=== PATIENT | male | born 1975 | race Caucasian/White ===

== ENCOUNTER 2019-05-04 05:08 | Emergency (ER) | payer SELFPAY ==
[2019-05-04 05:08] VITALS: BP 192/104; PULSE 71; RESP 18; TEMP 37.4; O2SAT 96; BMI 27.5
--- NOTE | 2019-05-04 05:17 | ED.VIS.GEN ---
History of Present Illness Chief Complaint: Headache Detail of Chief Complaint: Headache, congestion, cough Informant: Patient Onset: Days - 4 days Context: Gradual Onset Current Severity: Moderate Maximum Severity: Moderate Narrative: Patient presents with a 4-day history of left-sided head pressure. He states he feels it someone is drilling into the side of his head. He had some mild congestion. He has had cough, but states every time he coughs he feels like his head is going to explode. He denies fever or chills. - Past Medical History (1) Coronary artery disease Status: Chronic (2) Myocardial infarction Status: Chronic (3) H/O heart artery stent Status: Chronic (4) History of appendectomy Status: Resolved (5) H/O hernia repair Status: Resolved Past Medical History - Allergies and Home Meds Allergies/Adverse Reactions: Allergies mint Allergy (Verified 05/04/19 05:11) Hives Penicillins Allergy (Verified 05/04/19 05:11) Anaphylaxis Primary Care Physician: NOT,DEFINED [NON-STAFF] - Prior records reviewed: Yes Lives: Alone Smoking Status: Current every day smoker Review of Systems General: Denies: Chills, Fever Eyes: Denies: Visual changes - bilaterally ENT: Denies: Bilateral ear pain Cardiovascular: Denies: Chest pain, Palpitations Respiratory: Reports: Dyspnea, Cough. Denies: Sputum Gastrointestinal: Denies: Abdominal pain, Nausea, Vomiting, Diarrhea Genitourinary: Denies: Dysuria Musculoskeletal: Denies: Myalgias, Extremity Pain Skin: Denies: Rash Neurological: Reports: Headache. Denies: Weakness, Parasthesia Physical Exam Vital Signs/Narrative: Vital Signs Temp Pulse Resp BP Pulse Ox 05/04/19 05:08 99.4 F H 71 18 192/104 H 96 Inital Vital Signs reviewed: Yes General: Well nourished, Well developed Head: Normocephalic ENT: Moist mucous membranes, TM's clear, Sinus tenderness - Patient has reproducible tenderness over both frontal sinuses. He has tenderness in the left maxillary sinus., - - Posterior pharyngeal drainage. Uvula midline. Neck: Supple, - - Moderate bilateral anterior cervical lymphadenopathy. Cardiovascular: Regular rate, Regular rhythm Respiratory: No distress, CTA bilaterally Abdomen: Soft, Nontender Skin: Normal color Neurological: Alert, Oriented x3 Psychological: Normal affect Diagnostic/Tx/Re-eval - Medical Decision Making Patient did drive himself to the emergency room and states he needs to drive himself home. He was given IV fluids, Toradol, and Zofran. He was given a dose of doxycycline for his sinusitis. On repeat evaluation blood pressure is 153/96. Patient tells me that because he does not have insurance he has not been on his medication for at least the last 6 months. He was able to write to the [facility] and get his Effient, but has not been taking any of his other medications. I did leave a message for social work with his permission to see if they can help with assistance. I will also give him a good Rx card to try to help with prescription costs. He will be given a prescription for doxycycline as well as metoprolol to help with his blood pressure control at home. He states his blood pressure usually runs around 180/112. ED Disposition - Plan for ED Patient: Disposition: Home or Assisted Living Diagnosis: Sinusitis Instructions: Sinus Headache, SINUSITIS, Abx Tx Prescriptions: Doxycycline 100 mg PO BID #20 capsule Metoprolol Tartrate 25 mg PO BID #60 tablet Referrals: Bari Olsen MD [STAFF PHYSICIAN] - Nicholas Rangel MD [STAFF PHYSICIAN] -
[2019-05-04] MEDS: Doxycycline 100 MG CAPSULE PO (05:22)
[2019-05-04] MEDS: 0.9% Normal Saline 1,000 ML 1000 ML IV (05:22)
[2019-05-04] MEDS: Ketorolac 30 MG/ML Syringe IV (05:23)
[2019-05-04] MEDS: Ondansetron 4 MG/2 ML Vial IV (05:24)
[2019-05-04 06:32] VITALS: BP 153/96
[2019-05-04 06:50] VITALS: BP 153/95; PULSE 78; RESP 18; O2SAT 96
== END 2019-05-04 06:51 | disposition home or self-care (01) ==
PROVIDERS: Emergency Provider Emergency Medicine
DX: J32.9 Chronic sinusitis, unspecified (principal); I25.10 Atherosclerotic heart disease of native coronary artery without angina pectoris; I25.2 Old myocardial infarction; F17.200 Nicotine dependence, unspecified, uncomplicated; Z95.5 Presence of coronary angioplasty implant and graft
CPT/HCPCS: 96361; 96374; 96375; 99284; J7030; A4216; J2405

== ENCOUNTER 2022-03-27 15:57 | Emergency (ER) | payer OTHER, SELFPAY ==
[2022-03-27 15:58] VITALS: TEMP 36.6; BMI 27.3
[2022-03-27 16:07] VITALS: BP 182/99; PULSE 79; RESP 18; TEMP 37; O2SAT 97
--- NOTE | 2022-03-27 16:13 | ED.RN ---
pt took 2 full strength aspirin and 1 nitro at home.
--- NOTE | 2022-03-27 16:21 | ED.VIS.CHEST ---
HPI History of Present Illness Chief Complaint: Chest Pain Informant: patient Onset/Context/Timing Onset: Today and Hours (8) Activity at onset: sudden Timing: Continuous Quality: Positive for Pressure and Tightness Location: Substernal and Left Parasternal Worsened By: Nothing Relieved By: Nothing Associated Symptoms: Positive for Dyspnea, Cough, Lightheadedness, Acid Reflux and Palpitations; Negative for Nausea, Vomiting, Diaphoresis or Fever Narrative Narrative: Patient presents with chest pain that began approximately 8 hours prior to arrival. Patient states the pain came on rather suddenly. Patient states he took his aspirin after this began. Patient states he also took a sublingual nitroglycerin which gave him a headache but did not affect his chest pain at all. Patient describes it as a tightness and pressure. Patient states it is over the substernal and left parasternal areas. Patient states nothing makes it better nothing makes it worse. Patient admits to some shortness of breath and cough. Patient also admits to some lightheadedness and palpitations. Patient also admits to some reflux symptoms. Patient has a history of coronary artery disease. Patient states the symptoms are similar to his prior [place]. [facility] Medical History (Updated 03/27/22 @ 20:[address] Bari Franco, DO) HTN (hypertension) Myocardial infarct Home Medications amlodipine 5 mg tablet 5 mg PO DAILY 03/27/22 [History Last Taken Unknown] aspirin 325 mg tablet 325 mg PO DAILY 03/27/22 [History Last Taken Unknown] lisinopril 10 mg tablet 10 mg PO DAILY 03/27/22 [History Last Taken Unknown] metoprolol tartrate 100 mg tablet 100 mg PO BID 03/27/22 [History Last Taken Unknown] pantoprazole 40 mg tablet,delayed release 40 mg PO DAILY 03/27/22 [History Last Taken Unknown] prasugrel 10 mg tablet (Effient) 10 mg PO DAILY 03/27/22 [History Last Taken Unknown] ranolazine 1,000 mg tablet,extended release,12 hr (Ranexa) 1,000 mg PO BID 03/27/22 [History Last Taken Unknown] simvastatin 40 mg tablet 40 mg PO QHS 03/27/22 [History Last Taken Unknown] Allergy/AdvReac Type Severity Reaction Status Date / Time mint Allergy Hives Verified 03/27/22 15:58 Penicillins Allergy Anaphylaxis Verified 03/27/22 15:58 Surgical History (Updated 03/27/22 @ 16:[address] Bari Franco DO) H/O heart artery stent Social History Smoking Status: Current every day smoker tobacco type: cigarettes ROS ROS ED Constitutional Constitutional ED: Denies chills or fever(s) Eyes Eyes: Reports blurry vision; Denies diplopia ENT ENT ED: Denies rhinorrhea or sore throat Cardiovascular Cardiovascular: Reports chest pain and palpitations Respiratory/Chest Respiratory/Chest: Reports cough and dyspnea Gastrointestinal Gastrointestinal: Denies abdominal pain, nausea or vomiting Genitourinary Genitourinary ED: Denies dysuria or hematuria Musculoskeletal Musculoskeletal: Reports neck pain; Denies back pain Integumentary Denies abscess or rash Neurologic Neurologic: Reports headache(s); Denies weakness Allergic/Immunologic Allergic/Immunologic ED: Denies mouth swelling or urticaria EXAM Physical Exam Const Vital Signs: 03/27/22 15:58 03/27/22 16:07 03/27/22 18:36 Temperature 97.8 F 98.6 F Temperature Source Temporal Oral Pulse Rate 79 77 Respiratory Rate 18 15 Blood Pressure 182/99 H 172/106 H Blood Pressure Mean 126 128 Pulse Ox 97 97 Oxygen Delivery Method Room Air Room Air Positive well nourished and well developed General Appearance ED: well developed and NAD HEENT normocephalic and atraumatic Eyes PERRL and EOMs intact bilaterally Neck supple and no JVD Chest Wall palpation of chest normal Resp normal respiratory effort and clear to auscultation bilaterally Effort and Inspection: Negative for respiratory distress Cardio regular rate, regular rhythm and no murmurs GI normal to inspection, nondistended, normoactive bowel sounds, soft to palpation and non-distended GI Narrative: There is some mild diffuse abdominal tenderness. There is no rebound or guarding noted. Extremity normal to inspection General Extremety ED: Negative for edema or tenderness General Extremity: Negative for edema Neuro oriented x3, CN's II-XII intact bilaterally and no sensory deficits noted Sensorium / Orientation: awake and alert Motor Exam: strength 5/5 throughout Psych mental status grossly normal Heart Score History: Slightly/Non-Suspicious ECG: Normal Age: >45 - <65 years Risk Factors: >/= 3 Risk Factors or History of CAD Troponin: </= Normal Limit Score: 3 MDM MDM MDM Narrative Medical decision making narrative: Patient had already taken aspirin and nitroglycerin prior to arrival, so this was not given here. EKG was obtained. On my interpretation, it showed a normal sinus rhythm with a rate of 74. NM interval, QRS interval, and QTc intervals were all normal. [place] was normal. There are no acute ST or T wave changes. There is poor R wave progression consistent with prior septal infarct. CBC was obtained and was reviewed. There is a mild leukocytosis of 11.8 but was otherwise within normal limits. Basic metabolic profile was obtained and was reviewed. Glucose was slightly elevated at 171 but the remainder was within normal limits. Anion gap was normal. Electrolytes were normal. High-sensitivity troponin was obtained and was reviewed. It was normal at 8. Portable 1 view chest x-ray was obtained. On my interpretation, lung haney are clear. There is normal cardiac silhouette. Bony thorax is normal. There is no acute process noted. Radiologist also interpreted the x-ray and agrees. 2-hour repeat high-sensitivity troponin was obtained and was reviewed. This was also normal at 7. Patient has a HEART score of 3. Patient was advised that this is low risk for acute cardiac event. Patient is PERC negative. I do not feel this is from a PE because he is PERC negative. Patient was instructed to follow-up with his primary care physician in 3 to 5 days. Patient was instructed return if worse in any way. Patient understood and was agreeable with the plan. All questions were answered. Lab Data Labs: Laboratory Results - last 24 hr 03/27/22 03/27/22 03/27/22 16:30 16:30 18:28 WBC 11.8 H RBC 5.68 Hgb 16.5 Hct 48.9 MCV 86.1 MCH 29.0 MCHC 33.7 RDW Std Deviation 39.6 RDW Coeff of Mesha 12.7 Plt Count 327 MPV 10.5 Immature Gran % (Auto) 0.400 Neut % (Auto) 64.8 Lymph % (Auto) 27.0 Mcclain % (Auto) 5.9 Eos % (Auto) 1.4 Baso % (Auto) 0.5 Absolute Neuts (auto) 7.6 Absolute Lymphs (auto) 3.18 Nucleated RBC % 0 Sodium 137 Potassium 3.7 Chloride 104 Carbon Dioxide 27.0 Anion Gap 6 BUN 15 Creatinine 1.17 Estim Creat Clear Calc 72.97 Est GFR (MDRD) Af Amer 86 Est GFR (MDRD) Non-Af 71 BUN/Creatinine Ratio 12.8 Glucose 171 H Calcium 8.7 Troponin I High Sens 8 7 Radiography Diagnostic Testing: Clinical Impression(s) from Imaging Studies Chest X-Ray 03/27/22 16:35 IMPRESSION: Normal x-ray examination of the chest. Electronically Signed: Alonzo Ingram MD at 17:25 EST Reading Location ID and State: [facility] / [place] , Service support , EKG Initial EKG: Attestation: I personally reviewed and interpreted this EKG as follows: Interpretation: Sinus Rhythm (74) and No Acute Injury Pattern Prior EKG tracings: not available for review Prior: No Prior Discharge Plan Triage Chief Complaint: Chest Pain ED Provider: Bari Franco Dx/Rx/DC Orders Clinical Impression: Chest pain of uncertain etiology, Hypertension Instructions: ED Chest Pain, Uncertain Cause Prescriptions: No Action aspirin 325 mg Tablet 325 mg PO DAILY metoprolol tartrate 100 mg Tablet 100 mg PO BID amlodipine 5 mg Tablet 5 mg PO DAILY simvastatin 40 mg Tablet 40 mg PO QHS pantoprazole 40 mg Tablet,Delayed Release (Dr/Ec) 40 mg PO DAILY lisinopril 10 mg Tablet 10 mg PO DAILY ranolazine [Ranexa] 1,000 mg Tablet Extended Release 12 Hr 1,000 mg PO BID prasugrel [Effient] 10 mg Tablet 10 mg PO DAILY Primary Care Provider: Care Physician,No Primary Referrals: Lexus Willis DO [Med Staff - [employer]] - 3-5 Days Care Physician,No Primary [Primary Care Provider] - Disposition Disposition: Home, Self Care
--- NOTE | 2022-03-27 16:26 | EKG12_ITS ---
Test Reason : Blood Pressure : / mmHG Vent. Rate : 074 BPM Atrial Rate : 074 BPM P-R Int : 170 ms QRS Dur : 080 ms QT Int : 386 ms P-R-T Axes : 064 009 022 degrees QTc Int : 428 ms Normal sinus rhythm with sinus arrhythmia Septal infarct , age undetermined Abnormal ECG Confirmed by DRE DURANT, FATOU ([id number]), newspaper editor RADHA HALL ([id number]) on 03/29/2022 11:18:28 AM Referred By: Confirmed By:FATOU ERICKSON MD
--- NOTE | 2022-03-27 16:35 | RAD_ITS ---
STUDY: X-RAY CHEST REASON FOR EXAM: Male, 46 years old. chest pain TECHNIQUE: Single frontal view of the chest. COMPARISON: None. FINDINGS: The lungs are clear and expanded. There is no demonstrated pleural abnormality. Normal size heart. Normal mediastinum and mahi. Normal visualized pulmonary arteries. Normal visualized aortic arch and descending thoracic aorta. Normal visualized thoracic spine. Normal visualized ribs, clavicles, and shoulders. There is no demonstrated abnormality of the visualized soft tissue structures of the upper abdomen. RAD/Chest 1 View (Portable) IMPRESSION: Normal x-ray examination of the chest. Electronically Signed: Alonzo Ingram MD at 17:25 EST ,
[2022-03-27 16:43] LABS: Absolute Lymphocyte Count 3.18 X10^3/uL (0.83-4.51); Absolute Neutrophil Count 7.6 X10^3/uL (2.0-7.7); Basophil# 0.06 X10^3/uL; Basophil% 0.5 % (0-1); Eosinophil# 0.16 X10^3/uL; Eosinophils% 1.4 % (0-5); Hematocrit 48.9 % (40-54); Hemoglobin 16.5 g/dL (13.0-16.5); Lymphocyte # 3.18 X10^3/ul (0.83-4.51); Mean Corp Hgb Conc 33.7 g/dL (32-36); Mean Corpuscular Volume 86.1 fL (80-94); Mean Platelet Vol. 10.5 fl (6.2-12.0); Monocyte# 0.69 X10^3/uL; Monocyte% 5.9 % (0-10); NRBC Flagged by Analyzer 0 % (0-5); Neutrophil # 7.63 X10^3/uL (2.7-7.7); Neutrophil % 64.8 % (47-70); Platelet Count 327 K/mm3 (150-450); RBC Distribution Width CV 12.7 % (11.6-14.6); RBC Distribution Width SD 39.6 fl (35.1-43.9); Red Blood Count 5.68 M/mm3 (4.6-6.2); White Blood Count 11.8 K/mm3 (4.4-11.0)
[2022-03-27 17:03] LABS: Anion Gap 6 (5-15); BUN 15 mg/dL (7-18); BUN/Creat Ratio 12.8 RATIO (10-20); Calcium,Total 8.7 mg/dL (8.5-10.1); Chloride 104 mmol/L (98-107); Creatinine, Serum 1.17 mg/dL (0.70-1.30); EST Glomerular Filtration Rate 71 mL/min (>60); Est Glom Filt Rate - Afr Amer 86 mL/min (>60); Estimated Creatinine Clearance 72.97 ml/min; Glucose 171 mg/dL (74-106); Potassium 3.7 mmol/L (3.5-5.1); Sodium Level 137 mmol/L (136-145); Troponin-I HS (w/2H Reflex) 8 pg/mL (3.0-78.0)
[2022-03-27 18:36] VITALS: BP 172/106; PULSE 77; RESP 15; O2SAT 97
[2022-03-27 18:40] LABS: Reflex Troponin-HS? (from REC) Y
[2022-03-27 19:07] LABS: Troponin-I HS 7 pg/mL (3.0-78.0)
[2022-03-27 20:22] VITALS: BP 134/80; PULSE 78; RESP 17; O2SAT 96
== END 2022-03-27 20:23 | disposition home or self-care (01) ==
PROVIDERS: Emergency Provider Emergency Medicine; Visit Provider Emergency Medicine
DX: R07.9 Chest pain, unspecified (principal); I10 Essential (primary) hypertension; F17.210 Nicotine dependence, cigarettes, uncomplicated; I25.10 Atherosclerotic heart disease of native coronary artery without angina pectoris; I25.2 Old myocardial infarction; Z79.82 Long term (current) use of aspirin; Z79.899 Other long term (current) drug therapy
CPT/HCPCS: 71045; 80048; 84484; 85025; 93005; 99284

== ENCOUNTER 2022-10-16 20:39 | Emergency (ER) | payer OTHER, SELFPAY ==
[2022-10-16 20:42] VITALS: BP 109/85; PULSE 65; RESP 24; TEMP 36.8; O2SAT 98; BMI 26.2
--- NOTE | 2022-10-16 21:00 | EKG12_ITS ---
Test Reason : CP Blood Pressure : / mmHG Vent. Rate : 063 BPM Atrial Rate : 063 BPM P-R Int : 136 ms QRS Dur : 098 ms QT Int : 422 ms P-R-T Axes : 058 -01 104 degrees QTc Int : 431 ms Normal sinus rhythm Inferior infarct , age undetermined Anterior infarct , age undetermined Abnormal ECG Confirmed by DRE DURANT, FATOU ([id number]), proposal editor RADHA HALL ([id number]) on 10/18/2022 1:25:23 PM Referred By: Confirmed By:FATOU ERICKSON MD
[2022-10-16 21:14] LABS: Absolute Lymphocyte Count 4.39 X10^3/uL (0.83-4.51); Absolute Neutrophil Count 6.4 X10^3/uL (2.0-7.7); Basophil# 0.07 X10^3/uL; Basophil% 0.6 % (0-1); Eosinophil# 0.21 X10^3/uL; Eosinophils% 1.7 % (0-5); Hematocrit 47.8 % (40-54); Hemoglobin 15.9 g/dL (13.0-16.5); Lymphocyte # 4.39 X10^3/ul (0.83-4.51); Lymphocyte % 36.4 % (19-41); Mean Corp Hgb Conc 33.3 g/dL (32-36); Mean Corpuscular Hgb 27.6 pg (27.0-32.0); Mean Platelet Vol. 9.9 fl (6.2-12.0); Monocyte# 0.93 X10^3/uL; Monocyte% 7.7 % (0-10); NRBC Flagged by Analyzer 0 % (0-5); Neutrophil # 6.42 X10^3/uL (2.7-7.7); Neutrophil % 53.2 % (47-70); Platelet Count 354 K/mm3 (150-450); RBC Distribution Width CV 14.5 % (11.6-14.6); RBC Distribution Width SD 43.3 fl (35.1-43.9); Red Blood Count 5.76 M/mm3 (4.6-6.2); White Blood Count 12.1 K/mm3 (4.4-11.0)
--- NOTE | 2022-10-16 21:14 | RAD_ITS ---
INDICATION: chest pain EXAMINATION/TECHNIQUE: X-RAY - XR Chest 1 View COMPARISON: 03/27/2022 chest radiograph. Findings: Single frontal view of the chest. LUNG PARENCHYMA: No acute focal airspace disease or mass lesion. PLEURA: No pleural effusion. No pneumothorax. HEART/GRE[place]LS: Post CABG changes. Cardiomediastinal silhouette is not enlarged. BONES: Median sternotomy wires. RAD/Chest 1 View (Portable) IMPRESSION: Chest with no acute disease. Electronically Signed: Gagan León MD at 21:50 EDT ,
[2022-10-16] MEDS: Aspirin 81 MG TAB.CHEW 324 MG PO (21:17)
--- NOTE | 2022-10-16 21:24 | EDS_ITS ---
HPI History of Present Illness Chief Complaint: Chest Pain Detail of Chief Complaint: Left parasternal chest pain. Informant: patient and spouse/S.O. Onset/Context/Timing Onset: Today Activity at onset: gradual Timing: Continuous Quality: Positive for Dull and Pressure Location: Left Parasternal Current Severity: Mild Maximum Severity: Mild Worsened By: Nothing Relieved By: Nothing Associated Symptoms: Negative for Nausea, Vomiting, Cough, Fever, Lightheadedness or Acid Reflux Narrative Narrative: 47-year-old male history of prior NC, CAD, 7 cardiac stents, hypertension, recent triple bypass in May of this year, diabetes and smoker. States earlier tonight he had a drop in his heart rate and blood pressure and some midsternal chest pain. He was seated when this occurred. It was not during exertion. Said he also got shaky and was not sure if this was his heartburn anxiety attack. Denies any recent exertional chest pain. No recent travel, surgery or hospitalization in the last month. No history of DVT or PE. No leg pain or swelling. No hemoptysis. Prior Similar Symptoms: Yes Recent Illness/Hospitalization: No CVD Risk Factors: Positive for Hypertension, Diabetes and Smoking PE Risk Factors: Negative for Recent Travel/Surgery, Recent Immobilization, Prior DVT or PE, Cancer or OCP + Smoking + >/=35 TAD Risk Factors: Negative for Marfan's Syndrome [facility] Medical History HTN (hypertension) Myocardial infarct Home Medications amlodipine 5 mg tablet 2.5 mg PO DAILY 03/27/22 [History Last Taken Unknown] lisinopril 10 mg tablet 5 mg PO DAILY 03/27/22 [History Last Taken Unknown] pantoprazole 40 mg tablet,delayed release 40 mg PO DAILY 03/27/22 [History Last Taken Unknown] simvastatin 40 mg tablet 40 mg PO QHS 03/27/22 [History Last Taken Unknown] aspirin 81 mg tablet,delayed release 81 mg PO DAILY 10/16/22 [History Last Taken Unknown] clopidogrel 75 mg tablet 75 mg PO DAILY 10/16/22 [History Last Taken Unknown] empagliflozin 10 mg tablet (Jardiance) 10 mg PO DAILY 10/16/22 [History Last Taken Unknown] escitalopram oxalate 10 mg tablet 20 mg PO DAILY 10/16/22 [History Last Taken Unknown] magnesium 30 mg tablet 30 mg PO BID 10/16/22 [History Last Taken Unknown] metoprolol succinate 50 mg tablet,extended release 24 hr 50 mg PO DAILY 10/16/22 [History Last Taken Unknown] potassium gluconate 595 mg (99 mg) tablet 595 mg PO DAILY 10/16/22 [History Last Taken Unknown] Allergy/AdvReac Type Severity Reaction Status Date / Time bee venom protein (honey bee) Allergy Anaphylaxis Verified 10/16/22 20:47 mint Allergy Hives Verified 03/27/22 15:58 Penicillins Allergy Anaphylaxis Verified 03/27/22 15:58 Surgical History H/O heart artery stent Hx of CABG Social History Smoking Status: Current every day smoker tobacco type: cigarettes ROS ROS ED ROS Narrative Nonexertional chest pain. Bradycardia. Review of Systems ROS Unobtainable: Denies due to encephalopathy Constitutional Constitutional ED: Denies chills or fever(s) Eyes Eyes: Denies none ENT ENT ED: Denies ear pain Cardiovascular Cardiovascular: Reports as per HPI and chest pain; Denies palpitations or racing heartbeat Respiratory/Chest Respiratory/Chest: Denies cough Gastrointestinal Gastrointestinal: Denies abdominal pain Genitourinary Genitourinary ED: Denies dysuria or hematuria Musculoskeletal Musculoskeletal: Denies arthralgias Integumentary Denies abscess Neurologic Neurologic: Denies headache(s) Psychiatric Psychiatric: Denies anxiety Endocrine Endocrinology: Denies cold intolerance Hematologic/Lymphatic Hematologic/Lymphatic: Denies easy bleeding Allergic/Immunologic Allergic/Immunologic ED: Denies mouth swelling EXAM Physical Exam Narrative Exam Narrative: Well-appearing 47-year-old male. Vital signs are stable afebrile. Initial pulse ox is 98 % on room air no signs hypoxia. Initial heart rate 65 and his blood pressure is 109/85. He does not look septic or toxic or in any distress. is present with the patient. H EENT exam unremarkable. Neck nontender no JVD. Lungs clear to auscultation bilaterally. Heart regular rate and rhythm rate about 65 no murmur. He does have reproducible pain over his left chest wall. Well-healed sternotomy incision. Abdomen soft nontender. Normal bowel sounds no peritoneal signs. Moving all 4 extremities. Calves are nontender without edema or cords. Equal symmetrical radial pulses. 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 Normal dorsi plantarflexion. Neurologically is awake and alert with no focal motor deficits. Const Vital Signs: 10/16/22 20:42 10/16/22 20:46 10/16/22 21:13 Temperature 98.2 F Temperature Source Oral Pulse Rate 65 Respiratory Rate 24 H Respiratory Effort Normal Non-Labored Blood Pressure 109/85 H Blood Pressure Mean 93 Pulse Ox 98 Oxygen Delivery Method Room Air Room Air Positive well nourished and well developed; Negative for obese, cachectic, contractures or unkempt General Appearance ED: well developed and NAD; Negative for unkempt, cachectic, contractures or pallor Nutritional Appearance: Negative for cachectic or obese HEENT Reports moist mucous membranes; Denies dry mucous membranes normocephalic and atraumatic; Negative for trauma or tenderness Mouth ED: No dry mucous membranes Mouth: No dry mucous membranes Eyes EOMs intact bilaterally General Eye ED: Negative for pale conjunctiva or scleral icterus Neck no lymphadenopathy, supple and no JVD General: Negative for tenderness Chest Wall inspection of chest normal; Negative for palpation of chest normal Chest Narrative: Reproducible left-sided chest wall pain. No ecchymosis or bruising. Well- healed prior sternotomy. Chest: Negative for tenderness Resp normal respiratory effort and clear to auscultation bilaterally Effort and Inspection: Negative for respiratory distress Auscultation: Negative for rales, rhonchi or wheezes Cardio regular rate, regular rhythm, S1 normal heart sound, S2 normal heart sound and no murmurs Rate: Negative for bradycardia or tachycardic Rhythm: Negative for abnormal rhythm Peripheral Pulses: pulses 2+ throughout GI normal to inspection, nondistended, normoactive bowel sounds, soft to palpation, non-tender, non-distended and no masses Back/Spine no CVA tenderness and no thoracic nor lumbar tenderness General Back: Negative for CVA tenderness Cervical Spine: Negative for cervical spine tenderness Extremity normal to inspection General Extremety ED: Negative for edema, pulses abnormal or tenderness General Extremity: Negative for edema or pulses abnormal Neuro oriented x3 and CN's II-XII intact bilaterally Sensorium / Orientation: awake, alert, oriented to person, oriented to place and oriented to time; Negative for confused, lethargic or stuporous Motor Exam: strength 5/5 throughout Psych mental status grossly normal Appearance: Negative for unkempt Attitude: No agitated Mood & Affect: Negative for depressed, anxious or tearful Skin no rashes or lesions noted and no wounds General Skin Exam: Negative for jaundice or pallor Rashes: No rashes noted Trauma: Negative for abrasion, laceration or puncture Heart Score History: Slightly/Non-Suspicious ECG: Normal Age: >45 - <65 years Risk Factors: >/= 3 Risk Factors or History of CAD Troponin: </= Normal Limit Score: 3 MDM MDM MDM Narrative Medical decision making narrative: 47-year-old male with 7 prior cardiac stents. Recent triple bypass surgery in May of this year. With nonexertional left-sided reproducible chest pain. He will undergo a cardiac work-up. He has no history or risk factors for DVT or PE. He is currently on both Plavix and aspirin. He has no leg pain or swelling. No hemoptysis. History & Record Review Discussion w/independent historian: Patient and Family Additional record(s) reviewed:: Prior inpatient record, Prior outpatient record, Prior ED visit and Prior labs Lab Data Attestation: I reviewed the patient's lab results. Lab results narrative: CBC shows white count 12.1. H&H 15 and 47. Platelets 354. Electrolytes show a gap of 7. Normal BUN and creatinine 0.8. Glucose 164. Initial troponin is 10. Chest x-ray is unremarkable. Prior sternotomy. Labs: Laboratory Results - last 24 hr 10/16/22 20:44 WBC 12.1 H RBC 5.76 Hgb 15.9 Hct 47.8 MCV 83.0 MCH 27.6 MCHC 33.3 RDW Std Deviation 43.3 RDW Coeff of Mesha 14.5 Plt Count 354 MPV 9.9 Immature Gran % (Auto) 0.400 Neut % (Auto) 53.2 Lymph % (Auto) 36.4 [place] % (Auto) 7.7 Eos % (Auto) 1.7 Baso % (Auto) 0.6 Absolute Neuts (auto) 6.4 Absolute Lymphs (auto) 4.39 Nucleated RBC % 0 Sodium 137 Potassium 3.7 Chloride 102 Carbon Dioxide 28.0 Anion Gap 7 BUN 13 Creatinine 0.88 Estim Creat Clear Calc 99.32 Est GFR (MDRD) Af Amer 118 Est GFR (MDRD) Non-Af 98 BUN/Creatinine Ratio 14.7 Glucose 164 H Calcium 9.0 Troponin I High Sens 10 Radiography Chest X-Ray - ED: 1 View, Read by ED Physician, Normal, Heart, Lungs, Mediastinum, Bony Structures, No Acute Disease and Chronic Changes Diagnostic Testing: Chest x-ray, portable, single view shows no acute abnormality. Interpreted by myself. Normal cardiac silhouette. Normal mediastinum. Normal lung haney. Prior sternotomy. No acute abnormality. Rhythm Strip Rhythm Strip: Sinus Rhythm Rate: 63 Ectopy: None EKG Initial EKG: Attestation: I personally reviewed and interpreted this EKG as follows: Interpretation: Sinus Rhythm and No Acute Injury Pattern Comments: Normal sinus rhythm rate of 63 no acute signs of NC or ischemia. Old prior inferior infarct. No acute ST elevation or depression. Discharge Plan Triage Chief Complaint: Chest Pain ED Provider: Beck Mcmanus Dx/Rx/DC Orders Prescriptions: No Action amlodipine 5 mg Tablet 2.5 mg PO DAILY simvastatin 40 mg Tablet 40 mg PO QHS pantoprazole 40 mg Tablet,Delayed Release (Dr/Ec) 40 mg PO DAILY lisinopril 10 mg Tablet 5 mg PO DAILY Jardiance 10 mg tablet 10 mg PO DAILY Patient Comments: TAKE 1 TABLET IN THE MORNING DAILY escitalopram oxalate 10 mg tablet 20 mg PO DAILY clopidogrel 75 mg tablet 75 mg PO DAILY metoprolol succinate 50 mg tablet extended release 24 hr 50 mg PO DAILY magnesium 30 mg tablet 30 mg PO BID potassium gluconate 595 mg (99 mg) tablet 595 mg PO DAILY aspirin 81 mg tablet,delayed release (DR/EC) 81 mg PO DAILY Primary Care Provider: ARNALDO FERGUSON Referrals: ARNALDO FERGUSON CRNP [Primary Care Provider] -
[2022-10-16 21:31] LABS: Anion Gap 7 (5-15); BUN 13 mg/dL (7-18); BUN/Creat Ratio 14.7 RATIO (10-20); Chloride 102 mmol/L (98-107); Creatinine, Serum 0.88 mg/dL (0.70-1.30); EST Glomerular Filtration Rate 98 mL/min (>60); Est Glom Filt Rate - Afr Amer 118 mL/min (>60); Estimated Creatinine Clearance 99.32 ml/min; Glucose 164 mg/dL (74-106); Potassium 3.7 mmol/L (3.5-5.1); Sodium Level 137 mmol/L (136-145); Troponin-I HS (w/2H Reflex) 10 pg/mL (3.0-78.0)
[2022-10-16 21:40] VITALS: BP 130/80; PULSE 68; RESP 19; O2SAT 93
[2022-10-16 22:00] VITALS: BP 116/73; PULSE 66; RESP 19; O2SAT 93
[2022-10-16 23:00] VITALS: BP 130/78; PULSE 66; RESP 22; O2SAT 95
[2022-10-16 23:11] LABS: Reflex Troponin-HS? (from REC) Y
[2022-10-16 23:37] LABS: Troponin-I HS 9 pg/mL (3.0-78.0)
[2022-10-16 23:54] VITALS: BP 122/80; PULSE 65; RESP 20; O2SAT 95
== END 2022-10-16 23:58 | disposition home or self-care (01) ==
PROVIDERS: Emergency Provider Emergency Medicine; PCP Nurse Practitioner Adult Health; Visit Provider Emergency Medicine
DX: R07.89 Other chest pain (principal); I25.10 Atherosclerotic heart disease of native coronary artery without angina pectoris; I25.2 Old myocardial infarction; I10 Essential (primary) hypertension; F17.210 Nicotine dependence, cigarettes, uncomplicated; Z95.1 Presence of aortocoronary bypass graft; Z95.5 Presence of coronary angioplasty implant and graft; Z79.02 Long term (current) use of antithrombotics/antiplatelets; Z79.82 Long term (current) use of aspirin; Z79.899 Other long term (current) drug therapy
CPT/HCPCS: 71045; 80048; 84484; 85025; 93005; 99284; A4216

== ENCOUNTER 2023-01-01 11:34 | Emergency (ER) | payer OTHER, SELFPAY ==
[2023-01-01 11:35] VITALS: BP 178/110; PULSE 93; RESP 16; TEMP 36.6; O2SAT 100; BMI 28.3
--- NOTE | 2023-01-01 11:50 | EKG12_ITS ---
Test Reason : DYSRHYTHMIA Blood Pressure : / mmHG Vent. Rate : 083 BPM Atrial Rate : 083 BPM P-R Int : 156 ms QRS Dur : 084 ms QT Int : 362 ms P-R-T Axes : 063 -08 096 degrees QTc Int : 425 ms Normal sinus rhythm Inferior infarct (cited on or before 27-MAR-2022) Anterior infarct (cited on or before 27-MAR-2022) Abnormal ECG Confirmed by NEETA DURANT, GRETEL ([id number]), web content editor LUCIANO ULRICH ([id number]) on 01/04/2023 12:36:51 PM Referred By: IRAIS Confirmed By:FELI SANTACRUZ MD
--- NOTE | 2023-01-01 11:52 | ED.VIS.DENTA ---
HPI <USHA Shen - Last Filed: 01/01/23 12:23> History of Present Illness Chief Complaint: Dental Narrative Narrative: Patient presenting today with left lower dental pain that he has had since Tuesday. He reports that he chipped his left mandibular second molar a few months ago and did have an infection to this tooth in the past but has not been able to get into see the dentist to have it fixed. He denies any fever or chills. He also reports having intermittent heart palpitations over the past 2 days, he denies having any chest pain associated with this. He reports that he thinks that he is just anxious regarding his tooth. He does have a history of CAD, CABG, and hypertension. PFS <USHA Shen - Last Filed: 01/01/23 12:23> [facility] Medical History HTN (hypertension) Myocardial infarct Home Medications amlodipine 5 mg tablet 2.5 mg PO DAILY 03/27/22 [History Last Taken Unknown] lisinopril 10 mg tablet 5 mg PO DAILY 03/27/22 [History Last Taken Unknown] pantoprazole 40 mg tablet,delayed release 40 mg PO DAILY 03/27/22 [History Last Taken Unknown] simvastatin 40 mg tablet 40 mg PO QHS 03/27/22 [History Last Taken Unknown] aspirin 81 mg tablet,delayed release 81 mg PO DAILY 10/16/22 [History Last Taken Unknown] clopidogrel 75 mg tablet 75 mg PO DAILY 10/16/22 [History Last Taken Unknown] empagliflozin 10 mg tablet (Jardiance) 10 mg PO DAILY 10/16/22 [History Last Taken Unknown] escitalopram oxalate 10 mg tablet 20 mg PO DAILY 10/16/22 [History Last Taken Unknown] magnesium 30 mg tablet 30 mg PO BID 10/16/22 [History Last Taken Unknown] metoprolol succinate 50 mg tablet,extended release 24 hr 50 mg PO DAILY 10/16/22 [History Last Taken Unknown] potassium gluconate 595 mg (99 mg) tablet 595 mg PO DAILY 10/16/22 [History Last Taken Unknown] clindamycin HCl 300 mg capsule (Cleocin HCl) 300 mg PO Q6H 10 days #40 CAPSULES 01/01/23 [Rx Last Taken Unknown] Allergy/AdvReac Type Severity Reaction Status Date / Time bee venom protein (honey bee) Allergy Anaphylaxis Verified 01/01/23 11:36 mint Allergy Hives Verified 01/01/23 11:36 Penicillins Allergy Anaphylaxis Verified 01/01/23 11:36 Surgical History H/O heart artery stent Hx of CABG Social History Smoking Status: Current every day smoker tobacco type: cigarettes ROS <USHA Shen - Last Filed: 01/01/23 12:23> ROS ED Constitutional Constitutional ED: Denies chills or fever(s) Cardiovascular Cardiovascular: Reports palpitations; Denies chest pain or racing heartbeat Respiratory/Chest Respiratory/Chest: Denies cough, dyspnea or dyspnea on exertion Gastrointestinal Gastrointestinal: Denies abdominal pain, nausea or vomiting Musculoskeletal Musculoskeletal: Denies arthralgias or myalgias Integumentary Denies rash Neurologic Neurologic: Denies weakness EXAM <USHA Shen - Last Filed: 01/01/23 12:23> Physical Exam Const Vital Signs: 01/01/23 11:35 01/01/23 11:52 Temperature 98 F Temperature Source Temporal Pulse Rate 93 Respiratory Rate 16 Respiratory Effort Normal Blood Pressure 178/110 H Blood Pressure Mean 132 Pulse Ox 100 Oxygen Delivery Method Room Air Positive well nourished, well developed and no apparent distress General Appearance ED: well developed HEENT Reports normocephalic and head/scalp atraumatic HEENT Narrative: Soft tissue swelling to the left lower mandible. Pain to the left mandibular first molar, visible dental carry. Patient has visible dental caries throughout. Mouth ED: Yes moist mucous membranes normal Throat: posterior oropharynx normal Eyes PERRL and EOMs intact bilaterally Neck full ROM and supple Chest Wall inspection of chest normal Resp normal respiratory effort and clear to auscultation bilaterally Cardio regular rate and regular rhythm GI soft to palpation, non-tender, non-distended and no masses Back/Spine normal ROM and normal to inspection Extremity normal to inspection and full ROM Neuro oriented x3, CN's II-XII intact bilaterally, moves all extremities, no focal motor deficits and no sensory deficits noted Sensorium / Orientation: awake and alert Psych mental status grossly normal and thought process normal Skin no rashes or lesions noted and no wounds <Dr. Beck Mcmanus MD - Last Filed: 01/01/23 12:12> Physical Exam Const Vital Signs: 01/01/23 11:35 01/01/23 11:52 Temperature 98 F Temperature Source Temporal Pulse Rate 93 Respiratory Rate 16 Respiratory Effort Normal Blood Pressure 178/110 H Blood Pressure Mean 132 Pulse Ox 100 Oxygen Delivery Method Room Air [facility] <USHA Shen - Last Filed: 01/01/23 12:23> [facility] Narrative Medical decision making narrative: Patient presenting due to dental pain to his left mandibular 1st molar and intermittent heart palpitations that he has had since yesterday. He is well-appearing and in no acute distress, he is hypertensive here but otherwise vitals are unremarkable. Patient does have visible dental caries and poor dentition throughout with minimal surrounding soft tissue inflammation to the left lower gum line. No trismus, no signs of Ludewig's angina, no obvious dental abscess. He will be started on clindamycin with first dose here, he will be given Tylenol for pain, EKG will be obtained to rule out cardiac arrhythmia and is normal sinus rhythm. Patient has been given a dental referral sheet and is to follow-up with his PCP as well. He will be discharged in stable condition. I have personally performed a face to face assessment of the patient and have reviewed the HODA Note. I performed a substantive portion of the visit including all aspects of the following. My cardona findings include: History is 47-year-old male complaint left lower jaw dental pain. History of the same. Mild swelling to the left mandible region. No trouble swallowing. No fever. Exam is [well-appearing middle-age male. Vital signs stable afebrile. HEENT exam mild swelling along the left mandible. No trismus. Able to open close his mouth and any difficulty. Upper jaw dentures. His left lower jaw molar is tender to palpation. There is mild gingival inflammation. No abscess to drain. No Jodi's angina. No trouble swallowing or breathing. Neck nontender. Lungs are clear. Heart regular rhythm.] Medical Decision Making [patient be started on clindamycin. Follow-up with his dentist. Tylenol for pain.] Other additions or changes: [None] EKG Initial EKG: Comments: 83 bpm, normal sinus rhythm, no ST elevation, reviewed and interpreted by attending ED physician <Dr. Beck Mcmanus MD - Last Filed: 01/01/23 12:12> [facility] Narrative Medical decision making narrative: Patient presenting due to dental pain to his left mandibular 1st molar and intermittent heart palpitations that he has had since yesterday. He is well-appearing and in no acute distress, he is hypertensive here but otherwise vitals are unremarkable. Patient does have visible dental caries and poor dentition throughout with surrounding soft tissue inflammation to that tooth. No trismus, no signs of Ludewig's angina, no obvious dental abscess. He will be started on clindamycin with first dose here, he will be given Tylenol for pain, EKG will be obtained to rule out cardiac arrhythmia. I have personally performed a face to face assessment of the patient and have reviewed the HODA Note. I performed a substantive portion of the visit including all aspects of the following. My cardona findings include: History is 47-year-old male complaint left lower jaw dental pain. History of the same. Mild swelling to the left mandible region. No trouble swallowing. No fever. Exam is [well-appearing middle-age male. Vital signs stable afebrile. HEENT exam mild swelling along the left mandible. No trismus. Able to open close his mouth and any difficulty. Upper jaw dentures. His left lower jaw molar is tender to palpation. There is mild gingival inflammation. No abscess to drain. No Jodi's angina. No trouble swallowing or breathing. Neck nontender. Lungs are clear. Heart regular rhythm.] Medical Decision Making [patient be started on clindamycin. Follow-up with his dentist. Tylenol for pain.] Other additions or changes: [None] History & Record Review Discussion w/independent historian: Patient Additional record(s) reviewed:: Prior inpatient record, Prior outpatient record, Prior ED visit and Prior labs Discharge Plan Triage Chief Complaint: Dental Other Complaint: Palpitations ED Midlevel Provider: Stacy Coffman ED Provider: Beck Mcmanus Dx/Rx/DC Orders Clinical Impression: Heart palpitations, Dental caries, Pain, dental Instructions: ED Dental Cavity, ED Palpitations Prescriptions: New clindamycin HCl [Cleocin HCl] 300 mg capsule 300 mg PO Q6H 10 Days Qty: 40 0RF No Action amlodipine 5 mg Tablet 2.5 mg PO DAILY simvastatin 40 mg Tablet 40 mg PO QHS pantoprazole 40 mg Tablet,Delayed Release (Dr/Ec) 40 mg PO DAILY lisinopril 10 mg Tablet 5 mg PO DAILY Jardiance 10 mg tablet 10 mg PO DAILY Patient Comments: TAKE 1 TABLET IN THE MORNING DAILY escitalopram oxalate 10 mg tablet 20 mg PO DAILY clopidogrel 75 mg tablet 75 mg PO DAILY metoprolol succinate 50 mg tablet extended release 24 hr 50 mg PO DAILY magnesium 30 mg tablet 30 mg PO BID potassium gluconate 595 mg (99 mg) tablet 595 mg PO DAILY aspirin 81 mg tablet,delayed release (DR/EC) 81 mg PO DAILY Primary Care Provider: ARNALDO FERGUSON Referrals: ARNALDO FERGUSON CRNP [Primary Care Provider] - Activity Restrictions/Additional Instructions: Take antibiotics as prescribed and follow-up with a dentist. Return for any worsening of your symptoms. You can take Tylenol for your pain. Disposition Disposition: Home, Self Care
[2023-01-01] MEDS: Acetaminophen 325 MG Tablet 650 MG PO (12:07)
[2023-01-01] MEDS: Clindamycin HCl 150 MG Capsule 450 MG PO (12:07)
== END 2023-01-01 12:35 | disposition home or self-care (01) ==
PROVIDERS: Emergency Provider Emergency Medicine; PCP Nurse Practitioner Adult Health; Visit Provider Emergency Medicine
DX: R00.2 Palpitations (principal); K02.9 Dental caries, unspecified; K08.89 Other specified disorders of teeth and supporting structures; I10 Essential (primary) hypertension; I25.10 Atherosclerotic heart disease of native coronary artery without angina pectoris; F17.210 Nicotine dependence, cigarettes, uncomplicated; I25.2 Old myocardial infarction; Z79.82 Long term (current) use of aspirin; Z79.899 Other long term (current) drug therapy; Z95.1 Presence of aortocoronary bypass graft
CPT/HCPCS: 93005; 99284

== ENCOUNTER 2023-01-02 07:42 | Emergency (ER) | payer OTHER, SELFPAY ==
[2023-01-02 07:45] VITALS: BP 177/110; PULSE 88; RESP 16; TEMP 36.8; O2SAT 98; BMI 27.3
--- NOTE | 2023-01-02 07:51 | CT_ITS ---
STUDY: CT SOFT TISSUE NECK WITH CONTRAST REASON FOR EXAM: Male, 47 years old. dental abscess RADIATION DOSAGE (If Supplied By Facility): CTDIvol = ( 16.51 ) mGy, DLP = ( 478.49 ) mGycm TECHNIQUE: The patient was scanned in a multi-detector CT scanner. High resolution transaxial imaging was performed following intravenous administration of IV 75mL Isovue-370. Sagittal and coronal images were reconstructed. Individualized dose optimization techniques were used for this CT. COMPARISON: None. FINDINGS: Normal bilateral parotid glands. 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 Normal bilateral parapharyngeal spaces. Normal bilateral carotid spaces. Normal bilateral sublingual and submandibular glands and spaces. Normal visualized nasopharynx. Normal retropharyngeal space. Normal perivertebral space. Normal visualized bilateral faucial tonsils. The visualized tongue, tongue base and oropharynx are normal. The visualized cervical lymph nodes (levels I-) are within normal size limits, and maintain normal morphology. There is no demonstrated solid or cystic mass lesion. There is no abnormal contrast enhancement. Edema of the left maxillary subcutaneous fat consistent with inflammation. No loculated fluid collection to suggest abscess. Normal epiglottis, bilateral vallecula and hypopharynx. The pre-epiglottic and paraglottic adipose spaces are normal. Normal visualized bilateral piriform sinuses, aryepiglottic folds, vocal cords, and arytenoid-cricoid articulations. Normal subglottic trachea. Normal bilateral lobes of the thyroid gland. Normal visualized pulmonary apices. Normal visualized paranasal sinuses. Normal visualized cervical spine. CT/Soft Tissue Neck WITH Contrast IMPRESSION: Left maxillary soft tissue inflammation but no abscess. Electronically Signed: Kenyon Robbins MD at 9:05 EDT ,
--- NOTE | 2023-01-02 08:02 | ED.VIS.DENTA ---
HPI History of Present Illness Chief Complaint: Dental Informant: patient Onset/Context/Timing Onset: Days Context: Gradual Onset Narrative Narrative: Patient presents back to the ER secondary to increased pain and swelling of his left jaw. Patient was seen yesterday for dental infection. He was started on clindamycin. He has also had intermittent palpitations for the past 2 days but denies chest pain. He states the pain and swelling are significantly worse today so he returned back to the ER. [facility] Medical History HTN (hypertension) Myocardial infarct Home Medications amlodipine 5 mg tablet 2.5 mg PO DAILY 03/27/22 [History Last Taken Unknown] lisinopril 10 mg tablet 5 mg PO DAILY 03/27/22 [History Last Taken Unknown] pantoprazole 40 mg tablet,delayed release 40 mg PO DAILY 03/27/22 [History Last Taken Unknown] simvastatin 40 mg tablet 40 mg PO QHS 03/27/22 [History Last Taken Unknown] aspirin 81 mg tablet,delayed release 81 mg PO DAILY 10/16/22 [History Last Taken Unknown] clopidogrel 75 mg tablet 75 mg PO DAILY 10/16/22 [History Last Taken Unknown] empagliflozin 10 mg tablet (Jardiance) 10 mg PO DAILY 10/16/22 [History Last Taken Unknown] escitalopram oxalate 10 mg tablet 20 mg PO DAILY 10/16/22 [History Last Taken Unknown] magnesium 30 mg tablet 30 mg PO BID 10/16/22 [History Last Taken Unknown] metoprolol succinate 50 mg tablet,extended release 24 hr 50 mg PO DAILY 10/16/22 [History Last Taken Unknown] potassium gluconate 595 mg (99 mg) tablet 595 mg PO DAILY 10/16/22 [History Last Taken Unknown] clindamycin HCl 300 mg capsule (Cleocin HCl) 300 mg PO Q6H 10 days #40 CAPSULES 01/01/23 [Rx Last Taken Unknown] oxycodone-acetaminophen 5 mg-325 mg tablet (Percocet) 1 tab PO Q8H PRN pain 3 days #10 tabs 01/02/23 [Rx Last Taken Unknown] Allergy/AdvReac Type Severity Reaction Status Date / Time bee venom protein (honey bee) Allergy Anaphylaxis Verified 01/02/23 07:45 mint Allergy Hives Verified 01/02/23 07:45 Penicillins Allergy Anaphylaxis Verified 01/02/23 07:45 Surgical History H/O heart artery stent Hx of CABG Social History Smoking Status: Current every day smoker tobacco type: cigarettes ROS ROS ED Constitutional Constitutional ED: Denies chills or fever(s) Eyes Eyes: Denies change in vision ENT ENT ED: Reports other Details: Left dental pain with facial swelling. ; Denies rhinorrhea or sore throat Cardiovascular Cardiovascular: Reports palpitations; Denies chest pain Respiratory/Chest Respiratory/Chest: Denies cough or dyspnea Gastrointestinal Gastrointestinal: Denies abdominal pain, nausea or vomiting Musculoskeletal Musculoskeletal: Denies back pain or extremity pain Integumentary Denies Abrasions or rash Neurologic Neurologic: Denies headache(s) or weakness Psychiatric Psychiatric: Denies anxiety or depression Allergic/Immunologic Allergic/Immunologic ED: Denies lip swelling or urticaria EXAM Physical Exam Const Vital Signs: 01/02/23 07:45 Temperature 98.2 F Temperature Source Temporal Pulse Rate 88 Respiratory Rate 16 Blood Pressure 177/110 H Blood Pressure Mean 132 Pulse Ox 98 Oxygen Delivery Method Room Air Positive well nourished and well developed General Appearance ED: well developed HEENT Reports normocephalic and head/scalp atraumatic HEENT Narrative: Left-sided facial edema along the mandible. Intraoral examination reveals an abscess along the inner surface of the gums left mandible. No evidence of Ludewig's. Patient speaks with a strong voice and tolerate secretions well. Eyes PERRL and EOMs intact bilaterally Neck supple Chest Wall inspection of chest normal and palpation of chest normal Resp normal respiratory effort and clear to auscultation bilaterally Cardio regular rate and regular rhythm GI normal to inspection, nondistended, normoactive bowel sounds Palpation: soft Extremity normal to inspection Neuro oriented x3 and no sensory deficits noted Sensorium / Orientation: alert Motor Exam: strength 5/5 throughout Psych mental status grossly normal Skin no rashes or lesions noted MDM MDM MDM Narrative Medical decision making narrative: Patient placed on cardiac catheterization technologist. Labwork obtained to evaluate for leukocytosis, anemia, and electrolyte derangement. EKG obtained to evaluate for cardiac arrhythmia/ischemia. CT scan of the neck to include mandible obtained to evaluate for abscess. Lab Data Attestation: I reviewed the patient's lab results. Labs: Laboratory Results - last 24 hr 01/02/23 08:03 WBC 17.2 H RBC 5.28 Hgb 15.2 Hct 46.5 MCV 88.1 MCH 28.8 MCHC 32.7 RDW Std Deviation 44.8 H RDW Coeff of Mesha 13.8 Plt Count 305 MPV 10.0 Immature Gran % (Auto) 0.600 Neut % (Auto) 74.7 H Lymph % (Auto) 14.2 L Pope % (Auto) 9.0 Eos % (Auto) 1.2 Baso % (Auto) 0.3 Absolute Neuts (auto) 12.8 H Absolute Lymphs (auto) 2.44 Nucleated RBC % 0 Diff Path Review May foll Sodium 137 Potassium 4.1 Chloride 105 Carbon Dioxide 29.0 Anion Gap 3 L BUN 11 Creatinine 0.86 Estim Creat Clear Calc 101.63 Est GFR (MDRD) Af Amer 122 Est GFR (MDRD) Non-Af 101 BUN/Creatinine Ratio 12.9 Glucose 172 H Calcium 8.6 Troponin I High Sens 8 Radiography Diagnostic Testing: Clinical Impression(s) from Imaging Studies Soft Tissue Neck CT 01/02/23 07:51 IMPRESSION: Left maxillary soft tissue inflammation but no abscess. Electronically Signed: Kenyon Robbins MD at 9:05 EDT , EKG Initial EKG: Attestation: I personally reviewed and interpreted this EKG as follows: Interpretation: Sinus Rhythm (Sinus at 87 with no acute ischemia.) Treatment and Re-Evaluation Narrative: CBC was elevated white count at 17.2 with 74% neutrophils. Chemistry studies unremarkable with normal renal function. Glucose is 172. Troponin is normal at 8. EKG is sinus rhythm with no evidence of acute ischemia. CT scan of the neck reveals soft tissue swelling around the left maxilla but no evidence of a focal abscess. There was a visible abscess along the medial gumline in the left mandibular surface. Cottonball soaked in lidocaine is placed over the area. I went back to remove this with intention to drain the abscess with a needle, however abscess had already opened and drained. The area is cleansed. 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 He has referral for his dentist already. Return instructions provided. Discharge Plan Triage Chief Complaint: Dental ED Provider: [place] Dx/Rx/DC Orders Clinical Impression: Palpitations, Dental abscess Instructions: ED Dental Abscess, ED Palpitations Prescriptions: New oxycodone-acetaminophen [Percocet] 5-325 mg tablet 1 tab PO Q8H PRN (Reason: pain) 3 Days Qty: 10 0RF No Action amlodipine 5 mg Tablet 2.5 mg PO DAILY simvastatin 40 mg Tablet 40 mg PO QHS pantoprazole 40 mg Tablet,Delayed Release (Dr/Ec) 40 mg PO DAILY lisinopril 10 mg Tablet 5 mg PO DAILY Jardiance 10 mg tablet 10 mg PO DAILY Patient Comments: TAKE 1 TABLET IN THE MORNING DAILY escitalopram oxalate 10 mg tablet 20 mg PO DAILY clopidogrel 75 mg tablet 75 mg PO DAILY metoprolol succinate 50 mg tablet extended release 24 hr 50 mg PO DAILY magnesium 30 mg tablet 30 mg PO BID potassium gluconate 595 mg (99 mg) tablet 595 mg PO DAILY aspirin 81 mg tablet,delayed release (DR/EC) 81 mg PO DAILY clindamycin HCl [Cleocin HCl] 300 mg capsule 300 mg PO Q6H 10 Days Qty: 40 0RF Stand Alone Forms: ED Work / School Excuse Primary Care Provider: ARNALDO FERGUSON Referrals: ARNALDO FERGUSON CRNP [Primary Care Provider] - Disposition Disposition: Home, Self Care Discharge Date/Time: 01/02/23 10:07
[2023-01-02 08:13] LABS: Absolute Lymphocyte Count 2.44 X10^3/uL (0.83-4.51); Absolute Neutrophil Count 12.8 X10^3/uL (2.0-7.7); Basophil# 0.06 X10^3/uL; Basophil% 0.3 % (0-1); Eosinophil# 0.21 X10^3/uL; Eosinophils% 1.2 % (0-5); Hematocrit 46.5 % (40-54); Hemoglobin 15.2 g/dL (13.0-16.5); Lymphocyte # 2.44 X10^3/ul (0.83-4.51); Lymphocyte % 14.2 % (19-41); Mean Corp Hgb Conc 32.7 g/dL (32-36); Mean Corpuscular Hgb 28.8 pg (27.0-32.0); Mean Corpuscular Volume 88.1 fL (80-94); Monocyte# 1.54 X10^3/uL; NRBC Flagged by Analyzer 0 % (0-5); Neutrophil # 12.84 X10^3/uL (2.7-7.7); Neutrophil % 74.7 % (47-70); POSITIVE DIFFERENTIAL YES; Platelet Count 305 K/mm3 (150-450); RBC Distribution Width CV 13.8 % (11.6-14.6); RBC Distribution Width SD 44.8 fl (35.1-43.9); Red Blood Count 5.28 M/mm3 (4.6-6.2); White Blood Count 17.2 K/mm3 (4.4-11.0)
[2023-01-02 08:14] LABS: Differential Indicated SCAN CRITERIA MET
[2023-01-02 08:31] LABS: Anion Gap 3 (5-15); BUN 11 mg/dL (7-18); BUN/Creat Ratio 12.9 RATIO (10-20); Calcium,Total 8.6 mg/dL (8.5-10.1); Chloride 105 mmol/L (98-107); Creatinine, Serum 0.86 mg/dL (0.70-1.30); EST Glomerular Filtration Rate 101 mL/min (>60); Est Glom Filt Rate - Afr Amer 122 mL/min (>60); Estimated Creatinine Clearance 101.63 ml/min; Glucose 172 mg/dL (74-106); Potassium 4.1 mmol/L (3.5-5.1); Sodium Level 137 mmol/L (136-145); Troponin-I HS 8 pg/mL (3.0-78.0)
[2023-01-04 10:20] LABS: Pathologist Review Reviewed
== END 2023-01-02 10:07 | disposition home or self-care (01) ==
PROVIDERS: Emergency Provider Emergency Medicine; PCP Nurse Practitioner Adult Health; Visit Provider Emergency Medicine
DX: R00.2 Palpitations (principal); K04.7 Periapical abscess without sinus; F17.210 Nicotine dependence, cigarettes, uncomplicated
CPT/HCPCS: 70491; 80048; 84484; 85025; 93005; 99284; Q9967

== ENCOUNTER 2023-04-08 06:53 | Emergency (ER) | payer MEDICAID, SELFPAY ==
[2023-04-08] VITALS (7 sets, daily range): BP systolic 100–152; BP diastolic 66–94; PULSE 55–72; RESP 15–19; TEMP 36.3; O2SAT 95–98; BMI 29.2
--- NOTE | 2023-04-08 07:08 | ED.VIS.CHEST ---
HPI History of Present Illness Chief Complaint: Chest Pain Informant: patient Onset/Context/Timing Onset: Hours (3) Activity at onset: sudden and sleep Timing: Continuous Quality: Positive for Pressure and Sharp Location: Left Chest Worsened By: Nothing Relieved By: Nothing Associated Symptoms: Positive for Nausea, Dyspnea, Lightheadedness and Acid Reflux; Negative for Vomiting, Diaphoresis, Cough, Fever or Palpitations Narrative Narrative: Patient presents with chest pain that began approximately 3 hours prior to arrival. Patient states the pain woke him up out of his sleep. Patient describes the pain as sharp and pressure. Patient states it is mainly over the left side of his chest. Patient denies any radiation of the pain. Patient states nothing makes it better nothing makes it worse. Patient admits to some nausea and reflux symptoms. Patient denies any vomiting. Patient admits to some shortness of breath at times. Patient also admits to some lightheadedness. Patient denies any cough or fevers. Patient has a history of coronary artery disease with three-vessel bypass graft. CVD Risk Factors: Positive for Hypertension, Family History 1' </=55 and Smoking; Negative for Diabetes or Hypercholesterolemia PE Risk Factors: Negative for Recent Travel/Surgery, Recent Immobilization, Prior DVT or PE, Cancer or OCP + Smoking + >/=35 [facility] Medical History HTN (hypertension) Myocardial infarct Home Medications amlodipine 5 mg tablet 2.5 mg PO DAILY 03/27/22 [History Last Taken Unknown] lisinopril 10 mg tablet 10 mg PO DAILY 03/27/22 [History Last Taken Unknown] pantoprazole 40 mg tablet,delayed release 40 mg PO DAILY 03/27/22 [History Last Taken Unknown] simvastatin 40 mg tablet 40 mg PO QHS 03/27/22 [History Last Taken Unknown] aspirin 81 mg tablet,delayed release 81 mg PO DAILY 10/16/22 [History Last Taken Unknown] clopidogrel 75 mg tablet 75 mg PO DAILY 10/16/22 [History Last Taken Unknown] empagliflozin 10 mg tablet (Jardiance) 10 mg PO DAILY 10/16/22 [History Last Taken Unknown] escitalopram oxalate 10 mg tablet 20 mg PO DAILY 10/16/22 [History Last Taken Unknown] magnesium 30 mg tablet 30 mg PO BID 10/16/22 [History Last Taken Unknown] metoprolol succinate 50 mg tablet,extended release 24 hr 50 mg PO BID 10/16/22 [History Last Taken Unknown] potassium gluconate 595 mg (99 mg) tablet 595 mg PO DAILY 10/16/22 [History Last Taken Unknown] hydroxyzine HCl 25 mg tablet 25 mg PO DAILY 04/08/23 [History Last Taken Unknown] Allergy/AdvReac Type Severity Reaction Status Date / Time bee venom protein (honey bee) Allergy Anaphylaxis Verified 04/08/23 06:58 mint Allergy Hives Verified 04/08/23 06:58 Penicillins Allergy Anaphylaxis Verified 04/08/23 06:58 Surgical History H/O heart artery stent Hx of CABG Social History Smoking Status: Current every day smoker tobacco type: cigarettes ROS ROS ED Constitutional Constitutional ED: Reports chills; Denies fever(s) Eyes Eyes: Reports blurry vision; Denies change in vision ENT ENT ED: Reports rhinorrhea; Denies sore throat Cardiovascular Cardiovascular: Reports chest pain; Denies palpitations Respiratory/Chest Respiratory/Chest: Reports dyspnea; Denies cough Gastrointestinal Gastrointestinal: Reports nausea; Denies vomiting Genitourinary Genitourinary ED: Denies dysuria or hematuria Musculoskeletal Musculoskeletal: Reports back pain and neck pain Integumentary Denies abscess or rash Neurologic Neurologic: Reports headache(s); Denies weakness Allergic/Immunologic Allergic/Immunologic ED: Denies mouth swelling or urticaria EXAM Physical Exam Const Vital Signs: 04/08/23 06:53 04/08/23 06:56 04/08/23 07:19 Temperature 97.4 F L Temperature Source Temporal Pulse Rate 55 L Respiratory Rate 19 H Respiratory Effort Normal Non-Labored Respiratory Pattern Normal Blood Pressure 152/94 H Blood Pressure Mean 113 Pulse Ox 96 97 Oxygen Delivery Method Room Air Room Air 04/08/23 07:40 04/08/23 07:48 04/08/23 08:47 Temperature Temperature Source Pulse Rate 59 L 63 56 L Respiratory Rate 15 15 Respiratory Effort Respiratory Pattern Blood Pressure 120/76 100/66 127/80 H Blood Pressure Mean 77 95 Pulse Ox 95 96 Oxygen Delivery Method Room Air Room Air 04/08/23 09:46 Temperature Temperature Source Pulse Rate 57 L Respiratory Rate 18 Respiratory Effort Respiratory Pattern Blood Pressure 130/89 H Blood Pressure Mean 102 Pulse Ox 97 Oxygen Delivery Method Room Air Positive well nourished and well developed General Appearance ED: well developed and NAD HEENT Reports moist mucous membranes Neck supple and no JVD Resp normal respiratory effort and clear to auscultation bilaterally Cardio regular rhythm Rate: bradycardia GI soft to palpation and non-distended GI Narrative: Abdomen is soft. Bowel sounds are normal. There is mild diffuse tenderness. There is no rebound or guarding noted. Extremity normal to inspection General Extremety ED: Negative for edema or tenderness General Extremity: Negative for edema Neuro oriented x3, CN's II-XII intact bilaterally and no sensory deficits noted Sensorium / Orientation: awake and alert Motor Exam: strength 5/5 throughout Heart Score History: Moderately Suspicious ECG: Nonspecific Repolarization Age: >45 - <65 years Risk Factors: >/= 3 Risk Factors or History of CAD Troponin: </= Normal Limit Score: 5 MDM MDM MDM Narrative Medical decision making narrative: Differential diagnosis includes cardiac dysrhythmia, cardiac ischemia, pneumonia, pneumothorax, GERD, electrolyte abnormality, musculoskeletal pain, and anxiety. Patient has a Wells score of 0. I do not feel this is from a pulmonary embolism. EKG will be obtained to assess for cardiac dysrhythmia and cardiac ischemia. Chest x-ray will be obtained to assess for pneumonia and pneumothorax. CBC will be obtained to assess for leukocytosis and anemia. Basic metabolic profile will be obtained to assess for electrolyte abnormality and renal function. High-sensitivity troponin will be obtained to assess for cardiac ischemia. 2-hour repeat high-sensitivity troponin will be obtained for ongoing cardiac ischemia. Lab Data Attestation: I reviewed the patient's lab results. Lab results narrative: CBC was reviewed and was within normal limits. Basic metabolic profile was reviewed and was essentially within normal limits. High-sensitivity troponin was reviewed and was normal at 9. 2-hour repeat high-sensitivity troponin was reviewed and was normal at 10. Labs: Laboratory Results - last 24 hr 04/08/23 04/08/23 07:05 09:15 WBC 9.4 RBC 5.90 Hgb 16.8 H Hct 50.6 MCV 85.8 MCH 28.5 MCHC 33.2 RDW Std Deviation 40.0 RDW Coeff of Mesha 12.9 Plt Count 320 MPV 10.4 Immature Gran % (Auto) 0.400 Neut % (Auto) 64.9 Lymph % (Auto) 25.7 [place] % (Auto) 6.9 Eos % (Auto) 1.5 Baso % (Auto) 0.6 Absolute Neuts (auto) 6.1 Absolute Lymphs (auto) 2.42 Nucleated RBC % 0 Sodium 136 Potassium 3.9 Chloride 106 Carbon Dioxide 27.0 Anion Gap 3 L BUN 18 Creatinine 0.93 Estim Creat Clear Calc 100.99 Est GFR (MDRD) Af Amer 111 Est GFR (MDRD) Non-Af 92 BUN/Creatinine Ratio 19.4 Glucose 123 H Calcium 9.3 Troponin I High Sens 9 10 Radiography Diagnostic Testing: Clinical Impression(s) from Imaging Studies Chest X-Ray 04/08/23 07:35 IMPRESSION: No evidence of active intrathoracic disease. Electronically Signed: Angella Connolly MD at 7:50 EST , Portable 1 view chest x-ray was obtained. On my independent interpretation, lung haney are clear. There is normal cardiac silhouette. Bony thorax is normal. There is no acute process noted. Radiologist also interpreted the x-ray and agrees. EKG Initial EKG: Attestation: I personally reviewed and interpreted this EKG as follows: Interpretation: Sinus Bradycardia (53) and Non-Specific ST Changes Comments: EKG was obtained. On my independent interpretation, it showed a sinus bradycardia with a rate of 53. CA interval, QRS interval, and QTc intervals were all normal. Winnie was normal. There are nonspecific ST-T wave changes. Prior EKG tracings: available for review Prior: Unchanged (01/02/2023) Treatment and Re-Evaluation :: Patient was given sublingual nitroglycerin. Patient was also given a dose of aspirin. Patient states his pain improved after sublingual nitroglycerin. Patient was placed on nitroglycerin paste. Patient was advised of his findings. Patient has a HEART score of 5. Because of this, I recommended admission to the hospital for further evaluation. Patient states his last stress test was in 2011. Patient states he cannot stay in the hospital he has 2 small children to take care of at home. Patient was advised of the risks of going home including [place], cardiac dysrhythmia, and . Patient states that he has an appoint with his primary care physician next week. Patient was encouraged to follow-up with this. Patient was instructed return if any further symptoms or if worse in any way. Patient will sign out AGAINST MEDICAL ADVICE. Patient understood and was agreeable with the plan. All questions were answered. Discharge Plan Triage Chief Complaint: Chest Pain ED Provider: Bari Franco Dx/Rx/DC Orders Clinical Impression: H/O heart artery stent, Coronary artery disease, Chest pain Instructions: ED Chest Pain, Uncertain Cause Prescriptions: No Action amlodipine 5 mg Tablet 2.5 mg PO DAILY simvastatin 40 mg Tablet 40 mg PO QHS pantoprazole 40 mg Tablet,Delayed Release (Dr/Ec) 40 mg PO DAILY lisinopril 10 mg Tablet 10 mg PO DAILY hydroxyzine HCl 25 mg tablet 25 mg PO DAILY Jardiance 10 mg tablet 10 mg PO DAILY Patient Comments: TAKE 1 TABLET IN THE MORNING DAILY escitalopram oxalate 10 mg tablet 20 mg PO DAILY clopidogrel 75 mg tablet 75 mg PO DAILY metoprolol succinate 50 mg tablet extended release 24 hr 50 mg PO BID magnesium 30 mg tablet 30 mg PO BID potassium gluconate 595 mg (99 mg) tablet 595 mg PO DAILY aspirin 81 mg tablet,delayed release (DR/EC) 81 mg PO DAILY Primary Care Provider: ARNALDO FERGUSON Referrals: ARNALDO FERGUSON CRNP [Primary Care Provider] - [facility] appointment Disposition Disposition: Against Medical Advice
[2023-04-08 07:27] LABS: Absolute Lymphocyte Count 2.42 X10^3/uL (0.83-4.51); Absolute Neutrophil Count 6.1 X10^3/uL (2.0-7.7); Basophil# 0.06 X10^3/uL; Basophil% 0.6 % (0-1); Eosinophil# 0.14 X10^3/uL; Eosinophils% 1.5 % (0-5); Hematocrit 50.6 % (40-54); Hemoglobin 16.8 g/dL (13.0-16.5); Lymphocyte # 2.42 X10^3/ul (0.83-4.51); Lymphocyte % 25.7 % (19-41); Mean Corp Hgb Conc 33.2 g/dL (32-36); Mean Corpuscular Hgb 28.5 pg (27.0-32.0); Mean Corpuscular Volume 85.8 fL (80-94); Mean Platelet Vol. 10.4 fl (6.2-12.0); Monocyte# 0.65 X10^3/uL; Monocyte% 6.9 % (0-10); NRBC Flagged by Analyzer 0 % (0-5); Neutrophil # 6.12 X10^3/uL (2.7-7.7); Neutrophil % 64.9 % (47-70); Platelet Count 320 K/mm3 (150-450); RBC Distribution Width CV 12.9 % (11.6-14.6); White Blood Count 9.4 K/mm3 (4.4-11.0)
[2023-04-08] MEDS: Aspirin 81 MG TAB.CHEW 324 MG PO (07:35)
--- NOTE | 2023-04-08 07:35 | RAD_ITS ---
INDICATION: chest pain EXAMINATION/TECHNIQUE: X-RAY - XR Chest 1 View AP portable. 7:36 AM COMPARISON: 10/16/2022 FINDINGS: LINES/DEVICES: None. LUNGS: No consolidation. No pneumothorax. MEDIASTINUM: Unremarkable. CARDIAC SILHOUETTE: Not enlarged. Sternal wires. BONES AND SOFT TISSUES: No acute abnormalities. RAD/Chest 1 View (Portable) IMPRESSION: No evidence of active intrathoracic disease. Electronically Signed: Angella Connolly MD at 7:50 EST ,
[2023-04-08] MEDS: Nitroglycerin SL (ED/IMG/CATH) 0.4 MG TABLET 0.400000000000000022 MG SL (07:40)
[2023-04-08 07:44] LABS: Anion Gap 3 (5-15); BUN 18 mg/dL (7-18); BUN/Creat Ratio 19.4 RATIO (10-20); Calcium,Total 9.3 mg/dL (8.5-10.1); Chloride 106 mmol/L (98-107); Creatinine, Serum 0.93 mg/dL (0.70-1.30); EST Glomerular Filtration Rate 92 mL/min (>60); Est Glom Filt Rate - Afr Amer 111 mL/min (>60); Estimated Creatinine Clearance 100.99 ml/min; Glucose 123 mg/dL (74-106); Potassium 3.9 mmol/L (3.5-5.1); Sodium Level 136 mmol/L (136-145); Troponin-I HS (w/2H Reflex) 9 pg/mL (3.0-78.0)
[2023-04-08] MEDS: Acetaminophen 500 MG Tablet 1000 MG PO (07:53)
[2023-04-08] MEDS: 0.9% Normal Saline (1000mL) 1,000 ML 1000 ML IV (07:53)
--- OUTSIDE RECORDS SUMMARY | 2023-04-08 08:14 | XMS RPT_ITS | CCD ---
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 function EF 50% 05/24/22 TTE Summary 1. This study was technically limited, Definity IV contrast was used to enhance endocardial definition. 2. Left ventricular systolic function is normal with an ejection fraction by Biplane Method of Discs of 59 %. 3. Mild left ventricular concentric hypertrophy. 4. Right ventricular size and systolic function are normal. 5. There is grade 1 diastolic dysfunction, consistent with impaired relaxation and low or normal left atrial pressures. 6. No hemodynamically significant valvular disease. XIOMARA 05/24/22 Conclusions * Right and left ankle brachial indices are normal. Right XIOMARA is 1.06. Left XIOMARA is 1.12. * No evidence of small vessel disease at the transmetatarsal level in both feet. * Right and left toe brachial indices are normal. Labs: Lab Results Component Value Date GLUCOSE 165 (H) 07/20/2022 CALCIUM 8.9 07/20/2022 NA 135 07/20/2022 K 4.0 07/20/2022 CL 105 07/20/2022 BUN 14 07/20/2022 CREATININE 0.95 07/20/2022 Lab Results Component Value Date WBC 13.18 (H) 05/31/2022 HGB 11.1 (L) 05/31/2022 HCT 33.1 (L) 05/31/2022 MCV 86.6 05/31/2022 PLT 347 05/31/2022 RBC 3.82 (L) 05/31/2022 No results found for: CHOL , LDLCALC , LDLDIRECT , TRIG , HDL documented in this encounter [facility] 10-05-2022 Ananda Mota, CELESTE - 10/05/2022 2:38 PM EDT How to contact your Care Team: Provider: Consuelo Coon MD Nurse: Ananda Mitchell RN In case of an emergency please call 911. REFILLS: When in need for refills please call your care team or the office at [phone]. Please include medication name, pharmacy name, and specify 30-day or 90-day supply. Please check with your pharmacy within 24 hours of request for your refill. You must follow up as directed to continue current refills. Thank you documented in this encounter [facility] 09-28-2022 Hospital Discharge instructions Nery Figueroa MD - 09/28/2022 9:59 PM EDT Your lab work your EKG and your chest x-ray were without acute findings. It is important that you follow-up with cardiology for follow-up evaluation. He may call your primary care provider for further referral as your procedure was done at [facility]. In addition cardiology at [facility] would be happy to see you and referral information has been given. The following attachments cannot be sent through Care Everywhere.Chest Pain (Arabic)documented in this encounter [facility] 09-28-2022 Physician Emergency department Note Emergency Department Report [facility] Service Date:.09/29/22 PCP: No primary care provider on file. Chief Complaint: Chief Complaint Patient presents with Chest Pain Complains of chest tightness x1 week. States that it is worse with breathing. Had open heart surgery at [facility] few months ago HPI Martín Brown is a 47 y.o. male presents to the ED today due to Left upper chest wall tightness with intermittent sharp stinging pain and aching present approximately one week. Patient also endorses numbness in the area. Discomfort is exacerbated by deep breath. Patient denies any nausea vomiting fever chills shortness of breath. Denies any recent trauma. No increased activity. No heavy lifting. Patient had a CABG at [facility] on 05/27/22. He also endorses intermittent episodes of high blood pressure at home despite taking his prescribed medications. Patient has not followed up with a press operator assistant since his CABG procedure stating they haven't called me yet . He also states he did not go through cardiac rehabilitation Referral was sent to cardiac rehab but patient states they never called me back and expresses concern that it was due to insurance . Patient had a follow-up with cardiothoracic surgery on 07/20/22 as per notes and was cleared to drive and lift 20 pounds. Again there is a recommendation for cardiac rehabilitation and follow-up with press operator assistant and primary care provider. Review of Systems: Review of Systems Past Medical History: No past medical history on file. Past Surgical History: No past surgical history on file. Allergies: Allergies Allergen Reactions Penicillins Anaphylaxis Peppermint Oil Swelling Tongue swelling Medications: Discharge Medication List as of 09/28/2022 10:01 PM CONTINUE these medications which have NOT CHANGED Details Acetaminophen 325 MG tablet Take 2 tablets by mouth Every 4 hours as needed. Historical Med Aspirin [address] tablet Take 1 tablet by mouth daily. Historical Med Clopidogrel 75 MG tablet Take 1 tablet by mouth daily. Historical Med Disp-30 tablet, R-3 glucose blood test strips ([facility] Blood Glucose Test) Strip strip Use to check BG daily Dx E11.59 Needs One Touch Verio strips. . Historical Med Lisinopril 5 MG tablet Take 1 tablet by mouth Twice daily. Historical Med Disp-60 tablet, R-3 Metoprolol succinate 50 MG tablet XL Take 1 tablet by mouth Twice daily. Historical Med Disp-60 tablet, R-3 Family History: History reviewed. No pertinent family history. Social History: Social History Socioeconomic History Marital status: Single Spouse name: Not on file Number of children: Not on file Years of education: Not on file Highest education level: Not on file Occupational History Not on file Tobacco Use Smoking status: Former Types: Cigarettes Smokeless tobacco: Never Vaping Use Vaping Use: Never used Substance and Sexual Activity Alcohol use: Not Currently Drug use: Never Sexual activity: Not on file Other Topics Concern Not on file Social History Narrative Not on file Social Determinants of Health Financial Resource Strain: Not on file Food Insecurity: Not on file Transportation Needs: Not on file Physical Activity: Not on file Stress: Not on file Social Connections: Not on file Intimate Partner Violence: Not on file Housing Stability: Not on file Physical Exam: Physical Exam Vital Signs During ED Visit Patient Vitals for the past 24 hrs: BP Temp Temp src Pulse Resp SpO2 Height 09/28/22 2215 (!) 157/94 -- -- 73 18 98 % -- 09/28/22 2100 (!) 148/91 -- -- 86 19 96 % -- 09/28/22 2030 (!) 160/100 -- -- 78 15 96 % -- 09/28/22 2000 (!) 143/92 -- -- 80 16 97 % -- 09/28/22 1950 (!) 132/91 98.1 F (36.7 C) Oral 81 16 95 % 1.727 m (5' 8 ) 09/28/22 1944 -- -- -- -- -- 95 % -- Orders/Results: Orders Placed This Encounter XR CHEST AP PORTABLE Troponin I, High sensitivity CBC, EDIF, PLATELET COMPREHENSIVE METABOLIC PANEL AMB REFERRAL TO CARDIOVASCULAR MEDICINE ECG Results for orders placed or performed during the hospital encounter of 09/28/22 TROPONIN I, HIGH SENSITIVITY Result Value Ref Range TROPONIN I, HIGH SENSITIVITY 7 0 - 20 pg/mL CBC, EDIF, PLATELET Result Value Ref Range WBC (WHITE BLOOD COUNT) 10.3 3.6 - 11.0 10*3/uL RBC 5.65 4.0 - 6.1 10*6/uL HEMOGLOBIN (HGB) 15.8 14.0 - 18.0 G/DL HEMATOCRIT (HCT) 46.5 42.0 - 52.0 % MEAN CELL VOLUME 82.4 80.0 - 100.0 FL Mean Cell HGB 27.9 26.0 - 35.0 PG MEAN CELL HGB CONCENTRATION 33.9 27.0 - 37.0 G/DL RBC DISTRIBUTION 15.4 (H) 11.5 - 14.5 % PLATELET COUNT 328 130 - 400 10*3/uL MEAN PLATELET VOLUME 8.3 7.4 - 11.0 FL DIFFERENTIAL TYPE AUTO DIFF % NEUTROPHILS 62.7 37.0 - 75.0 % LYMPHOCYTE 29.7 20.0 - 55.0 % MONOCYTE % 6.3 0.0 - 10.0 % EOSINOPHIL % 0.8 0.0 - 11.0 % BASOPHIL % 0.5 0.0 - 2.0 % Absolute Neutrophil Count 6.5 1.4 - 6.5 10*3/uL LYMPHOCYTES, ABSOLUTE 3.1 1.2 - 3.4 10*3/uL MONOCYTES, ABSOLUTE 0.7 0.0 - 0.7 10*3/uL ABSOLUTE EOSINOPHIL COUNT 0.1 0.0 - 0.7 10*3/uL ABSOLUTE BASOPHIL COUNT 0.1 0.0 - 0.2 10*3/uL COMPREHENSIVE METABOLIC PANEL Result Value Ref Range Glucose 129 (H) 70 - 100 MG/DL BUN 12 7 - 20 MG/DL CREATININE SERUM 0.70 0.7 - 1.2 MG/DL SODIUM 136 (L) 137 - 145 MMOL/L POTASSIUM 3.8 3.5 - 5.1 MMOL/L CHLORIDE 101 98 - 107 MMOL/L CALCIUM 9.4 8.4 - 10.2 MG/DL PROTEIN, TOTAL 8.1 6.3 - 8.2 GM/DL Albumin 4.8 3.5 - 5.0 G/dl BILIRUBIN, TOTAL 0.4 0.2 - 1.3 MG/DL AST 36 17 - 59 IU/L ALKALINE PHOSPHATASE 48 38 - 126 IU/L CARBON DIOXIDE (CO2) 24 22 - 30 MMOL/L A/G Ratio 1.5 1.3 - 2.2 RATIO ALT 38 <50 IU/L ESTIMATED GFR, NON AMER 128 ml/min/1.73sq.m ESTIMATED GFR, 155 ml/min/1.73sq.m GFR COMMENT Average GFR for 40-49 years old = 99. Radiographic Imaging XR CHEST AP PORTABLE Final Result IMPRESSION: Nonacute portable chest. Procedures: Procedures EKG interpretation by ED physician: EKG shows a normal sinus rhythm with a rate of 79. There is left atrial enlargement. There are nonspecific ST and T-wave abnormalities present throughout. NE interval 138. QRS duration 86. QT/QTC 380/435. Impression abnormal EKG ED Summary/MDM 47 y.o. male s/p CABG 05/2022 presents with left upper wall tightness with intermittent sharp stinging pain and aching present for several weeks but most notable over the past week. Has been told that it is healing from his surgery but patient does not think this is the etiology.On exam patient is alert oriented and not appearing in any distress. Heart is regular rate and rhythm. Lungs are clear to auscultation. Midsternal incision site well healed. Labs including troponin are all within normal limits. EKG with no acute findings. CXR no acute findings Patient reassured. Referral made to cardiology. Patient discharged home. Clinical Impression: 1. Chest pain, unspecified type 2. S/P CABG (coronary artery bypass graft) No follow-ups on file. Discharge Medication List as of 09/28/2022 10:01 PM Discharge Medication List as of 09/28/2022 10:01 PM An After Visit Summary was printed and given to the patient with above information. . Nery Figueroa MD 09/29/22 0509 Nery Figueroa MD 09/29/22 0510 Nery Figueroa MD 09/29/22 0510 [facility] 09-28-2022 Emergency department Note Emergency Department Report [facility] Service Date:.09/29/22 PCP: No primary care provider on file. Chief Complaint: Chief Complaint Patient presents with Chest Pain Complains of chest tightness x1 week. States that it is worse with breathing. Had open heart surgery at [facility] few months ago ROSALVA Brown is a 47 y.o. male presents to the ED today due to Left upper chest wall tightness with intermittent sharp stinging pain and aching present approximately one week. Patient also endorses numbness in the area. Discomfort is exacerbated by deep breath. Patient denies any nausea vomiting fever chills shortness of breath. Denies any recent trauma. No increased activity. No heavy lifting. Patient had a CABG at [facility] on 05/27/22. He also endorses intermittent episodes of high blood pressure at home despite taking his prescribed medications. Patient has not followed up with a press operator assistant since his CABG procedure stating they haven't called me yet . He also states he did not go through cardiac rehabilitation Referral was sent to cardiac rehab but patient states they never called me back and expresses concern that it was due to insurance . Patient had a follow-up with cardiothoracic surgery on 07/20/22 as per notes and was cleared to drive and lift 20 pounds. Again there is a recommendation for cardiac rehabilitation and follow-up with press operator assistant and primary care provider. Review of Systems: Review of Systems Past Medical History: No past medical history on file. Past Surgical History: No past surgical history on file. Allergies: Allergies Allergen Reactions Penicillins Anaphylaxis Peppermint Oil Swelling Tongue swelling Medications: Discharge Medication List as of 09/28/2022 10:01 PM CONTINUE these medications which have NOT CHANGED Details Acetaminophen 325 MG tablet Take 2 tablets by mouth Every 4 hours as needed. Historical Med Aspirin [address] tablet Take 1 tablet by mouth daily. Historical Med Clopidogrel 75 MG tablet Take 1 tablet by mouth daily. Historical Med Disp-30 tablet, R-3 glucose blood test strips ([facility] Blood Glucose Test) Strip strip Use to check BG daily Dx E11.59 Needs One Touch Verio strips. . Historical Med Lisinopril 5 MG tablet Take 1 tablet by mouth Twice daily. Historical Med Disp-60 tablet, R-3 Metoprolol succinate 50 MG tablet XL Take 1 tablet by mouth Twice daily. Historical Med Disp-60 tablet, R-3 Family History: History reviewed. No pertinent family history. Social History: Social History Socioeconomic History Marital status: Single Spouse name: Not on file Number of children: Not on file Years of education: Not on file Highest education level: Not on file Occupational History Not on file Tobacco Use Smoking status: Former Types: Cigarettes Smokeless tobacco: Never Vaping Use Vaping Use: Never used Substance and Sexual Activity Alcohol use: Not Currently Drug use: Never Sexual activity: Not on file Other Topics Concern Not on file Social History Narrative Not on file Social Determinants of Health Financial Resource Strain: Not on file Food Insecurity: Not on file Transportation Needs: Not on file Physical Activity: Not on file Stress: Not on file Social Connections: Not on file Intimate Partner Violence: Not on file Housing Stability: Not on file Physical Exam: Physical Exam Vital Signs During ED Visit Patient Vitals for the past 24 hrs: BP Temp Temp src Pulse Resp SpO2 Height 09/28/22 2215 (!) 157/94 -- -- 73 18 98 % -- 09/28/22 2100 (!) 148/91 -- -- 86 19 96 % -- 09/28/22 2030 (!) 160/100 -- -- 78 15 96 % -- 09/28/221999 (!) 143/92 -- -- 80 16 97 % -- 09/28/22 1950 (!) 132/91 98.1 F (36.7 C) Oral 81 16 95 % 1.727 m (5' 8 ) 09/28/22 1944 -- -- -- -- -- 95 % -- Orders/Results: Orders Placed This Encounter XR CHEST AP PORTABLE Troponin I, High sensitivity CBC, EDIF, PLATELET COMPREHENSIVE METABOLIC PANEL AMB REFERRAL TO CARDIOVASCULAR MEDICINE ECG Results for orders placed or performed during the hospital encounter of 09/28/22 TROPONIN I, HIGH SENSITIVITY Result Value Ref Range TROPONIN I, HIGH SENSITIVITY 7 0 - 20 pg/mL CBC, EDIF, PLATELET Result Value Ref Range WBC (WHITE BLOOD COUNT) 10.3 3.6 - 11.0 10*3/uL RBC 5.65 4.0 - 6.1 10*6/uL HEMOGLOBIN (HGB) 15.8 14.0 - 18.0 G/DL HEMATOCRIT (HCT) 46.5 42.0 - 52.0 % MEAN CELL VOLUME 82.4 80.0 - 100.0 FL Mean Cell HGB 27.9 26.0 - 35.0 PG MEAN CELL HGB CONCENTRATION 33.9 27.0 - 37.0 G/DL RBC DISTRIBUTION 15.4 (H) 11.5 - 14.5 % PLATELET COUNT 328 130 - 400 10*3/uL MEAN PLATELET VOLUME 8.3 7.4 - 11.0 FL DIFFERENTIAL TYPE AUTO DIFF % NEUTROPHILS 62.7 37.0 - 75.0 % LYMPHOCYTE 29.7 20.0 - 55.0 % MONOCYTE % 6.3 0.0 - 10.0 % EOSINOPHIL % 0.8 0.0 - 11.0 % BASOPHIL % 0.5 0.0 - 2.0 % Absolute Neutrophil Count 6.5 1.4 - 6.5 10*3/uL LYMPHOCYTES, ABSOLUTE 3.1 1.2 - 3.4 10*3/uL MONOCYTES, ABSOLUTE 0.7 0.0 - 0.7 10*3/uL ABSOLUTE EOSINOPHIL COUNT 0.1 0.0 - 0.7 10*3/uL ABSOLUTE BASOPHIL COUNT 0.1 0.0 - 0.2 10*3/uL COMPREHENSIVE METABOLIC PANEL Result Value Ref Range Glucose 129 (H) 70 - 100 MG/DL BUN 12 7 - 20 MG/DL CREATININE SERUM 0.70 0.7 - 1.2 MG/DL SODIUM 136 (L) 137 - 145 MMOL/L POTASSIUM 3.8 3.5 - 5.1 MMOL/L CHLORIDE 101 98 - 107 MMOL/L CALCIUM 9.4 8.4 - 10.2 MG/DL PROTEIN, TOTAL 8.1 6.3 - 8.2 GM/DL Albumin 4.8 3.5 - 5.0 G/dl BILIRUBIN, TOTAL 0.4 0.2 - 1.3 MG/DL AST 36 17 - 59 IU/L ALKALINE PHOSPHATASE 48 38 - 126 IU/L CARBON DIOXIDE (CO2) 24 22 - 30 MMOL/L A/G Ratio 1.5 1.3 - 2.2 RATIO ALT 38 <50 IU/L ESTIMATED GFR, NON AMER 128 ml/min/1.73sq.m ESTIMATED GFR, 155 ml/min/1.73sq.m GFR COMMENT Average GFR for 40-49 years old = 99. Radiographic Imaging XR CHEST AP PORTABLE Final Result IMPRESSION: Nonacute portable chest. Procedures: Procedures EKG interpretation by ED physician: EKG shows a normal sinus rhythm with a rate of 79. There is left atrial enlargement. There are nonspecific ST and T-wave abnormalities present throughout. NE interval 138. QRS duration 86. QT/QTC 380/435. Impression abnormal EKG ED Summary/MDM 47 y.o. male s/p CABG 05/2022 presents with left upper wall tightness with intermittent sharp stinging pain and aching present for several weeks but most notable over the past week. Has been told that it is healing from his surgery but patient does not think this is the etiology.On exam patient is alert oriented and not appearing in any distress. Heart is regular rate and rhythm. Lungs are clear to auscultation. Midsternal incision site well healed. Labs including troponin are all within normal limits. EKG with no acute findings. CXR no acute findings Patient reassured. Referral made to cardiology. Patient discharged home. Clinical Impression: 1. Chest pain, unspecified type 2. S/P CABG (coronary artery bypass graft) No follow-ups on file. Discharge Medication List as of 09/28/2022 10:01 PM Discharge Medication List as of 09/28/2022 10:01 PM An After Visit Summary was printed and given to the patient with above information. . Nery Figueroa MD 09/29/22 0509 Nery Figueroa MD 09/29/22 0510 Nery Figueroa MD 09/29/22 0510 Patient ambulates to ED room 5 from waiting room with even and equal respirations and a steady gait. Open heart bypass graft surgery in 05/2022. Complains of chest tightness x1 week. Told his PCP about his symptoms and was referred to a press operator assistant. documented in this encounter [facility] 09-28-2022 Emergency department Note Patient ambulates to ED room 5 from waiting room with even and equal respirations and a steady gait. Open heart bypass graft surgery in 05/2022. Complains of chest tightness x1 week. Told his PCP about his symptoms and was referred to a press operator assistant. [facility] 07-20-2022 Evaluation + Plan note Associated Problem(s): S/P CABG (coronary artery bypass graft) You may drive. You may lift up to 20 lbs for the next 5 weeks then no restrictions. Please do cardiac rehab. You no longer need the support hose and heart hugger. Please follow-up with your primary care provider and your press operator assistant. If you have any questions regarding your heart surgery in the future, please feel free to call. [facility] 07-20-2022 Miscellaneous Notes Associated Problem(s): S/P CABG (coronary artery bypass graft) You may drive. You may lift up to 20 lbs for the next 5 weeks then no restrictions. Please do cardiac rehab. You no longer need the support hose and heart hugger. Please follow-up with your primary care provider and your press operator assistant. If you have any questions regarding your heart surgery in the future, please feel free to call. documented in this encounter [facility] 07-20-2022 History of Present illness Narrative Images from the original note were not included. Cardiothoracic Surgery Clinic Follow-up Heart & Vascular [facility] 07/20/2022 Emiliano Fung PA-C [address] [place] [address] Medical [facility] [id number] Patient: Martín Brown Date of : 1975 (47 y.o.) PCP: Kori Willis, DO Assessment & Plan S/P CABG (coronary artery bypass graft) You may drive. You may lift up to 20 lbs for the next 5 weeks then no restrictions. Please do cardiac rehab. You no longer need the support hose and heart hugger. Please follow-up with your primary care provider and your press operator assistant. If you have any questions regarding your heart surgery in the future, please feel free to call. Follow-up: No follow-ups on file. Chief Complaint: Follow-up (S/P CABG x [address] Panda Carter on 05/28/22 and left lower extremity endoscopic greater saphenous vein harvesting by physician assistant professor of psychology) Subjective History of Present Illness: Martín Brown is a 47 y.o. male S/P CABG x [address] Panda Carter on 05/28/22 and left lower extremity endoscopic greater saphenous vein harvesting by physician assistant professor of psychology. He is now approximately 8 weeks postop and was last seen in our office on 06/16/22. He missed his 5 week postop visit due to scheduling conflicts with his fiance and two young children. He called our office over the weekend due to some concern over his frequent elevated blood pressure readings and question about when he is able to return to work. At today's visit he ambulates easily into the room, and does have a cane for assistance. He states that he has been having a mild headache along the back of his head and neck for the past few weeks. His blood pressures at home have been an average of about 178/104. He has been taking all medications as prescribed on discharge but has not been taking his anti-anxiety medication (which he tells me is escitalopram) since before surgery. I had reassured him over the weekend that he is able to resume this medication and he did so on Tuesday. He does have some numbness in his left chest wall near the area of CRAIG takedown for revascularization. He otherwise denies chest pain, palpitations, shortness of breath, nausea, and abdominal pain. His allergies have been acting up with the weather change so he says his headache sometimes feels like sinus pressure. I informed him that he can try an over the counter claritin or juan francisco for allergies. His sternal incision and left lower extremity incision have both healed very well, no erythema or edema, and just fine pink scar present. I do not appreciate any clicking, shifting or popping in his sternum with gentle palpation or as patient breathes. His CXR shows sternal wires aligned and intact, lungs well expanded, no pleural effusion or pneumothorax. Lab work is unremarkable and is reflected below. EKG shows NSR, rate 61, no ST or T wave abnormalities. He also informs me that he has completely quit smoking and has been diligent about remaining committed to quitting despite his girlfriend continuing to smoke in the house. I commended him on quitting and urged him to discuss with his girlfriend the possibility of her smoking outside in order to limit his exposure to secondhand smoke. At this time I will increase his lisinopril to 5 mg PO twice daily and he will continue to record his blood pressure readings at home. He has a follow up appointment with cardiology on 08/13/22 and he will bring his BP readings to that appointment in order for further adjustments to be made if needed. He also has an appointment in a few weeks with his PCP. We will stop the iron pantoprazole, and colace at this time as those were only needed in the initial postop period. 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 He has recovered well in the postop period and is released back to his primary care provider and press operator assistant. Objective Tobacco Use Smoking Status Former Packs/day: 2.00 Years: 30.00 Pack years: 60.00 Types: Cigarettes Smokeless Tobacco Never ECG 12 Lead Final Result by Emiliano Fung PA-C (07/20/2022 1136) Echocardiogram complete w contrast Final Result by Scarlet Dugan MD (05/24/2022 1101) Cardiac Catheterization Final Result by Negra Nichols MD (05/24/2022 0710) HOME Medications: Patient's Medications New Prescriptions No medications on file Previous Medications ACETAMINOPHEN (TYLENOL) 325 MG TABLET Take 2 (two) tablets (650 mg total) by mouth every 4 (four) hours as needed . ASPIRIN 81 MG EC TABLET TAKE 1 TABLET BY MOUTH DAILY BLOOD SUGAR DIAGNOSTIC (GLUCOSE BLOOD) STRIPS Use to check BG daily Dx E11.59 Needs One Touch Verio strips. . BLOOD-GLUCOSE METER (ONETOUCH VERIO METER) MISC Use to check BG daily Dx E11.59 Formulary covers Once Touch Verio meter . LANCETS MISC Use to check BG daily Dx E11.59 Needs lancets for One Touch Verio meter . SIMVASTATIN (ZOCOR) 40 MG TABLET Take 1 (one) tablet (40 mg total) by mouth daily . Modified Medications Modified Medication Previous Medication CLOPIDOGREL (PLAVIX) 75 MG TABLET clopidogreL (PLAVIX) 75 mg tablet Take 1 (one) tablet (75 mg total) by mouth daily . Take 1 (one) tablet (75 mg total) by mouth daily Start: 06/01/22. LISINOPRIL (PRINIVIL,ZESTRIL) 5 MG TABLET lisinopriL (PRINIVIL,ZESTRIL) 2.5 MG tablet Take 1 (one) tablet (5 mg total) by mouth 2 (two) times a day . Take 1 (one) tablet (2.5 mg total) by mouth 2 (two) times a day . METOPROLOL SUCCINATE (TOPROL-XL) 50 MG 24 HR TABLET metoprolol succinate (TOPROL-XL) 50 MG 24 hr tablet Take 1 (one) tablet (50 mg total) by mouth 2 (two) times a day . Take 1 (one) tablet (50 mg total) by mouth 2 (two) times a day . Discontinued Medications BISACODYL (DULCOLAX) 10 MG SUPPOSITORY Insert 1 (one) suppository (10 mg total) into the rectum daily Start: 06/01/22. DOCUSATE SODIUM (COLACE) 100 MG CAPSULE Take 1 (one) capsule (100 mg total) by mouth daily Start: 06/01/22. FERROUS SULFATE 325 (65 FE) MG TABLET Take 1 (one) tablet (325 mg total) by mouth 3 (three) times a day with meals . PANTOPRAZOLE (PROTONIX) 40 MG TABLET Take 1 (one) tablet (40 mg total) by mouth daily . Vital Signs: BP (!) 147/84 (BP Location: Right arm, Patient Position: Sitting, BP Cuff Size: Adult) Pulse 66 Temp 97.8 F (36.6 C) Ht 5' 7 Wt 78.9 kg (174 lb) SpO2 98% BMI 27.25 kg/m Physical Exam Vitals reviewed. Constitutional: General: He is not in acute distress. Appearance: Normal appearance. He is normal weight. He is not diaphoretic. HENT: Head: Normocephalic and atraumatic. Nose: Nose normal. Cardiovascular: Rate and Rhythm: Normal rate and regular rhythm. Pulses: Normal pulses. Heart sounds: Normal heart sounds. No murmur heard. No friction rub. No gallop. Pulmonary: Effort: Pulmonary effort is normal. No respiratory distress. Breath sounds: Normal breath sounds. No wheezing, rhonchi or rales. Abdominal: Palpations: Abdomen is soft. Musculoskeletal: General: Normal range of motion. Right lower leg: No edema. Left lower leg: No edema. Skin: General: Skin is warm and dry. Capillary Refill: Capillary refill takes less than 2 seconds. Findings: No bruising, erythema, lesion or rash. Neurological: General: No focal deficit present. Mental Status: He is alert. Psychiatric: Mood and Affect: Mood normal. Behavior: Behavior normal. Labs: I personally reviewed and interpreted the labs documented below. Lab Results Component Value Date GLUCOSE 165 (H) 07/20/2022 CALCIUM 8.9 07/20/2022 NA 135 07/20/2022 K 4.0 07/20/2022 CL 105 07/20/2022 BUN 14 07/20/2022 CREATININE 0.95 07/20/2022 documented in this encounter [facility] 07-20-2022 Instructions Emiliano Fung PA-C - 07/20/2022 11:35 AM EDT You may drive. You may lift up to 20 lbs for the next 5 weeks then no restrictions. Please do cardiac rehab. You no longer need the support hose and heart hugger. Please follow-up with your primary care provider and your press operator assistant. If you have any questions regarding your heart surgery in the future, please feel free to call. documented in this encounter [facility] 07-05-2022 History of Present illness Narrative Cardiac Rehab referral received s/p CABG 05/31/22. Staff contacted pt to scheduled Phase II Cardiac Rehab and pt has requested to do his rehab at [facility]. Referral faxed to the [place] program. documented in this encounter [facility] 06-16-2022 History of Present illness Narrative Images from the original note were not included. Cardiothoracic Surgery Clinic Follow-up Heart & Vascular [facility] 06/15/2022 Dodie Shaw PA-C [address] [place] [address] Medical Office [facility] [id number] Patient: Martín Brown Date of : 1975 (46 y.o.) PCP: Kori Willis, DO Assessment & Plan S/P CABG (coronary artery bypass graft) Assessment: Mr. Martín Brown is a 46-year-old male who presents today for scheduled routine follow-up appointment and is accompanied by his spouse. He consequently has missed/canceled his 2 previously scheduled appointments which he states was out of concern due to his insurance cancelling and losing his job after undergoing CABG. Cancellation of his appointments was also compounded by reportedly being tired and inability to sleep. He states he does not have an appetite, nor sense of taste, and has had only 1 hour average of sleep each day. He has taken a home COVID-19 test which states is negative. He is experiencing numbness and generalized cutaneous discomfort to the left anterior chest wall, consistent with left internal mammary artery harvest. He reports intermittent episodes of diarrhea versus constipation associated with nausea at times. He has not had any episodes of emesis. He reports his last episode of diarrhea (1 occurrence) was on 06/13/2022. Today, he had a normal bowel movement. He also states he has been experiencing pain and discomfort in the right posterior flank region which has moved to the anterior region, under his ribs which he describes as constant pressure under the rib cage, like he needs to pass gas but unable to. He continues to use incentive spirometer at times and is obtaining 2500 when he uses same. He also will use PEP therapy at times. He is ambulating 1/8 mile daily as follows: 5 walks daily 1/16 of mile to bridge and back. He does become short of breath during ambulation at times however this resolves with rest. Overview: Mr. Brown underwent three-vessel coronary artery bypass grafting on 05/24/2022, using left internal mammary artery to the left anterior descending artery, saphenous vein graft from ascending aorta to posterior descending artery and saphenous vein graft from ascending aorta to second obtuse marginal by Dr. Bruno Carter along with left lower extremity endoscopic greater saphenous vein harvest by physician assistant professor of psychology. Physical assessment: He is assisted to the examination room via wheelchair and his cane alongside. He is sitting in the examination chair with legs elevated, no obvious visible acute distress. His heart hugger has been removed and is sitting in the chair beside him, he is not wearing his ANNETTE hose. Blood pressure today is 125/82 pulse is 86 and regular. Oxygen saturation is 98% on room air. His weight today is 73.7 kg which is approximately 8 kg below his preoperative weight of 81.3 kg. Lungs are clear to auscultation, anterior and posterior-no obvious visible acute distress. Heart is regular rate and rhythm. No obvious clicks, rubs nor gallops noted. Split S1 noted at sternal border. Abdomen is soft, round, slight tenderness at epigastric area with palpation. Last bowel movement: 06/15/2022, soft and formed. No obvious peripheral clubbing, cyanosis nor edema noted in extremities. Sternal incision, chest tube trocar sites and left EVH site with intact scabbing. No erythema, edema, calor nor drainage noted. Photodocumentation is obtained and reflected herein. Serum laboratory studies are unremarkable. Chest x-ray reveals lungs well expanded, no evidence of pleural effusions. Sternal wires aligned and intact. Plan: At this time, I have advised Mr. Brown the followin. Continue strict sternal precautions, no lifting more than 10 pounds and no driving for 5 weeks. 2. Continue to use incentive spirometer. 3. Continue strict leg elevation when not ambulating or eating meals. 4. Continue to shower daily, wash incisions with warm soap and water, pat dry. 5. Continue to increase ambulation 4 times daily as tolerated. 6. May take Tylenol PM at bedtime 7. Stool specimen for c-diff to be collected and brought to lab with order provided Contact the office of Dr. Bruno Carter and Dr. Richmond Garnica should you have any questions or concerns regarding your ongoing recovery from heart surgery at [phone], option #3 after 5:00 PM Follow-up: Return in about 16 days (around 07/01/2022), or 11:00 am, for Next scheduled follow up. Chief Complaint: Follow-up (S/P CABG x [address] Panda Carter with endoscopic vein harvest lower extremity left by Physician Manager Of Digital on 05/27/2022/) Objective Tobacco Use Smoking Status Former Packs/day: 2.00 Years: 30.00 Pack years: 60.00 Types: Cigarettes Smokeless Tobacco Never Vaping Use Vaping Status Not on file CXR: 06/15/2022 FINDINGS: Two-view chest x-ray. No pneumothorax, pleural effusion or focal airspace consolidation. Right basilar subsegmental atelectasis. Heart is normal in size. Postoperative changes of median sternotomy and CABG. Bony thorax is unremarkable. IMPRESSION: Improved aeration of the lungs. Stable mediastinal contours status post CABG. EKG 12-lead Final Result by Leonel Reece DO (05/24/2022 0602) Echocardiogram complete w contrast Final Result by Scarlet Dugan MD (05/24/2022 1101) Cardiac Catheterization Final Result by Negra Nichols MD (05/24/2022 0710) HOME Medications: Patient's Medications New Prescriptions No medications on file Previous Medications ACETAMINOPHEN (TYLENOL) 325 MG TABLET Take 2 (two) tablets (650 mg total) by mouth every 4 (four) hours as needed . ASPIRIN 81 MG EC TABLET TAKE 1 TABLET BY MOUTH DAILY BISACODYL (DULCOLAX) 10 MG SUPPOSITORY Insert 1 (one) suppository (10 mg total) into the rectum daily Start: 06/01/22. BLOOD SUGAR DIAGNOSTIC (GLUCOSE BLOOD) STRIPS Use to check BG daily Dx E11.59 Needs One Touch Verio strips. . BLOOD-GLUCOSE METER (ONETOUCH VERIO METER) MISC Use to check BG daily Dx E11.59 Formulary covers Once Touch Verio meter . CLOPIDOGREL (PLAVIX) 75 MG TABLET Take 1 (one) tablet (75 mg total) by mouth daily Start: 06/01/22. DOCUSATE SODIUM (COLACE) 100 MG CAPSULE Take 1 (one) capsule (100 mg total) by mouth daily Start: 06/01/22. FERROUS SULFATE 325 (65 FE) MG TABLET Take 1 (one) tablet (325 mg total) by mouth 3 (three) times a day with meals . LANCETS MISC Use to check BG daily Dx E11.59 Needs lancets for One Touch Verio meter . LISINOPRIL (PRINIVIL,ZESTRIL) 2.5 MG TABLET Take 1 (one) tablet (2.5 mg total) by mouth 2 (two) times a day . METOPROLOL SUCCINATE (TOPROL-XL) 50 MG 24 HR TABLET Take 1 (one) tablet (50 mg total) by mouth 2 (two) times a day . PANTOPRAZOLE (PROTONIX) 40 MG TABLET Take 1 (one) tablet (40 mg total) by mouth daily . SIMVASTATIN (ZOCOR) 40 MG TABLET Take 1 (one) tablet (40 mg total) by mouth daily . Modified Medications No medications on file Discontinued Medications No medications on file Vital Signs: BP 125/82 (BP Location: Left arm, Patient Position: Sitting, BP Cuff Size: Adult) Pulse 86 Ht 5' 7 Wt 73.7 kg (162 lb 6.4 oz) SpO2 98% BMI 25.44 kg/m Physical Exam Vitals reviewed. Constitutional: General: He is not in acute distress. Appearance: Normal appearance. He is normal weight. He is not ill-appearing, toxic-appearing or diaphoretic. HENT: Head: Normocephalic and atraumatic. Nose: Nose normal. Mouth/Throat: Mouth: Mucous membranes are moist. Pharynx: Oropharynx is clear. Eyes: General: No scleral icterus. Extraocular Movements: Extraocular movements intact. Conjunctiva/sclera: Conjunctivae normal. Pupils: Pupils are equal, round, and reactive to light. Cardiovascular: Rate and Rhythm: Normal rate and regular rhythm. Pulses: Normal pulses. Heart sounds: No murmur heard. No friction rub. No gallop. Comments: Split S1 at sternal border Pulmonary: Effort: Pulmonary effort is normal. No respiratory distress. Breath sounds: Normal breath sounds. No stridor. No wheezing, rhonchi or rales. Abdominal: Palpations: Abdomen is soft. Tenderness: There is abdominal tenderness. Comments: Last BM: 06/15/2022 Genitourinary: Comments: Voiding without difficulty Musculoskeletal: General: No swelling. Normal range of motion. Cervical back: Normal range of motion and neck supple. Skin: General: Skin is warm and dry. Capillary Refill: Capillary refill takes less than 2 seconds. Neurological: General: No focal deficit present. Mental Status: He is alert and oriented to person, place, and time. Mental status is at baseline. Psychiatric: Mood and Affect: Mood normal. Behavior: Behavior normal. Thought Content: Thought content normal. Judgment: Judgment normal. Labs: I personally reviewed and interpreted the labs documented below. Lab Results Component Value Date GLUCOSE 104 (H) 06/15/2022 CALCIUM 9.5 06/15/2022 NA 136 06/15/2022 K 4.5 06/15/2022 CL 103 06/15/2022 BUN 18 06/15/2022 CREATININE 0.85 06/15/2022 No results found for: CHOL, LDLCALC, LDLDIRECT, TRIG, HDL Serum creatinine: 0.85 mg/dL 06/15/22 1003 Estimated creatinine clearance: 100.4 mL/min documented in this encounter [facility] 06-15-2022 Evaluation + Plan note Associated Problem(s): S/P CABG (coronary artery bypass graft) Images from the original note were not included. Assessment: Mr. Martín Brown is a 46-year-old male who presents today for scheduled routine follow-up appointment and is accompanied by his spouse. He consequently has missed/canceled his 2 previously scheduled appointments which he states was out of concern due to his insurance cancelling and losing his job after undergoing CABG. Cancellation of his appointments was also compounded by reportedly being tired and inability to sleep. He states he does not have an appetite, nor sense of taste, and has had only 1 hour average of sleep each day. He has taken a home COVID-19 test which states is negative. He is experiencing numbness and generalized cutaneous discomfort to the left anterior chest wall, consistent with left internal mammary artery harvest. He reports intermittent episodes of diarrhea versus constipation associated with nausea at times. He has not had any episodes of emesis. He reports his last episode of diarrhea (1 occurrence) was on 06/13/2022. Today, he had a normal bowel movement. He also states he has been experiencing pain and discomfort in the right posterior flank region which has moved to the anterior region, under his ribs which he describes as constant pressure under the rib cage, like he needs to pass gas but unable to. He continues to use incentive spirometer at times and is obtaining 2500 when he uses same. He also will use PEP therapy at times. He is ambulating 1/8 mile daily as follows: 5 walks daily 1/16 of mile to bridge and back. He does become short of breath during ambulation at times however this resolves with rest. Overview: Mr. Brown underwent three-vessel coronary artery bypass grafting on 05/24/2022, using left internal mammary artery to the left anterior descending artery, saphenous vein graft from ascending aorta to posterior descending artery and saphenous vein graft from ascending aorta to second obtuse marginal by Dr. Bruno Carter along with left lower extremity endoscopic greater saphenous vein harvest by physician assistant professor of psychology. Physical assessment: He is assisted to the examination room via wheelchair and his cane alongside. He is sitting in the examination chair with legs elevated, no obvious visible acute distress. His heart hugger has been removed and is sitting in the chair beside him, he is not wearing his ANNETTE hose. Blood pressure today is 125/82 pulse is 86 and regular. Oxygen saturation is 98% on room air. His weight today is 73.7 kg which is approximately 8 kg below his preoperative weight of 81.3 kg. Lungs are clear to auscultation, anterior and posterior-no obvious visible acute distress. Heart is regular rate and rhythm. No obvious clicks, rubs nor gallops noted. Split S1 noted at sternal border. Abdomen is soft, round, slight tenderness at epigastric area with palpation. Last bowel movement: 06/15/2022, soft and formed. No obvious peripheral clubbing, cyanosis nor edema noted in extremities. Sternal incision, chest tube trocar sites and left EVH site with intact scabbing. No erythema, edema, calor nor drainage noted. Photodocumentation is obtained and reflected herein. Serum laboratory studies are unremarkable. Chest x-ray reveals lungs well expanded, no evidence of pleural effusions. Sternal wires aligned and intact. Plan: At this time, I have advised Mr. Brown the followin. Continue strict sternal precautions, no lifting more than 10 pounds and no driving for 5 weeks. 2. Continue to use incentive spirometer. 3. Continue strict leg elevation when not ambulating or eating meals. 4. Continue to shower daily, wash incisions with warm soap and water, pat dry. 5. Continue to increase ambulation 4 times daily as tolerated. 6. May take Tylenol PM at bedtime 7. Stool specimen for c-diff to be collected and brought to lab with order provided Contact the office of Dr. Bruno Carter and Dr. Richmond Garnica should you have any questions or concerns regarding your ongoing recovery from heart surgery at [phone], option #3 after 5:00 PM [facility] 06-15-2022 Miscellaneous Notes Associated Problem(s): S/P CABG (coronary artery bypass graft) Images from the original note were not included. Assessment: Mr. Martín Brown is a 46-year-old male who presents today for scheduled routine follow-up appointment and is accompanied by his spouse. He consequently has missed/canceled his 2 previously scheduled appointments which he states was out of concern due to his insurance cancelling and losing his job after undergoing CABG. Cancellation of his appointments was also compounded by reportedly being tired and inability to sleep. He states he does not have an appetite, nor sense of taste, and has had only 1 hour average of sleep each day. He has taken a home COVID-19 test which states is negative. He is experiencing numbness and generalized cutaneous discomfort to the left anterior chest wall, consistent with left internal mammary artery harvest. He reports intermittent episodes of diarrhea versus constipation associated with nausea at times. He has not had any episodes of emesis. He reports his last episode of diarrhea (1 occurrence) was on 06/13/2022. Today, he had a normal bowel movement. He also states he has been experiencing pain and discomfort in the right posterior flank region which has moved to the anterior region, under his ribs which he describes as constant pressure under the rib cage, like he needs to pass gas but unable to. He continues to use incentive spirometer at times and is obtaining 2500 when he uses same. He also will use PEP therapy at times. He is ambulating 1/8 mile daily as follows: 5 walks daily 1/16 of mile to bridge and back. He does become short of breath during ambulation at times however this resolves with rest. Overview: Mr. Brown underwent three-vessel coronary artery bypass grafting on 05/24/2022, using left internal mammary artery to the left anterior descending artery, saphenous vein graft from ascending aorta to posterior descending artery and saphenous vein graft from ascending aorta to second obtuse marginal by Dr. Bruno Carter along with left lower extremity endoscopic greater saphenous vein harvest by physician assistant professor of psychology. Physical assessment: He is assisted to the examination room via wheelchair and his cane alongside. He is sitting in the examination chair with legs elevated, no obvious visible acute distress. His heart hugger has been removed and is sitting in the chair beside him, he is not wearing his ANNETTE hose. Blood pressure today is 125/82 pulse is 86 and regular. Oxygen saturation is 98% on room air. His weight today is 73.7 kg which is approximately 8 kg below his preoperative weight of 81.3 kg. Lungs are clear to auscultation, anterior and posterior-no obvious visible acute distress. Heart is regular rate and rhythm. No obvious clicks, rubs nor gallops noted. Split S1 noted at sternal border. Abdomen is soft, round, slight tenderness at epigastric area with palpation. Last bowel movement: 06/15/2022, soft and formed. No obvious peripheral clubbing, cyanosis nor edema noted in extremities. Sternal incision, chest tube trocar sites and left EVH site with intact scabbing. No erythema, edema, calor nor drainage noted. Photodocumentation is obtained and reflected herein. Serum laboratory studies are unremarkable. Chest x-ray reveals lungs well expanded, no evidence of pleural effusions. Sternal wires aligned and intact. Plan: At this time, I have advised Mr. Brown the followin. Continue strict sternal precautions, no lifting more than 10 pounds and no driving for 5 weeks. 2. Continue to use incentive spirometer. 3. Continue strict leg elevation when not ambulating or eating meals. 4. Continue to shower daily, wash incisions with warm soap and water, pat dry. 5. Continue to increase ambulation 4 times daily as tolerated. 6. May take Tylenol PM at bedtime 7. Stool specimen for c-diff to be collected and brought to lab with order provided Contact the office of Dr. Bruno Carter and Dr. Richmond Garnica should you have any questions or concerns regarding your ongoing recovery from heart surgery at [phone], option #3 after 5:00 PM documented in this encounter [facility] 06-15-2022 Instructions Dodie Shaw PA-C - 06/15/2022 8:51 AM EDT 1. Continue strict sternal precautions, no lifting more than 10 pounds and no driving for 5 weeks. 2. Continue to use incentive spirometer. 3. Continue strict leg elevation when not ambulating or eating meals. 4. Continue to shower daily, wash incisions with warm soap and water, pat dry. 5. Continue to increase ambulation 4 times daily as tolerated. 6. May take Tylenol PM at bedtime 7. Stool specimen for c-diff to be collected and brought to lab with order provided Contact the office of Dr. Bruno Carter and Dr. Richmond Garnica should you have any questions or concerns regarding your ongoing recovery from heart surgery at [phone], option #3 after 5:00 PM documented in this encounter [facility] 06-10-2022 History of Present illness Narrative Patient missed postoperative follow-up appointment today. I called him to discuss the missed appointment and to hopefully reschedule. He states that he has been having bowel issues and has been having some episodes of diarrhea since coming home from the hospital. He has continued to take the stool softener, therefore I instructed him to hold the stool softener for loose stool and only take it if he is experiencing constipation. He also states he has been having pain in his right lower ribs, for which he has been soaking his back in the bathtub. I reinforced with him that he absolutely should NOT be taking baths under any circumstance until all incision sites are completely healed, and instead should be taking showers or applying warm compresses just to the back area if needed. He has also not been taking anything for pain after running out of Percocet, therefore I instructed him to try extra strength Tylenol as noted on discharge instructions. We will reschedule the patient's appointment to 06/14 at 10:30 AM. I instructed patient to get labs drawn and chest x-ray prior to the appointment. If he continues to have diarrhea after holding off on the stool softener we will send stool for testing. Emiliano Fung PA-C Cardiothoracic Surgery documented in this encounter [facility] Evaluation + Plan note Future Appointments Appointment Date:05/10/2023 11:30:00 AM Scheduled Provider:ARNALDO FERGUSON Location:[facility] Appointment Type:PC OV [facility] documented in this encounter [facility] note* Diagnosis S/P CABG (coronary artery bypass graft)- Primary Postsurgical aortocoronary bypass status [facility] Diagnosis S/P CABG (coronary artery bypass graft)- Primary Postsurgical aortocoronary bypass status [facility] Diagnosis S/P CABG (coronary artery bypass graft)- Primary Postsurgical aortocoronary bypass status Hypertension, unspecified type [facility] Diagnosis Chest pain, unspecified type- Primary S/P CABG (coronary artery bypass graft) Postsurgical aortocoronary bypass status [facility] Diagnosis Coronary artery disease involving [place] coronary artery of [place] heart without angina pectoris- Primary S/P CABG (coronary artery bypass graft) Postsurgical aortocoronary bypass status Hyperlipidemia, unspecified hyperlipidemia type Hypertension, unspecified type [facility] N[facility] No data available for this section [facility] Hospital Discharge instructions No data available for this section [facility] Progress note No data available for this section [facility] Reason for referral (narrative)* Consultation (Urgent) - New Request Specialty Diagnoses / Procedures Referred By Scott hoffmann Referred To Contact Cardiovascular Medicine Diagnoses Chest pain, unspecified type Nery Figueroa MD [address] [place] [address] Giancarlo Reis MD [address] [place] [address] Referral ID Status Reason Start Date Expiration Date V isits Requested Visits Authorized [id number] New Request 09/28/2022 10/23/2023 1 1 * Radiology (Emergency) - Pending Review Specialty Diagnoses / Procedures Referred By Contac t Referred To Contact Procedures ECG Nery Figueroa MD [address] [place] [address] Referral ID Status Reason Start Date Expiration Date V isits Requested Visits Authorized [id number] Pending Review 09/28/2022 10/23/2023 1 1 [facility] Summary Purpose Family History No Family History Records FoundNo Family History Records FoundNo Family History Records FoundNo Family History Records FoundNo Family History Records Found No data available for this section No Family History Records Found Advance Directives Documents on File Type Date Recorded Patient Marketing Compliance Manager Expl anation Advance Directives and Livin g Will 02/16/2020 3:36 PM Documents on File Type Date Recorded Patient Marketing Compliance Manager Expl anation Power of Nitrating Acid Mixer 05/25/2022 4:39 PM Latest Code Status on File Code Status Date Activated Date Inactivated Comments Full Code 05/27/2022 12:04 PM Code Status History Code Status Date Activated Date Inactivated Comments Full Code 05/24/2022 6:55 AM 05/27/2022 12:04 PM Latest Code Status on File Code Status Date Activated Date Inactivated Comments Full Code 05/27/2022 12:04 PM 05/31/2022 4:36 PM Documents on File Type Date Recorded Patient Marketing Compliance Manager Expl anation Power of Nitrating Acid Mixer 05/25/2022 4:39 PM Latest Code Status on File Code Status Date Activated Date Inactivated Comments Full Code 05/27/2022 12:04 PM 05/31/2022 4:36 PM Code Status History Code Status Date Activated Date Inactivated Comments Full Code 05/24/2022 6:55 AM 05/27/2022 12:04 PM Discharge Instructions * Instructions* Donavon Joshi MD - 02/16/2020 Please take Augmentin as instructed Follow-up with Dr. Madisyn Mcgrath in 1 to 2 days for further care and recommendations You may take Tylenol/ibuprofen Please keep the splint on until you are evaluated by Dr. Mcgrath Completely avoid the use of the right hand until you evaluated by Dr. Mcgrath documented in this encounter Assessments Diagnosis Open displaced fracture of phalanx of right ring finger, unspecified phalanx, initial encounter- Primary Laceration of multiple sites of right hand and fingers, initial encounter Reason for Referral Specialty Diagnoses / Procedures Referred By Scott hoffmann Referred To Contact Cardiology Diagnoses S/P CABG (coronary artery bypass graft) Procedures ECG 12 lead Consuelo Coon MD [address] [place] [address] Referral ID Status Reason Start Date Expiration Date V isits Requested Visits Authorized [id number] Authorized 10/05/2022 10/05/2023 1 1 Specialty Diagnoses / Procedures Referred By Scott hoffmann Referred To Contact Cardiac Rehab Diagnoses S/P CABG (coronary artery bypass graft) Consuelo Coon MD [address] [place] [address] Referral ID Status Reason Start Date Expiration Date Visits Requested Visits Authorized [id number] Authorized Patient Preference 10/05/2022 10/05/2023 1 1 Additional Source Comments (unrecognized sect ion and content) No Status Records FoundNo Status Records FoundNo Status Records FoundNo Status Records FoundNo Status Records FoundNo Status Records Found INFORMATION SOURCE (unrecogn ized section and content) DATE CREATED AUTHOR AUTHOR'S ORGANIZ ATION 09/05/2017 [facility] DATE CREATED AUTHOR AUTHOR'S ORGANIZ ATION 09/05/2017 [facility] DATE CREATED AUTHOR AUTHOR'S ORGANIZ ATION 07/25/2022 [facility] DATE CREATED AUTHOR AUTHOR'S ORGANIZ ATION 07/25/2022 [facility] DATE CREATED AUTHOR AUTHOR'S ORGANIZ ATION 02/14/2023 [facility] ([place]) Reason for Visit (unrecogniz ed section and content) Reason Onset Date Comments Missed appointment 06/10/2022 Reason Comments Follow-up S/P CABG x [address] Panda Carter with endoscopic vein harvest lower extremity left by Physician Manager Of Digital on 05/27/2022 Reason Onset Date Comments Phase II Cardiac Rehab 07/05/2022 Reason Comments Follow-up S/P CABG x [address] Panda Carter on 05/28/22 and left lower extremity endoscopic greater saphenous vein harvesting by physician assistant professor of psychology Reason Comments Medication Refill Reason Comments Chest Pain Complains of chest t ightness x1 week. States that it is worse with breathing. Had open heart surgery at [facility] few months ago Reason Comments Follow-up S/P CABG May 29 is only taking the metoprolol 1 a day last wed went to [facility] for b/p 190/130 Damir Weir RN - 02/16/2020 2:53 PM Donavon Trujillo MD - 02/16/2020 2:50 PM Rip Russ - 02/16/2020 2:49 PM EST ED Notes (unrecognized secti on and content) PT HAND SOAKING IN CHLORHEXIDINE AND NORMAL SALINE PER ORDER OF DR JOSHI ED PROVIDER NOTE [facility] NAME: Martín Brown AGE: 44 y.o. : 1975 VISIT DATE: 02/16/2020 CSN: [id number] PCP: Physician No Chief Complaint Patient presents with Finger Laceration Patient states he was shaving off a part of a door with a table saw. He states he stopped a table saw and he tried to brush off some dust off the table and the right hand hit the blade that was still running fast. He sustained injury of the distal palmar aspect of the right third, fourth and fifth fingers. He states he is having severe pain. There is minimal venous bleeding. Patient states she last had a tetanus shot about 4 years ago. Past Medical History: Diagnosis Date CHF (congestive heart failure) (HCC) Hypertension History reviewed. No pertinent surgical history. History reviewed. No pertinent family history. Social History Socioeconomic History Marital status: Spouse name: Not on file Number of children: Not on file Years of education: Not on file Highest education level: Not on file Occupational History Not on file Social Needs Financial resource strain: Not on file Food insecurity Worry: Not on file Inability: Not on file Transportation needs Medical: Not on file Non-medical: Not on file Tobacco Use Smoking status: Current Every Day Smoker Packs/day: 1.00 Smokeless tobacco: Never Used Substance and Sexual Activity Alcohol use: Never Frequency: Never Drug use: Never Sexual activity: Not on file Lifestyle Physical activity Days per week: Not on file Minutes per session: Not on file Stress: Not on file Relationships Social connections Talks on phone: Not on file Gets together: Not on file Attends christian service: Not on file Active member of club or organization: Not on file Attends meetings of clubs or organizations: Not on file Relationship status: Not on file Other Topics Concern Not on file Social History Narrative Not on file No current outpatient medications on file prior to encounter. Allergies Allergen Reactions Penicillins Anaphylaxis Review of Systems Musculoskeletal: Table saw injury with a laceration of the right third, fourth and fifth fingers All other systems reviewed and are negative. Patient Vitals for the past 24 hrs: BP Temp Temp src Pulse Resp 02/16/20 1451 (!) 144/125 98.1 F (36.7 C) Oral 98 (!) 20 Physical Exam Vitals signs and nursing note reviewed. Constitutional: Appearance: He is not ill-appearing. Comments: Appears in pain HENT: Head: Normocephalic and atraumatic. Eyes: Extraocular Movements: Extraocular movements intact. Pupils: Pupils are equal, round, and reactive to light. Neck: Musculoskeletal: No neck rigidity. Cardiovascular: Rate and Rhythm: Normal rate and regular rhythm. Pulses: Normal pulses. Heart sounds: Normal heart sounds. No murmur. No friction rub. Pulmonary: Effort: Pulmonary effort is normal. No respiratory distress. Breath sounds: Normal breath sounds. No stridor. No wheezing, rhonchi or rales. Chest: Chest wall: No tenderness. Abdominal: General: Abdomen is flat. Bowel sounds are normal. There is no distension. Palpations: Abdomen is soft. Tenderness: There is no abdominal tenderness. There is no rebound. Musculoskeletal: Normal range of motion. Comments: Irregular laceration involving the distal palmar aspect of the right third, fourth and fifth fingers with significant tenderness. Hands including the stated fingers are neurovascularly intact. Skin: Comments: Irregular lacerations involving the distal palmar aspect of the right third, fourth and fifth fingers Neurological: General: No focal deficit present. Mental Status: He is oriented to person, place, and time. Laboratory & Radiographic Imaging (if done): No results found for this visit on 02/16/20. XR Hand Right 3+ Views (Standard) Final Result Suspect a small chip fracture arising from the radial-volar aspect of the 3rd distal phalanx. Adjacent soft tissue swelling and skin deformity compatible with the history of a saw injury. No metallic foreign material is seen. JRS/ads Workstation ID: [id number] Procedures MDM Number of Diagnoses or Management Options Laceration of multiple sites of right hand and fingers, initial encounter Open displaced fracture of phalanx of right ring finger, unspecified phalanx, initial encounter Diagnosis management comments: Patient sustained multiple irregular lacerations involving multiple fingers of the right hand, third through the fifth. The flexion range of motion both active and passive of the right ring finger is quite limited at the DIP joint suspicious for avulsion of a flexor tendon. X-ray reveals possible chip fracture involving radial volar aspect of the third distal phalanx. The hand is otherwise neurovascularly intact. For laceration repair please see Tara Everett's, INTERNET PROGRAMMER, note. Patient received morphine and Toradol for pain control. Volar splint involving the DIP joint of the ring finger mik taping to the middle finger was placed in ED. Because it is considered to be open fracture patient received Rocephin 1 g IV and sent home with prescription for Augmentin for 5-day course. Even though patient states he has anaphylactic reaction to penicillin he states he had tolerated amoxicillin with no problems when he had sinus infection in the past. Therefore patient should be able to tolerate Augmentin. If he develops any reaction he understands he should immediately call 911 or return to ER. I did consult with Dr. Mcgrath, the orthopedic surgeon on-call who agreed to see the patient at her office early next week and agreed with plan of care including the splint placement and antibiotics. . Clinical Impression: 1. Open displaced fracture of phalanx of right ring finger, unspecified phalanx, initial encounter 2. Laceration of multiple sites of right hand and fingers, initial encounter ED Disposition None Follow-up Information 1. Madisyn Mcgrath MD. Specialty: Orthopedic Surgery [address] [place] [id number] Contact information for after-discharge care Follow-up information has not been specified. New Prescriptions amoxicillin-clavulanate (AUGMENTIN) 875-125 mg per tablet Take 1 (one) tablet by mouth 2 (two) times a day . Donavon Joshi MD 02/16/20 1800 Bed: 20 Expected date: Expected time: Means of arrival: Comments: PT 3 documented in this encounter Care Teams (unrecognized sec tion and content) Psych Sales Specialist Relationship Specialty Start Date End Date Kori Willis DO [address] [place] [address] PCP - General Family Medicine 05/31/22 Psych Sales Specialist Relationship Specialty Start Date End Date Kori Willis DO [address] [place] [address] PCP - General Family Medicine 05/31/22 Psych Sales Specialist Relationship Specialty Start Date End Date Kori Willis DO [address] [place] [address] PCP - General Family Medicine 05/31/22 Psych Sales Specialist Relationship Specialty Start Date End Date Kori Willis DO [address] [place] [address] PCP - General Family Medicine 05/31/22 Psych Sales Specialist Relationship Specialty Start Date End Date Kori Willis DO [address] [place] [address] PCP - General Family Medicine 05/31/22 Psych Sales Specialist Relationship Specialty Start Date End Date Kori Willis DO [address] [place] [address] PCP - General Family Medicine 05/31/22 Psych Sales Specialist Relationship Specialty Start Date End Date Kori Willis DO [address] [facility] [address] [place] [address] PCP - General Family Medicine 05/31/22 Psych Sales Specialist Relationship Specialty Start Date End Date [facility] [address] [facility] [address] [place] [address] PCP - General Family Medicine 05/31/22 Psych Sales Specialist Relationship Specialty Start Date End Date K[facility] Willis DO [address] [facility] [address] [place] [address] PCP - General Family Medicine 05/31/22 FOR RECORDS PERTAINING TO PATIENTS WHO ARE OR HAVE BEEN ENROLLED IN A CHEMICAL DEPENDENCY/SUBSTANCEABUSE PROGRAM, SOME INFORMATION MAY BE OMITTED. This clinical summary was aggregated from multiple sources. Caution should be exercised in using it in the provision of clinical care. This summary normalizes information from multiple sources, and as a consequence, information in this document may materially change the coding, format and clinical context of patient data. In addition, data may be omitted in some cases. CLINICAL DECISIONS SHOULD BE BASED ON THE PRIMARY CLINICAL RECORDS. [facility]. provides no warranty or guarantee of the accuracy or completeness of information in this document.
[2023-04-08 09:23] LABS: Reflex Troponin-HS? (from REC) Y
[2023-04-08 09:44] LABS: Troponin-I HS 10 pg/mL (3.0-78.0)
== END 2023-04-08 10:33 | disposition left against medical advice (07) ==
PROVIDERS: Emergency Provider Emergency Medicine; PCP Nurse Practitioner Adult Health; Visit Provider Emergency Medicine
DX: I25.10 Atherosclerotic heart disease of native coronary artery without angina pectoris (principal); R07.9 Chest pain, unspecified; F17.210 Nicotine dependence, cigarettes, uncomplicated; I10 Essential (primary) hypertension; I25.2 Old myocardial infarction; Z79.82 Long term (current) use of aspirin; Z79.899 Other long term (current) drug therapy; Z95.1 Presence of aortocoronary bypass graft
CPT/HCPCS: 71045; 80048; 84484; 85025; 93005; 99285; A4216; J7030

== ENCOUNTER 2023-04-08 19:47 | Observation (INO) | payer MEDICAID, SELFPAY ==
[2023-04-08 19:48] VITALS: BP 139/91; PULSE 73; RESP 15; TEMP 37.1; O2SAT 100; BMI 28.8
--- NOTE | 2023-04-08 20:05 | ED.VIS.CHEST ---
HPI History of Present Illness Chief Complaint: Chest Pain [facility] Medical History Anxiety and depression Chronic neuropathic pain Coronary artery disease GERD (gastroesophageal reflux disease) HLD (hyperlipidemia) HTN (hypertension) Myocardial infarct Overweight Tobacco use Home Medications amlodipine 5 mg tablet 2.5 mg PO DAILY 03/27/22 [History Last Taken Unknown] lisinopril 10 mg tablet 10 mg PO DAILY 03/27/22 [History Last Taken Unknown] pantoprazole 40 mg tablet,delayed release 40 mg PO DAILY 03/27/22 [History Last Taken Unknown] simvastatin 40 mg tablet 40 mg PO QHS 03/27/22 [History Last Taken Unknown] aspirin 81 mg tablet,delayed release 81 mg PO DAILY 10/16/22 [History Last Taken Unknown] clopidogrel 75 mg tablet 75 mg PO DAILY 10/16/22 [History Last Taken Unknown] empagliflozin 10 mg tablet (Jardiance) 10 mg PO DAILY 10/16/22 [History Last Taken Unknown] escitalopram oxalate 10 mg tablet 20 mg PO DAILY 10/16/22 [History Last Taken Unknown] magnesium 30 mg tablet 30 mg PO BID 10/16/22 [History Last Taken Unknown] metoprolol succinate 50 mg tablet,extended release 24 hr 50 mg PO BID 10/16/22 [History Last Taken Unknown] potassium gluconate 595 mg (99 mg) tablet 595 mg PO DAILY 10/16/22 [History Last Taken Unknown] hydroxyzine HCl 25 mg tablet 25 mg PO DAILY 04/08/23 [History Last Taken Unknown] Allergy/AdvReac Type Severity Reaction Status Date / Time bee venom protein (honey bee) Allergy Anaphylaxis Verified 04/08/23 19:51 mint Allergy Hives Verified 04/08/23 19:51 Penicillins Allergy Anaphylaxis Verified 04/08/23 19:51 Family History (Updated 04/08/23 @ 20:[address] Jeannette Griffin MD) Mother Hypertension CVA (cerebral vascular accident) Father No problems noted. Grandfather Multiple sclerosis Paternal grandfather Brother Multiple sclerosis Heart disease Hypertension CAD (coronary artery disease) Myocardial infarction Surgical History (Updated 04/08/23 @ 20:[address] Jeannette Griffin MD) H/O heart artery stent H/O right inguinal hernia repair Hx of CABG S/P appendectomy Social History (Updated 04/08/23 @ 20:[address] Jeannette Griffin MD) household members: spouse and children Smoking Status: Current every day smoker tobacco type: cigarettes Smoking packs per day: 0.5 Smoking cigarettes per day: 10.0 alcohol intake: never substance use type: does not use EXAM Physical Exam Const Vital Signs: 04/08/23 19:48 Temperature 98.8 F Temperature Source Temporal Pulse Rate 73 Respiratory Rate 15 Blood Pressure 139/91 H Blood Pressure Mean 107 Pulse Ox 100 Oxygen Delivery Method [place] [facility] [place] Medical decision making narrative: HISTORY OF PRESENT ILLNESS: 47-year-old male here with chest pain. He was seen earlier today and was recommended be admitted secondary to elevated heart score and ongoing chest pain. Patient had to leave secondary to family issues he returns for admission at this time. Notes exertional chest pain that is sharp, left-sided, rating to the shoulder only with exertion. No pain at rest. Patient denies sudden onset of pain, no migratory symptoms, weakness or loss of sensation. Patient denies family history or personal history of Connective tissue disorders (Marfan's Syndrome, Jenniffer Danlos etc) The patient denies recent surgery in the last 4 weeks or immobilization in the last 3 days, denies previous diagnosis of DVT or PE, hemoptysis, unilateral leg swelling or malignancy with treatment the last 6 months or palliative. No estrogen use noted. REVIEW OF SYSTEMS: Pertinent positives: Chest pain, Shortness of breath, dizziness Pertinent negatives: Bleeding diathesis, leg swelling, focal weakness PHYSICAL EXAM: Nursing triage notes reviewed, Vital signs reviewed Constitutional: please see [facility] HENT: MMM Eyes: Pupils equal round and reactive to light, Extraocular muscles intact Neck: No stridor, no JVD, full neck ROM Lungs: Clear to auscultation, No wheezing or rales. No increased work of breathing, no conversational dyspnea, no accessory muscle use, no nasal flaring. No respiratory distress noted Heart: Regular rate and rhythm, No murmurs, No rubs and No gallops, 2+ distal pulses (radial, femoral, posterior tibial) in all extremities Abdomen: Soft, there is no tenderness, rigidity, rebound or guarding, no obvious peritoneal signs, no palpable pulsatile abdominal masses, no auscultated abdominal bruit : No CVAT Extremities: No edema Neuro: No focal neurological deficits, cranial nerves II through XII intact, 5/5 strength in all extremities. Intact sensation to light touch in all extremities, 2+ reflexes bilateral patella tendons. Normal gait. No ataxia. Skin: No rash or lesions noted MEDICAL DECISION MAKING: Chief Complaint: Chest pain External records reviewed: Seen earlier today for similar complaints was noted to have no leukocytosis or anemia on CBC, BMP without significant electrolyte abnormalities or acute kidney injury, troponin were negative x 2. Heart score is 5 at that time a decision is made to admit the patient however he cannot stay secondary to family issues. Factors affecting care: CAD status post stent, hypertension, GERD, hyperlipidemia Consults: Internal medicine (Dr. Griffin) MDM Narrative: Patient was initially hemodynamically stable, afebrile, nontoxic-appearing. Cardiopulmonary exam was benign. Neurologic exam was nonfocal. Patient had symmetric pulses. I considered the following differential diagnosis: ACS, anemia, arrhythmia, electrolyte disturbance, PE, dissection I considered PE however the patient had a low risk Wells score. I have a low suspicion for pulm embolism at this time. He had no pulse deficits ripping or tearing pain no family or personal history of connective tissue diseases to suggest aortic dissection. ALL IMAGES (IF OBTAINED) HAVE BEEN PERSONALLY REVIEWED AND INTERPRETED BY MYSELF. EKG with normal sinus rhythm, left axis deviation, no obvious STEMI Given the patient score 5 and ongoing exertional chest pain I recommended admission. Spoke with Dr. Griffin who agreed to accept the patient. The patient and/or family, caregivers express understanding. The patient and/or family, caregivers agrees with the plan. Shared decision making: I will have a discussion with the patient and or visitors regarding risk/benefits of further testing or admission. They will be made aware of of the risk/benefits inherent in this decision they will be given the opportunity to voice understanding. Total critical care time today provided was at least 0 [] minutes. This excludes separately billable procedures. Critical care time (if documented) is secondary to the patient having high probability of clinically significant/life threatening deterioration in the patient's condition which required my urgent intervention. Impression: 1. Chest pain 2. History of CAD Dispo: Admit to medicine This note was generated with [employer] dictation software. It may contain incorrect words, spelling, and punctuation that were not noted in review of the chart prior to signing. Discharge Plan Triage Chief Complaint: Chest Pain ED Provider: Keagan Carrasquillo Dx/Rx/DC Orders Prescriptions: No Action amlodipine 5 mg Tablet 2.5 mg PO DAILY simvastatin 40 mg Tablet 40 mg PO QHS pantoprazole 40 mg Tablet,Delayed Release (Dr/Ec) 40 mg PO DAILY lisinopril 10 mg Tablet 10 mg PO DAILY hydroxyzine HCl 25 mg tablet 25 mg PO DAILY Jardiance 10 mg tablet 10 mg PO DAILY Patient Comments: TAKE 1 TABLET IN THE MORNING DAILY escitalopram oxalate 10 mg tablet 20 mg PO DAILY clopidogrel 75 mg tablet 75 mg PO DAILY metoprolol succinate 50 mg tablet extended release 24 hr 50 mg PO BID magnesium 30 mg tablet 30 mg PO BID potassium gluconate 595 mg (99 mg) tablet 595 mg PO DAILY aspirin 81 mg tablet,delayed release (DR/EC) 81 mg PO DAILY Primary Care Provider: ARNALDO FERGUSON Referrals: ARNALDO FERGUSON CRNP [Primary Care Provider] -
--- OUTSIDE RECORDS SUMMARY | 2023-04-08 20:46 | XMS RPT_ITS | CCD ---
Author Name Unknown Address [address] [place] [address] Organization [facility] Care Team Providers Care Can Vacuum Tester Name Role Phone CALI MAITE Unavailable Unavailable [...] FELA, KORI SHAIKH Primary Care Unavailabl e ODDIE SHAW Attending Unavailable FELAKORI VARNER Primary Care Unavailabl e FELA, KORI SHAIKH Primary Care Unavailabl e FELAKORI CARDOZA Primary Care Unavailabl e DODIE SHAW Attending [...] CARTER Consulting Unavailab DOMINGUEZ Yadav Consulting Unavailable OKRI WILLIS Primary Care Unavailabl e DODIE SHAW Admitting Unavailable DODIE SHAW Referring Unavailable Unavailable Primary Care Provider Unavailabl e MAST MEAT DEPARTMENT MANAGER-PROFESSOR OF SOCIOLOGY, ARNALDO Primary Care Physician [phone] MAST MEAT DEPARTMENT MANAGER-PROFESSOR OF SOCIOLOGY, ARNALDO Primary Care Unavailabl e MAST MEAT DEPARTMENT MANAGER-PROFESSOR OF SOCIOLOGY, ARNALDO Attending Unavailabl e MAST MEAT DEPARTMENT MANAGER-PROFESSOR OF SOCIOLOGY, ARNALDO Attending Unavailabl e MAST MEAT DEPARTMENT MANAGER-PROFESSOR OF SOCIOLOGY, ARNALDO Primary Care Unavailabl e Allergies Allergy Classification Reported Allergen(s) Allergy Type Date of Onset Reaction(s) Facility (15 sources) Penicillins; Translations: [PENICILLINS] Propensity to adverse reactions to drug [address] [facility] (14 sources) Mint; Translations: [MINT] Propensity to adverse reactions to drug 3 Swelling, Swelling (morphologic abnormality) [facility] Work Phone: (1 source) Peppermint preparation Drug Allergy 3 Swelling [facility] (1 source) Penicillin; Translations: [penicillin] Drug Allergy Swelling (morphologic abnormality) [facility] [place] Medications Current Medications Medication Drug Class(es) Dates [...] 170.2 cm Consuelo Coon MD Work Phone: [facility] 10-05-2022 14:49-0400 Body mass index (BMI) [Ratio] 26.94 kg/m2 Consuelo Coon MD Work Phone: [facility] 10-05-2022 14:49-0400 Body weight 78.02 kg Consuelo Coon MD Work Phone: [facility] 10-05-2022 14:49-0400 Diastolic blood pressure 85 mm[Hg] Consuelo Coon MD Work Phone: [facility] 10-05-2022 14:49-0400 Heart rate 78 /min Consuelo Coon MD Work Phone: [facility] 10-05-2022 14:49-0400 SaO2% (BldA) [Mass fraction] 97 % Consuelo Coon MD Work Phone: [facility] 10-05-2022 14:49-0400 Systolic blood pressure 124 mm[Hg] Consuelo Coon MD Work Phone: [facility] 09-28-2022 22:15-0400 Diastolic blood pressure 94 mm[Hg] Nery Figueroa MD Work Phone: [facility] 09-28-2022 22:15-0400 Heart rate 73 /min Nery Figueroa MD Work Phone: [facility] 09-28-2022 22:15-0400 Respiratory rate 18 /min Nery Figueroa MD Work Phone: [facility] 09-28-2022 22:15-0400 SaO2% (BldA) [Mass fraction] 98 % Nery Figueroa MD Work Phone: [facility] 09-28-2022 22:15-0400 Systolic blood pressure 157 mm[Hg] Nery Figueroa MD Work Phone: [facility] 09-28-2022 19:50-0400 Body height 172.7 cm Nery Fiugeroa MD Work Phone: [facility] 09-28-2022 19:50-0400 Body temperature 98.1 [degF] Nery Figueroa MD Work Phone: [facility] 07-20-2022 11:24-0400 Diastolic blood pressure 84 mm[Hg] Emiliano Fung PA-C Work Phone: [facility] 07-20-2022 11:24-0400 Systolic blood pressure 147 mm[Hg] Emiliano Fung PA-C Work Phone: [facility] 07-20-2022 11:19-0400 Body height 170.2 cm Emiliano Fung PA-C Work Phone: [facility] 07-20-2022 11:19-0400 Body mass index (BMI) [Ratio] 27.25 kg/m2 Emiliano Fung PA-C Work Phone: [facility] 07-20-2022 11:19-0400 Body temperature 97.81 [degF] Emiliano Fung PA-C Work Phone: [facility] 07-20-2022 11:19-0400 Body weight 78.93 kg Emiliano Fung PA-C Work Phone: [facility] 07-20-2022 11:19-0400 Heart rate 66 /min Emiliano Fung PA-C Work Phone: [facility] 07-20-2022 11:19-0400 SaO2% (BldA) [Mass fraction] 98 % Emiliano Fung PA-C Work Phone: [facility] 06-15-2022 10:20-0400 Body height 170.2 cm Dodie Mark PA-C Work Phone: [facility] 06-15-2022 10:20-0400 Body mass index (BMI) [Ratio] 25.44 kg/m2 Dodiecatalina Shaw PA-C Work Phone: [facility] 06-15-2022 10:20-0400 Body weight 73.66 kg Dodie Shaw PA-C Work Phone: [facility] 06-15-2022 10:20-0400 Diastolic blood pressure 82 mm[Hg] Dodiecatalina Shaw PA-C Work Phone: [facility] 06-15-2022 10:20-0400 Heart rate 86 /min Dodiecatalina Shaw PA-C Work Phone: [facility] 06-15-2022 10:20-0400 SaO2% (BldA) [Mass fraction] 98 % Dodiecatalina Shaw PA-C Work Phone: [facility] 06-15-2022 10:20-0400 Systolic blood pressure 125 mm[Hg] Dodie Shaw PA-C Work Phone: [facility] 02-16-2020 18:16-0500 BP Diastolic 125 mm[Hg] Donavon Dave [facility] 02-16-2020 18:16-0500 BP Systolic 179 mm[Hg] Donavon Egal [facility] 02-16-2020 18:16-0500 Pulse (Heart Rate) 82 /min Donavon Egal [facility] 02-16-2020 18:16-0500 Pulse Oximetry 97 % Donavon Joshi [facility] 02-16-2020 18:16-0500 Respiratory Rate 18 /min Donavon Joshi [facility] 02-16-2020 14:51-0500 Body Temperature 98.1 [degF] Donavon Joshi [facility] Encounters Encounter Date Encounter Type Care Provider Facility Start: 03-31-2023 Documentation procedure Eugene Shaw PA-C Work Phone: [facility] Start: 02-07-2023 End: 02-12-2023 ambulatory ARNALDO MAST MEAT DEPARTMENT MANAGER-PROFESSOR OF SOCIOLOGY Facility:B Start: 02-07-2023 End: 02-11-2023 Outreach Lab ARNALDO MAST MEAT DEPARTMENT MANAGER-PROFESSOR OF SOCIOLOGY [facility] Start: 11-02-2022 End: 11-03-2022 ambulatory ARNALDO MAST MEAT DEPARTMENT MANAGER-PROFESSOR OF SOCIOLOGY Facility:[facility] Start: 10-05-2022 End: 10-05-2022 Office outpatient visit 25 minutes Consuelo Coon MD Work Phone: [facility] Procedures Date Procedure [...] procedure 02/08/2023 3:00 PM EST Office Visit [facility] [address] [facility] [place] [place] [address] Consuelo Coon MD [address] [place] [address] [facility] Start: 11-26-2022 Hemoglobin A1c measurement A1C [facility] Start: 11-12-2022 Influenza vaccination [facility] Start: 08-13-2022 End: 08-13-2022 Patient encounter procedure 08/13/2022 8:00 AM EDT Office Visit [facility] [address] [facility] [place] [address] Ann Marie Abdul CNP [address] [place] [address] [facility] Start: 07-20-2022 End: 07-20-2022 Follow-up encounter 07/20/2022 11:30 AM EDT Follow-Up [facility] [address] [facility] [place] [id number] [facility] Start: 07-19-2022 End: 07-19-2022 Patient encounter procedure [facility] Start: 07-01-2022 End: 06-28-2023 12 lead ECG ECG 12 Lead ECG Routine S/P CABG (coronary artery bypass graft) Expected: 07/01/2022, Expires: 06/28/[address] [facility] Immunizations Immunization Date Immunization Notes Care Provider Fa cility 02-07-2023 tetanus toxoid, redu jaguar diphtheria toxoid, and acellular pertussis vaccine, adsorbed; Translations: [Boostrix (Tdap)] ARNALDO FERGUSON MEAT DEPARTMENT MANAGER-PROFESSOR OF SOCIOLOGY [facility] Payers Date Payer Category Payer Medicaid [employer] [id number] 2022-Present [phone] [address] [place] [address] [id number] 2022 Medicaid [id number] 2021 Unknown [id number] 2021 Unknown [id number] 2015 Unknown [id number] 1974 Unknown [id number] 1974 Unknown [id number] 1974 Unknown [id number] 1974 Unknown [id number] 1974 Unknown [id number] 1974 Unknown [id number] 1974 Unknown [id number] 1974 Unknown [id number] 1974 Unknown [id number] Social History Date Type Detail Facility Start: 02-16-2020 End: 10-05-2022 Tobacco smoking status NHIS Current every day smoker [facility] Start: 02-16-2020 End: 10-08-2022 Cigarettes smoked current (pack per day[facility] Start: 02-16-2020 End: 10-05-2022 Tobacco use and exposure Never used [facility] Start: 02-16-2020 Alcohol intake Lifetime non-drinker (finding) [facility] Start: 02-16-2020 History SDOH Alcohol Frequency [address] [facility] Start: 1975 Sex Assigned At Not on file [facility] Start: 05-14-2022 End: 09-28-2022 Exposure to SARS-CoV-2 (event) Not sure [facility] History of tobacco use Cigarette Smoker [facility] Start: 05-28-2022 End: 10-08-2022 Alcohol intake Ex-drinker (finding) [facility] Start: 02-16-2020 End: 10-08-2022 Alcohol Use Disorder Identification Test - Consumption [AUDIT-C] [facility] How often to you hav e a drink containing alcohol? Never [facility] Average Number of Drinks Not [facility] file [facility] Start: 06-15-2022 End: 09-28-2022 Tobacco smoking status NHIS Ex-smoker [facility] History of tobacco use [facility]oker [facility] Start: 10-05-2022 Tobacco Comment Is smoking about 5 a day [facility] Start: 02-07-2023 Tobacco smoking status Light tobacco smoker (finding) [facility] Sex Assigned At Sex [facility] Medical Equipment Procedure Code Equipment Code Equipment Origin al Text Equipment Identifier Dates Marker Graft Coronary Bypass - Sn/A [id number] Start: 05-27-2022 Use to check BG daily Dx E11.59 Needs One Touch Verio strips. . [id number] Start: 05-31-2022 Use to check BG daily Dx E11.59 Needs lancets for One Touch Verio meter . [id number] Start: 05-31-2022 Use to check BG daily Dx E11.59 Needs One Touch Verio strips. . 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 Please give me a call at [phone]. At your earliest availability. Thank you. Call placed to patient this morning in follow up. States he initially followed up with Dr. Coon in September of 2022. He was scheduled to follow up again in January however was cancelled Patient/Provider . He again was scheduled to follow up on March 24, 2023 at the [facility] office only to read a note posted on the door that the office was closed. Patient states he was not notified by phone call or any other mode of notification and has missed work to attend appointment. He is requesting that he be seen by a different student life coordinator and will be referred to Dr. Sandy Plata. documented in this encounter [facility] 10-05-2022 History of Present illness Narrative Cardiology Clinic Visit Heart & Vascular [facility] 10/05/2022 Consuelo Coon MD [address] [facility] [phone] Patient: Martín Brown Date of : 1975 [...] this may be related to his recent NH and anxiety. The patient did call for [...] 4 months (around 02/05/2023). Consuelo Coon MD [facility] Non-Invasive Cardiology [facility] Medications: Current Outpatient [...] 1 a day last wed went to [facility] for b/p 190/130 ) Subjective Martín Brown [...] STEMI. The patient was taken to the Paid Search Marketing Strategist emergently and was identified to have severe [...] syncope. He is yet to establish at [facility] for cardiac rehab. He reports that he [...] 2021 Hypertension Left inguinal hernia Myocardial infarction ([facility]) 2011 Nephrolithiasis DAVID (obstructive sleep apnea) Right inguinal hernia Multiple repairs STEMI (ST elevation myocardial infarction) ([facility]) 05/24/2022 Past Surgical History: Procedure Laterality Date APPENDECTOMY CABG N/A 05/27/2022 Procedure: CORONARY ARTERY BYPASS GRAFT x3 WITH Left Internal Mammary Artery and left leg greater saphenous with endoscopic vein harvest; Surgeon: Panda Carter MD; Location: Main OR; Service: Cardiothoracic CABG 05/27/2022 CARDIAC CATHETERIZATION CARDIAC CATHETERIZATION N/A 05/24/2022 Procedure: Angioplasty - Coronary; Surgeon: Negra Nichols MD; Location: [facility]; Service: Cardiovascular CARDIAC CATHETERIZATION N/A 05/24/2022 Procedure: Coronary Angiogram; Surgeon: Negra Nichols MD; Location: [facility]; Service: Cardiovascular CARDIAC CATHETERIZATION N/A 05/24/2022 Procedure: Left Ventriculogram; Surgeon: Negra Nichols MD; Location: [facility]; Service: Cardiovascular CORONARY ANGIOPLASTY WITH STENT PLACEMENT 2011 CORONARY ANGIOPLASTY WITH STENT PLACEMENT 2016 LEFT HEART CATH N/A 05/24/2022 Procedure: Left Heart Cath; Surgeon: Negra Nichols MD; Location: [facility]; Service: Cardiovascular HERNIA REPAIR INGUINAL OPEN Right [...] Normal mood and affect. Cardiovascular Studies: 05/24/22 [facility] Impression: Acute inferior ST elevation myocardial [...] TRIG , HDL documented in this encounter [facility] 10-05-2022 Ananda Mota, CELESTE - 10/05/2022 2:38 PM EDT How to contact your Care Team: Provider: Consuelo Coon MD Nurse: Ananda Mitchell RN In case of an emergency please call 911. REFILLS: When in need for refills please call your care team or the office at [phone]. Please include medication name, pharmacy name, and specify 30-day or 90-day supply. Please check with your pharmacy within 24 hours of request for your refill. You must follow up as directed to continue current refills. Thank you documented in this encounter [facility] 09-28-2022 Hospital Discharge instructions Nery Figueroa MD - 09/28/2022 9:59 PM EDT Your lab work your EKG and your chest x-ray were without acute findings. It is important that you follow-up with cardiology for follow-up evaluation. He may call your primary care provider for further referral as your procedure was done at [facility]. In addition cardiology at [facility] would be happy to see you and referral information has been given. The following attachments cannot be sent through Care Everywhere.Chest Pain (Sami)documented in this encounter [facility] 09-28-2022 Physician Emergency department Note Emergency Department Report [facility] EMERGENCY [facility]ICINE Service Date:.09/29/22 PCP: No primary care provider on file. Chief Complaint: Chief Complaint Patient presents with Chest Pain Complains of chest tightness x1 week. States that it is worse with breathing. Had open heart surgery at [facility] few months ago HPI Martín Brown is [...] heavy lifting. Patient had a CABG at [facility] on 05/27/22. He also endorses intermittent episodes of high blood pressure at home despite taking his prescribed medications. Patient has not followed up with a student life coordinator since his CABG procedure stating they haven't [...] recommendation for cardiac rehabilitation and follow-up with student life coordinator and primary care provider. Review of Systems: [...] nonspecific ST and T-wave abnormalities present throughout. AL interval 138. QRS duration 86. QT/QTC 380/435. [...] 09/29/22 0510 Nery Figueroa MD 09/29/22 0510 [facility] 09-28-2022 Emergency department Note Emergency Department Report [facility] Service Date:.09/29/22 PCP: No primary care provider on file. Chief Complaint: Chief Complaint Patient presents with Chest Pain Complains of chest tightness x1 week. States that it is worse with breathing. Had open heart surgery at [facility] few months ago ROSALVA Brown is a [...] heavy lifting. Patient had a CABG at [facility] on 05/27/22. He also endorses intermittent episodes of high blood pressure at home despite taking his prescribed medications. Patient has not followed up with a student life coordinator since his CABG procedure stating they haven't [...] recommendation for cardiac rehabilitation and follow-up with student life coordinator and primary care provider. Review of Systems: [...] nonspecific ST and T-wave abnormalities present throughout. AL interval 138. QRS duration 86. QT/QTC 380/435. [...] his symptoms and was referred to a student life coordinator. documented in this encounter [facility] 09-28-2022 Emergency department Note Patient ambulates to ED room 5 from waiting room with even and equal respirations and a steady gait. Open heart bypass graft surgery in 05/2022. Complains of chest tightness x1 week. Told his PCP about his symptoms and was referred to a student life coordinator. [facility] 07-20-2022 Evaluation + Plan note Associated Problem(s): S/P CABG (coronary artery bypass graft) You may drive. You may lift up to 20 lbs for the next 5 weeks then no restrictions. Please do cardiac rehab. You no longer need the support hose and heart hugger. Please follow-up with your primary care provider and your student life coordinator. If you have any questions regarding your heart surgery in the future, please feel free to call. [facility] 07-20-2022 Miscellaneous Notes Associated Problem(s): S/P CABG (coronary artery bypass graft) You may drive. You may lift up to 20 lbs for the next 5 weeks then no restrictions. Please do cardiac rehab. You no longer need the support hose and heart hugger. Please follow-up with your primary care provider and your student life coordinator. If you have any questions regarding your heart surgery in the future, please feel free to call. documented in this encounter [facility] 07-20-2022 History of Present illness Narrative Images from the original note were not included. Cardiothoracic Surgery Clinic Follow-up Heart & Vascular [facility] 07/20/2022 Emiliano Fung PA-C [address] [place] [address] [facility] [phone] Patient: Martín Brown Date of [...] with your primary care provider and your student life coordinator. If you have any questions regarding your heart surgery in the future, please feel free to call. Follow-up: No follow-ups on file. Chief Complaint: Follow-up (S/P CABG x [address] Panda Carter on 05/28/22 and left lower extremity endoscopic greater saphenous vein harvesting by physician physician assistant surgery) Subjective History of Present Illness: Martín Brown is a 47 y.o. male S/P CABG x [address] Panda Carter on 05/28/22 and left lower extremity endoscopic greater saphenous vein harvesting by physician physician assistant surgery. 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 He has recovered well in the postop period and is released back to his primary care provider and student life coordinator. Objective Tobacco Use Smoking Status Former Packs/day: [...] CREATININE 0.95 07/20/2022 documented in this encounter [facility] 07-20-2022 Instructions Emiliano Fung PA-C - 07/20/2022 11:35 AM EDT You may drive. You may lift up to 20 lbs for the next 5 weeks then no restrictions. Please do cardiac rehab. You no longer need the support hose and heart hugger. Please follow-up with your primary care provider and your student life coordinator. If you have any questions regarding your heart surgery in the future, please feel free to call. documented in this encounter [facility] 07-05-2022 History of Present illness Narrative Cardiac Rehab referral received s/p CABG 05/31/22. Staff contacted pt to scheduled Phase II Cardiac Rehab and pt has requested to do his rehab at [facility]. Referral faxed to the [place] program. documented in this encounter [facility] 06-16-2022 History of Present illness Narrative Images from the original note were not included. Cardiothoracic Surgery Clinic Follow-up Heart & Vascular [facility] 06/15/2022 Dodie Shaw PA-C [address] [place] [address] Medical Office [facility] [phone] Patient: Martín Brown Date of : [...] endoscopic greater saphenous vein harvest by physician physician assistant surgery. Physical assessment: He is assisted to the [...] your ongoing recovery from heart surgery at [phone], option #3 after 5:00 PM Follow-up: Return in about 16 days (around 07/01/2022), or 11:00 am, for Next scheduled follow up. Chief Complaint: Follow-up (S/P CABG x [address] Panda Carter with endoscopic vein harvest lower extremity left by Physician Options Trader on 05/27/2022/) Objective Tobacco Use Smoking Status [...] clearance: 100.4 mL/min documented in this encounter [facility] 06-15-2022 Evaluation + Plan note Associated Problem(s): [...] endoscopic greater saphenous vein harvest by physician physician assistant surgery. Physical assessment: He is assisted to the [...] your ongoing recovery from heart surgery at [phone], option #3 after 5:[address] [facility] 06-15-2022 Miscellaneous Notes Associated Problem(s): S/P CABG [...] endoscopic greater saphenous vein harvest by physician physician assistant surgery. Physical assessment: He is assisted to the [...] your ongoing recovery from heart surgery at [phone], option #3 after 5:00 PM documented in this encounter [facility] 06-15-2022 Instructions Dodie Shaw PA-C - 06/15/2022 [...] your ongoing recovery from heart surgery at [phone], option #3 after 5:00 PM documented in this encounter [facility] 06-10-2022 History of Present illness Narrative Patient [...] PA-C Cardiothoracic Surgery documented in this encounter [facility] Evaluation + Plan note Future Appointments Appointment Date:05/10/2023 11:30:00 AM Scheduled Provider:ARNALDO FERGUSON Location:[facility] Appointment Type:PC [facility] documented in this encounter [facility] note* Diagnosis S/P CABG (coronary artery bypass graft)- Primary Postsurgical aortocoronary bypass status [facility] Diagnosis S/P CABG (coronary artery bypass graft)- Primary Postsurgical aortocoronary bypass status [facility] Diagnosis S/P CABG (coronary artery bypass graft)- Primary Postsurgical aortocoronary bypass status Hypertension, unspecified type [facility] Diagnosis Chest pain, unspecified type- Primary S/P CABG (coronary artery bypass graft) Postsurgical aortocoronary bypass status [facility] Diagnosis Coronary artery disease involving ke[place]aw coronary artery of keweenaw heart without angina pectoris- Primary S/P CABG (coronary artery bypass graft) Postsurgical aortocoronary bypass status Hyperlipidemia, unspecified hyperlipidemia type Hypertension, unspecified type [facility] Narrative No data available for this section [facility] Discharge instructions No data available for this section [facility] Progress note No data available for this section [facility] Reason for referral (narrative)* Consultation (Urgent) - New Request Specialty Diagnoses / Procedures Referred By Scott hoffmann Referred To Contact Cardiovascular Medicine Diagnoses Chest pain, unspecified type Nery Figueroa MD [address] [place] [address] Giancarlo Reis MD [address] [place] [address] Referral ID Status Reason Start Date Expiration Date V isits Requested Visits Authorized [id number] New Request 09/28/2022 10/23/2023 1 1 * Radiology (Emergency) - Pending Review Specialty Diagnoses / Procedures Referred By Contac t Referred To Contact Procedures ECG Nery Figueroa MD [address] [place] [address] Referral ID Status Reason Start Date Expiration Date V isits Requested Visits Authorized [id number] Pending Review 09/28/2022 10/23/2023 1 1 [facility] Summary Purpose Family History No Family History Records FoundNo Family History Records FoundNo Family History Records FoundNo Family History Records FoundNo Family History Records Found No data available for this section No Family History Records Found Advance Directives Documents on File Type Date Recorded Patient Manager Of Information Expl anation Advance Directives and Livin g Will 02/16/2020 3:36 PM Documents on File Type Date Recorded Patient Manager Of Information Expl anation Power of Supply Crib Attendant 05/25/2022 4:39 PM Latest Code Status on [...] Documents on File Type Date Recorded Patient Manager Of Information Expl anation Power of Supply Crib Attendant 05/25/2022 4:39 PM Latest Code Status on [...] ECG 12 lead Consuelo Coon MD [address] [place] [address] Referral ID Status Reason Start Date Expiration Date V isits Requested Visits Authorized [id number] Authorized 10/05/2022 10/05/2023 1 1 Specialty Diagnoses / Procedures Referred By Scott hoffmann Referred To Contact Cardiac Rehab Diagnoses S/P CABG (coronary artery bypass graft) Consuelo Coon MD [address] [place] [address] Referral ID Status Reason Start Date Expiration Date Visits Requested Visits Authorized [id number] Authorized Patient Preference 10/05/2022 10/05/2023 1 1 Additional Source Comments (unrecognized sect ion and content) No Status Records FoundNo Status Records FoundNo Status Records FoundNo Status Records FoundNo Status Records FoundNo Status Records Found INFORMATION SOURCE (unrecogn ized section and content) DATE CREATED AUTHOR AUTHOR'S ORGANIZ ATION 09/05/2017 [facility] DATE CREATED AUTHOR AUTHOR'S ORGANIZ ATION 09/05/2017 [facility] DATE CREATED AUTHOR AUTHOR'S ORGANIZ ATION 07/25/2022 [facility] DATE CREATED AUTHOR AUTHOR'S ORGANIZ ATION 07/25/2022 [facility] DATE CREATED AUTHOR AUTHOR'S ORGANIZ ATION 02/14/2023 [facility] ([place]) Reason for Visit (unrecogniz ed section and content) Reason Onset Date Comments Missed appointment 06/10/2022 Reason Comments Follow-up S/P CABG x [address] Panda Carter with endoscopic vein harvest lower extremity left by Physician Options Trader on 05/27/2022 Reason Onset Date Comments Phase II Cardiac Rehab 07/05/2022 Reason Comments Follow-up S/P CABG x [address] Panda Carter on 05/28/22 and left lower extremity endoscopic greater saphenous vein harvesting by physician physician assistant surgery Reason Comments Medication Refill Reason Comments Chest Pain Complains of chest t ightness x1 week. States that it is worse with breathing. Had open heart surgery at [facility] few months ago Reason Comments Follow-up S/P CABG May 29 is only taking the metoprolol 1 a day last wed went to [facility] for b/p 190/130 Damir Weir RN - 02/16/2020 2:53 PM Donavon Trujillo MD - 02/16/2020 2:50 PM Rip Russ - 02/16/2020 2:49 PM EST ED Notes (unrecognized secti on and content) PT HAND SOAKING IN CHLORHEXIDINE AND NORMAL SALINE PER ORDER OF DR JOSHI ED PROVIDER NOTE [facility] EMERGENCY DEPARTMENT NAME: Martín Brown AGE: 44 y.o. : 1975 VISIT DATE: 02/16/2020 CSN: [id number] PCP: Physician No Chief Complaint Patient presents [...] file Gets together: Not on file Attends zoroastrianism service: Not on file Active member of [...] For laceration repair please see Tara Everett's, [employer] PROFESS[employer], note. Patient received morphine and Toradol for [...] 1. Madisyn Mcgrath MD. Specialty: Orthopedic Surgery [address] [place] [id number] Contact information for after-discharge care Follow-up information has not been specified. New Prescriptions amoxicillin-clavulanate (AUGMENTIN) 875-125 mg per tablet Take 1 (one) tablet by mouth 2 (two) times a day . Donavon Joshi MD 02/16/20 1800 Bed: 20 Expected date: Expected time: Means of arrival: Comments: PT 3 documented in this encounter Care Teams (unrecognized sec tion and content) Can Vacuum Tester Relationship Specialty Start Date End Date Kori Willis DO [address] [place] [address] PCP - General Family Medicine 05/31/22 Can Vacuum Tester Relationship Specialty Start Date End Date Kori Willis DO [address] [place] [address] PCP - General Family Medicine 05/31/22 Can Vacuum Tester Relationship Specialty Start Date End Date Kori Willis DO [address] [place] [address] PCP - General Family Medicine 05/31/22 Can Vacuum Tester Relationship Specialty Start Date End Date Kori Willis DO [address] [place] [address] PCP - General Family Medicine 05/31/22 Can Vacuum Tester Relationship Specialty Start Date End Date Kori Willis DO [address] [place] [address] PCP - General Family Medicine 05/31/22 Can Vacuum Tester Relationship Specialty Start Date End Date Kori Willis DO [address] [place] [address] PCP - General Family Medicine 05/31/22 Can Vacuum Tester Relationship Specialty Start Date End Date Kori Willis DO [address] [facility] [address] [place] [address] PCP - General Family Medicine 05/31/22 Can Vacuum Tester Relationship Specialty Start Date End Date [facility] Willis [facility] [address] [facility] [address] [place] [address] PCP - General Family Medicine 05/31/22 Can Vacuum Tester Relationship Specialty Start Date End Date Kori Willis DO [address] [facility] [address] [place] [address] PCP - General Family Medicine 05/31/22 FOR [...] BE BASED ON THE PRIMARY CLINICAL RECORDS. [facility] [employer] [facility]. provides no warranty or guarantee of the accuracy or completeness of information in this document.
--- NOTE | 2023-04-08 20:51 | HP.PCM.HOS_ITS ---
HPI - General General Date of Admission: 04/08/23 Date of Service: 04/08/23 Chief Complaint: Chest pain. HPI Narrative The patient is a 47 y/o M w/ PMHx: Tobacco use, HTN, HLD, Anxiety and Depression, GERD, Chronic neuropathy, GERD, Overweight, CAD s/p PCI x 7 (initial intervention noted to be at [facility] in [place] and most recently [facility]) and CABG x 3 on 05/28/2022 in [facility] reporting he has only been seen once following per Dr. Coon but his other visits were cancelled so he currently has been referred to Dr. Lackey with planned visit 04/28/23 who presented earlier in the day to the [facility] ED on 04/08/23 with history of onset left-sided chest discomfort described as a chest heaviness and also a shooting pain with no radiation however he had associated dyspnea, diaphoresis, nausea without emesis awakening him at 4 AM which at its worst he rated 10 out of 10 in severity and most recently upon evaluation notes the discomfort has improved down to 2-3 out of 10 in severity reporting the discomfort to have been waxing and waning through the day with elevated blood pressure prompting him to eventually present to the ED with at that time initially chest x-ray with no acute cardiopulmonary findings, EKG was sinus rhythm with no acute evidence of ischemia, not marked appearing CBC or BMP and troponin x 2 initially 9 and repeat delta 10 with recommendation given history for admission however he noted not having a digital commentator and needed to get back to his children prompting him to leave however he now returns again since care has been arranged for admission for further evaluation of chest pain. Workup in the ED currently includes T98.8, heart rate 73, BP 139/91, respiratory rate 15, 100% on room air. Recent evaluation labs earlier in the day included CBC with WBC 9.4, hemoglobin 16.8, platelet 320 without marked shift, BMP with glucose 123 otherwise unremarkable and as noted previously troponin initially 9 with repeat delta 10. Patient had been administered nitroglycerin and did note improvement following this intervention. [facility] Medical History Anxiety and depression Chronic neuropathic pain Coronary artery disease GERD (gastroesophageal reflux disease) HLD (hyperlipidemia) HTN (hypertension) Myocardial infarct Overweight Tobacco use Home Medications amlodipine 5 mg tablet 2.5 mg PO DAILY 03/27/22 [History Last Taken Unknown] lisinopril 10 mg tablet 10 mg PO DAILY 03/27/22 [History Last Taken Unknown] pantoprazole 40 mg tablet,delayed release 40 mg PO DAILY 03/27/22 [History Last Taken Unknown] simvastatin 40 mg tablet 40 mg PO QHS 03/27/22 [History Last Taken Unknown] aspirin 81 mg tablet,delayed release 81 mg PO DAILY 10/16/22 [History Last Taken Unknown] clopidogrel 75 mg tablet 75 mg PO DAILY 10/16/22 [History Last Taken Unknown] empagliflozin 10 mg tablet (Jardiance) 10 mg PO DAILY 10/16/22 [History Last Taken Unknown] escitalopram oxalate 10 mg tablet 20 mg PO DAILY 10/16/22 [History Last Taken Unknown] magnesium 30 mg tablet 30 mg PO BID 10/16/22 [History Last Taken Unknown] metoprolol succinate 50 mg tablet,extended release 24 hr 50 mg PO BID 10/16/22 [History Last Taken Unknown] potassium gluconate 595 mg (99 mg) tablet 595 mg PO DAILY 10/16/22 [History Last Taken Unknown] hydroxyzine HCl 25 mg tablet 25 mg PO DAILY 04/08/23 [History Last Taken Unknown] Allergy/AdvReac Type Severity Reaction Status Date / Time bee venom protein (honey bee) Allergy Anaphylaxis Verified 04/08/23 19:51 mint Allergy Hives Verified 04/08/23 19:51 Penicillins Allergy Anaphylaxis Verified 04/08/23 19:51 Family History (Updated 04/08/23 @ 20:[address] Jeannette Griffin MD) Mother Hypertension CVA (cerebral vascular accident) Father No problems noted. Grandfather Multiple sclerosis Paternal grandfather Brother Multiple sclerosis Heart disease Hypertension CAD (coronary artery disease) Myocardial infarction Surgical History (Updated 04/08/23 @ 20:[address] Jeannette Griffin MD) H/O heart artery stent H/O right inguinal hernia repair Hx of CABG S/P appendectomy Social History (Updated 04/08/23 @ 20:[address] Jeannette Griffin MD) household members: spouse and children Smoking Status: Current every day smoker tobacco type: cigarettes Smoking packs per day: 0.5 Smoking cigarettes per day: 10.0 alcohol intake: never substance use type: does not use ROS ROS Narrative Admission Review of Systems: CONSTITUTIONAL: No weight loss, fever, chills, + weakness or fatigue. HEENT: Eyes: No visual loss, blurred vision, double vision or yellow sclerae. Ears, Nose, Throat: No hearing loss, sneezing, congestion, runny nose or sore throat. SKIN: No rash or itching, lesions, wounds. CARDIOVASCULAR: + Chest pain. No palpitations, edema, orthopnea, syncopal events. RESPIRATORY: + Dyspnea. No cough or sputum, wheezing, hemoptysis. GASTROINTESTINAL: + Nausea. No anorexia, vomiting or diarrhea, abdominal pain, melena, BRBPR. GENITOURINARY: No dysuria, frequency, urgency or retention. NEUROLOGICAL: No headache, dizziness, syncope, paralysis, ataxia, numbness or tingling in the extremities, focal weakness, change in bowel or bladder control, seizure. MUSCULOSKELETAL: + muscle, back pain, joint pain or stiffness. HEMATOLOGIC: No anemia. + Easy bleeding/bruising. LYMPHATICS: No enlarged nodes. No history of splenectomy. PSYCHIATRIC: + History of anxiety and depression. ENDOCRINOLOGIC: + reports of sweating. No cold or heat intolerance. No polyuria or polydipsia. ALLERGIES: + History of hives and anaphylaxis. Vital Signs Vital Signs Vital Signs: 04/08/23 19:48 Temperature 98.8 F Temperature Source Temporal Pulse Rate 73 Respiratory Rate 15 Blood Pressure 139/91 H Blood Pressure Mean 107 Pulse Ox 100 Oxygen Delivery Method Room Air Weight Weight: 184 lb Body Mass Index (BMI) 28.8 Physical Exam Narrative Physical Examination: General: Awake, alert, oriented x 3 and cooperative, seated upright in ED bed, no acute distress, notes chest discomfort is improved, currently rated 2 out of 10. Skin: Normal color, normal turgor, no icterus, no cyanosis, well-healed sternal scar, several old appearing tattoos. HEENT: AT/NC, EOMI, PERRLA, MMM, no carotid bruits or JVD noted. Lungs: CTA bilaterally, moderate effort, mild decrease BL bases, no rales, ronchi or wheezing. Heart: Regular rate and rhythm; no gallop, rub audible. Abdomen: Soft, overweight, NTTP, ND, normal BS, no HSM. Extremities: No cyanosis, clubbing, or edema. Neurological: Patient awake, alert, oriented as noted, cognitive function intact; pupils equally reactive to light and accommodation, cranial nerves II- XII grossly normal, moving all 4 extremities, no focal deficits, strength mildly global decrease secondary to acute complaints. Psychiatric: Affect appears fatigued otherwise normal, no acute evidence of depressive or anxiety feelings but does have underlying history. Assessment & Plan Assessment/Plan (1) Chest pain: PLAN: Plan The patient is a 47 y/o M w/ PMHx: Tobacco use, HTN, HLD, Anxiety and Depression, GERD, Chronic neuropathy, GERD, Overweight, CAD s/p PCI x 7 (initial intervention noted to be at [facility] in [place] and most recently [facility]) and CABG x 3 on 05/28/2022 in [facility] reporting he has only been seen once following per Dr. Coon but his other visits were cancelled so he currently has been referred to Dr. Lackey with planned visit 04/28/23 who presented earlier in the day to the [facility] ED on 04/08/23 with history of onset left-sided chest discomfort described as a chest heaviness and also a shooting pain with no radiation however he had associated dyspnea, diaphoresis, nausea without emesis awakening him at 4 AM which at its worst he rated 10 out of 10 in severity and most recently upon evaluation notes the discomfort has improved down to 2-3 out of 10 in severity reporting the discomfort to have been waxing and waning through the day with elevated blood pressure prompting him to eventually present to the ED. #1. Chest Pain: EKG in ED with sinus rhythm with no acute evidence of ischemia performed earlier in the day, CXR w/ no acute cardiopulmonary findings from earlier in the day, initial trop 9 with repeat delta 10 performed earlier in the day. Will admit to PCU, place on a monitored bed to assure no acute myocardial infarction with serial cardiac enzymes and EKGs. If repeat serial cardiac enzymes and EKGs remain unremarkable will pursue a.m. cardiac stress testing. FLP in AM. Magnesium level requested. Tobacco cessation encouraged. ASA, NG, morphine. #2. CAD: CAD s/p PCI x 7 (initial intervention noted to be at [facility] in [place] and most recently [facility]) and CABG x 3 on 05/28/2022 in [facility], will continue aspirin, Plavix, metoprolol, lisinopril, empagliflozin home regimen. Current plan of care is for patient to establish with Dr. Lackey with upcoming visit 04/28/2023. Records requested. #3. Anxiety and depression: We will continue patient home escitalopram and hydroxyzine home regimen. #4. Hypertension: Continue home regimen including metoprolol, lisinopril, amlodipine, PRN hydralazine. #5. Hyperlipidemia: Continue home statin regimen. AM FLP. #6. Chronic neuropathy: Patient notes chronic issues with neuropathy to bilateral lower extremity and sometimes to the distal fingertip, has upcoming appointment with neurology, encouraged him to keep this appointment. #7. Tobacco Abuse: Encouraged cessation, inpatient consultation per RT, NR if desired. #8. Overweight: Weight loss and lifestyle changes encouraged. #9. GERD: We will continue patient on PPI. #10. DVT prophylaxis: Lovenox. Charges/Coding Visit Charges Inpatient E&M: 19204 Init Hosp L2
--- OUTSIDE RECORDS SUMMARY | 2023-04-08 21:08 | XMS RPT_ITS | CCD ---
Author Name Unknown Address [address] [place] [address] Organization [facility] Care Team Providers Care Mail List Librarian Name Role Phone CALI MAITE Unavailable Unavailable [...] Unavailable Primary Care Provider Unavailabl e MAST FRONT DESK ASSISTANT-FACILITIES ENGINEER, ARNALDO Primary Care Physician MAST FRONT DESK ASSISTANT-FACILITIES ENGINEER, ARNALDO Primary Care Unavailabl e MAST FRONT DESK ASSISTANT-FACILITIES ENGINEER, ARNALDO Attending Unavailabl e MAST FRONT DESK ASSISTANT-FACILITIES ENGINEER, ARNALDO Attending Unavailabl e MAST FRONT DESK ASSISTANT-FACILITIES ENGINEER, ARNALDO Primary Care Unavailabl e Allergies Allergy Classification Reported Allergen(s) Allergy Type Date of Onset Reaction(s) Facility (15 sources) Penicillins; Translations: [PENICILLINS] Propensity to adverse reactions to drug 0 Anaphylaxis [facility] (14 sources) Mint; Translations: [MINT] Propensity to adverse reactions to drug 3 Swelling, Swelling (morphologic abnormality) [facility] Work Phone: (1 source) Peppermint preparation Drug Allergy 3 Swelling [facility] (1 source) Penicillin; Translations: [penicillin] Drug Allergy Swelling (morphologic abnormality) [facility] [place] Medications Current Medications Medication Drug Class(es) Dates [...] 170.2 cm Consuelo Coon MD Work Phone: [facility] 10-05-2022 14:49-0400 Body mass index (BMI) [Ratio] 26.94 kg/m2 Consuelo Coon MD Work Phone: [facility] 10-05-2022 14:49-0400 Body weight 78.02 kg Consuelo Coon MD Work Phone: [facility] 10-05-2022 14:49-0400 Diastolic blood pressure 85 mm[Hg] Consuelo Coon MD Work Phone: [facility] 10-05-2022 14:49-0400 Heart rate 78 /min Consuelo Coon MD Work Phone: [facility] 10-05-2022 14:49-0400 SaO2% (BldA) [Mass fraction] 97 % Consuelo Coon MD Work Phone: [facility] 10-05-2022 14:49-0400 Systolic blood pressure 124 mm[Hg] Consuelo Coon MD Work Phone: [facility] 09-28-2022 22:15-0400 Diastolic blood pressure 94 mm[Hg] Nery Figueroa MD Work Phone: [facility] 09-28-2022 22:15-0400 Heart rate 73 /min Nery Figueroa MD Work Phone: [facility] 09-28-2022 22:15-0400 Respiratory rate 18 /min Nery Figueroa MD Work Phone: [facility] 09-28-2022 22:15-0400 SaO2% (BldA) [Mass fraction] 98 % Nery Figueroa MD Work Phone: [facility] 09-28-2022 22:15-0400 Systolic blood pressure 157 mm[Hg] Nery Figueroa MD Work Phone: [facility] 09-28-2022 19:50-0400 Body height 172.7 cm Nery Figueroa MD Work Phone: [facility] 09-28-2022 19:50-0400 Body temperature 98.1 [degF] Nrey Figueroa MD Work Phone: [facility] 07-20-2022 11:24-0400 Diastolic blood pressure 84 mm[Hg] Emiliano Fung PA-C Work Phone: [facility] 07-20-2022 11:24-0400 Systolic blood pressure 147 mm[Hg] Emiliano Fung PA-C Work Phone: [facility] 07-20-2022 11:19-0400 Body height 170.2 cm Emiliano Fung PA-C Work Phone: [facility] 07-20-2022 11:19-0400 Body mass index (BMI) [Ratio] 27.25 kg/m2 Emiliano Fung PA-C Work Phone: [facility] 07-20-2022 11:19-0400 Body temperature 97.81 [degF] Emiliano Fung PA-C Work Phone: [facility] 07-20-2022 11:19-0400 Body weight 78.93 kg Emiliano Fung PA-C Work Phone: [facility] 07-20-2022 11:19-0400 Heart rate 66 /min Emiliano Fung PA-C Work Phone: [facility] 07-20-2022 11:19-0400 SaO2% (BldA) [Mass fraction] 98 % Emiliano Fung PA-C Work Phone: [facility] 06-15-2022 10:20-0400 Body height 170.2 cm Dodie Mark PA-C Work Phone: [facility] 06-15-2022 10:20-0400 Body mass index (BMI) [Ratio] 25.44 kg/m2 Dodiecatalina Shaw PA-C Work Phone: [facility] 06-15-2022 10:20-0400 Body weight 73.66 kg Dodie Shaw PA-C Work Phone: [facility] 06-15-2022 10:20-0400 Diastolic blood pressure 82 mm[Hg] Dodiecatalina Shaw PA-C Work Phone: [facility] 06-15-2022 10:20-0400 Heart rate 86 /min Dodiecatalina Shaw PA-C Work Phone: [facility] 06-15-2022 10:20-0400 SaO2% (BldA) [Mass fraction] 98 % Dodiecatalina Shaw PA-C Work Phone: [facility] 06-15-2022 10:20-0400 Systolic blood pressure 125 mm[Hg] Dodie Shaw PA-C Work Phone: [facility] 02-16-2020 18:16-0500 BP Diastolic 125 mm[Hg] Donavon Dave [facility] 02-16-2020 18:16-0500 BP Systolic 179 mm[Hg] Donavon Egal [facility] 02-16-2020 18:16-0500 Pulse (Heart Rate) 82 /min Donavon Egal [facility] 02-16-2020 18:16-0500 Pulse Oximetry 97 % Donavon Joshi [facility] 02-16-2020 18:16-0500 Respiratory Rate 18 /min Donavon Joshi [facility] 02-16-2020 14:51-0500 Body Temperature 98.1 [degF] Donavon Joshi [facility] Encounters Encounter Date Encounter Type Care Provider Facility Start: 03-31-2023 Documentation procedure Eugene Shaw PA-C Work Phone: [facility] Start: 02-07-2023 End: 02-12-2023 ambulatory ARNALDO MAST FRONT DESK ASSISTANT-FACILITIES ENGINEER Facility:B Start: 02-07-2023 End: 02-11-2023 Outreach Lab ARNALDO MAST FRONT DESK ASSISTANT-FACILITIES ENGINEER [facility] Start: 11-02-2022 End: 11-03-2022 ambulatory ARNALDO MAST FRONT DESK ASSISTANT-FACILITIES ENGINEER Facility:[facility] Start: 10-05-2022 End: 10-05-2022 Office outpatient visit 25 minutes Consuelo Coon MD Work Phone: [facility] Procedures Date Procedure [...] procedure 02/08/2023 3:00 PM EST Office Visit [facility] [address] [place] [address] Consuelo Coon MD [address] [place] [address] [facility] Start: 11-26-2022 Hemoglobin A1c measurement A1C [facility] Start: 11-12-2022 Influenza vaccination [facility] Start: 08-13-2022 End: 08-13-2022 Patient encounter procedure 08/13/2022 8:00 AM EDT Office Visit [facility] [address] [facility] [place] [address] Ann Marie Abdul CNP [address] [place] [address] [facility] Start: 07-20-2022 End: 07-20-2022 Follow-up encounter 07/20/2022 11:30 AM EDT Follow-Up [facility] [address] [facility] [place] [id number] [facility] Start: 07-19-2022 End: 07-19-2022 Patient encounter procedure [facility] Start: 07-01-2022 End: 06-28-2023 12 lead ECG ECG 12 Lead ECG Routine S/P CABG (coronary artery bypass graft) Expected: 07/01/2022, Expires: 06/28/2023 [facility] Immunizations Immunization Date Immunization Notes Care Provider Fa cility 02-07-2023 tetanus toxoid, redu jaguar diphtheria toxoid, and acellular pertussis vaccine, adsorbed; Translations: [Boostrix (Tdap)] ARNALDO FERGUSON FRONT DESK ASSISTANT-FACILITIES ENGINEER [facility] Payers Date Payer Category Payer Medicaid [employer] [id number] 2022-Present [phone] [address] [place] [address] [id number] 2022 Medicaid [id number] 2021 Unknown [id number] 2021 Unknown [id number] 2015 Unknown [id number] 1974 Unknown [id number] 1974 Unknown [id number] 1974 Unknown [id number] 1974 Unknown [id number] 1974 Unknown [id number] 1974 Unknown [id number] 1974 Unknown [id number] 1974 Unknown [id number] 1974 Unknown [id number] Social History Date Type Detail Facility Start: 02-16-2020 End: 10-05-2022 Tobacco smoking status NHIS Current every day smoker [facility] Start: 02-16-2020 End: 10-08-2022 Cigarettes smoked current (pack per day) - [facility] Start: 02-16-2020 End: 10-05-2022 Tobacco use and exposure Never used [facility] Start: 02-16-2020 Alcohol intake Lifetime non-drinker (finding) [facility] Start: 02-16-2020 History SDOH Alcohol Frequency 1 [facility] Start: 1975 Sex Assigned At Not on file [facility] Start: 05-14-2022 End: 09-28-2022 Exposure to SARS-CoV-2 (event) Not sure [facility] History of tobacco use Cigarette Smoker [facility] Start: 05-28-2022 End: 10-08-2022 Alcohol intake Ex-drinker (finding) [facility] Start: 02-16-2020 End: 10-08-2022 Alcohol Use Disorder Identification Test - Consumption [AUDIT-C] [facility] How often to you hav e a drink containing alcohol? Never [facility] Average Number of Drinks [facility] Start: 06-15-2022 End: 09-28-2022 Tobacco smoking status NHIS Ex-smoker [facility] History of tobacco use [facility] Start: 10-05-2022 Tobacco Comment Is smoking about 5 a day [facility] Start: 02-07-2023 Tobacco smoking status Light tobacco smoker (finding) [facility] Sex Assigned At Sex [facility] Medical Equipment Procedure Code Equipment Code Equipment Origin al Text Equipment Identifier Dates Marker Graft Coronary Bypass - Sn/A [id number] Start: 05-27-2022 Use to check BG daily Dx E11.59 Needs One Touch Verio strips. . [id number] Start: 05-31-2022 Use to check BG daily Dx E11.59 Needs lancets for One Touch Verio meter . [id number] Start: 05-31-2022 Use to check BG daily Dx E11.59 Needs One Touch Verio strips. . [id number] Start: 05-31-2022 Clinical Notes 06-10-2022 to 03-31-2023 [...] need to speak with you, not a patient safety manager, it is important. Please give me a call at [phone]. At your earliest availability. Thank you. Call placed to patient this morning in follow up. States he initially followed up with Dr. Coon in September of 2022. He was scheduled to follow up again in January however was cancelled Patient/Provider . He again was scheduled to follow up on March 24, 2023 at the [place] office only to read a note posted on the door that the office was closed. Patient states he was not notified by phone call or any other mode of notification and has missed work to attend appointment. He is requesting that he be seen by a different microsoft bi architect and will be referred to Dr. Sandy Plata. documented in this encounter [facility] 10-05-2022 History of Present illness Narrative Cardiology Clinic Visit Heart & Vascular [facility] 10/05/2022 Consuelo Coon MD [address] [facility] [id number] Patient: Martín Brown Date of : 1975 [...] this may be related to his recent [place] and anxiety. The patient did call for [...] 4 months (around 02/05/2023). Consuelo Coon MD [facility] Non-Invasive Cardiology [facility] Medications: Current Outpatient [...] 1 a day last wed went to [facility] for b/p 190/130 ) Subjective Martín [...] STEMI. The patient was taken to the Knockout Worker emergently and was identified to have severe [...] syncope. He is yet to establish at [facility] for cardiac rehab. He reports that he [...] 2021 Hypertension Left inguinal hernia Myocardial infarction ([facility]) 2011 Nephrolithiasis DAVID (obstructive sleep apnea) Right inguinal hernia Multiple repairs STEMI (ST elevation myocardial infarction) ([facility]) 05/24/2022 Past Surgical History: Procedure Laterality Date APPENDECTOMY CABG N/A 05/27/2022 Procedure: CORONARY ARTERY BYPASS GRAFT x3 WITH Left Internal Mammary Artery and left leg greater saphenous with endoscopic vein harvest; Surgeon: Panda Carter MD; Location: Main OR; Service: Cardiothoracic CABG 05/27/2022 CARDIAC CATHETERIZATION CARDIAC CATHETERIZATION N/A 05/24/2022 Procedure: Angioplasty - Coronary; Surgeon: Negra Nichols MD; Location: [facility]BRID SENIOR FIELD SERVICE ENGINEER; Service: Cardiovascular CARDIAC CATHETERIZATION N/A 05/24/2022 Procedure: Coronary Angiogram; Surgeon: Negra Nichols MD; Location: [facility] SENIOR FIELD SERVICE ENGINEER; Service: Cardiovascular CARDIAC CATHETERIZATION N/A 05/24/2022 Procedure: Left Ventriculogram; Surgeon: Negra Nichols MD; Location: HYBRID SENIOR FIELD SERVICE ENGINEER; Service: Cardiovascular CORONARY ANGIOPLASTY WITH STENT PLACEMENT 2011 CORONARY ANGIOPLASTY WITH STENT PLACEMENT 2016 LEFT HEART CATH N/A 05/24/2022 Procedure: Left Heart Cath; Surgeon: Negra Nichols MD; Location: [facility] SENIOR FIELD SERVICE ENGINEER; Service: Cardiovascular HERNIA REPAIR INGUINAL OPEN Right [...] Normal mood and affect. Cardiovascular Studies: 05/24/22 [facility] Impression: Acute inferior ST elevation myocardial [...] TRIG , HDL documented in this encounter [facility] 10-05-2022 Ananda Mota, CELESTE - 10/05/2022 2:38 PM EDT How to contact your Care Team: Provider: Consuelo Coon MD Nurse: Ananda Mitchell RN In case of an emergency please call 911. REFILLS: When in need for refills please call your care team or the office at [phone]. Please include medication name, pharmacy name, and specify 30-day or 90-day supply. Please check with your pharmacy within 24 hours of request for your refill. You must follow up as directed to continue current refills. Thank you documented in this encounter [facility] 09-28-2022 Hospital Discharge instructions Nery Figueroa MD - 09/28/2022 9:59 PM EDT Your lab work your EKG and your chest x-ray were without acute findings. It is important that you follow-up with cardiology for follow-up evaluation. He may call your primary care provider for further referral as your procedure was done at [facility]. In addition cardiology at [facility] would be happy to see you and referral information has been given. The following attachments cannot be sent through Care Everywhere.Chest Pain (Ukrainian)documented in this encounter [facility] 09-28-2022 Physician Emergency department Note Emergency Department Report [facility] Service Date:.09/29/22 PCP: No primary care provider on file. Chief Complaint: Chief Complaint Patient presents with Chest Pain Complains of chest tightness x1 week. States that it is worse with breathing. Had open heart surgery at [facility] few months ago HPI Martín Brown is [...] Patient had a CABG at [facility] on 05/27/22. He also endorses intermittent episodes of high blood pressure at home despite taking his prescribed medications. Patient has not followed up with a microsoft bi architect since his CABG procedure stating they haven't [...] recommendation for cardiac rehabilitation and follow-up with microsoft bi architect and primary care provider. Review of Systems: [...] nonspecific ST and T-wave abnormalities present throughout. CT interval 138. QRS duration 86. QT/QTC 380/435. [...] the patient with above information. . Nery Figeuroa MD 09/29/22 0509 Nery Figueroa MD 09/29/22 0510 Nery Figueroa MD 09/29/22 0510 [facility] 09-28-2022 Emergency department Note Emergency Department Report [facility] Service Date:.09/29/22 PCP: No primary care provider on file. Chief Complaint: Chief Complaint Patient presents with Chest Pain Complains of chest tightness x1 week. States that it is worse with breathing. Had open heart surgery at [facility] few months ago ROSALVA Brown is a [...] Patient had a CABG at [facility] on 05/27/22. He also endorses intermittent episodes of high blood pressure at home despite taking his prescribed medications. Patient has not followed up with a microsoft bi architect since his CABG procedure stating they haven't [...] recommendation for cardiac rehabilitation and follow-up with microsoft bi architect and primary care provider. Review of Systems: [...] nonspecific ST and T-wave abnormalities present throughout. CT interval 138. QRS duration 86. QT/QTC 380/435. [...] his symptoms and was referred to a microsoft bi architect. documented in this encounter [facility] 09-28-2022 Emergency department Note Patient ambulates to ED room 5 from waiting room with even and equal respirations and a steady gait. Open heart bypass graft surgery in 05/2022. Complains of chest tightness x1 week. Told his PCP about his symptoms and was referred to a microsoft bi architect. [facility] 07-20-2022 Evaluation + Plan note Associated Problem(s): S/P CABG (coronary artery bypass graft) You may drive. You may lift up to 20 lbs for the next 5 weeks then no restrictions. Please do cardiac rehab. You no longer need the support hose and heart hugger. Please follow-up with your primary care provider and your microsoft bi architect. If you have any questions regarding your heart surgery in the future, please feel free to call. [facility] 07-20-2022 Miscellaneous Notes Associated Problem(s): S/P CABG (coronary artery bypass graft) You may drive. You may lift up to 20 lbs for the next 5 weeks then no restrictions. Please do cardiac rehab. You no longer need the support hose and heart hugger. Please follow-up with your primary care provider and your microsoft bi architect. If you have any questions regarding your heart surgery in the future, please feel free to call. documented in this encounter [facility] 07-20-2022 History of Present illness Narrative Images from the original note were not included. Cardiothoracic Surgery Clinic Follow-up Heart & Vascular [facility] 07/20/2022 Emiliano Fung PA-C [address] [place] [address] Medical [facility] [phone] Patient: Martín Brown Date of [...] with your primary care provider and your microsoft bi architect. If you have any questions regarding your heart surgery in the future, please feel free to call. Follow-up: No follow-ups on file. Chief Complaint: Follow-up (S/P CABG x [address] Panda Carter on 05/28/22 and left lower extremity endoscopic greater saphenous vein harvesting by physician information services assistant) Subjective History of Present Illness: Martín Brown is a 47 y.o. male S/P CABG x [address] Panda Carter on 05/28/22 and left lower extremity endoscopic greater saphenous vein harvesting by physician information services assistant. 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 He has recovered well in the postop period and is released back to his primary care provider and microsoft bi architect. Objective Tobacco Use Smoking Status Former Packs/day: [...] CREATININE 0.95 07/20/2022 documented in this encounter [facility] 07-20-2022 Instructions Emiliano Fung PA-C - 07/20/2022 11:35 AM EDT You may drive. You may lift up to 20 lbs for the next 5 weeks then no restrictions. Please do cardiac rehab. You no longer need the support hose and heart hugger. Please follow-up with your primary care provider and your microsoft bi architect. If you have any questions regarding your heart surgery in the future, please feel free to call. documented in this encounter [facility] 07-05-2022 History of Present illness Narrative Cardiac Rehab referral received s/p CABG 05/31/22. Staff contacted pt to scheduled Phase II Cardiac Rehab and pt has requested to do his rehab at [facility]. Referral faxed to the [place] program. documented in this encounter [facility] 06-16-2022 History of Present illness Narrative Images from the original note were not included. Cardiothoracic Surgery Clinic Follow-up Heart & Vascular [facility] 06/15/2022 Dodie Shaw PA-C [address] [place] [address] Medical Office [facility] [address] Patient: Martín Brown Date of [...] endoscopic greater saphenous vein harvest by physician information services assistant. Physical assessment: He is assisted to the [...] your ongoing recovery from heart surgery at [phone], option #3 after 5:00 PM Follow-up: Return in about 16 days (around 07/01/2022), or 11:00 am, for Next scheduled follow up. Chief Complaint: Follow-up (S/P CABG x [address] Panda Carter with endoscopic vein harvest lower extremity left by Physician Mash Tub Cooker Operator on 05/27/2022/) Objective Tobacco Use Smoking Status [...] clearance: 100.4 mL/min documented in this encounter [facility] 06-15-2022 Evaluation + Plan note Associated Problem(s): [...] endoscopic greater saphenous vein harvest by physician information services assistant. Physical assessment: He is assisted to the [...] your ongoing recovery from heart surgery at [phone], option #3 after 5:00 PM [facility] 06-15-2022 Miscellaneous Notes Associated Problem(s): S/P CABG [...] endoscopic greater saphenous vein harvest by physician information services assistant. Physical assessment: He is assisted to the [...] your ongoing recovery from heart surgery at [phone], option #3 after 5:00 PM documented in this encounter [facility] 06-15-2022 Instructions Dodie Shaw PA-C - 06/15/2022 [...] your ongoing recovery from heart surgery at [phone], option #3 after 5:00 PM documented in this encounter [facility] 06-10-2022 History of Present illness Narrative Patient [...] PA-C Cardiothoracic Surgery documented in this encounter [facility] Evaluation + Plan note Future Appointments Appointment Date:05/10/2023 11:30:00 AM Scheduled Provider:ARNALDO FERGUSON Location:[facility] Appointment Type:PC [facility] documented in this encounter [facility] note* Diagnosis S/P CABG (coronary artery bypass graft)- Primary Postsurgical aortocoronary bypass status [facility] Diagnosis S/P CABG (coronary artery bypass graft)- Primary Postsurgical aortocoronary bypass status [facility] Diagnosis S/P CABG (coronary artery bypass graft)- Primary Postsurgical aortocoronary bypass status Hypertension, unspecified type [facility]* Diagnosis Chest pain, unspecified type- Primary S/P CABG (coronary artery bypass graft) Postsurgical aortocoronary bypass status [facility] Diagnosis Coronary artery disease involving [place] coronary artery of [place] heart without angina pectoris- Primary S/P CABG (coronary artery bypass graft) Postsurgical aortocoronary bypass status Hyperlipidemia, unspecified hyperlipidemia type Hypertension, unspecified type [facility] Narrative No data available for this section [place] [facility] Discharge instructions No data available for this section [facility] Progress note No data available for this section [facility] Reason for referral (narrative)* Consultation (Urgent) - New Request Specialty Diagnoses / Procedures Referred By Scott hoffmann Referred To Contact Cardiovascular Medicine Diagnoses Chest pain, unspecified type Nery Figueroa MD [address] [place] [address] Giancarlo Reis MD [address] [place] [address] Referral ID Status Reason Start Date Expiration Date V isits Requested Visits Authorized [id number] New Request 09/28/2022 10/23/2023 1 1 * Radiology (Emergency) - Pending Review Specialty Diagnoses / Procedures Referred By Contac t Referred To Contact Procedures ECG Nery Figueroa MD [address] [place] [address] Referral ID Status Reason Start Date Expiration Date V isits Requested Visits Authorized [id number] Pending Review 09/28/2022 10/23/2023 1 1 [facility] Summary Purpose Family History No Family History Records FoundNo Family History Records FoundNo Family History Records FoundNo Family History Records FoundNo Family History Records Found No data available for this section No Family History Records Found Advance Directives Documents on File Type Date Recorded Patient Station Cleaning Porter Expl anation Advance Directives and Livin g Will 02/16/2020 3:36 PM Documents on File Type Date Recorded Patient Station Cleaning Porter Expl anation Power of Sales Ledger Administrator 05/25/2022 4:39 PM Latest Code Status on [...] Documents on File Type Date Recorded Patient Station Cleaning Porter Expl anation Power of Sales Ledger Administrator 05/25/2022 4:39 PM Latest Code Status on File Code Status Date Activated Date Inactivated Comments Full Code 05/27/2022 12:04 PM 05/31/2022 4:36 PM Code Status History Code Status Date Activated Date Inactivated Comments Full Code 05/24/2022 6:55 AM 05/27/2022 12:04 PM Discharge Instructions * Instructions* Donavon Josih MD - 02/16/2020 Please take Augmentin as [...] ECG 12 lead Consuelo Coon MD [address] [place] [address] Referral ID Status Reason Start Date Expiration Date V isits Requested Visits Authorized [id number] Authorized 10/05/2022 10/05/2023 1 1 Specialty Diagnoses / Procedures Referred By Scott hoffmann Referred To Contact Cardiac Rehab Diagnoses S/P CABG (coronary artery bypass graft) Consuelo Coon MD [address] [place] [address] Referral ID Status Reason Start Date Expiration Date Visits Requested Visits Authorized [id number] Authorized Patient Preference 10/05/2022 10/05/2023 1 1 Additional Source Comments (unrecognized sect ion and content) No Status Records FoundNo Status Records FoundNo Status Records FoundNo Status Records FoundNo Status Records FoundNo Status Records Found INFORMATION SOURCE (unrecogn ized section and content) DATE CREATED AUTHOR AUTHOR'S ORGANIZ ATION 09/05/2017 [facility] [place] DATE CREATED AUTHOR AUTHOR'S ORGANIZ ATION 09/05/2017 [facility] DATE CREATED AUTHOR AUTHOR'S ORGANIZ ATION 07/25/2022 [facility] DATE CREATED AUTHOR AUTHOR'S ORGANIZ ATION 07/25/2022 [facility] DATE CREATED AUTHOR AUTHOR'S ORGANIZ ATION 02/14/2023 [facility] ([place]) Reason for Visit (unrecogniz ed section and content) Reason Onset Date Comments Missed appointment 06/10/2022 Reason Comments Follow-up S/P CABG x [address] Panda Carter with endoscopic vein harvest lower extremity left by Physician Mash Tub Cooker Operator on 05/27/2022 Reason Onset Date Comments Phase II Cardiac Rehab 07/05/2022 Reason Comments Follow-up S/P CABG x [address] Panda Carter on 05/28/22 and left lower extremity endoscopic greater saphenous vein harvesting by physician information services assistant Reason Comments Medication Refill Reason Comments Chest Pain Complains of chest t ightness x1 week. States that it is worse with breathing. Had open heart surgery at [facility] few months ago Reason Comments Follow-up S/P CABG May 29 is only taking the metoprolol 1 a day last wed went to [facility] for b/p 190/130 Damir Weir RN - 02/16/2020 2:53 PM Donavon Trujillo MD - 02/16/2020 2:50 PM Rip Russ - 02/16/2020 2:49 PM EST ED Notes (unrecognized secti on and content) PT HAND SOAKING IN CHLORHEXIDINE AND NORMAL SALINE PER ORDER OF DR JOSHI ED PROVIDER NOTE [facility] NAME: Martín Brown AGE: 44 y.o. : 1975 VISIT DATE: 02/16/2020 CSN: [id number] PCP: Physician No Chief Complaint Patient presents [...] file Gets together: Not on file Attends denominational service: Not on file Active member of [...] For laceration repair please see Tara Everett's, PRINTED CIRCUIT BOARD PCB DESIGNER, note. Patient received morphine and Toradol for [...] 1. Madisyn Mcgrath MD. Specialty: Orthopedic Surgery [address] [place] [id number] Contact information for after-discharge care Follow-up information has not been specified. New Prescriptions amoxicillin-clavulanate (AUGMENTIN) 875-125 mg per tablet Take 1 (one) tablet by mouth 2 (two) times a day . Donavon Joshi MD 02/16/20 1800 Bed: 20 Expected date: Expected time: Means of arrival: Comments: PT 3 documented in this encounter Care Teams (unrecognized sec tion and content) Mail List Librarian Relationship Specialty Start Date End Date Kori Willis DO [address] [place] [address] PCP - General Family Medicine 05/31/22 Mail List Librarian Relationship Specialty Start Date End Date Kori Willis DO [address] [place] [address] PCP - General Family Medicine 05/31/22 Mail List Librarian Relationship Specialty Start Date End Date Kori Willis DO [address] [place] [address] PCP - General Family Medicine 05/31/22 Mail List Librarian Relationship Specialty Start Date End Date Kori Willis DO [address] [place] [address] PCP - General Family Medicine 05/31/22 Mail List Librarian Relationship Specialty Start Date End Date Kori Willis DO [address] [place] [address] PCP - General Family Medicine 05/31/22 Mail List Librarian Relationship Specialty Start Date End Date Kori Willis DO [address] [place] [address] PCP - General Family Medicine 05/31/22 Mail List Librarian Relationship Specialty Start Date End Date Kori Willis DO [address] [facility] [address] [place] [address] PCP - General Family Medicine 05/31/22 Mail List Librarian Relationship Specialty Start Date End Date [facility] Willis [facility] [address] [facility] [address] [place] [address] PCP - General Family Medicine 05/31/22 Mail List Librarian Relationship Specialty Start Date End Date Kori Willis DO [address] [facility] [address] [place] [address] PCP - General Family Medicine 05/31/22 FOR [...] BE BASED ON THE PRIMARY CLINICAL RECORDS. [facility] [employer] [facility]. provides no warranty or guarantee of the accuracy or completeness of information in this document.
[2023-04-08 21:10] VITALS: BP 142/91; PULSE 61; RESP 16; O2SAT 95
[2023-04-08 21:26] VITALS: BMI 28.7
[2023-04-08 21:30] VITALS: BP 152/98; PULSE 62; RESP 18; TEMP 36.7; O2SAT 96
[2023-04-08 21:48] LABS: Magnesium 2.3 mg/dL (1.6-2.6)
[2023-04-08] MEDS: 0.9% Normal Saline (1000mL) 1,000 ML 100 ML IV (22:22)
[2023-04-08 22:50] LABS: Troponin-I HS 9 pg/mL (3.0-78.0)
[2023-04-08 23:24] VITALS: O2SAT 98
[2023-04-09 00:34] LABS: Troponin-I HS 8 pg/mL (3.0-78.0)
[2023-04-09 03:53] VITALS: BP 156/91; PULSE 55; RESP 16; TEMP 36.7; O2SAT 97
[2023-04-09 03:59] LABS: Absolute Lymphocyte Count 3.63 X10^3/uL (0.83-4.51); Absolute Neutrophil Count 5.5 X10^3/uL (2.0-7.7); Basophil# 0.06 X10^3/uL; Basophil% 0.6 % (0-1); Eosinophil# 0.22 X10^3/uL; Eosinophils% 2.1 % (0-5); Hematocrit 48.8 % (40-54); Hemoglobin 15.9 g/dL (13.0-16.5); Lymphocyte # 3.63 X10^3/ul (0.83-4.51); Lymphocyte % 35.4 % (19-41); Mean Corp Hgb Conc 32.6 g/dL (32-36); Mean Corpuscular Hgb 28.4 pg (27.0-32.0); Mean Corpuscular Volume 87.3 fL (80-94); Mean Platelet Vol. 10.3 fl (6.2-12.0); Monocyte# 0.85 X10^3/uL; Monocyte% 8.3 % (0-10); NRBC Flagged by Analyzer 0 % (0-5); Neutrophil # 5.46 X10^3/uL (2.7-7.7); Neutrophil % 53.3 % (47-70); Platelet Count 281 K/mm3 (150-450); RBC Distribution Width CV 12.7 % (11.6-14.6); RBC Distribution Width SD 40.3 fl (35.1-43.9); Red Blood Count 5.59 M/mm3 (4.6-6.2); White Blood Count 10.3 K/mm3 (4.4-11.0)
[2023-04-09 04:16] LABS: Troponin-I HS 11 pg/mL (3.0-78.0)
[2023-04-09 04:38] LABS: ALB/GLOB Ratio 1.1 RATIO (0.9-2.4); AST(SGOT) 17 U/L (15-37); Alanine Aminotransfer ALT/SGPT 47 U/L (16-61); Albumin, Serum 3.4 g/dL (3.2-5.0); Alkaline Phosphatase 57 U/L (45-117); Anion Gap 4 (5-15); BUN 18 mg/dL (7-18); BUN/Creat Ratio 24.2 RATIO (10-20); Calcium,Total 8.3 mg/dL (8.5-10.1); Chloride 110 mmol/L (98-107); Cholesterol 125 mg/dL (200); Creatinine, Serum 0.74 mg/dL (0.70-1.30); EST Glomerular Filtration Rate 119 mL/min (>60); Est Glom Filt Rate - Afr Amer 144 mL/min (>60); Estimated Creatinine Clearance 125.95 ml/min; Globulin 3.2 g/dL (2.2-4.2); Glucose 115 mg/dL (74-106); High Density Lipoprotein 31 mg/dL; Potassium 4.1 mmol/L (3.5-5.1); Protein, Total 6.6 g/dL (6.4-8.2); Sodium Level 137 mmol/L (136-145); Triglycerides 231 mg/dL; Very Low Density Lipoprotein 46 mg/dL (5-40)
[2023-04-09 05:24] VITALS: BMI 28.7
[2023-04-09 06:03] VITALS: BP 168/95; PULSE 52; RESP 16; TEMP 36.5; O2SAT 100
[2023-04-09] MEDS: Clopidogrel Bisulfate 75 MG Tablet PO (06:11)
[2023-04-09] MEDS: Lisinopril 10 MG Tablet PO (06:11)
[2023-04-09] MEDS: Aspirin E.C. 81 MG Tablet PO (06:12)
[2023-04-09 06:52] VITALS: BP 152/86
--- NOTE | 2023-04-09 07:43 | PCM.DC ---
Discharge Instructions Diet Discharge Diet: Low fat / Low cholesterol and 2000 mg Sodium Diet Activity Discharge Activity: Return to Normal Activity Weight Bearing Status: Weight bearing as tolerated Dressing / Incision Call your doctor if you observe: Fever of 101 or Higher, Coldness, Increased Pain, Numbness or Tingling, Change in Color, Inability to urinate, Inability to have a bowel movement, Shortness of breath, Dizziness, Fainting spells, Swelling in the ankles, Chest pain, Prolonged hiccupping, Increased palpitations (irregular heartbeat) and Calf discomfort Follow Up Care When: IN 2 WEEKS Test Results: Test results from this visit will be discussed in further detail at your follow-up appointment, if applicable. Discharge Plan Admission Admit Date/Time: 04/08/23 21:05 Attending Provider: Braulio Gonzales Primary Care Provider: ARNALDO FERGUSON Consulting Providers: Jeannette Griffin Discharge Orders/Prescriptions Prescriptions: New lisinopril 20 mg tablet 20 mg PO DAILY Qty: 30 2RF Continued simvastatin 40 mg Tablet 40 mg PO QHS hydroxyzine HCl 25 mg tablet 25 mg PO DAILY Jardiance 10 mg tablet 25 mg PO DAILY Patient Comments: TAKE 1 TABLET IN THE MORNING DAILY escitalopram oxalate 10 mg tablet 20 mg PO DAILY clopidogrel 75 mg tablet 75 mg PO DAILY metoprolol succinate 50 mg tablet extended release 24 hr 50 mg PO BID aspirin 81 mg tablet,delayed release (DR/EC) 81 mg PO DAILY Changed amlodipine 5 mg Tablet 5 mg PO DAILY Qty: 30 1RF Discontinued lisinopril 10 mg Tablet 10 mg PO DAILY Referrals / Follow Up: Matteo Carbajal MD [Med Staff - Active Staff] - Within 2 Weeks (H/o CABG, 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
--- NOTE | 2023-04-09 07:44 | DS.PCM_ITS ---
Providers Date of Admission: 04/08/23 Date of Discharge: 04/09/23 Primary Care Physician: LUNA ORTIZ Reason For Visit: CHEST PAIN Diagnosis Discharge Diagnosis (1) Chest pain: Status: Acute Code(s): R07.9 - Chest pain, unspecified Plan The patient admitted with described as chest discomfort described as exertional sharp left-sided radiating to shoulder only with exertion relieved with rest. A ssociated symptoms shortness of breath and dizziness.. 1. Atypical chest discomfort possible unstable angina: EKG sinus rhythm with no evidence of ischemia. Chest x-ray no acute cardiopulmonary finding. Serial troponins are negative. ACS ruled out. Patient had pharmacological nuclear stress test. Denies any dizziness lightheadedness, chest pressure or pain or shortness of breath during stress test. Pharmacological nuclear stress test was done. Reported no evidence of significant ischemia or infarction. LVEF 70%. #2. CAD: CAD s/p PCI x 7 (initial intervention noted to be at [facility] in [place] and most recently [facility]) and CABG x 3 on 05/28/2022 in [facility], will continue aspirin, Plavix, metoprolol, lisinopril, empagliflozin home regimen. Current plan of care is for patient to establish with Dr. Lackey with upcoming visit 04/28/2023. Records requested. Patient is stated that his appoint with Dr. Velasquez was canceled 2 times and then thought time he was called on last but it was closed. Advised to call the cardiology clinic at advised to see Dr. Matteo Carbajal in [address] Lackey's busy. Patient also has sinus pressure and headache and was advised to take [id number] Claritin or Clarinex for about 2 to 3 days and follow with PCP. #3. Anxiety and depression: continue patient home escitalopram and hydroxyzine home regimen. #4. Hypertension: Continue home regimen including metoprolol, lisinopril, amlodipine, PRN hydralazine. Blood pressure was high when patient came to ED and later going to 168/95. Patient is states his blood pressure also sometimes goes high at home systolic 180 therefore lisinopril dose increased to 20 mg daily and amlodipine dose increased to 5 mg daily.. #5. Hyperlipidemia: Continue home statin regimen. Lipid profile shows triglyceride 231, LDL 48, HDL 31. LDL goal is achieved. Continue home statin. #6. Chronic neuropathy: Patient notes chronic issues with neuropathy to bilateral lower extremity and sometimes to the distal fingertip, has upcoming appointment with neurology, encouraged him to keep this appointment. #7. Tobacco Abuse: Encouraged cessation, inpatient consultation per RT, NR if desired. #8. Overweight: Weight loss and lifestyle changes encouraged. #9. GERD: continue patient on PPI. #10. DVT prophylaxis: Lovenox. Discharge medication reconciliation done. Discharge follow-up instructions completed. Discharge process discussed with the patient and all questions were answered to patient's satisfaction. Follow with PCP in 1 to 2 weeks Total time spent, exact 35 minutes on discharge meds reconciliation, examination, coordination of care with nurses and ancillary staff, review of imaging and blood test and discussion with the patient on follow-up instruct ions. Laboratory Results 04/08/23 09:15: Magnesium 2.3 04/08/23 21:59: Troponin I High Sens 9 04/09/23 00:07: Troponin I High Sens 8 04/09/23 03:52: WBC 10.3, RBC 5.59, Hgb 15.9, Hct 48.8, MCV 87.3, MCH 28.4, MCHC 32.6, RDW Std Deviation 40.3, RDW Coeff of Mesha 12.7, Plt Count 281, MPV 10.3, Immature Gran % (Auto) 0.300, Neut % (Auto) 53.3, Lymph % (Auto) 35.4, [place] % (Auto) 8.3, Eos % (Auto) 2.1, Baso % (Auto) 0.6, Absolute Neuts (auto) 5.5, Absolute Lymphs (auto) 3.63, Nucleated RBC % 0, Sodium 137, Potassium 4.1, Chloride 110 H, Carbon Dioxide 23.0, Anion Gap 4 L, BUN 18, Creatinine 0.74, Estim Creat Clear Calc 125.95, Est GFR (MDRD) Af Amer 144, Est GFR (MDRD) Non-Af 119, BUN/Creatinine Ratio 24.2 H, Glucose 115 H, Calcium 8.3 L, Total Bilirubin 0.20, AST 17, ALT 47, Alkaline Phosphatase 57, Troponin I High Sens 11, Total Protein 6.6, Albumin 3.4, Globulin 3.2, Albumin/Globulin Ratio 1.1, Triglycerides 231 H, Cholesterol 125, LDL Cholesterol 48, VLDL Cholesterol 46 H, HDL Cholesterol 31 L Medications at Discharge Home Medications simvastatin 40 mg tablet 40 mg PO QHS cholesterol 03/27/22 aspirin 81 mg tablet,delayed release 81 mg PO DAILY heart health 10/16/22 clopidogrel 75 mg tablet 75 mg PO DAILY anti platelet 10/16/22 empagliflozin 10 mg tablet (Jardiance) 25 mg PO DAILY diabetes 10/16/22 escitalopram oxalate 10 mg tablet 20 mg PO DAILY mental health 10/16/22 metoprolol succinate 50 mg tablet,extended release 24 hr 50 mg PO BID blood pressure 10/16/22 hydroxyzine HCl 25 mg tablet 25 mg PO DAILY itching 04/08/23 amlodipine 5 mg tablet 5 mg PO DAILY #30 tabs 04/09/23 lisinopril 20 mg tablet 20 mg PO DAILY #30 tabs 04/09/23 Physical Exam Narrative Seen and examined. Patient states blood pressure is high at home also. Has been trying to see Dr. Lackey for 2 months but not able to see it. General: Alert, Oriented x3, Cooperative HEENT: Atraumatic, PERRLA, EOMI, Normocephalic Oral: No Gingival or Mucosal Lesions/ Ulcerations Neck: Supple, No JVD, Negative Carotid Bruits Chest wall/Lungs: Air entry diminished in bilateral lung bases. No crepitation/rhonchi Cardiovascular: Status post CABG. Regular rate, Regular Rhythm, Normal S1, Normal S2, No M/G/R Abdomen: Bowel Sounds Present, Soft, Non Tender, Non-Distended : No dysuria. No renal angle tenderness. No suprapubic tenderness. Extremities: No edema, Capillary Refill Less than 3 Seconds Skin: No rashes, No breakdown Musculoskeletal: No Tenderness to Palpation of Joints or Extremities Neurological: Cranial nerves II-XII grossly intact, DTR 2+/4. No acute focal neurological deficit. Psych/Mental Status: Normal Affect, Appropriate. Weight / BMI Weight Weight: 183 lb 6.793 oz Body Mass Index (BMI) 28.7 ABG / Lab / Microbiology Data 04/09/23 03:52 04/09/23 03:52 Laboratory: Laboratory Results - last 24 hr 04/08/23 09:15: Magnesium 2.3 04/08/23 21:59: Troponin I High Sens 9 04/09/23 00:07: Troponin I High Sens 8 04/09/23 03:52: WBC 10.3, RBC 5.59, Hgb 15.9, Hct 48.8, MCV 87.3, MCH 28.4, MCHC 32.6, RDW Std Deviation 40.3, RDW Coeff of Mesha 12.7, Plt Count 281, MPV 10.3, Immature Gran % (Auto) 0.300, Neut % (Auto) 53.3, Lymph % (Auto) 35.4, [place] % (Auto) 8.3, Eos % (Auto) 2.1, Baso % (Auto) 0.6, Absolute Neuts (auto) 5.5, Absolute Lymphs (auto) 3.63, Nucleated RBC % 0, Sodium 137, Potassium 4.1, Chloride 110 H, Carbon Dioxide 23.0, Anion Gap 4 L, BUN 18, Creatinine 0.74, Estim Creat Clear Calc 125.95, Est GFR (MDRD) Af Amer 144, Est GFR (MDRD) Non-Af 119, BUN/Creatinine Ratio 24.2 H, Glucose 115 H, Calcium 8.3 L, Total Bilirubin 0.20, AST 17, ALT 47, Alkaline Phosphatase 57, Troponin I High Sens 11, Total Protein 6.6, Albumin 3.4, Globulin 3.2, Albumin/Globulin Ratio 1.1, Triglycerides 231 H, Cholesterol 125, LDL Cholesterol 48, VLDL Cholesterol 46 H, HDL Cholesterol 31 L Meaningful Use Info Meaningful Use Diagnoses (Choose all that apply): None applicable Discharge Plan Admission Admit Date/Time: 04/08/23 21:05 Attending Provider: Braulio Gonzales Primary Care Provider: ARNALDO FERGUSON Consulting Providers: Jeannette Griffin Discharge Orders/Prescriptions Prescriptions: New lisinopril 20 mg tablet 20 mg PO DAILY Qty: 30 2RF Continued simvastatin 40 mg Tablet 40 mg PO QHS hydroxyzine HCl 25 mg tablet 25 mg PO DAILY Jardiance 10 mg tablet 25 mg PO DAILY Patient Comments: TAKE 1 TABLET IN THE MORNING DAILY escitalopram oxalate 10 mg tablet 20 mg PO DAILY clopidogrel 75 mg tablet 75 mg PO DAILY metoprolol succinate 50 mg tablet extended release 24 hr 50 mg PO BID aspirin 81 mg tablet,delayed release (DR/EC) 81 mg PO DAILY Changed amlodipine 5 mg Tablet 5 mg PO DAILY Qty: 30 1RF Discontinued lisinopril 10 mg Tablet 10 mg PO DAILY Referrals / Follow Up: Matteo Carbajal MD [Med Staff - Active Staff] - Within 2 Weeks (H/o CABG, 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
[2023-04-09 07:47] VITALS: O2SAT 97
--- NOTE | 2023-04-09 10:27 | CASEMGMT ---
CELESTE CABALLERO NOTE: Pt gets his medications from [facility] mail-order and they do not deliver on the weekends. Pt is aware of same. CELESTE CABALLERO spoke w/pt and he states if he goes home on any new medications, that he would like to get them from [facility] retail pharmacy. He states if he is d/c'd after 1 PM today then Rx's to be sent to [facility], d/t [facility] retail pharmacy closes at 1 PM. RNPetra, made aware. He denies having other discharge planning needs/concerns. Brayden MARTINN CELESTE CABALLERO
[2023-04-09 11:17] VITALS: BP 148/94; PULSE 60; RESP 14; TEMP 36.6; O2SAT 100
[2023-04-09] MEDS: amLODIPine 2.5 MG Tablet PO (11:23)
[2023-04-09 11:24] VITALS: BP 148/94; PULSE 60
[2023-04-09] MEDS: Metoprolol(XL)Succ 50 MG Tablet PO (11:24)
[2023-04-09] MEDS: Loratadine 10 MG Tablet PO (11:35)
--- NOTE | 2023-04-09 12:07 | STRESSREP_ITS ---
Stress Test Report Date: [04/09/2023] Procedure: Pharmacologic stress nuclear imaging study Indications: Chest pain Consent: Per the patient Procedure: The patient underwent pharmacologic (Regadenoson) evaluation with a peak heart rate of 75 beats per minute (43%predicted maximal heart rate) and a peak blood pressure of 158/90 mmHg. The baseline ECG demonstrated sinus bradycardia. EKG during lexiscan infusion revealed no evidence of significant ischemia. EKG post infusion revealed no evidence of significant ischemia [There were no cardiac dysrhythmias pretest, during pharmacologic infusion, or recovery]. [There was no complaint of chest discomfort during pharmacologic infusion or recovery]. The examination was discontinued secondary to completion of protocol. Impression: 1. Lexiscan stress test test is negative for Lexiscan infusion induced EKG changes of ischemia. 2. Lexiscan stress test test is negative for Lexiscan infusion induced chest pain. 3. Results of the nuclear portion of the test is as below Myocardial perfusion imaging study: Technique: The patient was injected with 12 millicuries of technetium 99m Cardiolite and subsequently rest SPECT Cardiolite nuclear imaging was obtained in the horizontal long, vertical long, and short axis views. The patient underwent pharmacologic [Regadenoson 0.4mg] evaluation. Please see above for details. The patient was injected with 36 millicuries of technetium 99m Cardiolite and subsequently stress SPECT Cardiolite nuclear imaging was obtained in the horizontal long, vertical long, and short axis views. A gated Cardiolite study at peak stress was obtained. Interpretation: Rest and stress SPECT Cardiolite nuclear imaging status post realignment, normalization, and attenuation correction demonstrate no evidence of significant ischemia or infarction. Gated images reveal no significant regional wall motion abnormalities. The reported LVEF is 70%. Impression: 1. There is no evidence of significant ischemia or infarction. 2. Estimated ejection fraction is 70%. This note was generated with [employer] software. It may contain incorrect words, spelling, and punctuation that were not noted in checking the note before signing.
== END 2023-04-09 10:41 | disposition home or self-care (01) ==
LOC: ED 20:43 → PCU 21:06
PROVIDERS: Admitting Provider Family Medicine; Emergency Provider Emergency Medicine; PCP Nurse Practitioner Adult Health; Visit Provider Internal Medicine
DX: R07.89 Other chest pain (principal); E78.5 Hyperlipidemia, unspecified; I25.10 Atherosclerotic heart disease of native coronary artery without angina pectoris; I10 Essential (primary) hypertension; K21.9 Gastro-esophageal reflux disease without esophagitis; F41.9 Anxiety disorder, unspecified; F17.210 Nicotine dependence, cigarettes, uncomplicated; I25.2 Old myocardial infarction; Z79.82 Long term (current) use of aspirin; Z79.899 Other long term (current) drug therapy; Z95.1 Presence of aortocoronary bypass graft; R06.00 Dyspnea, unspecified; Z79.02 Long term (current) use of antithrombotics/antiplatelets; F32.A Depression, unspecified; G62.9 Polyneuropathy, unspecified
CPT/HCPCS: 36415; 71045; 78452; 80048; 80053; 80061; 83735; 84484; 85025; 93005; 93017; 96360; 96361; 99221; 99284; 99285; A9500; J7030; A4216; G0378; J2785

== ENCOUNTER 2023-05-14 21:48 | Emergency (ER) | payer MEDICAID, SELFPAY ==
[2023-05-14 21:50] VITALS: BP 128/81; PULSE 78; RESP 15; TEMP 36.6; O2SAT 97; BMI 28.7
[2023-05-14 22:21] VITALS: BP 123/77; PULSE 60; RESP 16; TEMP 36.5; O2SAT 98
--- OUTSIDE RECORDS SUMMARY | 2023-05-14 22:37 | XMS RPT_ITS | CCD ---
Author Name Unknown Address [address] [place] [address] Organization [facility] Care Team Providers Care Informatics Analyst Name Role Phone CALI MAITE Unavailable Unavailable [...] Unavailable Primary Care Provider Unavailabl e MAST MARKETING PROJECT MANAGER-KAIAWHINA KURA KAUPAPA MAORI, ARNALDO Primary Care Physician MAST MARKETING PROJECT MANAGER-KAIAWHINA KURA KAUPAPA MAORI, ARNALDO Primary Care Unavailabl e MAST MARKETING PROJECT MANAGER-KAIAWHINA KURA KAUPAPA MAORI, ARNALDO Attending Unavailabl e MAST MARKETING PROJECT MANAGER-KAIAWHINA KURA KAUPAPA MAORI, ARNALDO Attending Unavailabl e MAST MARKETING PROJECT MANAGER-KAIAWHINA KURA KAUPAPA MAORI, ARNALDO Primary Care Unavailabl e Allergies Allergy Classification Reported Allergen(s) Allergy Type Date of Onset Reaction(s) Facility (15 sources) Penicillins; Translations: [PENICILLINS] Propensity to adverse reactions to drug 0 Anaphylaxis [facility] (14 sources) Mint; Translations: [MINT] Propensity to adverse reactions to drug 3 Swelling, Swelling (morphologic abnormality) [facility] Work Phone: (1 source) Peppermint preparation Drug Allergy [address] [facility] (1 source) Penicillin; Translations: [penicillin] Drug Allergy Swelling (morphologic abnormality) [facility] [place] Medications Current Medications Medication Drug Class(es) Dates [...] 170.2 cm Consuelo Coon MD Work Phone: [facility] 10-05-2022 14:49-0400 Body mass index (BMI) [Ratio] 26.94 kg/m2 Consuelo Coon MD Work Phone: [facility] 10-05-2022 14:49-0400 Body weight 78.02 kg Consuelo Coon MD Work Phone: [facility] 10-05-2022 14:49-0400 Diastolic blood pressure 85 mm[Hg] Consuelo Coon MD Work Phone: [facility] 10-05-2022 14:49-0400 Heart rate 78 /min Consuelo Coon MD Work Phone: [facility] 10-05-2022 14:49-0400 SaO2% (BldA) [Mass fraction] 97 % Consuelo Coon MD Work Phone: [facility] 10-05-2022 14:49-0400 Systolic blood pressure 124 mm[Hg] Consuelo Coon MD Work Phone: [facility] 09-28-2022 22:15-0400 Diastolic blood pressure 94 mm[Hg] Nery Figueroa MD Work Phone: [facility] 09-28-2022 22:15-0400 Heart rate 73 /min Nery Figueroa MD Work Phone: [facility] 09-28-2022 22:15-0400 Respiratory rate 18 /min Nery Figueroa MD Work Phone: [facility] 09-28-2022 22:15-0400 SaO2% (BldA) [Mass fraction] 98 % Nery Figueroa MD Work Phone: [facility] 09-28-2022 22:15-0400 Systolic blood pressure 157 mm[Hg] Nery Figueroa MD Work Phone: [facility] 09-28-2022 19:50-0400 Body height 172.7 cm Nery Figueroa MD Work Phone: [facility] 09-28-2022 19:50-0400 Body temperature 98.1 [degF] Nery Figueroa MD Work Phone: [facility] 07-20-2022 11:24-0400 Diastolic blood pressure 84 mm[Hg] Emiliano Fung PA-C Work Phone: [facility] 07-20-2022 11:24-0400 Systolic blood pressure 147 mm[Hg] Emiliano Fung PA-C Work Phone: [facility] 07-20-2022 11:19-0400 Body height 170.2 cm Emiliano Fung PA-C Work Phone: [facility] 07-20-2022 11:19-0400 Body mass index (BMI) [Ratio] 27.25 kg/m2 Emiliano Fung PA-C Work Phone: [facility] 07-20-2022 11:19-0400 Body temperature 97.81 [degF] Emiliano Fung PA-C Work Phone: [facility] 07-20-2022 11:19-0400 Body weight 78.93 kg Emiliano Fung PA-C Work Phone: [facility] 07-20-2022 11:19-0400 Heart rate 66 /min Emiliano Fung PA-C Work Phone: [facility] 07-20-2022 11:19-0400 SaO2% (BldA) [Mass fraction] 98 % Emiliano Fung PA-C Work Phone: [facility] 06-15-2022 10:20-0400 Body height 170.2 cm Dodie Mark PA-C Work Phone: [facility] 06-15-2022 10:20-0400 Body mass index (BMI) [Ratio] 25.44 kg/m2 Dodiecatalina Shaw PA-C Work Phone: [facility] 06-15-2022 10:20-0400 Body weight 73.66 kg Dodie Shaw PA-C Work Phone: [facility] 06-15-2022 10:20-0400 Diastolic blood pressure 82 mm[Hg] Dodiecatalina Shaw PA-C Work Phone: [facility] 06-15-2022 10:20-0400 Heart rate 86 /min Dodiecatalina Shaw PA-C Work Phone: [facility] 06-15-2022 10:20-0400 SaO2% (BldA) [Mass fraction] 98 % Dodiecatalina Shaw PA-C Work Phone: [facility] 06-15-2022 10:20-0400 Systolic blood pressure 125 mm[Hg] Dodie Shaw PA-C Work Phone: [facility] 02-16-2020 18:16-0500 BP Diastolic 125 mm[Hg] Donavon Dave [facility] 02-16-2020 18:16-0500 BP Systolic 179 mm[Hg] Donavon Egal [facility] 02-16-2020 18:16-0500 Pulse (Heart Rate) 82 /min Donavon Egal [facility] 02-16-2020 18:16-0500 Pulse Oximetry 97 % Donavon Joshi [facility] 02-16-2020 18:16-0500 Respiratory Rate 18 /min Donavon Joshi [facility] 02-16-2020 14:51-0500 Body Temperature 98.1 [degF] Donavon Joshi [facility] Encounters Encounter Date Encounter Type Care Provider Facility Start: 03-31-2023 Documentation procedure Eugene Shaw PA-C Work Phone: [facility] Start: 02-07-2023 End: 02-12-2023 ambulatory ARNALDO MAST MARKETING PROJECT MANAGER-KAIAWHINA KURA KAUPAPA MAORI Facility:B Start: 02-07-2023 End: 02-11-2023 Outreach Lab ARNALDO MAST MARKETING PROJECT MANAGER-KAIAWHINA KURA KAUPAPA MAORI [facility] Start: 11-02-2022 End: 11-03-2022 ambulatory ARNALDO MAST MARKETING PROJECT MANAGER-KAIAWHINA KURA KAUPAPA MAORI Facility:B Start: 10-05-2022 End: 10-05-2022 Office outpatient visit 25 minutes Consuelo Coon MD Work Phone: [facility] Procedures [...] procedure 02/08/2023 3:00 PM EST Office Visit [facility] [address] [place] [address] Consuelo Coon MD [address] [place] [address] [facility] Start: 11-26-2022 Hemoglobin A1c measurement A1C [facility] Start: 11-12-2022 Influenza vaccination [facility] Start: 08-13-2022 End: 08-13-2022 Patient encounter procedure 08/13/2022 8:00 AM EDT Office Visit [facility] [address] [facility] [place] [address] Ann Marie Abdul CNP [address] [place] [address] [facility] Start: 07-20-2022 End: 07-20-2022 Follow-up encounter 07/20/2022 11:30 AM EDT Follow-Up [facility] [address] [facility] [place] [phone] [facility] Start: 07-19-2022 End: 07-19-2022 Patient encounter procedure [facility] Start: 07-01-2022 End: 06-28-2023 12 lead ECG ECG 12 Lead ECG Routine S/P CABG (coronary artery bypass graft) Expected: 07/01/2022, Expires: 06/28/2023 [facility] Immunizations Immunization Date Immunization Notes Care Provider Fa cility 02-07-2023 tetanus toxoid, redu jaguar diphtheria toxoid, and acellular pertussis vaccine, adsorbed; Translations: [Boostrix (Tdap)] ARNALDO FERGUSON MARKETING PROJECT MANAGER-KAIAWHINA KURA KAUPAPA MAORI [facility] Payers Date Payer Category Payer Medicaid [employer] MEDICA[employer] MEDICAID [id number] 2022-Present [phone] [address] [place] [address] [id number] 2022 Medicaid [id number] 2021 Unknown [id number] 2021 Unknown [id number] 2015 Unknown [id number] 1974 Unknown [id number] 1974 Unknown [id number] 1974 Unknown [id number] 1974 Unknown [id number] 1974 Unknown [id number] 1974 Unknown [id number] 1974 Unknown [id number] 1974 Unknown [id number] 1974 Unknown [id number] Social History Date Type Detail Facility Start: 02-16-2020 End: 10-05-2022 Tobacco smoking status NHIS Current every day smoker [facility] Start: 02-16-2020 End: 10-08-2022 Cigarettes smoked current (pack per day) [facility] Start: 02-16-2020 End: 10-05-2022 Tobacco use and exposure Never used [facility] Start: 02-16-2020 Alcohol intake Lifetime non-drinker (finding) [facility] Start: 02-16-2020 History SDOH Alcohol Frequency 1 [facility] Start: 1975 Sex Assigned At Not on file [facility] Start: 05-14-2022 End: 09-28-2022 Exposure to SARS-CoV-2 (event) Not sure [facility] History of tobacco use Cigarette Smoker [facility] Start: 05-28-2022 End: 10-08-2022 Alcohol intake Ex-drinker (finding) [facility] Start: 02-16-2020 End: 10-08-2022 Alcohol Use Disorder Identification Test - Consumption [AUDIT-C] [facility] How often to you hav e a drink containing alcohol? Never [facility] Average Number of Drinks Not [facility] file [facility] Start: 06-15-2022 End: 09-28-2022 Tobacco smoking status NHIS Ex-smoker [facility] History of tobacco use [facility] smoker [facility] Start: 10-05-2022 Tobacco Comment Is smoking about 5 a day [facility] Start: 02-07-2023 Tobacco smoking status Light tobacco smoker (finding) [facility] Sex Assigned At Sex [facility] Medical Equipment Procedure Code Equipment Code Equipment Origin al Text Equipment Identifier Dates Marker Graft Coronary Bypass - Sn/A [id number] Start: 05-27-2022 Use to check BG daily Dx E11.59 Needs One Touch Verio strips. . [id number] Start: 05-31-2022 Use to check BG daily Dx E11.59 Needs lancets for One Touch Verio meter . [id number] Start: 05-31-2022 Use to check BG daily Dx E11.59 Needs One Touch Verio strips. . [id number] Start: 05-31-2022 Clinical Notes 06-10-2022 to 03-31-2023 [...] need to speak with you, not a pharmaceutical sales representative, it is important. Please give me a call at [phone]. At your earliest availability. Thank you. Call placed to patient this morning in follow up. States he initially followed up with Dr. Coon in September of 2022. He was scheduled to follow up again in January however was cancelled Patient/Provider . He again was scheduled to follow up on March 24, 2023 at the [place] office only to read a note posted on the door that the office was closed. Patient states he was not notified by phone call or any other mode of notification and has missed work to attend appointment. He is requesting that he be seen by a different torpedo worker and will be referred to Dr. Sandy Plata. documented in this encounter [facility] 10-05-2022 History of Present illness Narrative Cardiology Clinic Visit Heart & Vascular [facility] 10/05/2022 Consuelo Coon MD [address] [facility] [id number] Patient: Martín Brown Date of : 1975 [...] this may be related to his recent [place] and anxiety. The patient did call for [...] 4 months (around 02/05/2023). Consuelo Coon MD [facility] Non-Invasive Cardiology [facility] Medications: [...] 1 a day last wed went to [facility] for b/p 190/130 ) Subjective Martín Brown [...] STEMI. The patient was taken to the [facility] emergently and was identified to have severe [...] syncope. He is yet to establish at [place] for cardiac rehab. He reports that he [...] 2021 Hypertension Left inguinal hernia Myocardial infarction ([facility]) 2011 Nephrolithiasis DAVID (obstructive sleep apnea) Right inguinal hernia Multiple repairs STEMI (ST elevation myocardial infarction) ([facility]) 05/24/2022 Past Surgical History: Procedure Laterality Date APPENDECTOMY CABG N/A 05/27/2022 Procedure: CORONARY ARTERY BYPASS GRAFT x3 WITH Left Internal Mammary Artery and left leg greater saphenous with endoscopic vein harvest; Surgeon: Panda Carter MD; Location: Main OR; Service: Cardiothoracic CABG 05/27/2022 CARDIAC CATHETERIZATION CARDIAC CATHETERIZATION N/A 05/24/2022 Procedure: Angioplasty - Coronary; Surgeon: Negra Nichols MD; Location: [facility]; Service: Cardiovascular CARDIAC CATHETERIZATION N/A 05/24/2022 Procedure: Coronary Angiogram; Surgeon: Negra Nichols MD; Location: [facility]; Service: Cardiovascular CARDIAC CATHETERIZATION N/A 05/24/2022 Procedure: Left Ventriculogram; Surgeon: Negra Nichols MD; Location: [facility]; Service: Cardiovascular CORONARY ANGIOPLASTY WITH STENT PLACEMENT 2011 CORONARY ANGIOPLASTY WITH STENT PLACEMENT 2016 LEFT HEART CATH N/A 05/24/2022 Procedure: Left Heart Cath; Surgeon: Negra Nichols MD; Location: [facility]; Service: Cardiovascular HERNIA REPAIR INGUINAL OPEN Right [...] Normal mood and affect. Cardiovascular Studies: 05/24/22 [facility] Impression: Acute inferior ST elevation myocardial [...] TRIG , HDL documented in this encounter [facility] 10-05-2022 Ananda Mota, CELESTE - 10/05/2022 2:38 PM EDT How to contact your Care Team: Provider: Consuelo Coon MD Nurse: Ananda Mitchell RN In case of an emergency please call 911. REFILLS: When in need for refills please call your care team or the office at [phone]. Please include medication name, pharmacy name, and specify 30-day or 90-day supply. Please check with your pharmacy within 24 hours of request for your refill. You must follow up as directed to continue current refills. Thank you documented in this encounter [facility] 09-28-2022 Hospital Discharge instructions Nery Figueroa MD - 09/28/2022 9:59 PM EDT Your lab work your EKG and your chest x-ray were without acute findings. It is important that you follow-up with cardiology for follow-up evaluation. He may call your primary care provider for further referral as your procedure was done at [facility]. In addition cardiology at [facility] would be happy to see you and referral information has been given. The following attachments cannot be sent through Care Everywhere.Chest Pain ([place] Irish)documented in this encounter [facility] 09-28-2022 Physician Emergency department Note Emergency Department Report [facility] EMERGENCY MEDICINE Service Date:.09/29/22 PCP: No primary care provider on file. Chief Complaint: Chief Complaint Patient presents with Chest Pain Complains of chest tightness x1 week. States that it is worse with breathing. Had open heart surgery at [facility] few months ago HPI Martín Brown is [...] Patient had a CABG at [facility] on 05/27/22. He also endorses intermittent episodes of high blood pressure at home despite taking his prescribed medications. Patient has not followed up with a torpedo worker since his CABG procedure stating they haven't [...] recommendation for cardiac rehabilitation and follow-up with torpedo worker and primary care provider. Review of Systems: [...] nonspecific ST and T-wave abnormalities present throughout. [place] interval 138. QRS duration 86. QT/QTC 380/435. [...] 09/29/22 0510 Nery Figueroa MD 09/29/[address] [facility] 09-28-2022 Emergency department Note Emergency Department Report [facility] EMERGENCY MEDICINE Service Date:.09/29/22 PCP: No primary care provider on file. Chief Complaint: Chief Complaint Patient presents with Chest Pain Complains of chest tightness x1 week. States that it is worse with breathing. Had open heart surgery at [facility] few months ago ROSALVA Brown is a [...] Patient had a CABG at [facility] on 05/27/22. He also endorses intermittent episodes of high blood pressure at home despite taking his prescribed medications. Patient has not followed up with a torpedo worker since his CABG procedure stating they haven't [...] recommendation for cardiac rehabilitation and follow-up with torpedo worker and primary care provider. Review of Systems: [...] nonspecific ST and T-wave abnormalities present throughout. [place] interval 138. QRS duration 86. QT/QTC 380/435. [...] his symptoms and was referred to a torpedo worker. documented in this encounter [facility] 09-28-2022 Emergency department Note Patient ambulates to ED room 5 from waiting room with even and equal respirations and a steady gait. Open heart bypass graft surgery in 05/2022. Complains of chest tightness x1 week. Told his PCP about his symptoms and was referred to a torpedo worker. [facility] 07-20-2022 Evaluation + Plan note Associated Problem(s): S/P CABG (coronary artery bypass graft) You may drive. You may lift up to 20 lbs for the next 5 weeks then no restrictions. Please do cardiac rehab. You no longer need the support hose and heart hugger. Please follow-up with your primary care provider and your torpedo worker. If you have any questions regarding your heart surgery in the future, please feel free to call. [facility] 07-20-2022 Miscellaneous Notes Associated Problem(s): S/P CABG (coronary artery bypass graft) You may drive. You may lift up to 20 lbs for the next 5 weeks then no restrictions. Please do cardiac rehab. You no longer need the support hose and heart hugger. Please follow-up with your primary care provider and your torpedo worker. If you have any questions regarding your heart surgery in the future, please feel free to call. documented in this encounter [facility] 07-20-2022 History of Present illness Narrative Images from the original note were not included. Cardiothoracic Surgery Clinic Follow-up Heart & Vascular [facility] 07/20/2022 Emiliano Fung PA-C [address] [place] [address] Medical [facility] [phone] Patient: Martín Brown Date of [...] with your primary care provider and your torpedo worker. If you have any questions regarding your heart surgery in the future, please feel free to call. Follow-up: No follow-ups on file. Chief Complaint: Follow-up (S/P CABG x [address] Panda Carter on 05/28/22 and left lower extremity endoscopic greater saphenous vein harvesting by physician operational assistant) Subjective History of Present Illness: Martín Brown is a 47 y.o. male S/P CABG x [address] Panda Carter on 05/28/22 and left lower extremity endoscopic greater saphenous vein harvesting by physician operational assistant. 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 He has recovered well in the postop period and is released back to his primary care provider and torpedo worker. Objective Tobacco Use Smoking Status Former Packs/day: [...] CREATININE 0.95 07/20/2022 documented in this encounter [facility] 07-20-2022 Instructions Emiliano Fung PA-C - 07/20/2022 11:35 AM EDT You may drive. You may lift up to 20 lbs for the next 5 weeks then no restrictions. Please do cardiac rehab. You no longer need the support hose and heart hugger. Please follow-up with your primary care provider and your torpedo worker. If you have any questions regarding your heart surgery in the future, please feel free to call. documented in this encounter [facility] 07-05-2022 History of Present illness Narrative Cardiac Rehab referral received s/p CABG 05/31/22. Staff contacted pt to scheduled Phase II Cardiac Rehab and pt has requested to do his rehab at [facility] Referral faxed to the [facility]. documented in this encounter [facility] 06-16-2022 History of Present illness Narrative Images from the original note were not included. Cardiothoracic Surgery Clinic Follow-up Heart & Vascular [facility] 06/15/2022 Dodie Shaw PA-C [address] [place] [address] Medical Office [facility] [phone] Patient: Martín Brown Date of [...] endoscopic greater saphenous vein harvest by physician operational assistant. Physical assessment: He is assisted to [...] your ongoing recovery from heart surgery at [phone], option #3 after 5:00 PM Follow-up: Return in about 16 days (around 07/01/2022), or 11:00 am, for Next scheduled follow up. Chief Complaint: Follow-up (S/P CABG x [address] Panda Carter with endoscopic vein harvest lower extremity left by Physician Medical Coding Manager on 05/27/2022/) Objective Tobacco Use Smoking Status [...] clearance: 100.4 mL/min documented in this encounter [facility] 06-15-2022 Evaluation + Plan note [...] endoscopic greater saphenous vein harvest by physician operational assistant. Physical assessment: He is assisted to [...] your ongoing recovery from heart surgery at [phone], option #3 after 5:00 PM [facility] 06-15-2022 Miscellaneous Notes Associated Problem(s): [...] endoscopic greater saphenous vein harvest by physician operational assistant. Physical assessment: He is assisted to [...] At this time, I have advised Mr. Borwn the followin. Continue strict sternal precautions, no [...] your ongoing recovery from heart surgery at [phone], option #3 after 5:00 PM documented in this encounter [facility] 06-15-2022 Instructions Dodie Shaw PA-C [...] your ongoing recovery from heart surgery at [phone], option #3 after 5:00 PM documented in this encounter [facility] 06-10-2022 History of Present illness [...] PA-C Cardiothoracic Surgery documented in this encounter [facility] Evaluation + Plan note Future Appointments Appointment Date:05/10/2023 11:30:00 AM Scheduled Provider:ARNALDO FERGUSON Location:[facility] Appointment Type:PC [facility] documented in this encounter [facility] note* Diagnosis S/P CABG (coronary artery bypass graft)- Primary Postsurgical aortocoronary bypass status [facility] Diagnosis S/P CABG (coronary artery bypass graft)- Primary Postsurgical aortocoronary bypass status [facility] Diagnosis S/P CABG (coronary artery bypass graft)- Primary Postsurgical aortocoronary bypass status Hypertension, unspecified type [facility] Diagnosis Chest pain, unspecified type- Primary S/P CABG (coronary artery bypass graft) Postsurgical aortocoronary bypass status [facility] Diagnosis Coronary artery disease involving [place] coronary artery of [place] heart without angina pectoris- Primary S/P CABG (coronary artery bypass graft) Postsurgical aortocoronary bypass status Hyperlipidemia, unspecified hyperlipidemia type Hypertension, unspecified type [facility] Narrative No data available for this section [facility] Discharge instructions No data available for this section [facility] Progress note No data available for this section [facility] Reason for referral (narrative)* Consultation (Urgent) - New Request Specialty Diagnoses / Procedures Referred By Scott hoffmann Referred To Contact Cardiovascular Medicine Diagnoses Chest pain, unspecified type Nery Figueroa MD [address] [place] [address] Giancarlo Reis MD [address] [place] [address] Referral ID Status Reason Start Date Expiration Date V isits Requested Visits Authorized [id number] New Request 09/28/2022 10/23/2023 1 1 * Radiology (Emergency) - Pending Review Specialty Diagnoses / Procedures Referred By Contac t Referred To Contact Procedures ECG Nery Figueroa MD [address] [place] [address] Referral ID Status Reason Start Date Expiration Date V isits Requested Visits Authorized [id number] Pending Review 09/28/2022 10/23/[address] [facility] Summary Purpose Family History No Family History Records FoundNo Family History Records FoundNo Family History Records FoundNo Family History Records FoundNo Family History Records Found No data available for this section No Family History Records Found Advance Directives Documents on File Type Date Recorded Patient Ios Architect Expl anation Advance Directives and Livin g Will 02/16/2020 3:36 PM Documents on File Type Date Recorded Patient Ios Architect Expl anation Power of Reel System Operator 05/25/2022 4:39 PM Latest Code Status on [...] Documents on File Type Date Recorded Patient Ios Architect Expl anation Power of Reel System Operator 05/25/2022 4:39 PM Latest Code Status on [...] ECG 12 lead Consuelo Coon MD [address] [place] [address] Referral ID Status Reason Start Date Expiration Date V isits Requested Visits Authorized [id number] Authorized 10/05/2022 10/05/2023 1 1 Specialty Diagnoses / Procedures Referred By Scott hoffmann Referred To Contact Cardiac Rehab Diagnoses S/P CABG (coronary artery bypass graft) Consuelo Coon MD [address] [place] [address] Referral ID Status Reason Start Date Expiration Date Visits Requested Visits Authorized [id number] Authorized Patient Preference 10/05/2022 10/05/2023 1 1 Additional Source Comments (unrecognized sect ion and content) No Status Records FoundNo Status Records FoundNo Status Records FoundNo Status Records FoundNo Status Records FoundNo Status Records Found INFORMATION SOURCE (unrecogn ized section and content) DATE CREATED AUTHOR AUTHOR'S ORGANIZ ATION 09/05/2017 [facility] DATE CREATED AUTHOR AUTHOR'S ORGANIZ ATION 09/05/2017 [facility] DATE CREATED AUTHOR AUTHOR'S ORGANIZ ATION 07/25/2022 [facility] DATE CREATED AUTHOR AUTHOR'S ORGANIZ ATION 07/25/2022 [facility] DATE CREATED AUTHOR AUTHOR'S ORGANIZ ATION 02/14/2023 [facility] ([place]) Reason for Visit (unrecogniz ed section and content) Reason Onset Date Comments Missed appointment 06/10/2022 Reason Comments Follow-up S/P CABG x [address] Panda Carter with endoscopic vein harvest lower extremity left by Physician Medical Coding Manager on 05/27/2022 Reason Onset Date Comments Phase II Cardiac Rehab 07/05/2022 Reason Comments Follow-up S/P CABG x [address] Panda Carter on 05/28/22 and left lower extremity endoscopic greater saphenous vein harvesting by physician operational assistant Reason Comments Medication Refill Reason Comments Chest Pain Complains of chest t ightness x1 week. States that it is worse with breathing. Had open heart surgery at [facility] few months ago Reason Comments Follow-up S/P CABG May 29 is only taking the metoprolol 1 a day last wed went to [facility] for b/p 190/130 Damir Weir RN - 02/16/2020 2:53 PM Donavon Trujillo MD - 02/16/2020 2:50 PM Rip Russ - 02/16/2020 2:49 PM EST ED Notes (unrecognized secti on and content) PT HAND SOAKING IN CHLORHEXIDINE AND NORMAL SALINE PER ORDER OF DR JOSHI ED PROVIDER NOTE [facility] NAME: Martín Brown AGE: 44 y.o. : 1975 VISIT DATE: 02/16/2020 CSN: [id number] PCP: Physician No Chief Complaint Patient presents [...] file Gets together: Not on file Attends yazidism service: Not on file Active member of [...] For laceration repair please see Tara Everett's, HEEL PACKER, note. Patient received morphine and Toradol for [...] 1. Madisyn Mcgrath MD. Specialty: Orthopedic Surgery [address] [place] [id number] Contact information for after-discharge care Follow-up information has not been specified. New Prescriptions amoxicillin-clavulanate (AUGMENTIN) 875-125 mg per tablet Take 1 (one) tablet by mouth 2 (two) times a day . Donavon Joshi MD 02/16/20 1800 Bed: 20 Expected date: Expected time: Means of arrival: Comments: PT 3 documented in this encounter Care Teams (unrecognized sec tion and content) Informatics Analyst Relationship Specialty Start Date End Date Kori Willis DO [address] [place] [address] PCP - General Family Medicine 05/31/22 Informatics Analyst Relationship Specialty Start Date End Date Kori Willis DO [address] [place] [address] PCP - General Family Medicine 05/31/22 Informatics Analyst Relationship Specialty Start Date End Date Kori Willis DO [address] [place] [address] PCP - General Family Medicine 05/31/22 Informatics Analyst Relationship Specialty Start Date End Date Kori Willis DO [address] [place] [address] PCP - General Family Medicine 05/31/22 Informatics Analyst Relationship Specialty Start Date End Date Kori Willis DO [address] [place] [address] PCP - General Family Medicine 05/31/22 Informatics Analyst Relationship Specialty Start Date End Date Kori Willis DO [address] [place] [address] PCP - General Family Medicine 05/31/22 Informatics Analyst Relationship Specialty Start Date End Date Kori Willis DO [address] [facility] [address] [place] [address] PCP - General Family Medicine 05/31/22 Informatics Analyst Relationship Specialty Start Date End Date [facility]ori Willis [facility] [address] [facility] [address] [place] [address] PCP - General Family Medicine 05/31/22 Informatics Analyst Relationship Specialty Start Date End Date Kori Willis DO [address] [facility] [address] [place] [address] PCP - General Family Medicine 05/31/22 FOR [...] BE BASED ON THE PRIMARY CLINICAL RECORDS. [facility] [employer] [facility]. provides no warranty or guarantee of the accuracy or completeness of information in this document.
[2023-05-14 23:12] LABS: Bedside Glucose 219 mg/dL (74-106)
[2023-05-14] MEDS: 0.9% Normal Saline (1000mL) 1,000 ML 999 ML IV (23:16)
--- NOTE | 2023-05-14 23:16 | RAD_ITS ---
EXAM: XR CHEST, 2 VIEWS CLINICAL INDICATION: hyperglycemia TECHNIQUE: Frontal and lateral views of the chest. COMPARISON: Single view chest 04/08/2023 FINDINGS: LUNGS AND PLEURAL SPACES: Unremarkable. No consolidation or edema. No pneumothorax. No effusion. HEART: Unremarkable. Cardiac silhouette not enlarged. MEDIASTINUM: Surgical changes of the mediastinum. BONES/JOINTS: Degenerative changes of the spine. No acute fracture. SOFT TISSUES: Unremarkable. RAD/Chest PA and Lateral IMPRESSION: No acute findings in the chest. Electronically Signed: Jaison Oneal MD at 23:43 EST ,
[2023-05-14 23:22] LABS: Absolute Lymphocyte Count 3.68 X10^3/uL (0.83-4.51); Absolute Neutrophil Count 5.6 X10^3/uL (2.0-7.7); Basophil# 0.05 X10^3/uL; Basophil% 0.5 % (0-1); Eosinophil# 0.25 X10^3/uL; Eosinophils% 2.4 % (0-5); Hematocrit 44.4 % (40-54); Lymphocyte # 3.68 X10^3/ul (0.83-4.51); Lymphocyte % 35.5 % (19-41); Mean Corp Hgb Conc 33.8 g/dL (32-36); Mean Corpuscular Hgb 29.2 pg (27.0-32.0); Mean Corpuscular Volume 86.4 fL (80-94); Mean Platelet Vol. 10.6 fl (6.2-12.0); Monocyte# 0.78 X10^3/uL; Monocyte% 7.5 % (0-10); NRBC Flagged by Analyzer 0 % (0-5); Neutrophil # 5.57 X10^3/uL (2.7-7.7); Neutrophil % 53.8 % (47-70); Platelet Count 302 K/mm3 (150-450); RBC Distribution Width CV 12.9 % (11.6-14.6); RBC Distribution Width SD 40.5 fl (35.1-43.9); Red Blood Count 5.14 M/mm3 (4.6-6.2); White Blood Count 10.4 K/mm3 (4.4-11.0)
[2023-05-14 23:23] LABS: Bacteria 0 SEEN /hpf (None Seen); Color, Urine Straw (Yellow); Glucose, Dipstick 1000 mg/dl (Normal); Ketone-Dipstick Negative (Negative); Leukocyte Esterase-Dipstick Negative /ul (Negative); Mucous, Urine 0 SEEN /hpf (<or=2+); Nitrite-Dipstick Negative (Negative); Occult Blood-Urine Negative /ul (Negative); Protein-Dipstick Negative (Negative); Red Blood Cells-Urine 0 SEEN /hpf (0-5); Urine Bilirubin Dipstick Negative (Negative); Urine Clarity Sl. Cloudy (Clear); Urine Urobilinogen Normal (Normal); White Blood Cells 0 SEEN /hpf (0-5)
[2023-05-14 23:28] LABS: Squamous Epithelial Cells - UA 0-5 SEEN /hpf (0-5)
[2023-05-14 23:41] LABS: AST(SGOT) 16 U/L (15-37); Alanine Aminotransfer ALT/SGPT 37 U/L (16-61); Albumin, Serum 3.5 g/dL (3.2-5.0); Alkaline Phosphatase 62 U/L (45-117); Anion Gap 3 (5-15); BUN 17 mg/dL (7-18); BUN/Creat Ratio 19.7 RATIO (10-20); Bilirubin, Direct 0.06 mg/dL (0.00-0.30); Calcium,Total 8.8 mg/dL (8.5-10.1); Chloride 106 mmol/L (98-107); Creatinine, Serum 0.86 mg/dL (0.70-1.30); EST Glomerular Filtration Rate 100 mL/min (>60); Est Glom Filt Rate - Afr Amer 121 mL/min (>60); Estimated Creatinine Clearance 111.93 ml/min; Globulin 3.5 g/dL (2.2-4.2); Glucose 248 mg/dL (74-106); Lipase 36 U/L (13-75); Potassium 3.9 mmol/L (3.5-5.1); Sodium Level 135 mmol/L (136-145)
--- NOTE | 2023-05-14 23:58 | EDS_ITS ---
HPI History of Present Illness Chief Complaint: General Illness Informant: patient and spouse/S.O. Narrative Narrative: Patient is a 47-year-old male with past medical history of hypertension hyperlipidemia CAD and diabetes. He states has been taking his medications as directed but that today his value was reading high around 275-300. He states this is above his normal baseline of his blood sugar. He denies any sick symptoms and states has not been on any steroids recently. Therefore as his value has been running higher than his baseline he is unsure why he presents for evaluation [facility] Medical History Anxiety and depression Chest pain CHF (congestive heart failure) Chronic neuropathic pain Cold extremities Coronary artery disease Electric shock-type pain Encounter for examination required by Department of Transportation (DOT) GERD (gastroesophageal reflux disease) History of cocaine use HLD (hyperlipidemia) HTN (hypertension) Insomnia Left inguinal hernia LVH (left ventricular hypertrophy) Myocardial infarct Myocardial infarction Nicotine dependence Numbness of upper extremity Overweight Polyarthritis Right shoulder pain Tobacco use Type 2 diabetes mellitus with cardiac complication Home Medications hydroxyzine HCl 25 mg tablet 25 mg PO DAILY itching 04/08/23 [History Last Taken Unknown] escitalopram oxalate 20 mg tablet 20 mg PO DAILY 04/22/23 [History Last Taken Unknown] amlodipine 5 mg tablet 5 mg PO DAILY #30 tabs 04/28/23 [Rx Last Taken Unknown] aspirin 81 mg tablet,delayed release 81 mg PO DAILY heart health #30 tabs 04/28/23 [Rx Last Taken Unknown] clopidogrel 75 mg tablet 75 mg PO DAILY anti platelet #30 tabs 04/28/23 [Rx Last Taken Unknown] empagliflozin 10 mg tablet (Jardiance) 10 mg PO DAILY #30 tabs 04/28/23 [Rx Last Taken Unknown] lisinopril 20 mg tablet 20 mg PO DAILY #30 tabs 04/28/23 [Rx Last Taken Unknown] simvastatin 40 mg tablet 40 mg PO QHS cholesterol #30 tabs 04/28/23 [Rx Last Taken Unknown] metoprolol succinate 50 mg tablet,extended release 24 hr 50 mg PO BID Pt does not tolerate 100 mg BID, bp gets too low #180 tabs 05/02/23 [Rx Last Taken Unknown] Allergy/AdvReac Type Severity Reaction Status Date / Time bee venom protein (honey bee) Allergy Anaphylaxis Verified 05/14/23 21:54 mint Allergy Hives Verified 05/14/23 21:54 Penicillins Allergy Anaphylaxis Verified 05/14/23 21:54 Family History Mother Hypertension CVA (cerebral vascular accident) Father No problems noted. Grandfather Multiple sclerosis Paternal grandfather Brother Multiple sclerosis Heart disease Hypertension CAD (coronary artery disease) Myocardial infarction Surgical History H/O heart artery stent H/O hernia repair H/O right inguinal hernia repair History of appendectomy Hx of CABG (~05/27/22) Social History household members: spouse and children Smoking Status: Light Smoker (<10/day) alcohol intake: never substance use type: does not use caffeine: Yes (2 liters/day) Type: carbonated beverages Number of servings: 2, coffee and tea Number of servings: 1 ROS ROS ED Constitutional Constitutional ED: Denies chills or fever(s) Eyes Eyes: Denies change in vision ENT ENT ED: Denies rhinorrhea or sore throat Cardiovascular Cardiovascular: Denies chest pain Respiratory/Chest Respiratory/Chest: Denies cough or dyspnea Gastrointestinal Gastrointestinal: Denies abdominal pain, diarrhea, nausea or vomiting Genitourinary Genitourinary ED: Reports urinary frequency; Denies dysuria Musculoskeletal Musculoskeletal: Denies myalgias Integumentary Denies rash Neurologic Neurologic: Denies headache(s) Hematologic/Lymphatic Hematologic/Lymphatic: Reports easy bleeding and easy bruising EXAM Physical Exam Const Vital Signs: 05/14/23 21:50 05/14/23 22:16 05/14/23 22:16 Temperature 97.9 F Temperature Source Temporal Pulse Rate 78 Respiratory Rate 15 Respiratory Effort Normal Normal Non-Labored Respiratory Pattern Normal Blood Pressure 128/81 H Blood Pressure Mean 96 Pulse Ox 97 Oxygen Delivery Method Room Air 05/14/23 22:21 Temperature 97.7 F L Temperature Source Temporal Pulse Rate 60 Respiratory Rate 16 Respiratory Effort Respiratory Pattern Blood Pressure 123/77 H Blood Pressure Mean 92 Pulse Ox 98 Oxygen Delivery Method Room Air Positive well nourished and well developed General Appearance ED: well developed; Negative for pallor HEENT Reports moist mucous membranes HEENT Narrative: No signs of infection noted in the posterior pharynx Eyes PERRL and EOMs intact bilaterally Neck supple Neck Narrative: No nuchal rigidity or meningeal signs Resp normal respiratory effort and clear to auscultation bilaterally Cardio regular rate and regular rhythm Rate: other Other Details: Radial and carotid pulses are equal and symmetric GI non-distended GI Narrative: Mild tenderness to palpation in the midepigastric region without voluntary guarding or rigidity No pulsatile mass or fluid wave Auscultation: normoactive bowel sounds Palpation: soft Extremity normal to inspection Extremity Narrative: No asymmetric edema no pitting edema negative Homans' sign bilaterally Neuro oriented x3, CN's II-XII intact bilaterally and no sensory deficits noted Sensorium / Orientation: alert Motor Exam: strength 5/5 throughout Psych mental status grossly normal Skin no rashes or lesions noted General Skin Exam: Negative for jaundice or pallor MDM MDM MDM Narrative Medical decision making narrative: Patient presented to the ER with stable vitals. He reported his blood sugar had been elevated at home with no obvious cause. General diagnosis is for equipment malfunction versus DKA versus HHS versus potential infectious cause such as COVID influenza or RSV or potential UTI leading to elevated blood sugar. An Accu-Chek was performed which was similar nature to the patient's machine going against open malfunction. Basic labs were obtained and patient does not have elevation to his anion gap his bicarb is normal and his serum acetone is negative going against DKA. His serum osmolality is 289 going against HHS. His workup revealed no signs of infection within his chest x-ray or urine and viral swabs are negative. He was given 1 L fluid and he had improvement of his blood sugar and vitals remained stable. Therefore at this time without obvious source of infection or patient having DKA or HHS he is otherwise safe for discharge and can follow-up on an outpatient basis History & Record Review Discussion w/independent historian: Patient Lab Data Attestation: I reviewed the patient's lab results. Labs: Laboratory Results - last 24 hr 05/14/23 05/14/23 22:32 22:53 WBC 10.4 RBC 5.14 Hgb 15.0 Hct 44.4 MCV 86.4 MCH 29.2 MCHC 33.8 RDW Std Deviation 40.5 RDW Coeff of Mesha 12.9 Plt Count 302 MPV 10.6 Immature Gran % (Auto) 0.300 Neut % (Auto) 53.8 Lymph % (Auto) 35.5 [place] % (Auto) 7.5 Eos % (Auto) 2.4 Baso % (Auto) 0.5 Absolute Neuts (auto) 5.6 Absolute Lymphs (auto) 3.68 Nucleated RBC % 0 Sodium 135 L Potassium 3.9 Chloride 106 Carbon Dioxide 26.0 Anion Gap 3 L BUN 17 Creatinine 0.86 Estim Creat Clear Calc 111.93 Est GFR (MDRD) Af Amer 121 Est GFR (MDRD) Non-Af 100 BUN/Creatinine Ratio 19.7 Glucose 248 H Calcium 8.8 Total Bilirubin 0.20 Direct Bilirubin 0.06 AST 16 ALT 37 Alkaline Phosphatase 62 Total Protein 7.0 Albumin 3.5 Globulin 3.5 Lipase 36 Urine Color Straw Urine Clarity Sl. Cloudy Urine pH 7.0 Ur Specific Kopperl 1.010 Urine Protein Negative Urine Glucose (UA) 1000 H Urine Ketones Negative Urine Occult Blood Negative Urine Nitrite Negative Urine Bilirubin Negative Urine Urobilinogen Normal Ur Leukocyte Esterase Negative Urine RBC 0 SEEN Urine WBC 0 SEEN Ur Squamous Epith Cells 0-5 SEEN Urine Bacteria 0 SEEN Urine Mucus 0 SEEN Acetone Level NEGATIVE POC Glucose 219 H Radiography Diagnostic Testing: Clinical Impression(s) from Imaging Studies Chest X-Ray 05/14/23 23:16 IMPRESSION: No acute findings in the chest. Electronically Signed: Jaison Oneal MD at 23:43 EST Reading Location ID and State: [facility] / [place] Tel , Service support , Chest x-ray as interpreted by the emergency medicine physician reveals no acute infiltrate pneumothorax or pleural effusion Discharge Plan Triage Chief Complaint: General Illness Other Complaint: Chest Pain ED Provider: Ben Hamilton Dx/Rx/DC Orders Clinical Impression: Diabetes mellitus, Acute hyperglycemia, Coronary artery disease, HTN (hypertension) Instructions: High Blood Sugar (Hyperglycemia), Diabetes- Measuring Glucose at Home Prescriptions: No Action escitalopram oxalate 20 mg tablet 20 mg PO DAILY Jardiance 10 mg tablet 10 mg PO DAILY Qty: 30 11RF amlodipine 5 mg tablet 5 mg PO DAILY Qty: 30 11RF clopidogrel 75 mg tablet 75 mg PO DAILY Qty: 30 11RF lisinopril 20 mg tablet 20 mg PO DAILY Qty: 30 11RF simvastatin 40 mg tablet 40 mg PO QHS Qty: 30 11RF aspirin 81 mg tablet,delayed release (DR/EC) 81 mg PO DAILY Qty: 30 11RF hydroxyzine HCl 25 mg tablet 25 mg PO DAILY metoprolol succinate 50 mg tablet extended release 24 hr 50 mg PO BID Qty: 180 3RF Primary Care Provider: ARNALDO FERGUSON Referrals: ARNALDO FERGUSON CRNP [Primary Care Provider] - Disposition Disposition: Home, Self Care
[2023-05-15] VITALS: RESP 16
[2023-05-15 00:35] VITALS: BP 120/83; PULSE 67; RESP 16; TEMP 36.5; O2SAT 100
== END 2023-05-15 00:36 | disposition home or self-care (01) ==
PROVIDERS: Emergency Provider Emergency Medicine; PCP Nurse Practitioner Adult Health; Visit Provider Emergency Medicine
DX: E11.65 Type 2 diabetes mellitus with hyperglycemia (principal); I11.0 Hypertensive heart disease with heart failure; I50.9 Heart failure, unspecified; E11.40 Type 2 diabetes mellitus with diabetic neuropathy, unspecified; F17.200 Nicotine dependence, unspecified, uncomplicated; I25.10 Atherosclerotic heart disease of native coronary artery without angina pectoris; I25.2 Old myocardial infarction; Z79.82 Long term (current) use of aspirin; Z79.899 Other long term (current) drug therapy; Z95.5 Presence of coronary angioplasty implant and graft
CPT/HCPCS: 71046; 80048; 80076; 81001; 82009; 82962; 83690; 85025; 87631; 96360; 99283; J7030; A4216

== ENCOUNTER 2024-05-28 17:50 | Emergency (ER) | payer MEDICAID, SELFPAY ==
[2024-05-28 17:51] VITALS: BP 147/92; PULSE 65; RESP 17; TEMP 36.4; O2SAT 99; BMI 29.6
--- NOTE | 2024-05-28 17:55 | RAD_ITS ---
PROCEDURE: CHEST PA AND LATERAL 05/28/2024 REASON FOR EXAM: SOB TECHNIQUE: PA and lateral views of the chest. COMPARISON: 04/08/2023 and 05/14/2023 FINDINGS: The lungs appear clear. Cardiac and mediastinal contours appear within limits. Status post median sternotomy, CABG and coronary stents again noted. No pleural effusion. Pulmonary vascularity appears within limits. RAD/Chest PA and Lateral IMPRESSION: No evidence of acute disease. Reading Location: [id number]
[2024-05-28 19:51] VITALS: BP 140/84; PULSE 62; O2SAT 95
--- NOTE | 2024-05-28 20:42 | ED.VIS.DYS ---
HPI History of Present Illness Chief Complaint: Shortness of Breath Informant: patient Narrative Narrative: 48-year-old male presenting to the emergency room with the chief complaint of cough. Patient states that 2 weeks ago he believes he contracted influenza A as his both of his daughters had it and he developed high fever. He states he developed a cough which has been persistent. He feels rattling on the left lower side of his chest. He notes some discomfort just underneath his rib cage on the left. No further fevers. He went to urgent care and was sent here for possible pneumonia. He has been using albuterol nebulizers at home. He has a history of coronary artery disease status post CABG. He has not been able to produce sputum. Patient states he is very anxious to get home as the last time he came to the hospital he had to have open heart surgery. He states that between the urgent care visit and his ED visit he has been in the healthcare setting over 4 hours now and needs to get home to his children. [facility] Medical History Encounter for examination required by Department of Transportation (DOT) Polyarthritis Right shoulder pain Type 2 diabetes mellitus with cardiac complication Numbness of upper extremity Nicotine dependence History of cocaine use LVH (left ventricular hypertrophy) Left inguinal hernia Insomnia Electric shock-type pain Cold extremities CHF (congestive heart failure) Chest pain Overweight Anxiety and depression Chronic neuropathic pain GERD (gastroesophageal reflux disease) Tobacco use HLD (hyperlipidemia) HTN (hypertension) Myocardial infarct Myocardial infarction Coronary artery disease Home Medications ?Medication ?Instructions ?Recorded ?Last Taken ?Type hydroxyzine HCl 25 mg tablet 25 mg PO DAILY itching 04/08/23 Unknown History escitalopram oxalate 20 mg tablet 20 mg PO DAILY 04/22/23 Unknown History aspirin 81 mg tablet,delayed 81 mg PO DAILY heart health #30 04/28/23 Unknown Rx release tabs clopidogrel 75 mg tablet 75 mg PO DAILY anti platelet #30 04/28/23 Unknown Rx tabs empagliflozin 10 mg tablet 10 mg PO DAILY #30 tabs 04/28/23 Unknown Rx (Jardiance) lisinopril 20 mg tablet 20 mg PO DAILY #30 tabs 04/28/23 Unknown Rx simvastatin 40 mg tablet 40 mg PO QHS cholesterol #30 tabs 04/28/23 Unknown Rx metoprolol succinate 50 mg 50 mg PO BID Pt does not tolerate 05/02/23 Unknown Rx tablet,extended release 24 hr 100 mg BID, bp gets too low #180 tabs amlodipine 5 mg tablet 5 mg PO DAILY #30 tabs 09/26/23 Unknown Rx doxycycline monohydrate 100 mg 100 mg PO BID #19 CAPSULES 05/28/24 Unknown Rx capsule prednisone 20 mg tablet 60 mg (3 x 20 mg) PO DAILY #12 05/28/24 Unknown Rx TABLETS Allergy/AdvReac Type Severity Reaction Status Date / Time bee venom protein (honey bee) Allergy Anaphylaxis Verified 05/28/24 17:54 mint Allergy Hives Verified 05/28/24 17:54 Penicillins Allergy Anaphylaxis Verified 05/28/24 17:54 Family History Mother Hypertension CVA (cerebral vascular accident) Father No problems noted. Grandfather Multiple sclerosis Paternal grandfather Brother Multiple sclerosis Heart disease Hypertension CAD (coronary artery disease) Myocardial infarction Surgical History H/O right inguinal hernia repair Hx of CABG (~05/27/22) H/O hernia repair History of appendectomy H/O heart artery stent Social History household members: spouse and children Smoking Status: Light Smoker (<10/day) alcohol intake: never substance use type: does not use caffeine: Yes (2 liters/day) Type: carbonated beverages Number of servings: 2, coffee and tea Number of servings: 1 ROS ROS ED Constitutional Constitutional ED: Denies chills, fever(s) or weight loss Eyes Eyes: Denies change in vision or diplopia ENT ENT ED: Denies ear pain, rhinorrhea or sore throat Cardiovascular Cardiovascular: Reports chest pain; Denies orthopnea, palpitations or racing heartbeat Respiratory/Chest Respiratory/Chest: Reports cough and dyspnea; Denies orthopnea Gastrointestinal Gastrointestinal: Denies abdominal pain, diarrhea, nausea or vomiting Genitourinary Genitourinary ED: Denies dysuria, hematuria or urinary frequency Musculoskeletal Musculoskeletal: Denies arthralgias or myalgias Integumentary Denies abscess or rash Neurologic Neurologic: Denies headache(s) or weakness Psychiatric Psychiatric: Denies anxiety, depression, suicidal ideation or suicidal thoughts Endocrine Endocrinology: Denies polydipsia, polyphagia or polyuria Allergic/Immunologic Allergic/Immunologic ED: Denies mouth swelling, tongue swelling or urticaria EXAM Physical Exam Const Vital Signs: 05/28/24 17:51 05/28/24 18:41 05/28/24 19:51 Temperature 97.5 F L Temperature Source Temporal Pulse Rate 65 62 Respiratory Rate 17 Respiratory Effort Normal Non-Labored Respiratory Depth Normal Respiratory Pattern Normal Blood Pressure 147/92 H 140/84 H Blood Pressure Mean 110 102 Pulse Ox 99 95 Oxygen Delivery Method Room Air Room Air Room Air Positive well nourished and well developed General Appearance ED: well developed HEENT Reports normocephalic, head/scalp atraumatic and moist mucous membranes Eyes PERRL and EOMs intact bilaterally Neck no lymphadenopathy, supple and no JVD Chest Wall Chest Narrative: Mild tenderness to palpation over the lower left inferior most rib anteriorly. No rashes noted. Resp normal respiratory effort Auscultation: rhonchi left lower and wheezes expiratory wheezes Cardio regular rate, regular rhythm and no murmurs GI normal to inspection, nondistended, normoactive bowel sounds and non-tender Palpation: soft Back/Spine no CVA tenderness and normal ROM Extremity normal to inspection General Extremety ED: Negative for edema General Extremity: Negative for edema Neuro oriented x3 and CN's II-XII intact bilaterally Sensorium / Orientation: alert Motor Exam: strength 5/5 throughout Psych mental status grossly normal Mood & Affect: Negative for depressed or tearful Skin no rashes or lesions noted and no wounds MDM MDM MDM Narrative Medical decision making narrative: Differential diagnosis includes but not limited to pneumonia bronchitis viral syndrome mucous plugging bronchospasm pleural effusion chest wall pain My independent interpretation of the plain film 2 view chest x-ray is possible developing left lower lobe infiltrate. Radiology reads this is negative. I am going to encourage the patient to go and continue using the nebulizer given the mild amount of expiratory wheeze. He does have a decent amount of rhonchi on the left lower side placed on prednisone as there may also be a component of pleurisy. I also feel that an antibiotic may be of benefit we will place him on doxycycline. History & Record Review Discussion w/independent historian: Patient Radiography Diagnostic Testing: Clinical Impression(s) from Imaging Studies Chest X-Ray 05/28/24 17:55 IMPRESSION: No evidence of acute disease. Reading Location: [facility] Discharge Plan Triage Chief Complaint: Shortness of Breath ED Provider: Heladio Costa Dx/Rx/DC Orders Clinical Impression: Acute bronchitis, Pleurisy Instructions: ED Bronchitis with Wheezing (Adult) Prescriptions: New prednisone 20 mg tablet 60 mg PO DAILY Qty: 12 0RF doxycycline monohydrate 100 mg capsule 100 mg PO BID Qty: 19 0RF No Action escitalopram oxalate 20 mg tablet 20 mg PO DAILY Jardiance 10 mg tablet 10 mg PO DAILY Qty: 30 11RF clopidogrel 75 mg tablet 75 mg PO DAILY Qty: 30 11RF lisinopril 20 mg tablet 20 mg PO DAILY Qty: 30 11RF simvastatin 40 mg tablet 40 mg PO QHS Qty: 30 11RF aspirin 81 mg tablet,delayed release (DR/EC) 81 mg PO DAILY Qty: 30 11RF hydroxyzine HCl 25 mg tablet 25 mg PO DAILY metoprolol succinate 50 mg tablet extended release 24 hr 50 mg PO BID Qty: 180 3RF amlodipine 5 mg tablet 5 mg PO DAILY Qty: 30 11RF Primary Care Provider: ARNALDO FERGUSON Referrals: ARNALDO FERGUSON CRNP [Primary Care Provider] - 1 Week if not improving Activity Restrictions/Additional Instructions: I would encourage you to go ahead and continue using the albuterol nebulizer every 4 hours Prednisone will make your blood sugars go up. Please take the entire course of the antibiotic doxycycline Print Language: Divehi Disposition Disposition: Home, Self Care
[2024-05-28] MEDS: Doxycycline 100 MG CAPSULE PO (20:53)
[2024-05-28] MEDS: predniSONE 20 MG Tablet 60 MG PO (20:53)
[2024-05-28 20:55] VITALS: BP 134/76; PULSE 88; RESP 16; TEMP 36.4; O2SAT 96
== END 2024-05-28 20:58 | disposition home or self-care (01) ==
PROVIDERS: Emergency Provider Emergency Medicine; PCP Nurse Practitioner Adult Health; Visit Provider Emergency Medicine
DX: R06.02 Shortness of breath (principal); I11.0 Hypertensive heart disease with heart failure; I50.9 Heart failure, unspecified; E11.9 Type 2 diabetes mellitus without complications; I25.10 Atherosclerotic heart disease of native coronary artery without angina pectoris; E78.5 Hyperlipidemia, unspecified; J20.9 Acute bronchitis, unspecified; R09.1 Pleurisy; F17.200 Nicotine dependence, unspecified, uncomplicated; I25.2 Old myocardial infarction; F41.8 Other specified anxiety disorders; Z79.899 Other long term (current) drug therapy; Z79.82 Long term (current) use of aspirin; Z95.1 Presence of aortocoronary bypass graft; Z79.02 Long term (current) use of antithrombotics/antiplatelets; Z90.49 Acquired absence of other specified parts of digestive tract; Z95.5 Presence of coronary angioplasty implant and graft
CPT/HCPCS: 71046; 99283

== ENCOUNTER → 2024-12-05 | Outpatient (CLI) | payer MEDICAID, SELFPAY ==
[2024-12-05 09:55] LABS: Mucous, Urine 0 SEEN /hpf (<or=2+); Red Blood Cells-Urine 0 SEEN /hpf (0-5)
--- NOTE | 2024-12-05 10:00 | RAD_ITS ---
PROCEDURE: CHEST PA AND LATERAL 12/05/2024 REASON FOR EXAM: PRE-OPERATIVE TECHNIQUE: Procedure Code: RADCXR Modality: DX Procedure: CHEST PA AND LATERAL COMPARISON: 05/28/2024 FINDINGS: Median sternotomy wires and evidence of prior CABG. No focal consolidation. No pleural effusion or pneumothorax. Cardiac silhouette is within normal limits. No acute fractures. RAD/Chest PA and Lateral IMPRESSION: No focal consolidations. Reading Location: [id number]
[2024-12-05 10:20] LABS: Hematocrit 48.6 % (40-54); Hemoglobin 16.4 g/dL (13.0-16.5); Immature Granulocytes Count 0.040 X10^3/uL (0.0-0.0); Mean Corp Hgb Conc 33.7 g/dL (32-36); Mean Corpuscular Volume 85.9 fL (80-94); Mean Platelet Vol. 10.2 fl (6.2-12.0); NRBC Flagged by Analyzer 0 % (0-5); Platelet Count 312 K/mm3 (150-450); RBC Distribution Width CV 13.3 % (11.6-14.6); RBC Distribution Width SD 41.9 fl (35.1-43.9); Red Blood Count 5.66 M/mm3 (4.6-6.2); White Blood Count 10.1 K/mm3 (4.4-11.0)
[2024-12-05 10:48] LABS: Color, Urine Yellow (Yellow); Glucose, Dipstick 1000 mg/dl (Normal); Ketone-Dipstick Negative (Negative); Leukocyte Esterase-Dipstick Negative /ul (Negative); Nitrite-Dipstick Negative (Negative); Occult Blood-Urine 10 /ul (Negative); Protein-Dipstick 15 mg/dl (Negative); Specific Gravity, Urine 1.020 (1.002-1.030); Urine Bilirubin Dipstick Negative (Negative)
[2024-12-05 11:25] LABS: Squamous Epithelial Cells - UA 0-5 SEEN /hpf (0-5)
[2024-12-05 11:45] LABS: Anion Gap 13 (5-15); BUN 11 mg/dL (4-19); BUN/Creat Ratio 15.0 RATIO (10-20); Calcium,Total 8.9 mg/dL (7.6-11.0); Carbon Dioxide 23.1 mmol/L (21.0-32.0); Chloride 103 mmol/L (98-108); Glucose 122 mg/dL (70-99); Potassium 4.3 mmol/L (3.3-5.1)
== END | disposition home or self-care (01) ==
LOC: LAB 09:34
PROVIDERS: PCP Nurse Practitioner Adult Health; Referring Provider Nurse Practitioner Family; Visit Provider Nurse Practitioner Family
DX: E11.9 Type 2 diabetes mellitus without complications (principal); R07.9 Chest pain, unspecified; Z95.1 Presence of aortocoronary bypass graft
CPT/HCPCS: 36415; 71046; 80048; 81001; 85025

== ENCOUNTER → 2024-12-27 | Outpatient (CLI) | payer MEDICAID, SELFPAY ==
--- OUTSIDE RECORDS SUMMARY | 2024-12-27 06:40 | XMS RPT_ITS | CCD ---
Author Organization [facility] Care Team Providers Care Gis Database Administrator Name Role Phone MAITE LEIVA Unavailable Unavailable SIMON ALONSO Unavailable Unavailable UNKNOWN, PROVIDER Unavailable Unavailable LIAM ALONSON Unavailable Unavailable LIAM ALONSON Unavailable Unavailable UNKNOWN, PROVIDER Unavailable Unavailable UNKNOWN, PROVIDER Unavailable Unavailable UNKNOWN, PROVIDER Unavailable Unavailable SIMON ALONSO Unavailable Unavailable No, Physician Primary Care Provider Kori Rodrigez DO Primary Care Provider SIMEON FUNG Attending Unavaila ble FELAKORI VARNER Primary Care Unavailabl e GAYATRI SHAW Attending Unavailable KORI WILLIS Primary Care Unavailabl e KORI WILLIS Primary Care Unavailabl e KORI WILLIS Primary Care Unavailabl e GAYATRI SHAW Attending Unavailable GAYATRI SHAW Referring Unavailable NARESH STUART Referring Unavailab KORI Carlisle Primary Care Unavailabl e NARESH STUART Attending Unavailab SIMEON Neff Attending Unavaila ble SIMEON FUNG Referring Unavaila ble SCOOTER, GAMA PAEZ Admitting Unavaila ble NO, PHYSICIAN Primary Care Unavailable PANDA BRYANT Attending Unavailab NEGRA Mcgraw Consulting Unavailable SCOOTER, GAMA PAEZ Admitting Unavaila ble NO, PHYSICIAN Primary Care Unavailable SURGEONS, OPG CARDIOTHORACIC Consulting Fadumo vailable PANDA BRYANT Consulting Unavailab DOMINGUEZ Yadav Consulting Unavailable KOIR WILLIS Primary Care Unavailrenetta e GAYATRI SHAW Admitting Unavailable GAYATRI SHAW Referring Unavailable Unavailable Primary Care Provider Unavailabl e Care Physician, No Primary Primary Care Provider Unavailable Care Physician, No Primary Referring Provider Un available USHA Fuentes Attending Provider [phone] [facility] BANK APPRAISER-RN PATIENT SERVICES, ARNALDO Primary Care Physician [phone] MA[facility] BANK APPRAISER-RN PATIENT SERVICES, ARNALDO Primary Care Unavailabl e MAST BANK APPRAISER-RN PATIENT SERVICES, ARNALDO Attending Unavailabl e MAST BANK APPRAISER-RN PATIENT SERVICES, ARNALDO Attending Unavailabl e MAST BANK APPRAISER-RN PATIENT SERVICES, ARNALDO Primary Care Unavailabl e MAST, BAG BUILDER ARNALDO Primary Care Provider [phone] Dr. Keagan Carrasquillo Emergency Provider [phone] Jeannette Griffin Admit Provider Dr. Jeannette Griffin Other Provider Dr. Braulio Gonzales Attending Provider Dr. Braulio Gonzales Other Provider Dr. Nicholas Rangel Attending Provider MAST, BAG BUILDER ARNALDO Referring Provider Dr. Loren Lackey Attending Provider MAST BAG BUILDER, ARNALDO Primary Care Provider [phone] Dr. Heladio Costa DO Emergency Provider MAST BANK APPRAISER-RN PATIENT SERVICES, ARNALDO Primary Care Unavailabl e MAST BANK APPRAISER-RN PATIENT SERVICES, ARNALDO Attending Unavailabl e MAST BANK APPRAISER-RN PATIENT SERVICES, ARNALDO Primary Care Unavailabl JAMISON Urias MD Attending U navailable MAST BANK APPRAISER-RN PATIENT SERVICES, ARNALDO Primary Care Unavailabl e JAMISON STEWART MD Attending U navailable MAST BANK APPRAISER-RN PATIENT SERVICES, ARNALDO Primary Care Unavailabl e MAST BANK APPRAISER-RN PATIENT SERVICES, ARNALDO Attending Unavailabl e MAST BANK APPRAISER-RN PATIENT SERVICES, ARNALDO Primary Care Unavailabl e MAST BANK APPRAISER-RN PATIENT SERVICES, ARNALDO Attending Unavailabl e MAST BANK APPRAISER-RN PATIENT SERVICES, ARNALDO Primary Care Unavailabl e MAST BANK APPRAISER-RN PATIENT SERVICES, ARNALDO Attending Unavailabl e MAST BANK APPRAISER-RN PATIENT SERVICES, ARNALDO Attending Unavailabl e MAST BANK APPRAISER-RN PATIENT SERVICES, ARNALDO Primary Care Unavailabl e MAST BANK APPRAISER-RN PATIENT SERVICES, ARNALDO Primary Care Unavailabl e MAST BANK APPRAISER-RN PATIENT SERVICES, ARNALDO Attending Unavailabl e MAST BANK APPRAISER-RN PATIENT SERVICES, ARNALDO Primary Care Unavailabl e FABIANO DURANT, JAMISON Attending U navailable MA[facility] BANK APPRAISER-RN PATIENT SERVICES, ARNALDO Primary Care Unavailabl e FABIANO DURANT, JAMISON Attending U navailable FABIANO DURANT, JAMISON Attending U navailable MAST BANK APPRAISER-RN PATIENT SERVICES, ARNALDO Primary Care Unavailabl e MAST BAG BUILDER, ARNALDO Primary Care Physician MAST BAG BUILDER, ARNALDO Referring Provider [phone] Roof SUPERVISOR OPEN HEARTH STOCKYARD-C, Alban Leavitt Attending Physician Roof SUPERVISOR OPEN HEARTH STOCKYARD-C, Alban Leavitt Referring Provider Roof SUPERVISOR OPEN HEARTH STOCKYARD, Alban Leavitt Referring Unavailable MAST, ARNALDO Primary Care Unavailable Roof SUPERVISOR OPEN HEARTH STOCKYARD, Alban Leavitt Attending Unavailable Heladio Costa Attending Unavailable MAST, ARNALDO Primary Care Unavailable Roof SUPERVISOR OPEN HEARTH STOCKYARD, Alban Leavitt Referring Unavailable MAST, ARNALDO Primary Care Unavailable Roof SUPERVISOR OPEN HEARTH STOCKYARD, Alban Leavitt Attending Unavailable MAST, ARNALDO Primary Care Unavailable MAST, ARNALDO Referring Unavailable Roof SUPERVISOR OPEN HEARTH STOCKYARD, Alban Leavitt Attending Unavailable Allergies Allergy Classification Reported Allergen(s) Allergy Type Date of Onset Reaction(s) Facility (20 sources) Penicillins; Translations: [PENICILLINS] Propensity to adverse reactions to drug 0 Anaphylaxis [facility] (20 sources) mint; Translations: [MINT] Allergy to substance 3 Swelling, Swelling (morphologic abnormality) [facility] Work Phone: (1 source) Peppermint preparation Drug Allergy 3 Swelling [facility] (9 sources) bee venom protein (honey bee) Allergy to substance 3 Anaphylaxis [facility] (9 sources) Penicillin; Translations: [penicillin] Drug Allergy Swelling (morphologic abnormality) [facility] [place] (8 sources) Bee/Wasp/Ant venom Allergy to substance Swelling (finding) [facility] (1 source) bee venom protein (honey bee) Drug allergy (disorder) 5 [facility] (1 source) mint Drug allergy (disorder) 5 [facility] Medications Current Medications Medication Drug Class(es) Dates Sig (Normalized) Sig (Original) Acetaminophen (16 sources) Start: 08-11-2022 acetaminophen acetaminophen, 0 Refill(s) Start Date: 08/11/22 Status: Ordered Repeat number: 1 Start: 08-11-2022 acetaminophen acetaminophen, 0 Refill(s) Start Date: 08/11/22 Status: Ordered Start: 05-31-2022 take 2 tablets by mo uth every four hours as needed acetaminophen (TYLENOL) 325 MG tablet Take 2 (two) tablets (650 mg total) by mouth every 4 (four) hours as needed . 0 05/31/2022 Active aspirin 81 mg delayed release oral tablet (20 sources) Platelet Aggregation Inhibitor, Nonsteroidal Anti-inflammatory Drug Start: 10-16-2022 End: 12-10-2024 take 1 tablet by mouth once daily Start: 06-01-2022 End: 07-01-2022 take 81 mg by mouth once daily Aspirin Active 81 MG PO DAILY October 16, 2022 12:00am Start: 03-27-2022 End: 10-16-2022 take 1 tablet by mouth once daily Aspirin 325 mg Tablet Discontinued 325 mg PO DAILY March 27, 2022 1:00am October 16, 2022 8:49pm atorvastatin 40 mg oral tablet (4 sources) HMG-CoA Reductase Inhibitor Start: 07-06-2024 End: 07-01-2025 take 1 tablet by mouth once daily Start: 02-01-2024 Lipitor 40 mg oral tablet Dose : 40 mg = 1 tab(s), Oral, qDay, # 30 tab(s), 0 Refill(s), Pharmacy: [facility], 172, cm, 02/01/24 10:43:00 EST, Height, kg, 02/01/24 10:56:00 EST, Dosing Weight Start Date: 02/01/24 Status: Ordered Blood Glucose Test Machine (4 sources) Start: 05-02-2023 Blood Glucose Test Machine See Instructions, machine covered by insurance, # 1 EA, 0 Refill(s), Pharmacy: [facility] #[id number], 172, cm, 02/07/23 9:22:00 EST, Height, 86.8, kg, 02/07/23 9:22:00 EST, Dosing Weight Start Date: 05/02/23 Status: Ordered Quantity: 1.0 Unit: EA Repeat number: 1 Start: 05-02-2023 Blood Glucose Test Machine See Instructions, machine covered by insurance, # 1 EA, 0 Refill(s), Pharmacy: [facility] #[id number], 172, cm, 02/07/23 9:22:00 EST, Height, 86.8, kg, 02/07/23 9:22:00 EST, Dosing Weight Start Date: 05/02/23 Status: Ordered blood-glucose meter (OneTouch Verio Meter) Misc (11 sources) Start: 05-31-2022 blood-glucose meter (OneTouch Verio Meter) [facility] Use to check BG daily Dx E11.59 Formulary covers Once Touch Verio meter . 1 each 0 05/31/2022 Active bupropion hydrochloride 105 MG / dextromethorphan hydrobromide 45 MG Extended Release Oral Tablet [Auvelity] (1 source) Start: 06-29-2024 take 1 tablet by mouth twice daily Auvelity 45 mg-105 mg oral tablet, extended release Dose = 1 tab(s), Oral, BID, # 60 tab(s), 0 Refill(s) Start Date: 06/29/24 Status: Ordered Quantity: 60.0 Unit: tab(s) Repeat number: 1 Dexcom G6 Sensor (4 sources) Start: 03-28-2024 Dexcom G6 Sens or See Instructions, Place one sensor to the abdomen every 10 days. Use reader or phone edith for daily blood sugar checks. 1 month supply., # 3 EA, 3 Refill(s), Pharmacy: [facility], 172, cm, 02/01/24 10:43:00 EST, Height, 84.1, kg, 02/01/24 10:56:00 EST, Dosing Weight Start Date: 03/28/24 Status: Ordered Quantity: 3.0 Unit: EA Repeat number: 4 Start: 06-22-2023 Dexcom G6 Sens or See Instructions, Place one sensor to the abdomen every 10 days. Use reader or phone edith for daily blood sugar checks. 1 month supply., # 3 EA, 0 Refill(s), Pharmacy: [facility] #[id number], 169, cm, 06/22/23 11:03:00 EDT, Height, 83.8, kg, 06/22/23 11:03:00 EDT, Dosing Weight Start Date: 06/22/23 Status: Ordered Dexcom G7 [place] (4 sources) Start: 06-22-2023 Dexcom G7 Read er See Instructions, Use reader daily for blood sugar checks. Keep reader within 20 feet of the sensor and transmitter, # 1 EA, 0 Refill(s), Pharmacy: [email or web address] #[id number], 169, cm, 06/22/23 11:03:00 EDT, Height, 83.8, kg, 06/22/23 11:03:00 EDT, Dosing Weight Start Date: 06/22/23 Status: Ordered Quantity: 1.0 Unit: EA Repeat number: 1 Start: 06-22-2023 Dexcom G7 Read er See Instructions, Use reader daily for blood sugar checks. Keep reader within 20 feet of the sensor and transmitter, # 1 EA, 0 Refill(s), Pharmacy: [email or web address] #[id number], 169, cm, 06/22/23 11:03:00 EDT, Height, 83.8, kg, 06/22/23 11:03:00 EDT, Dosing Weight Start Date: 06/22/23 Status: Ordered Dexcom G7 Sensor (4 sources) Start: 01-16-2024 Dexcom G7 Sens or See Instructions, Place once sensor to the back of the upper arm every 10 days. Use reader or phone edith for daily blood sugar checks. 1 month supply., # 9 EA, 3 Refill(s), Pharmacy: [facility], Diabetes mellitus with cardiac complication, 172, cm, 01/03/24 13:36:00 EDT, Height, 82.8, kg, 01/03/24 13:36:00 EDT, Dosing Weight Start Date: 01/16/24 Status: Ordered Quantity: 9.0 Unit: EA Repeat number: 4 Indications: Type 2 diabetes mellitus with other circulatory complications; Start: 01-16-2024 Dexcom G7 Sens or See Instructions, Place once sensor to the back of the upper arm every 10 days. Use reader or phone edith for daily blood sugar checks. 1 month supply., # 9 EA, 3 Refill(s), Pharmacy: [facility], Diabetes mellitus with cardiac complication, 172, cm, 01/03/24 13:36:00 EDT, Height, 82.8, kg, 01/03/24 13:36:00 EDT, Dosing Weight Start Date: 01/16/24 Status: Ordered Start: 09-22-2023 Dexcom G7 Sens or See Instructions, Place once sensor to the back of the upper arm every 10 days. Use reader or phone edith for daily blood sugar checks. 1 month supply., # 3 EA, 3 Refill(s), Pharmacy: [facility], Diabetes mellitus with cardiac complication, 169, cm, 06/22/23 11:03:00 EDT, Height, 83.8, kg, 06/22/23 11:03:00 EDT, Dosing Weight Start Date: 09/22/23 Status: Ordered Dextromethorphan-Bupropion (2 sources) Start: 11-28-2024 Start: 11-28-2024 Dextromethorph an-Bupropion (Auvelity) 45-105 mg tablet, IR and ER, biphasic Active 1 {tbl} PO TWICE A DAY November 28, 2024 12:00am administer at least 8 hours apart Complies with drug therapy famotidine 20 mg oral tablet (3 sources) Histamine-2 Receptor Antagonist Start: 11-28-2024 take 1 tablet by mouth twice daily as needed for gastroesophageal reflux disease Start: 07-06-2024 famotidine 20 mg oral tablet Dose : 20 mg = 1 tab(s), Oral, BID, PRN Heartburn, # 60 tab(s), 2 Refill(s), Pharmacy: [facility], 171, cm, 07/06/24 14:29:00 EDT, Height, kg, 07/06/24 14:29:00 EDT, Dosing Weight Start Date: 07/06/24 Status: Ordered Quantity: 60.0 Unit: tab(s) Repeat number: 3 FLUoxetine 40 mg oral capsule (6 sources) Serotonin Reuptake Inhibitor Start: 07-06-2024 End: 01-02-2025 take 1 capsule by mouth once daily Start: 01-03-2024 PROzac 20 mg o ral capsule Dose : 20 mg = 1 cap(s), Oral, qDay, # 30 cap(s), 2 Refill(s), Pharmacy: [facility], 172, cm, 01/03/24 13:36:00 EDT, Height, kg, 01/03/24 13:36:00 EDT, Dosing Weight Start Date: 01/03/24 Status: Ordered Garlic preparation (2 sources) Non-Standardized Food Allergenic Extract garlic (GARLIQUE ORAL) Take by mouth . 0 Active hydrOXYzine hydrochloride 25 mg oral tablet (11 sources) Antihistamine Start: 11-03-19 End: 07-02-19 take 1 tablet by mouth once daily 24 hr isosorbide mononitrate 30 mg extended release oral tablet (3 sources) Nitrate Vasodilator Start: 11-29-19 Start: 06-29-2024 isosorbide mon onitrate 30 mg oral tablet, extended release Dose : 30 mg = 1 tab(s), Oral, qAM, # 30 tab(s), 3 Refill(s), Pharmacy: [facility], 170.2, cm, 06/29/24 9:23:00 EDT, Height, kg, 06/29/24 9:23:00 EDT, Dosing Weight Start Date: 06/29/24 Status: Ordered Quantity: 30.0 Unit: tab(s) Repeat number: 4 lisinopril 10 mg oral tablet (20 sources) Angiotensin Converting Enzyme Inhibitor Start: 11-28-2024 take 1 tablet by mouth once daily Start: 06-29-2024 lisinopril 10 mg oral tablet Dose : 10 mg = 1 tab(s), Oral, qDay, # 30 tab(s), 3 Refill(s), Pharmacy: [facility], 170.2, cm, 06/29/24 9:23:00 EDT, Height, kg, 06/29/24 9:23:00 EDT, Dosing Weight Start Date: 06/29/24 Status: Ordered Quantity: 30.0 Unit: tab(s) Repeat number: 4 Start: 04-09-2023 End: 11-28-2024 take 1 tablet by mouth once daily Lisinopril 20 mg tablet Discontinued 20 mg PO DAILY 10 02April 28, 2023 12:16pm November 28, 2024 11:31am Start: 07-20-2022 End: 11-17-2022 take 1 tablet by mouth twice daily lisinopriL (PRINIVIL,ZESTRIL) 5 MG tablet Indications: Hypertension, unspecified type Take 1 (one) tablet (5 mg total) by mouth 2 (two) times a day . 60 tablet 3 07/20/2022 Active Start: 05-31-2022 End: 09-28-2022 take 1 tablet by mouth twice daily lisinopriL (PRINIVIL,ZESTRIL) 2.5 MG tablet Take 1 (one) tablet (2.5 mg total) by mouth 2 (two) times a day . 60 tablet 3 05/31/2022 07/20/2022 Discontinued Start: 03-27-2022 End: 04-09-2023 take 1 tablet by mouth once daily Lisinopril 10 mg Tablet Discontinued 10 mg PO DAILY March 27, 2022 1:00am April 09, 2023 11:39am Start: 03-27-2022 take 5 mg by mouth once daily Lisinopril Active 5 MG PO DAILY March 27, 2022 1:00am 24 hr metFORMIN hydrochlorid e 500 mg extended release oral tablet (5 sources) Biguanide Start: 11-28-2024 Start: 11-01-2023 End: 01-30-2024 MetFORMIN (Eqv-Fortamet) 500 mg oral tablet, EXTENDED RELEASE Dose : 500 mg = 1 tab(s), Oral, qDay, Okay to substitute for generic Glucophage XR, # 30 tab(s), 2 Refill(s), Pharmacy: [facility], Type 2 diabetes mellitus with cardiac complication, 170, cm, 10/03/23 14:27:00 EDT, Height, kg, 10/03/23 14:27:00 EDT, Dosing Weight Start Date: 11/01/23 Stop Date: 01/30/24 Status: Ordered 24 hr nicotine 0.875 mg/hr transdermal system (4 sources) Cholinergic Nicotinic Agonist Start: 11-28-2024 apply 1 dose topically every twenty-four hours Start: 04-27-2024 End: 10-12-2024 apply 1 dose transdermal route once daily nicotine 21mg / 24hrs transdermal patch Dose = 1 patch(es), Transdermal, qDay, # 84 patch(es), 1 Refill(s), Pharmacy: [facility], 171, cm, 04/11/24 13:05:00 EST, Height, kg, 04/11/24 13:05:00 EST, Dosing Weight Start Date: 04/27/24 Stop Date: 10/12/24 Status: Ordered Quantity: 84.0 Unit: patch(es) Repeat number: 2 Start: 02-06-2024 End: 03-07-2024 nicotine 21 mg/24 hr transde rmal film, extended release Apply 1 patch(es), Transdermal, qDay, apply to skin, X 30 day(s), # 30 patch(es), 0 Refill(s), Pharmacy: [id number], 172, cm, 02/01/24 10:43:00 EST, Height, 84.1, kg, 02/01/24 10:56:00 EST, Dosing Weight Start Date: 02/06/24 Stop Date: 03/07/24 Status: Ordered omega-3 acid ethyl esters (u sp) 1000 mg oral capsule (3 sources) Start: 11-28-2024 Start: 07-10-2024 Lovaza 1000 mg oral capsule Dose : 2,000 mg = 2 cap(s), Oral, BID, # 120 cap(s), 1 Refill(s), Pharmacy: [facility], 171, cm, 07/06/24 14:29:00 EDT, Height, kg, 07/06/24 14:29:00 EDT, Dosing Weight Start Date: 07/10/24 Status: Ordered Quantity: 120.0 Unit: cap(s) Repeat number: 2 omeprazole 40 mg delayed release oral capsule (3 sources) Proton Pump Inhibitor Start: 01-03-2024 omeprazole 40 mg oral delayed release capsule Dose : 40 mg = 1 cap(s), Oral, qDay, # 30 cap(s), 2 Refill(s), Pharmacy: [facility], 172, cm, 01/03/24 13:36:00 EDT, Height, kg, 01/03/24 13:36:00 EDT, Dosing Weight Start Date: 01/03/24 Status: Ordered triamcinolone acetonide 1 mg/ml topical cream (2 sources) Corticosteroid Start: 11-28-2024 {11 (varenicline 0.5 MG Oral Tablet [Chantix]) / 42 (varenicline 1 MG Oral Tablet [Chantix]) } Pack [Chantix First Month of Therapy] (2 sources) Partial Cholinergic Nicotinic Agonist Start: 02-07-2023 take 1 tablet by mouth twice daily Chantix Starter Pack 0.5 mg-1 mg oral tablet Dose = 1 tab(s), Oral, BID, # 1 kit(s), 0 Refill(s), Pharmacy: [facility] [id number], 172, cm, 02/07/23 9:22:00 EST, Height, kg, 02/07/23 9:22:00 EST, Dosing Weight Start Date: 02/07/23 Status: Ordered Start: 02-07-2023 End: 02-09-2024 take 1 tablet by mouth once, then take 1 tablet by mouth twice daily Chantix Continuing Month 1 mg oral tablet Dose : 1 mg = 1 tab(s), Oral, BID, # 56 tab(s), 1 Refill(s), 02/09/24 9:32:00 AM EST, Pharmacy: [place] [facility] [id number], 172, cm, 02/07/23 9:22:00 EST, Height, kg, 02/07/23 9:22:00 EST, Dosing Weight Start Date: 02/07/23 Stop Date: 02/09/24 Status: Ordered Completed/Discontinued Medications Medication Drug Class(es) Dates Sig (Normalized) Sig (Original) acetaminophen 325 mg / oxyCODONE hydrochloride 5 mg oral tablet (7 sources) Opioid Agonist Start: 01-02-2023 End: 04-08-2023 Oxycodone-Acetami nophen (Percocet) 5-325 mg tablet Discontinued 1 {tbl} PO Q8H as needed for pain 10 3 0 January 02, 2023 April 08, 2023 8:01am Dental abscess Periapical abscess without sinus amLODIPine 5 mg oral tablet (20 sources) Dihydropyridine Calcium Channel Pennie Start: 04-09-2023 End: 07-01-2025 take 1 tablet by mouth once daily Amlodipine 5 mg tablet Discontinued 5 mg PO DAILY 30 September 26, 2023 4:12pm December 10, 2024 1:59pm Start: 10-05-2022 End: 10-05-2023 take 1 tablet by mouth once daily amLODIPine (NORVASC) 2.5 MG tablet Take 1 (one) tablet (2.5 mg total) by mouth daily . 30 tablet 11 10/05/2022 10/05/2023 Active Start: 03-27-2022 End: 04-09-2023 take 2.5 mg by mouth once daily Amlodipine 5 mg Tablet Discontinued 2.5 mg PO DAILY March 27, 2022 1:00am April 09, 2023 11:40am Start: 03-27-2022 End: 04-09-2023 take 2.5 mg by mouth once daily Amlodipine Discontinue d 2.5 MG PO DAILY March 27, 2022 12:00am April 09, 2023 10:40am Start: 03-27-2022 take 1 tablet by jannie th once daily amLODIPine (NORVASC) 5 MG tablet Take 1 (one) tablet (5 mg total) by mouth daily . 0 03/27/2022 Suspended amoxicillin 875 mg / clavulanate 125 mg oral tablet (2 sources) Penicillin-class Antibacterial Start: 02-16-2020 take 1 tablet by mouth twice daily amoxicillin-clavulanate (AUGMENTIN) 875-125 mg per tablet Take [...] 02-16-2020 cefTRIAXone (ROCEPHIN) IVPB 1 g (premix) clindamycin 300 mg oral capsule (8 sources) Lincosamide Antibacterial Start: 01-01-2023 End: 04-08-2023 take 1 capsule by mouth every six hours Clindamycin Hcl (Cleocin Hcl) 300 mg capsule Discontinued 300 mg PO EVERY 6 HOURS 40 10 January 01, 2023 12:00am April 08, 2023 8:01am clopidogrel 75 mg oral tablet (20 sources) [id number] Platelet Inhibitor Start: 06-01-2022 End: 07-01-2025 take 1 tablet by mouth once daily Clopidogrel 75 mg tablet Discontinued 75 mg PO DAILY October 16, 2022 12:00am April 28, 2023 12:17pm anti platelet docusate sodium 100 mg oral capsule (8 sources) Start: 06-01-2022 End: 07-20-2022 take 1 capsule by mouth once daily docusate sodium (COLACE) 100 MG capsule Take 1 (one) capsule (100 mg total) by mouth daily Start: 06/01/22. 0 06/01/2022 07/20/2022 Discontinued (Patient Discharge) doxycycline monohydrate 100 mg oral capsule (3 sources) Tetracycline-class Drug Start: 05-28-2024 End: 11-28-2024 take 1 capsule by mouth twice daily Doxycycline Monohydrate 100 mg capsule Discontinued 100 mg PO TWICE A DAY May 28, 2024 12:00am November 28, 2024 11:31am 0.5 ml dulaglutide 1.5 mg/ml auto-injector (1 source) GLP-1 Receptor Agonist Start: 07-20-2024 End: 10-18-2024 inject 0.5 mL by subcutaneous injection every week Trulicity Pen 0.75 mg/0.5 mL subcutaneous solution Dose : 0.75 mg = 0.5 mL, Subcutaneous, qWeek, rotate injection sites, # 4 EA, 2 Refill(s), Pharmacy: [facility], 171, cm, 07/06/24 14:29:00 EDT, Height, kg, 07/06/24 14:29:00 EDT, Dosing Weight Start Date: 07/20/24 Stop Date: 10/18/24 Status: Ordered Quantity: 4.0 Unit: EA Repeat number: 3 empagliflozin 10 mg oral tablet (20 sources) Sodium-Glucose Cotransporter 2 Inhibitor Start: 04-28-2023 End: 11-28-2024 take 1 tablet by mouth once daily Empagliflozin (Jardiance) 10 mg tablet Discontinued 10 mg PO DAILY 10 02April 28, 2023 12:15pm November 28, 2024 11:29am Start: 02-01-2023 End: 07-01-2025 take 1 tablet by mouth once daily Empagliflozin (Jardiance) 25 mg tablet Discontinued 25 mg PO DAILY April 22, 2023 1:00am April 28, 2023 11:50am Start: 09-24-2022 End: 04-22-2023 take 1 tablet by mouth once daily Empagliflozin (Jardiance) 10 mg tablet Discontinued 25 mg PO DAILY October 16, 2022 12:00am April 22, 2023 11:52am diabetes escitalopram 20 mg oral tablet (16 sources) Serotonin Reuptake Inhibitor Start: 11-02-2022 End: 11-28-2024 take 1 tablet by mouth once daily Escitalopram Oxalate 20 mg tablet Discontinued 20 mg PO DAILY April 22, 2023 1:00am November 28, 2024 11:31am Start: 10-16-2022 End: 04-22-2023 take 2 tablets by mouth once daily Escitalopram Oxalate 10 mg tablet Discontinued 20 mg PO DAILY October 16, 2022 12:00am April 22, 2023 11:53am mental health Start: 10-16-2022 End: 04-22-2023 take 20 mg by mouth once daily Escitalopram Oxalate Di scontinued 20 MG PO DAILY October 15, 2022 11:00pm April 22, 2023 10:53am Start: 10-05-2022 take 1 tablet by jannie th once daily escitalopram oxalate (LEXAPRO) 10 MG tablet Take 1 (one) tablet (10 mg total) by mouth daily . 30 tablet 1 10/05/2022 Active ferrous sulfate 325 mg oral tablet (7 [...] End: 02-16-2020 ketorolac (TORADOL) injection 15 mg magnesium gluconate 550 mg oral tablet (11 sources) Start: 10-16-2022 End: 04-08-2023 take 1 tablet by mouth twice daily Magnesium 30 mg tablet Discontinued 30 mg PO TWICE A DAY October 16, 2022 12:00am April 09, 2023 12:06am 24 hr metoprolol succinate 50 mg extended release oral tablet (20 sources) beta-Adrenergic Pennie Start: 04-28-2023 End: 05-02-2023 take 1 tablet by mouth once daily Metoprolol Succinate 100 mg tablet extended release 24 hr Discontinued 100 mg PO DAILY 30 April 28, 2023 12:15pm May 02, 2023 10:11am Start: 10-16-2022 take 50 mg by mouth once daily Metoprolol Succinate Active 50 MG PO DAILY October 16, 2022 12:00am Start: 05-31-2022 End: 07-01-2025 take 1 tablet by mouth twice daily Metoprolol Succinate 50 mg tablet extended release 24 hr Discontinued 50 mg PO TWICE A DAY 180 December 10, 2024 3:41pm December 10, 2024 3:42pm Pt does not tolerate 100 mg BID, bp gets too low Start: 03-27-2022 take 1 tablet by jannie th once daily metoprolol tartrate (LOPRESSOR) 100 MG tablet Take 1 (one) tablet (100 mg total) by mouth daily . 0 03/27/2022 Suspended Start: 03-27-2022 End: 10-16-2022 take 1 tablet by mouth twice daily Metoprolol Tartrate 100 mg Tablet Discontinued 100 mg PO TWICE A DAY March 27, 2022 1:00am October 16, 2022 8:50pm 1 ml morphine sulfate 4 mg/ml cartridge (1 source) Opioid Agonist Start: 02-16-2020 End: 02-16-2020 morphine syringe 4 mg pantoprazole 40 mg delayed release oral tablet (19 sources) Proton Pump Inhibitor Start: 03-27-2022 End: 04-08-2023 take 1 tablet by mouth once daily Pantoprazole 40 mg Tablet,Delayed Release (Dr/Ec) Discontinued 40 mg PO DAILY March 27, 2022 1:00am April 09, 2023 12:06am potassium gluconate 2.5 meq oral tablet (11 sources) Start: 10-16-2022 End: 04-08-2023 take 1 tablet by mouth once daily Potassium Gluconate 595 mg (99 mg) tablet Discontinued 595 mg PO DAILY October 16, 2022 12:00am April 09, 2023 12:06am prasugrel 10 mg oral tablet (11 sources) P2Y12 Platelet Inhibitor Start: 07-19-2016 End: 10-16-2022 take 1 tablet by mouth once daily Prasugrel Hcl (Effient) 10 mg Tablet Discontinued 10 mg PO DAILY March 27, 2022 1:00am October 16, 2022 8:51pm predniSONE 20 mg oral tablet (3 sources) Start: 05-28-2024 End: 11-28-2024 take 3 tablets by mouth once daily Prednisone 20 mg tablet Discontinued 60 mg PO DAILY May 28, 2024 12:00am November 28, 2024 11:32am 12 hr ranolazine 1000 mg extended release oral tablet (11 sources) Anti-anginal Start: 03-27-2022 End: 10-16-2022 take 1 tablet by mouth twice daily Ranolazine (Ranexa) 1,000 mg Tablet Extended Release 12 Hr Discontinued 1000 mg PO TWICE A DAY March 27, 2022 1:00am October 16, 2022 8:51pm Start: 05-03-2016 take 1 tablet by jannie th once daily ranolazine (RANEXA) 1,000 mg SR tablet Take 1 (one) tablet (1,000 mg total) by mouth daily . 0 05/03/2016 Suspended simvastatin 40 mg oral tablet (20 sources) HMG-CoA Reductase Inhibitor Start: 05-03-2016 End: 12-28-2024 take 1 tablet by mouth at bedtime Simvastatin 40 mg Tablet Discontinued 40 mg PO AT BEDTIME March 27, 2022 1:00am April 28, 2023 12:17pm cholesterol Problems Active Problems Problem Classification Problem Date Documented Date Episodic/Chronic Abdominal hernia (9 sources) Left inguinal hernia 08-11-2022 Episodic Acute bronchitis (3 sources) Acute bronchitis; Translations: [Acute bronchitis, unspecified] 05-28-2024 Episodic Acute myocardial infarction (20 sources) Myocardial infarction; Translations: [Acute myocardial infarction, unspecified] Onset: 05-24-2022 05-24-2022 Chronic Administrative/social admission (10 sources) Administrative reason for encounter; Translations: [Encounter for other administrative examinations] 08-19-2022 Episodic Anxiety disorders (10 sources) Anxiety; Translations: [Posttraumatic stress disorder] 11-02-2022 Chronic Cardiac dysrhythmias (15 sources) Palpitations; Translations: [Palpitations] 01-01-2023 Episodic Congestive heart failure; nonhypertensive (14 sources) Congestive heart failure; Translations: [Heart failure, unspecified] Onset: 11-28-2024 08-11-2022 Chronic Comment on above: grade 1 diastolic dy sfunction Echo 07/2022- 59% EF Coronary atherosclerosis and other heart disease (20 sources) Coronary arteriosclerosis; Translations: [Atherosclerotic heart disease of [place] coronary artery without angina pectoris] 10-08-2022 Chronic Comment on above: stenting in 2011 and 2016 Coronary atherosclerosis and other heart disease (8 sources) Presence of aortocoronary bypass graft; Translations: [Aortocoronary bypass status] Onset: 07-20-2022 Episodic Coronary atherosclerosis and other heart disease (1 source) Coronary atherosclerosis and other heart disease Onset: 04-06-2017 Diabetes mellitus without complication (20 sources) Type 2 diabetes mellitus; Translations: [Diabetes mellitus] Onset: 04-11-2024 09-24-2022 Chronic Diabetes mellitus without complication (4 sources) Acute hyperglycemia; Translations: [Hyperglycemia, unspecified] 05-15-2023 Episodic Disorders of lipid metabolism (14 sources) Hyperlipidemia; Translations: [Hyperlipidemia, unspecified] Onset: 11-28-2024 10-05-2022 Chronic Disorders of teeth and jaw (20 sources) Dental caries; Translations: [Dental caries, unspecified] 01-01-2023 Episodic Esophageal disorders (9 sources) Gastroesophageal reflux disease 11-02-2022 Chronic Essential hypertension (20 sources) Essential (primary) hypertension; Translations: [Hypertensive disorder] Onset: 04-06-2017 07-20-2022 Chronic Essential hypertension (2 sources) Essential hypertension Onset: 04-06-2017 Fracture of upper limb (1 source) Open fracture of phalanx of ring finger; Translations: [Open displaced fracture of phalanx of right ring finger, unspecified phalanx, initial encounter] Episodic Genitourinary symptoms and ill-defined conditions (1 source) Poor stream of urine 07-06-2024 Episodic Malaise and fatigue (17 sources) Asthenia; Translations: [Fatigue] 02-07-2023 Episodic Nausea and vomiting (9 sources) Nausea 11-10-2022 Episodic Nonspecific chest pain (20 sources) Chest pain; Translations: [Chest pain, unspecified] Onset: 11-28-2024 09-28-2022 Episodic Open wounds of extremities (1 source) Laceration of hand; Translations: [Laceration of multiple sites of right hand and fingers, initial encounter] Episodic Other and ill-defined heart disease (13 sources) Left ventricular hypertrophy; Translations: [Cardiomegaly] 08-11-2022 Chronic Other and ill-defined heart disease (1 source) Cardiomegaly; Translations: [Cardiomegaly] Onset: 11-28-2024 Chronic Other circulatory disease (9 sources) H/O: heart disorder; Translations: [Personal history of other diseases of the circulatory system] 10-16-2022 Episodic Other connective tissue disease (8 sources) Foot pain 10-03-2023 Episodic Other connective tissue disease (8 sources) Pain in lower limb 10-03-2023 Episodic Other connective tissue disease (1 source) Musculoskeletal test abnormal; Translations: [Other symptoms and signs involving the musculoskeletal system] Episodic Other lower respiratory disease (9 sources) Cough 11-02-2022 Episodic Other lower respiratory disease (7 sources) Dyspnea on exertion 02-01-2024 Episodic Other nervous system disorders (9 sources) Numbness of upper limb 02-07-2023 Episodic Other non-traumatic joint disorders (9 sources) Polyarthropathy 02-07-2023 Chronic Other non-traumatic joint disorders (2 sources) Polyarthritis, unspecified; Translations: [Polyarthritis, unspecified] Onset: 02-07-2023 Chronic Other non-traumatic joint disorders (8 sources) Effusion of joint of multiple sites 10-03-2023 Episodic Other non-traumatic joint disorders (8 sources) Multiple joint pain 10-03-2023 Episodic Other non-traumatic joint disorders (1 source) Pain of right shoulder joint; Translations: [Pain in right shoulder] Episodic Other nutritional; endocrine; and metabolic disorders (9 sources) H/O: diabetes mellitus; Translations: [Personal history of other endocrine, nutritional and metabolic disease] 10-16-2022 Episodic Other screening for suspected conditions (not mental disorders or infectious disease) (5 sources) Encounter for screening for malignant neoplasm of prostate; Translations: [Encounter for screening for malignant neoplasm of respiratory organs] Onset: 02-07-2023 Episodic Other skin disorders (9 sources) Cold extremity 02-07-2023 Episodic Other upper respiratory infections (10 sources) Sinusitis; Translations: [Chronic sinusitis, unspecified] 05-05-2019 Chronic Pleurisy; pneumothorax; pulmonary collapse (3 sources) Pleurisy; Translations: [Pleurisy] 05-28-2024 Episodic Residual codes; unclassified (10 sources) History of hernia repair; Translations: [Other specified postprocedural states] 05-04-2019 Episodic Residual codes; unclassified (9 sources) Electric shock type pain 02-07-2023 Episodic Comment on above: bilateral upper arms Residual codes; unclassified (9 sources) FH: Multiple sclerosis 02-07-2023 Episodic Residual codes; unclassified (9 sources) Insomnia 11-02-2022 Episodic Spondylosis; intervertebral disc disorders; other back problems (8 sources) Low back pain 10-03-2023 Episodic Substance-related disorders (20 sources) H/O: recreational drug use; Translations: [Nicotine dependence] 09-24-2022 Chronic Comment on above: smoked 2ppd x 30yrs Syncope (1 source) Syncope Onset: 11-01-2016 Unclassified (1 source) Obstructive sleep apnea (adult)(pediatric); Translations: [Obstructive sleep apnea (adult) (pediatric)] Onset: 12-06-2016 Chronic Unclassified (1 source) Coronary angioplasty status / Z98.61(ICD-9) Onset: 04-06-2017 Unclassified (1 source) Nonrheumatic aortic (valve) insufficiency / I35.1(ICD-9) Onset: 04-06-2017 Unclassified (1 source) Old myocardial infarction / I25.2(ICD-9) Onset: 04-06-2017 Unclassified (1 source) Athscl heart disease of [place] coronary artery w/o ang pctrs / I25.10(ICD-9) Onset: 04-06-2017 Unclassified (1 source) Nicotine dependence, unspecified, uncomplicated / F17.200(ICD-9) Onset: 04-06-2017 Unclassified (1 source) Chest pain, unspecified / R07.9(ICD-9) Onset: 04-06-2017 Unclassified (2 sources) Obstructive sleep apnea (adult) (pediatric) / G47.33(ICD-9) Onset: 12-06-2016 Unclassified (1 source) Snoring / R06.83(ICD-9) Onset: 12-06-2016 Unclassified (1 source) Apnea, not elsewhere classified / R06.81(ICD-9) Onset: 12-06-2016 Unclassified (2 sources) Cardiomyopathy, unspecified / I42.9(ICD-9) Onset: 11-01-2016 Unclassified (1 source) Nonrheumatic tricuspid (valve) insufficiency / I36.1(ICD-9) Onset: 11-01-2016 Unclassified (1 source) Ventricular premature depolarization / I49.3(ICD-9) Onset: 04-06-2017 Unclassified (1 source) Other fatigue / R53.83(ICD-9) Onset: 04-06-2017 Unclassified (9 sources) Pain of right shoulder region 02-01-2023 Unclassified (20 sources) Patient encounter status 08-11-2022 Past or Other Problems Problem Classification Problem Date Documented Da te Episodic/Chronic Other lower respiratory disease (1 source) Shortness of breath; Translations: [Shortness of breath] Onset: 06-06-2024 Episodic Unclassified (1 source) Cardiomyopathy, unspecified; Translations: [Cardiomyopathy, unspecified] Onset: 11-01-2016 Results Test Name Value Interpretation Reference Range Facility Absolute lymphocyte countOrd ered By: Alban Noel on 12-05-2024 Lymphocytes Auto (Unsp spec) [#/Vol] 2.76 10*3/uL 0.83-4.51 [facility] Absolute neutrophil countOrd ered By: Alban Noel on 12-05-2024 Neutrophils (Bld) [#/Vol] 6.3 10*3/uL 2.0-7.7 [facility] Anion gap in Serum or Plasma Ordered By: Alban Noel on 12-05-2024 Anion gap [Moles/Vol] 13 mmol/L 5-15 [facility] Automated lymphocyte count a s percentage of total leukocytesOrdered By: Alban Noel on 12-05-2024 Lymphocytes/100 WBC Auto (Unsp spec) 27.3 % 19-41 [facility] BUN/creatinine ratioOrdered By: Alban Noel on 12-05-2024 Urea nitrogen/Creatinine [Mass ratio] 15.0 mg/mg 10-20 [facility] Basic Metabolic Profile (BMP )on 12-05-2024 BUN/CRE 15.0 RATIO Normal - [facility] Comment on above: Performed By: #### L 500.2500, L100.0100, L400.0001 #### [facility] [address] [place], [address] Calcium [Mass/Vol] 8.9 mg/dL Normal 7.6-11.0 [facility] Comment on above: Performed By: #### L 500.2500, L100.0100, L400.0001 #### [facility] [address] [place], [address] Chloride [Moles/Vol] 103 mmol/L Normal 98-108 [facility] Comment on above: Performed By: #### L 500.2500, L100.0100, L400.0001 #### [facility] [address] [place], [address] CO2 [Moles/Vol] 23.1 mmol/L Normal 21.0-32.0 [facility] Comment on above: Performed By: #### L 500.2500, L100.0100, L400.0001 #### [facility] [address] [place], [address] Creatinine [Mass/Vol] 0.71 mg/dL Normal 0.70-1.20 [facility] Comment on above: Performed By: #### L 500.2500, L100.0100, L400.0001 #### [facility] [address] [place], [address] GAP 13 Normal 5-15 [facility] Comment on above: Performed By: #### L 500.2500, L100.0100, L400.0001 #### [facility] [address] [place], [address] GFR/1.73 sq M.predicted among non-blacks MDRD (S/P/Bld) [Vol rate/Area] 112 mL/min/{1.73_m2} Normal >60 [facility] Comment on above: Result Comment: mL/m in/1.73m2 CKD-EPI Creatinine Equation (2020) Performed By: #### L 500.2500, L100.0100, L400.0001 #### [facility] [address] [place], [address] Glucose [Mass/Vol] 122 mg/dL High 70-99 [facility] Comment on above: Performed By: #### L 500.2500, L100.0100, L400.0001 #### [facility] [address] [place], [address] Potassium [Moles/Vol] 4.3 mmol/L Normal 3.3-5.1 [facility] Comment on above: Result Comment: Hemo lysis present, Results??could be affected. ?? Performed By: #### L 500.2500, L100.0100, L400.0001 #### [facility] [address] [place], [address] Sodium [Moles/Vol] 138 mmol/L Normal 133-145 [facility] Comment on above: Performed By: #### L 500.2500, L100.0100, L400.0001 #### [facility] [address] [place], [address] Urea nitrogen [Mass/Vol] 11 mg/dL Normal 4-19 [facility] Comment on above: Performed By: #### L 500.2500, L100.0100, L400.0001 #### [facility] [address] [place], [address] Basophil percentageOrdered B y: Alban Noel on 12-05-2024 Basophils/100 WBC (Bld) 0.4 % 0-1 [facility] Bilirubin Test strip Ql (U)O rdered By: Alban Noel on 12-05-2024 Bilirubin Ql (U) Negative Negative [facility] CBC W/Diff, Automatedon 09-2 -2024 Absolute Lymph 2.76 X10 3/uL Normal 0.83-4.51 [facility] Comment on above: Performed By: #### L 500.2500, L100.0100, L400.0001 #### [facility] [address] [place], [address] Absolute Neut 6.3 X10 3/uL Normal 2.0-7.7 [facility] Comment on above: Performed By: #### L 500.2500, L100.0100, L400.0001 #### [facility] [address] [place], [address] Basophils/100 WBC (Bld) 0.4 % Normal 0-1 [facility] Comment on above: Performed By: #### L 500.2500, L100.0100, L400.0001 #### [facility] [address] [place], [address] Eosinophils/100 WBC (Bld) 2.0 % Normal 0-5 [facility] Comment on above: Performed By: #### L 500.2500, L100.0100, L400.0001 #### [facility] [address] [place], [address] Erythrocyte distribution width (RBC) [Ratio] 13.3 % Normal 11.6-14.6 [facility] Comment on above: Performed By: #### L 500.2500, L100.0100, L400.0001 #### [facility] [address] [place], [address] Hematocrit (Bld) [Volume fraction] 48.6 % Normal 40-54 [facility] Comment on above: Performed By: #### L 500.2500, L100.0100, L400.0001 #### [facility] [address] [place], [address] Hemoglobin (Bld) [Mass/Vol] 16.4 g/dL Normal 13.0-16.5 [facility] Comment on above: Performed By: #### L 500.2500, L100.0100, L400.0001 #### [facility] [address] [place], [address] IG% 0.400 Normal 0.0-0.9 [facility] Comment on above: Result Comment: IG% - Immature Granulocytes (promyelocytes, myelocytes and metamyelocytes) > 1% indicates that a LEFT SHIFT is Present. Performed By: #### L 500.2500, L100.0100, L400.0001 #### [facility] [address] [place], [address] Lymphocytes/100 WBC (Bld) 27.3 % Normal 19-41 [facility] Comment on above: Performed By: #### L 500.2500, L100.0100, L400.0001 #### [facility] [address] [place], [address] MCH (RBC) [Entitic mass] 29.0 pg Normal 27.0-32.0 [facility] Comment on above: Performed By: #### L 500.2500, L100.0100, L400.0001 #### [facility] [address] [place], [address] MCHC (RBC) [Mass/Vol] 33.7 g/dL Normal 32-36 [facility] Comment on above: Performed By: #### L 500.2500, L100.0100, L400.0001 #### [facility] [address] [place], [address] MCV (RBC) [Entitic vol] 85.9 fL Normal 80-94 [facility] Comment on above: Performed By: #### L 500.2500, L100.0100, L400.0001 #### [facility] [address] [place], [address] Monocytes/100 WBC (Bld) 7.3 % Normal 0-10 [facility] Comment on above: Performed By: #### L 500.2500, L100.0100, L400.0001 #### [facility] [address] [place], [address] Neutrophils/100 WBC (Bld) 62.6 % Normal 47-70 [facility] Comment on above: Performed By: #### L 500.2500, L100.0100, L400.0001 #### [facility] [address] [place], [address] Nucleated RBC (Bld) [#/Vol] 0 10*3/uL Normal 0-5 [facility] Comment on above: Performed By: #### L 500.2500, L100.0100, L400.0001 #### [facility] [address] [place], [address] Platelet mean volume (Bld) [Entitic vol] 10.2 fL Normal 6.2-12.0 [facility] Comment on above: Performed By: #### L 500.2500, L100.0100, L400.0001 #### [facility] [address] [place], [address] Platelets (Bld) [#/Vol] 312 10*3/uL Normal 150-450 [facility] Comment on above: Performed By: #### L 500.2500, L100.0100, L400.0001 #### [facility] [address] [place], [address] RBC (Bld) [#/Vol] 5.66 10*6/uL Normal 4.6-6.2 [facility] Comment on above: Performed By: #### L 500.2500, L100.0100, L400.0001 #### [facility] [address] [place], [address] RDW SD 41.9 fl Normal 35.1-43.9 [facility] Comment on above: Performed By: #### L 500.2500, L100.0100, L400.0001 #### [facility] [address] [place], [address] WBC (Bld) [#/Vol] 10.1 10*3/uL Normal 4.4-11.0 [facility] Comment on above: Performed By: #### L 500.2500, L100.0100, L400.0001 #### [facility] [address] [place], [address] Carbon dioxide, total [Moles /volume] in Central venous bloodOrdered By: Alban Noel on 12-05-2024 CO2 [Moles/Vol] 23.1 mmol/L 21.0-32.0 [facility] Chest PA and Lateralon 12-05 Chest PA and Lateral [facility] [address] [place] [address] Chest PA and Lateral MR#: [id number] Acct: [id number] Name: ALBAN PARKER Rep #: [id number] : 1975 M 49 From: Sunday Echevarria PCP: LUNA ORTIZ Status: REG CLI Study: Chest PA and Lateral Date of Exam: 12/05/24 Exam# [id number] Ordering Dr: Alban Noel NP [employer] PROCEDURE: CHEST PA AND LATERAL 12/05/2024 REASON FOR EXAM: PRE-OPERATIVE TECHNIQUE: Procedure Code: RADCXR Modality: DX Procedure: CHEST PA AND LATERAL COMPARISON: 05/28/2024 FINDINGS: Median sternotomy wires and evidence of prior CABG. No focal consolidation. No pleural effusion or pneumothorax. Cardiac silhouette is within normal limits. No acute fractures. RAD/Chest PA and Lateral IMPRESSION: No focal consolidations. Reading Location: [id number] CC: [employer] Alban Noel; LUNA ORTIZ [employer] Operator: Signed Normal [facility] Chloride assayOrdered By: Maira Noel on 12-05-2024 Chloride [Moles/Vol] 103 mmol/L 98-108 [facility] Eosinophil percentageOrdered By: Alban Noel on 12-05-2024 Eosinophils/100 WBC (Bld) 2.0 % 0-5 [facility] Erythrocyte distribution wid th ratioOrdered By: Alban Noel on 12-05-2024 Erythrocyte distribution width (RBC) [Ratio] 13.3 % 11.6-14.6 [facility] Erythrocyte distribution wid th standard deviationOrdered By: Alban Noel on 12-05-2024 Erythrocyte distribution width (RBC) [Ratio] 41.9 fl 35.1-43.9 [facility] Glomerular filtration rate ( GFR) estimation/1.73 sq m using serum, plasma, or whole bOrdered By: Alban Noel on 12-05-2024 GFR/1.73 sq M.predicted among non-blacks MDRD (S/P/Bld) [Vol rate/Area] 112 mL/min/{1.73_m2} >60 [facility] Comment on above: mL/min/1.73m2 CKD-EP I Creatinine Equation (2020) Hematocrit Auto (Bld) [Volum e fraction]Ordered By: Alban Noel on 12-05-2024 Hematocrit (Bld) [Volume fraction] 48.6 % 40-54 [facility] Hemoglobin measurementOrdere d By: Alban Noel on 12-05-2024 Hemoglobin (Bld) [Mass/Vol] 16.4 g/dL 13.0-16.5 [facility] Immature granulocytes/100 WB C Auto (Bld)Ordered By: Alban Noel on 12-05-2024 Immature granulocytes/100 WBC (Bld) 0.400 % 0.0-0.9 [facility] Comment on above: IG% - Immature Granu locytes (promyelocytes, myelocytes and metamyelocytes) > 1% indicates that a LEFT SHIFT is Present. Ketones Test strip Ql (U)Ord ered By: Alban Noel on 12-05-2024 Ketones Ql (U) Negative Negative [facility] MCV (mean corpuscular volume ) determinationOrdered By: Alban Noel on 12-05-2024 MCV (RBC) [Entitic vol] 85.9 fL 80-94 [facility] Mean corpuscular hemoglobin (MCH) determinationOrdered By: Alban Noel on 12-05-2024 MCH (RBC) [Entitic mass] 29.0 pg 27.0-32.0 [facility] Mean corpuscular hemoglobin concentration (MCHC) determinationOrdered By: Alban Noel on 12-05-2024 MCHC (RBC) [Mass/Vol] 33.7 g/dL 32-36 [facility] Mean platelet volume determi nationOrdered By: Alban Noel on 12-05-2024 Platelet mean volume (Bld) [Entitic vol] 10.2 fL 6.2-12.0 [facility] Microscopic analysis of urin e for red blood cells (RBC)Ordered By: Alban Noel on 12-05-2024 Microscopic analysis of urine for red blood cells (RBC) 0 SEEN /hpf 0-5 [facility] Monocyte percentageOrdered B y: Alban Noel on 12-05-2024 Monocytes/100 WBC (Bld) 7.3 % 0-10 [facility] Mucus LM Ql (Urine sed)Order ed By: Alban Noel on 12-05-2024 Mucus Ql (Urine sed) 0 SEEN /hpf [facility] Neutrophil percentageOrdered By: Alban Noel on 12-05-2024 Neutrophils/100 WBC (Bld) 62.6 % 47-70 [facility] Nitrite Test strip Ql (U)Ord ered By: Alban Noel on 12-05-2024 Nitrite Ql (U) Negative Negative [facility] Nucleated red blood cell per centageOrdered By: Alban Noel on 12-05-2024 Nucleated RBC/100 WBC (Bld) [Ratio] 0 % 0-5 [facility] Platelet countOrdered By: Maira Noel on 12-05-2024 Platelets (Bld) [#/Vol] 312 10*3/uL 150-450 [facility] Potassium measurement (mass/ volume)Ordered By: Alban Noel on 12-05-2024 Potassium (Unsp spec) [Mass/Vol] 4.3 mmol/L 3.3-5.1 [facility] Comment on above: Hemolysis present, R esults could be affected. Protein Test strip Ql (U)Ord ered By: Alban Noel on 12-05-2024 Protein Ql (U) 15 mg/dl High Negative [facility] RBC Auto (Bld) [#/Vol]Ordere d By: Alban Noel on 12-05-2024 RBC (Bld) [#/Vol] 5.66 10*6/uL 4.6-6.2 [facility] Serum creatinine measurement (mass/volume)Ordered By: Alban Noel on 12-05-2024 Creatinine [Mass/Vol] 0.71 mg/dL 0.70-1.20 [facility] Serum glucose measurement (m ass/volume)Ordered By: Alban Noel on 12-05-2024 Glucose [Mass/Vol] 122 mg/dL High 70-99 [facility] Serum or plasma calcium ricky urement (mass/volume)Ordered By: Alban Noel on 12-05-2024 Calcium [Mass/Vol] 8.9 mg/dL 7.6-11.0 [facility] Serum or plasma urea nitroge n measurement (mass/volume)Ordered By: Alban Noel on 12-05-2024 Urea nitrogen [Mass/Vol] 11 mg/dL 4-19 [facility] Sodium levelOrdered By: Alban Noel on 12-05-2024 Sodium [Moles/Vol] 138 mmol/L 133-145 [facility] Squamous epithelial cells de tection in urine sediment by light microscopyOrdered By: Alban Noel on 12-05-2024 Epithelial cells.squamous LM Ql (Urine sed) 0-5 SEEN /hpf 0-5 [facility] Urinalysis, Completeon 12-05 EPI,SQUAMOUS 0-5 SEEN Normal 0-5 [facility] Comment on above: Order Comment: TAINA CTOR TO SPECIFY Performed By: #### L 500.2500, L100.0100, L400.0001 #### [facility] [address] [place], [address] BACTERIA 0 SEEN Normal None Seen [facility] Comment on above: Order Comment: TAINA CTOR TO SPECIFY Performed By: #### L 500.2500, L100.0100, L400.0001 #### [facility] [address] [place], [address] Mucus Ql (Urine sed) [address] [facility] Comment on above: Order Comment: TAINA CTOR TO SPECIFY Performed By: #### L 500.2500, L100.0100, L400.0001 #### [facility] [address] [place], [address] RBC 0 SEEN Normal 0-5 [facility] Comment on above: Order Comment: TAINA CTOR TO SPECIFY Performed By: #### L 500.2500, L100.0100, L400.0001 #### [facility] [address] [place], [address] WBC 0 SEEN Normal 0-5 [facility] Comment on above: Order Comment: TAINA CTOR TO SPECIFY Performed By: #### L 500.2500, L100.0100, L400.0001 #### [facility] [address] [place], [address] Urine clarityOrdered By: Jt Noel on 12-05-2024 Clarity (U) Clear Clear [facility] Urine color determinationOrd ered By: Alban Noel on 12-05-2024 Color (U) Yellow Yellow [facility] Urine glucose detectionOrder ed By: Alban Noel on 12-05-2024 Glucose Ql (U) 1000 mg/dl High Normal [facility] Urine leukocyte esterase det ection by dipstickOrdered By: Alban Noel on 12-05-2024 Leukocyte esterase Test strip Ql (U) Negative Negative [facility] Urine pHOrdered By: Alban rojas on 12-05-2024 pH (U) 6.0 [pH] 5.0 - 8.0 [facility] Urine sediment bacteria coun t by microscopy (number/high power field)Ordered By: Alban Noel on 12-05-2024 Bacteria LM.HPF (Urine sed) [#/Area] 0 /[HPF] None Seen [facility] Urine specific gravity measu rementOrdered By: Alban Noel on 12-05-2024 Specific gravity (U) [Rel density] 1.020 1.002-1.030 [facility] Urine urobilinogen measureme ntOrdered By: Alban Noel on 12-05-2024 Urobilinogen Ql (U) Normal mg/dl Normal [facility] White blood cell (WBC) count Ordered By: Alban Noel on 12-05-2024 WBC (Bld) [#/Vol] 10.1 10*3/uL 4.4-11.0 [facility] White blood cell countOrdere d By: Alban Sadie on 12-05-2024 White blood cell count 0 SEEN /hpf 0-5 [facility] Cardiology Visit Reporton Cardiology Visit Report [facility] [address] [place] [address] OFFICE VISIT Date of Service: 11/28/24 MR#: [id number] Acct: [id number] Name: ALBAN PARKER Rep #: [id number] : 1975 Provider: JOSSELIN rojas Age/Sex: 49/M Location: [facility] Status: Signed HPI HPI History of Present Illness Details: This gentleman has past medical history significant for coronary artery disease status post multiple percutaneous interventions and then coronary artery bypass graft surgery in May 2022. He has had a CRAIG to the LAD, vein graft to the obtuse marginal and vein graft to the posterior descending artery. He was seen with Dr. Stewart at [facility] on 09/24/2024. It is noted that he patient previously has been noted to have significant exertional chest tightness and shortness of breath. A coronary angiogram had been ordered to assess his symptoms further. Patient was unable to present for heart catheterization account of family emergency. Isosorbide was increased to 60 mg and again recommended to proceed with heart catheterization. Hemoglobin A1c on 04/11/2024 was noted be 7.1%. He had echocardiogram on 02/24/2024 that showed LV function 55-60% and no regional wall motion abnormalities. Stress test in March 2023 showed sinus bradycardia and was negative for ischemia. He acknowledges sharp, daily chest discomfort. This occurs randomly and located left side of his chest. This is considered to be brief. He acknowledges palpitations that he describes as pounding. He denies bilateral lower extremity edema. He acknowledges shortness breath with activity. He denies shortness of breath at rest, orthopnea, cough, or PND. He acknowledges lightheadedness when bending over and standing back up. He acknowledges weakness. He denies dizziness, near-syncope, or syncope. He acknowledges fatigue. He uses a cane to assist with arm numbness and right leg numbness. Intake Vital Signs 05/28/24 17:51 11/28/24 11:19 Height 5 ft 7 in 5 ft 7 in Weight: 180 lb BMI 28.1 BP 108/65 Blood Pressure Location Lt brachial Position Sitting Respiration 18 Pulse 64 Pulse Source NIBP Intake Visit Reasons: Needs Cath per Ju CVC Md Psychiatry Required: No Is patient in pain?: No Allergies bee venom protein (honey bee) Allergy (Verified 11/28/24 11:26) Anaphylaxis mint Allergy (Verified 11/28/24 11:26) Hives Penicillins Allergy (Verified 11/28/24 11:26) Anaphylaxis Medications ???Medication ???Instructions ???Recorded ???Confirmed ???Type hydroxyzine HCl 25 mg tablet 25 mg PO DAILY itching 04/08/23 History atorvastatin 40 mg tablet 40 mg PO QDAY 11/28/24 11/28/24 Hi story dextromethorphan IR 45 1 tab PO BID 11/28/24 11/28/24 His tory mg-bupropion ER 105 mg biphasic tablet (Auvelity) empagliflozin 25 mg tablet 25 mg PO QAM 11/28/24 11/28/24 His tory (Jardiance) famotidine 20 mg tablet 20 mg PO BID PRN heartburn 5 11/28/24 History fluoxetine 40 mg capsule 40 mg PO QDAY 11/28/24 11/28/24 Hi story isosorbide mononitrate 30 mg 60 mg PO QAM 11/28/24 11/28/24 His tory tablet,extended release 24 hr lisinopril 10 mg tablet 10 mg PO QDAY 11/28/24 11/28/24 Hi story metformin 500 mg tablet,extended 1,000 mg PO QDAY 11/28/24 11/28/24 History release 24 hr nicotine 21 mg/24 hr daily 1 patch topical QDAY 11/28/2411/12 History transdermal patch omega-3 acid ethyl esters 1 gram 2 cap PO BID 11/28/24 11/28/24 His tory capsule triamcinolone acetonide 0.1 % applic topical BID 11/28/24 History topical cream amlodipine 5 mg tablet 5 mg PO DAILY #30 tabs 12/10/24 R x aspirin 81 mg tablet,delayed 81 mg PO DAILY heart health #30 Rx release tabs clopidogrel 75 mg tablet 75 mg PO DAILY anti platelet #30 0 12/10/24 Rx tabs metoprolol succinate 50 mg 50 mg PO BID Pt does not tolerate 12/10/24 Rx tablet,extended release 24 hr 100 mg BID, bp gets too low #180 tabs Ejection fraction %: 59 Have you fallen in the past year?: Yes [facility] Medical History (Updated 11/28/24 @ 11:36 by Dorothea Hyde) PTSD (post-traumatic stress disorder) Encounter for examination required by 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 Normal [facility] CT THORAX SCREENING W/O CONT [facility] 07-27-2024 CT THORAX SCREENING W/O CONTRAST ORIGINAL EXAMINATION: LOW DOSE SCREENING CT OF THE CHEST WITHOUT CONTRAST07/25/2024 3:44 pm TECHNIQUE: Low dose lung cancer screening CT of the chest was performed without the administration of intravenous contrast. Multiplanar reformatted images are provided for review. Automated exposure control, iterative reconstruction, and/or weight based adjustment of the mA/kV was utilized to reduce the radiation dose to as low as reasonably achievable. COMPARISON: None. HISTORY: ORDERING SYSTEM PROVIDED HISTORY: Reason for Exam: Lung Cancer Screening 79 pack year hx. Current smoker. C/O CP and SOB. FINDINGS: Mediastinum: Prominent bilateral but subcentimeter axillary lymph nodes. Multi station mediastinal lymph nodes with a 1 cm subcarinal lymph node, borderline. Mild aortic atherosclerosis. The aorta and main pulmonary artery are normal in caliber. Coronary atherosclerosis. The heart is normal in size. There is no pericardial effusion. Lungs/Pleura: Airways are patent. There is no pleural effusion, pneumothorax or focal consolidation. Mild asymmetric elevation of the right hemidiaphragm. No lung nodules. Upper Abdomen: Limited images of the upper abdomen demonstrate subcentimeter segment 5 hepatic lesion on series 2, image 116, hypodense most favored to reflect a small cyst. Soft Tissues/Bones: No acute abnormality of the visualized osseous structures and soft tissues. No aggressive osseous lesions visible. Degenerative changes seen in the spine. Median sternotomy wires. IMPRESSION: No lung nodules. For patients with appropriate lung cancer risk, annual CT screening is recommended. Triple-vessel coronary atherosclerosis. Additional incidental findings as above. Information below is for Lung nodule tracking purposes: Nodule: NLN Other Findings: P-CAC Change: Na Recall : 12m fu Recall Type: LDCT LungRads: 1s Interpreted by: Yessy Drake Preliminary Report By: Yessy Drake Electronically signed By Yessy Drake Dictated Date: 07/27/2024 2:03:23 PM Prelim Date: 07/27/2024 2:11:32 PM Sign Date: 07/27/2024 2:11:32 PM Ordering Provider: ARNALDO FERGUSON [facility] Chest PA and Lateralon 05-28 Chest PA and Lateral [facility] [address] [place] [address] [id number] Chest PA and Lateral MR#: [id number] Acct: [id number] Name: ALBAN PARKER Rep #: [id number] : 1975 M 48 From: Amaris Dow MD PCP: LUNA ORTIZ Status: PRE ER Study: Chest PA and Lateral Date of Exam: 05/28/24 Exam# [id number] Ordering Dr: Provider,Ed P. PROCEDURE: CHEST PA AND LATERAL 05/28/2024 REASON FOR EXAM: SOB TECHNIQUE: PA and lateral views of the chest. COMPARISON: 04/08/2023 and 05/14/2023 FINDINGS: The lungs appear clear. Cardiac and mediastinal contours appear within limits. Status post median sternotomy, CABG and coronary stents again noted. No pleural effusion. Pulmonary vascularity appears within limits. RAD/Chest PA and Lateral IMPRESSION: No evidence of acute disease. Reading Location: [facility] CC: ED PHYSICIAN PROVIDER; LUNA ORTIZ Heavy Media Operator: Signed Normal [facility] Emergency Department Summary on 05-28-2024 Emergency Department Summary [facility] Medical Records Department [address] [place] [address] Emergency Department Summary 05/28/24 MR#: [id number] Acct: [id number] Name: ALBAN PARKER Rep #: [id number] : 1975 48 From: Heladio Costa DO PCP: LUNA ORTIZ Status:DEP ER Location: ED HPI History of Present Illness Chief Complaint: Shortness of Breath Informant: patient Narrative Narrative: 48-year-old male presenting to the emergency room with the chief complaint of cough. Patient states that 2 weeks ago he believes he contracted influenza A as his both of his daughters had it and he developed high fever. He states he developed a cough which has been persistent. He feels rattling on the left lower side of his chest. He notes some discomfort just underneath his rib cage on the left. No further fevers. He went to urgent care and was sent here for possible pneumonia. He has been using albuterol nebulizers at home. He has a history of coronary artery disease status post CABG. He has not been able to produce sputum. Patient states he is very anxious to get home as the last time he came to the hospital he had to have open heart surgery. He states that between the urgent care visit and his ED visit he has been in the healthcare setting over 4 hours now and needs to get home to his children. [facility] Medical History Encounter for examination required by Department of Transportation (DOT) Polyarthritis Right shoulder pain Type 2 diabetes mellitus with cardiac complication Numbness of upper extremity Nicotine dependence History of cocaine use LVH (left ventricular hypertrophy) Left inguinal hernia Insomnia Electric shock-type pain Cold extremities CHF (congestive heart failure) Chest pain Overweight Anxiety and depression Chronic neuropathic pain GERD (gastroesophageal reflux disease) Tobacco use HLD (hyperlipidemia) HTN (hypertension) Myocardial infarct Myocardial infarction Coronary artery disease Home Medications ???Medication ???Instructions ???Recorded ???Last Taken ???Type hydroxyzine HCl 25 mg tablet 25 mg PO DAILY itching 04/08/23 Un known History escitalopram oxalate 20 mg tablet 20 mg PO DAILY 04/22/23 Unknown H istory aspirin 81 mg tablet,delayed 81 mg PO DAILY heart health #30 Unknown Rx release tabs clopidogrel 75 mg tablet 75 mg PO DAILY anti platelet #30 0 04/28/23 Unknown Rx tabs empagliflozin 10 mg tablet 10 mg PO DAILY #30 tabs 04/28/23 U nknown Rx (Jardiance) lisinopril 20 mg tablet 20 mg PO DAILY #30 tabs 04/28/23 U nknown Rx simvastatin 40 mg tablet 40 mg PO QHS cholesterol #30 tabs 04/28/23 Unknown Rx metoprolol succinate 50 mg 50 mg PO BID Pt does not tolerate 05/02/23 Unknown Rx tablet,extended release 24 hr 100 mg BID, bp gets too low #180 tabs amlodipine 5 mg tablet 5 mg PO DAILY #30 tabs 09/26/23 Un known Rx doxycycline monohydrate 100 mg 100 mg PO BID #19 CAPSULES 5 Unknown Rx capsule prednisone 20 mg tablet 60 mg (3 x 20 mg) PO DAILY #12 Unknown Rx TABLETS Allergy/AdvReac Type Severity Reaction Status Date / Time bee venom protein (honey bee) Allergy Anaphylaxis Verified 05/28/24 17:54 mint Allergy Hives Verified 05/28/24 17:54 Penicillins Allergy Anaphylaxis Verified 05/28/24 17:54 Family History Mother Hypertension CVA (cerebral vascular accident) Father No problems noted. Grandfather Multiple sclerosis Paternal grandfather Brother Multiple sclerosis Heart disease Hypertension CAD (coronary artery disease) Myocardial infarction Surgical History H/O right inguinal hernia repair Hx of CABG ( 05/27/22) H/O hernia repair History of appendectomy H/O heart artery stent Social History household members: spouse and children Smoking Status: Light Smoker (<10/day) alcohol intake: never substance use type: does not use caffeine: Yes (2 liters/day) Type: carbonated beverages Number of servings: 2, coffee and tea Number of servings: 1 ROS ROS ED Constitutional Constitutional ED: Denies chills, fever(s) or weight loss Eyes Eyes: Denies change in vision or diplopia ENT ENT ED: Denies ear pain, rhinorrhea or sore throat Cardiovascular Cardiovascular: Reports chest pain; Denies orthopnea, palpitations or racing heartbeat Respiratory/Chest Respiratory/Chest: Reports cough and dyspnea; Denies orthopnea Gastrointestinal Gastrointestinal: Denies abdominal pain, diarrhea, nausea or vomiting Genitourinary Genitourinary ED: Denies dysuria, hematuria or urinary frequency Musculoskelet (more content not included)... Normal [facility] .Auto Diffon 04-11-2024 Basophil, Absolute 0.1 10 3/mcL Normal 0.0-0.2 [facility] Comment on above: Performed By: #### C K, CBC, ADIFF, ANEU #### [address] [address] Basophils/100 WBC (Bld) 0.7 % Normal 0.0-2.5 [facility] Comment on above: Performed By: #### C K, CBC, ADIFF, ANEU #### [address] [address] Eosinophil, Absolute 0.2 10 3/mcL Normal 0.0-0.7 [facility] Comment on above: Performed By: #### C K, CBC, ADIFF, ANEU #### [address] [address] Eosinophils/100 WBC (Bld) 1.9 % Normal 0.0-7.0 [facility] Comment on above: Performed By: #### C K, CBC, ADIFF, ANEU #### [address] [address] Lymphocyte, Absolute 3.0 10 3/mcL Normal 0.9-4.3 [facility] Comment on above: Performed By: #### C K, CBC, ADIFF, ANEU #### [address] [address] Lymphocytes/100 WBC (Bld) 31.5 % Normal 20.0-40.0 [facility] Comment on above: Performed By: #### C K, CBC, ADIFF, ANEU #### [address] [address] Monocyte, Absolute 0.7 10 3/mcL Normal 0.1-1.4 [facility] Comment on above: Performed By: #### C K, CBC, ADIFF, ANEU #### [address] [address] Monocytes/100 WBC (Bld) 6.9 % Normal 2.0-13.0 [facility] Comment on above: Performed By: #### C K, CBC, ADIFF, ANEU #### [address] [address] Neutrophils/100 WBC (Bld) 59.0 % Normal 50.0-75.0 [facility] Comment on above: Performed By: #### C K, CBC, ADIFF, ANEU #### [address] [address] .GFRon 04-11-2024 GFR Non- 93 ml/min/1.73sqm Normal [facility] Comment on above: Result Comment: GFR Population mean for , Non- Americans Ages 20-29 = 116 mL/min/1.73 sq.m. Ages 30-39 = 107 mL/min/1.73 sq.m. Ages 40-49 = 99 mL/min/1.73 sq.m. Ages 50-59 = 93 mL/min/1.73 sq.m. Ages 60-69 = 85 mL/min/1.73 sq.m. Ages 70+ = 75 mL/min/1.73 sq.m. Chronic Kidney Disease: Less than 60 mL/min/1.73 square meters End Stage Renal Disease: Less than 15 mL/min/1.73 square meters Performed By: #### G FR, CMP, LIPID, A1C #### [address] [address] GFR 113 ml/min/1.73sqm Normal [facility] Comment on above: Result Comment: GFR Population mean for , Non- Americans Ages 20-29 = 116 mL/min/1.73 sq.m. Ages 30-39 = 107 mL/min/1.73 sq.m. Ages 40-49 = 99 mL/min/1.73 sq.m. Ages 50-59 = 93 mL/min/1.73 sq.m. Ages 60-69 = 85 mL/min/1.73 sq.m. Ages 70+ = 75 mL/min/1.73 sq.m. Chronic Kidney Disease: Less than 60 mL/min/1.73 square meters End Stage Renal Disease: Less than 15 mL/min/1.73 square meters Performed By: #### G FR, CMP, LIPID, A1C #### [address] [address] .NEUABSon 04-11-2024 Neutrophil, Absolute 5.6 10 3/mcL Normal 2.3-8.1 [facility] Comment on above: Performed By: #### C K, CBC, ADIFF, ANEU #### [address] [address] A1Con 04-11-2024 Glucose [Mass/Vol] 157 mg/dL Normal [facility] Comment on above: Result Comment: Stephie mated Average Glucose calculated by equation ((28.7xA1C)-46.7) Estimated average glucose (eAG) is a calculated value from Hemoglobin A1C and is medical billing representative of the average blood glucose level in the last 2-3 month period. Normal range: less than 114 mg/dL Performed By: #### G FR, CMP, LIPID, A1C #### [address] [address] HbA1c (Bld) [Mass fraction] 7.1 % High 4.3-6.4 [facility] Comment on above: Performed By: #### G FR, CMP, LIPID, A1C #### [address] [address] CBCon 04-11-2024 Erythrocyte distribution width (RBC) [Ratio] 13.5 % Normal 11.5-15.5 [facility] Comment on above: Performed By: #### C K, CBC, ADIFF, ANEU #### [place] [id number] Hematocrit (Bld) [Volume fraction] 49.5 % Normal 40.0-52.0 [facility] Comment on above: Performed By: #### C K, CBC, ADIFF, ANEU #### [place] [address] Hgb 17.1 G/dL Normal 13.0-17.5 [facility] Comment on above: Performed By: #### C K, CBC, ADIFF, ANEU #### [place] [address] MCH (RBC) [Entitic mass] 29.3 pg Normal 27.0-33.0 [facility] Comment on above: Performed By: #### C K, CBC, ADIFF, ANEU #### [place] [address] MCHC 34.5 G/dL Normal 32.0-36.0 [facility] Comment on above: Performed By: #### C K, CBC, ADIFF, ANEU #### [place] [address] MCV (RBC) [Entitic vol] 85.1 fL Normal 81.0-100.0 [facility] Comment on above: Performed By: #### C K, CBC, ADIFF, ANEU #### [place] [address] Platelet 291 10 3/mcL Normal 150-450 [facility] Comment on above: Performed By: #### C K, CBC, ADIFF, ANEU #### [place] [address] Platelet mean volume (Bld) [Entitic vol] 8.8 fL Normal 6.4-10.5 [facility] Comment on above: Performed By: #### C K, CBC, ADIFF, ANEU #### [place] [id number] RBC 5.82 10 6/mcL Normal 4.50-6.00 [facility] Comment on above: Performed By: #### Misael K, CBC, ADIFF, ANEU #### [address] [address] WBC 9.5 10 3/mcL Normal 4.5-10.8 [facility] Comment on above: Performed By: #### Misael K, CBC, ADIFF, ANEU #### [address] [address] CKon 04-11-2024 CK [Catalytic activity/Vol] 81 U/L Normal 39-308 [facility] Comment on above: Performed By: #### Misael K, CBC, ADIFF, ANEU ####[address] [address] CMPon 04-11-2024 Albumin Level 3.8 G/dL Normal 3.5-5.0 [facility] Comment on above: Performed By: #### G FR, CMP, LIPID, A1C #### [address] [address] Albumin/Globulin [Mass ratio] 1.1 {ratio} Normal 1.1-2.5 [facility] Comment on above: Performed By: #### G FR, CMP, LIPID, A1C #### [address] [address] ALP [Catalytic activity/Vol] 76 U/L Normal 40-135 [facility] Comment on above: Performed By: #### G FR, CMP, LIPID, A1C #### [address] [address] ALT [Catalytic activity/Vol] 44 U/L Normal 16-63 [facility] Comment on above: Performed By: #### G FR, CMP, LIPID, A1C #### [address] [address] AST [Catalytic activity/Vol] 17 U/L Normal 10-40 [facility] Comment on above: Performed By: #### G FR, CMP, LIPID, A1C #### [address] [address] Bili Total 0.4 mg/dL Normal 0.2-1.0 [facility] Comment on above: Result Comment: Use of this assay is not recommended for patients undergoing treatment with eltrombopag due to the potential for falsely elevated results. Performed By: #### G FR, CMP, LIPID, A1C #### [place] [id number] BUN/Creatinine Ratio 14 ratio Normal 7-27 [facility] Comment on above: Performed By: #### G FR, CMP, LIPID, A1C #### [address] [address] Calcium [Mass/Vol] 8.9 mg/dL Normal 8.4-10.2 [facility] Comment on above: Performed By: #### G FR, CMP, LIPID, A1C #### [place] [id number] Chloride [Moles/Vol] 102 mmol/L Normal 98-107 [facility] Comment on above: Performed By: #### G FR, CMP, LIPID, A1C #### [place] [id number] CO2 [Moles/Vol] 29 mmol/L Normal 22-29 [facility] Comment on above: Performed By: #### G FR, CMP, LIPID, A1C #### [address] [address] Creatinine [Mass/Vol] 0.87 mg/dL Normal 0.70-1.30 [facility] Comment on above: Result Comment: Test ing performed on Siemens Dimension EXL analyzer using a modified kinetic Ana technique. Performed By: #### G FR, CMP, LIPID, A1C #### [address] [address] Electrolyte Balance 9.0 mEq/L Normal 4.0-15.0 [facility] Comment on above: Performed By: #### G FR, CMP, LIPID, A1C #### [place] [id number] Globulin 3.5 G/dL Normal [facility] Comment on above: Performed By: #### G FR, CMP, LIPID, A1C #### [address] [address] Glucose [Mass/Vol] 146 mg/dL High 70-105 [facility] Comment on above: Performed By: #### G FR, CMP, LIPID, A1C #### [address] [address] Potassium [Moles/Vol] 3.8 mmol/L Normal 3.5-5.1 [facility] Comment on above: Performed By: #### G FR, CMP, LIPID, A1C #### [place] [id number] Sodium [Moles/Vol] 140 mmol/L Normal 136-145 [facility] Comment on above: Performed By: #### G FR, CMP, LIPID, A1C #### [address] [address] Total Protein 7.3 G/dL Normal 6.4-8.2 [facility] Comment on above: Performed By: #### G FR, CMP, LIPID, A1C #### [address] [address] Urea nitrogen [Mass/Vol] 12 mg/dL Normal 7-18 [facility] Comment on above: Performed By: #### G FR, CMP, LIPID, A1C #### [address] [address] LABORATORYOrdered By: Stephy Almeida on 04-11-2024 Albumin DL <= 20 mg/L (U) [Mass/Vol] 788 mcg/dL Invalid Interpretation Code AO ADM SS Albumin/Creatinine DL <= 20 mg/L (U) [Mass ratio] 7 mcg/mg Normal 0 - 30 mcg/mg AO Chemistry S Creatinine (U) [Mass/Vol] 105.9 mg/dL Invalid Interpretation Code AO ADM SS LABORATORYOrdered By: [employer] on 04-11-2024 Basophils (Bld) [#/Vol] 0.1 103/mcL Normal 0.0 - 0.2 10^3/mcL AO Workflow SS Basophils/100 WBC (Bld) 0.7 % Normal 0.0 - 2.5 % AO Workflow SS CK [Catalytic activity/Vol] 81 U/L Normal 39 - 308 U/L AO ADM SS Eosinophil, Absolute 0.2 103/mcL Normal 0.0 - 0 .7 10^3/mcL AO Workflow SS Eosinophils/100 WBC (Bld) 1.9 % Normal 0.0 - 7.0 % AO Workflow SS Erythrocyte distribution width (RBC) [Ratio] 13.5 % Normal 11.5 - 15.5 % AO Workflow SS Hematocrit (Bld) [Volume fraction] 49.5 % Normal 40.0 - 52.0 % AO Workflow SS Hemoglobin (Bld) [Mass/Vol] 17.1 G/dL Normal 13.0 - 17.5 G/dL AO Workflow SS Lymphocytes (Bld) [#/Vol] 3.0 103/mcL Normal 0.9 - 4.3 10^3/mcL AO Workflow SS Lymphocytes/100 WBC (Bld) 31.5 % Normal 20.0 - 40.0 % AO Workflow SS MCH (RBC) [Entitic mass] 29.3 pg Normal 27. 0 - 33.0 pg AO Workflow SS MCHC 34.5 G/dL Normal 32.0 - 36.0 G/dL AO Workflow SS MCV (RBC) [Entitic vol] 85.1 fL Normal 81.0 - 100.0 fL AO Workflow SS Monocytes (Bld) [#/Vol] 0.7 103/mcL Normal 0.1 - 1.4 10^3/mcL AO Workflow SS Monocytes/100 WBC (Bld) 6.9 % Normal 2.0 - 13.0 % AO Workflow SS Neutrophils (Bld) [#/Vol] 5.6 103/mcL Normal 2.3 - 8.1 10^3/mcL AO Workflow SS Neutrophils/100 WBC (Bld) 59.0 % Normal 50.0 - 75.0 % AO Workflow SS Platelet mean volume (Bld) [Entitic vol] 8.8 fL Normal 6.4 - 10.5 fL AO Workflow SS Platelets (Bld) [#/Vol] 291 103/mcL Normal 150 - 450 10^3/mcL AO Workflow SS RBC (Bld) [#/Vol] 5.82 106/mcL Normal 4.50 - 6.0 0 10^6/mcL AO Workflow SS WBC (Bld) [#/Vol] 9.5 103/mcL Normal 4.5 - 10.8 10^3/mcL AO Workflow SS Albumin BCP dye [Mass/Vol] 3.8 G/dL Normal 3.5 - 5.0 G/dL AO ADM SS Albumin/Globulin [Mass ratio] 1.1 {ratio} Normal 1.1 - 2.5 ratio AO ADM SS ALP [Catalytic activity/Vol] 76 U/L Normal 40 - 135 U/L AO ADM SS ALT With P-5'-P [Catalytic activity/Vol] 44 U/L Normal 16 - 63 U/L AO ADM SS AST With P-5'-P [Catalytic activity/Vol] 17 U/L Normal 10 - 40 U/L AO ADM SS Bilirubin [Mass/Vol] 0.4 mg/dL Normal 0.2 - 1 .0 mg/dL AO ADM SS Comment on above: Interpretive Data: U se of this assay is not recommended for patients undergoing treatment with eltrombopag due to the potential for falsely elevated results. Calcium [Mass/Vol] 8.9 mg/dL Normal 8.4 - 10. 2 mg/dL AO ADM SS Chloride [Moles/Vol] 102 mmol/L Normal 98 - 10 7 mmol/L AO ADM SS CO2 [Moles/Vol] 29 mmol/L Normal 22 - 29 mmol/L AO ADM SS Creatinine [Mass/Vol] 0.87 mg/dL Normal 0.70 - 1.30 mg/dL AO ADM SS Comment on above: Interpretive Data: T esting performed on Siemens Dimension EXL analyzer using a modified kinetic Ana technique. Electrolyte Balance 9.0 mEq/L Normal 4.0 - 15 .0 mEq/L AO ADM SS GFR/1.73 sq M.predicted among blacks MDRD (S/P/Bld) [Vol rate/Area] 113 ml/min/1.73sqm Invalid Interpretation Code AO Chemistry S Comment on above: Interpretive Data: GFR Population mean for , Non- Americans Ages 20-29 = 116 mL/min/1.73 sq.m. Ages 30-39 = 107 mL/min/1.73 sq.m. Ages 40-49 = 99 mL/min/1.73 sq.m. Ages 50-59 = 93 mL/min/1.73 sq.m. Ages 60-69 = 85 mL/min/1.73 sq.m. Ages 70+ = 75 mL/min/1.73 sq.m. Chronic Kidney Disease: Less than 60 mL/min/1.73 square meters End Stage Renal Disease: Less than 15 mL/min/1.73 square meters GFR/1.73 sq M.predicted among non-blacks MDRD (S/P/Bld) [Vol rate/Area] 93 ml/min/1.73sqm Invalid Interpretation Code AO Chemistry S Comment on above: Interpretive Data: GFR Population mean for , Non- Americans Ages 20-29 = 116 mL/min/1.73 sq.m. Ages 30-39 = 107 mL/min/1.73 sq.m. Ages 40-49 = 99 mL/min/1.73 sq.m. Ages 50-59 = 93 mL/min/1.73 sq.m. Ages 60-69 = 85 mL/min/1.73 sq.m. Ages 70+ = 75 mL/min/1.73 sq.m. Chronic Kidney Disease: Less than 60 mL/min/1.73 square meters End Stage Renal Disease: Less than 15 mL/min/1.73 square meters Globulin 3.5 G/dL Invalid Interpretation Code AO ADM SS Glucose [Mass/Vol] 146 mg/dL High 70 - 105 mg/dL AO ADM SS Glucose [Mass/Vol] 157 mg/dL Invalid Interpretation Code AO Chemistry S Comment on above: Interpretive Data: E stimated average glucose (eAG) is a calculated value from Hemoglobin A1C and is medical billing representative of the average blood glucose level in the last 2-3 month period. Normal range: less than 114 mg/dL HbA1c (Bld) [Mass fraction] 7.1 % High 4.3 - 6.4 % AO ADM SS Potassium [Moles/Vol] 3.8 mmol/L Normal 3.5 - 5.1 mmol/L AO ADM SS Protein [Mass/Vol] 7.3 G/dL Normal 6.4 - 8.2 G/dL AO ADM SS Sodium [Moles/Vol] 140 mmol/L Normal 136 - 145 mmol/L AO ADM SS Urea nitrogen [Mass/Vol] 12 mg/dL Normal 7 - 18 mg/d L AO ADM SS Urea nitrogen/Creatinine [Mass ratio] 14 ratio Normal 7 - 27 ratio AO ADM SS LABORATORYOrdered By: Naeem Vieira on 04-11-2024 Cholesterol [Mass/Vol] 131 mg/dL Normal 0 - 2 00 mg/dL AO ADM SS Comment on above: Interpretive Data: C holesterol Reference Interval: Less than 200 Desirable 200-239 Borderline high risk 240 and above High risk Cholesterol in HDL [Mass/Vol] 34 mg/dL Low 40 - 60 mg/dL AO ADM SS Cholesterol in LDL [Mass/Vol] 36 mg/dL Normal 0 - 130 mg/dL AO ADM SS Triglyceride [Mass/Vol] 307 mg/dL High 0 - 150 mg/dL AO ADM SS Comment on above: Interpretive Data: T riglyceride Reference Interval: Less than 150 Normal 150-199 Borderline high risk 200-499 High risk 500 or higher Very high risk LIPIDon 04-11-2024 Cholesterol [Mass/Vol] 131 mg/dL Normal 0-200 [facility] Comment on above: Result Comment: Chol esterol Reference Interval: Less than 200 Desirable 200-239 Borderline high risk 240 and above High risk Performed By: #### G FR, CMP, LIPID, A1C #### [address] [address] Cholesterol in HDL [Mass/Vol] 34 mg/dL Low 40-60 [facility] Comment on above: Performed By: #### G FR, CMP, LIPID, A1C #### [address] [address] Cholesterol in LDL [Mass/Vol] 36 mg/dL Normal 0-130 [facility] Comment on above: Performed By: #### G FR, CMP, LIPID, A1C #### [address] [address] Triglyceride [Mass/Vol] 307 mg/dL High 0-150 [facility] Comment on above: Result Comment: Trig lyceride Reference Interval: Less than 150 Normal 150-199 Borderline high risk 200-499 High risk 500 or higher Very high risk Performed By: #### G FR, CMP, LIPID, A1C #### [address] [address] MALBRon 04-11-2024 U Creatinine 105.9 mg/dL Normal [facility] Comment on above: Performed By: #### M ALBR #### [facility] [address] [place], [place] [address] U Microalb 788 mcg/dL Normal [facility] Comment on above: Performed By: #### M ALBR #### [facility] [address] [place], [place] [address] U Ratio Alb/Cre 7 mcg/mg Normal 0-30 [facility] Comment on above: Performed By: #### M ALBR #### [facility] [address] [place], [place] [address] XR SHOULDER MINIMUM 2 VIEWS RIGHTon 01-05-2024 XR SHOULDER MINIMUM 2 VIEWS RIGHT ORIGINAL EXAMINATION: XR right shoulder four views 01/03/2024 2:37 pm COMPARISON: None HISTORY: ORDERING SYSTEM PROVIDED HISTORY: Reason for Exam: right shoulder pain; radiculopathy, FINDINGS: No acute fracture, dislocation, lytic process or periosteal reaction is seen in the visualized bones and joints. No erosive type of arthritis. No periarticular soft tissue calcification. No significant degenerative changes in the glenohumeral and AC joints. Mild subacromial spurring and spurring of the greater tuberosity. Normal subacromial space. IMPRESSION: No acute or significant skeletal abnormality is seen. . Interpreted by: Williams Rodríguez MD Preliminary Report By: Williams Rodríguez MD Electronically signed By Williams Rodríguez MD Dictated Date: 01/05/2024 7:05:04 AM Prelim Date: 01/05/2024 7:05:45 AM Sign Date: 01/05/2024 7:05:45 AM Ordering Provider: ARNALDO Jaime [facility] LABORATORYOrdered By: Patricia Ozuna on 01-03-2024 Albumin DL <= 20 mg/L (U) [Mass/Vol] 526 mcg/dL Invalid Interpretation Code AO ADM SS Albumin/Creatinine DL <= 20 mg/L (U) [Mass ratio] 7 mcg/mg Normal 0 - 30 mcg/mg AO ADM SS Creatinine (U) [Mass/Vol] 70.4 mg/dL Normal 39.0 - 259.0 mg/dL AO ADM SS MALBRon 01-03-2024 U Creatinine 70.4 mg/dL Normal 39.0-259.0 [facility] Comment on above: Performed By: #### M ALBR ####[address] [place], [place] [address] U Microalb 526 mcg/dL Normal [facility] Comment on above: Performed By: #### M ALBR ####[address] [place], [place] [address] U Ratio Alb/Cre 7 mcg/mg Normal 0-30 [facility] Comment on above: Performed By: #### M ALBR ####[address] [place], [place] [address] Absolute lymphocyte countOrd ered By: Ben Hamilton on 05-14-2023 Lymphocytes Auto (Unsp spec) [#/Vol] 3.68 10*3/uL 0.83-4.51 [facility] Automated lymphocyte count a s percentage of total leukocytesOrdered By: Ben Hamilton on 05-14-2023 Lymphocytes/100 WBC Auto (Unsp spec) 35.5 % 19-41 [facility] Basophil percentageOrdered B y: Ben Hamilton on 05-14-2023 Basophil percentage 0 SEEN /hpf 0-5 [facility] Basophils/100 WBC (Bld) 0.5 % 0-1 [facility] Bilirubin [Mass/Vol] 0.20 mg/dL 0.20-1.00 [facility] Comment on above: For patients on eltr ombopag therapy, use of Dimension [place] TBIL is not recommended. Chloride [Moles/Vol] 106 mmol/L 98-107 [facility] Eosinophils/100 WBC (Bld) 2.4 % 0-5 [facility] Glucose [Mass/Vol] 248 mg/dL 74-106 [facility] Comment on above: Glucose result great er than or equal to 200 mg/dLsuggests DIABETES MELLITUS per A.D.A. criteria. Hemoglobin (Bld) [Mass/Vol] 15.0 g/dL 13.0-16.5 [facility] Monocytes/100 WBC (Bld) 7.5 % 0-10 [facility] Neutrophils (Bld) [#/Vol] 5.6 10*3/uL 2.0-7.7 [facility] Neutrophils/100 WBC (Bld) 53.8 % 47-70 [facility] Potassium [Moles/Vol] 3.9 mmol/L 3.5-5.1 [facility] Protein [Mass/Vol] 7.0 g/dL 6.4-8.2 [facility] Sodium [Moles/Vol] 135 mmol/L 136-145 [facility] WBC (Bld) [#/Vol] 10.4 10*3/uL 4.4-11.0 [facility] Bilirubin Test strip Ql (U)O rdered By: Ben Hamilton on 05-14-2023 Bilirubin Ql (U) Negative Negative [facility] Determination of erythrocyte mean corpuscular volume (MCV)Ordered By: Ben Hamilton on 05-14-2023 MCV (RBC) [Entitic vol] 86.4 fL 80-94 [facility] Direct bilirubinOrdered By: Ben Hamilton on 05-14-2023 Bilirubin.direct [Mass/Vol] 0.06 mg/dL 0.00-0.30 [facility] Erythrocyte distribution wid th ratioOrdered By: Ben Hamilton on 05-14-2023 Erythrocyte distribution width (RBC) [Ratio] 12.9 % 11.6-14.6 [facility] Erythrocyte distribution wid th standard deviationOrdered By: Ben Hamilton on 05-14-2023 Erythrocyte distribution width (RBC) [Entitic vol] 40.5 fL 35.1-43.9 [facility] Hematocrit Auto (Bld) [Volum e fraction]Ordered By: Ben Hamilton on 05-14-2023 Hematocrit (Bld) [Volume fraction] 44.4 % 40-54 [facility] Immature granulocytes/100 WB C Auto (Bld)Ordered By: Ben Hamilton on 05-14-2023 Immature granulocytes/100 WBC (Bld) 0.300 % 0.0-0.9 [facility] Comment on above: IG% - Immature Granu locytes (promyelocytes, myelocytes and metamyelocytes) > 1% indicates that a LEFT SHIFT is Present. Ketones Test strip Ql (U)Ord ered By: Ben Hamilton on 05-14-2023 Ketones Ql (U) Negative Negative [facility] Laboratory - Chemistry and C hemistry - challengeOrdered By: Ben Hamilton on 05-14-2023 ALP [Catalytic activity/Vol] 62 U/L 45-117 [facility] ALT [Catalytic activity/Vol] 37 U/L 16-61 [facility] CO2 [Moles/Vol] 26.0 mmol/L 21.0-32.0 [facility] Globulin (S) [Mass/Vol] 3.5 g/dL 2.2-4.2 [facility] Lipase [Catalytic activity/Vol] 36 U/L 13-75 [facility] Comment on above: Please note:LIPASE r evised reference range effective 22. New Lipase methodology. Expected to produce lower values than the previous assay method. NEW Reference Range: 13 - 75 U/L Urea nitrogen/Creatinine [Mass ratio] 19.7 mg/mg 10-20 [facility] Laboratory - Hematology and Cell countsOrdered By: Ben Hamilton on 05-14-2023 MCH (RBC) [Entitic mass] 29.2 pg 27.0-32.0 [facility] MCHC (RBC) [Mass/Vol] 33.8 g/dL 32-36 [facility] Nucleated RBC/100 WBC (Bld) [Ratio] 0 % 0-5 [facility] Platelet mean volume (Bld) [Entitic vol] 10.6 fL 6.2-12.0 [facility] Platelets (Bld) [#/Vol] 302 10*3/uL 150-450 [facility] Laboratory - Microbiology an d Antimicrobial susceptibilityOrdered By: Ben Hamilton on 05-14-2023 SARS-CoV-2 (COVID-19) RNA ISMA+probe Ql (Unsp spec) [facility] Mucus LM Ql (Urine sed)Order ed By: Ben Hamilton on 05-14-2023 Mucus Ql (Urine sed) 0 SEEN /hpf [facility] Nitrite Test strip Ql (U)Ord ered By: Ben Hamilton on 05-14-2023 Nitrite Ql (U) Negative Negative [facility] No Panel InformationOrdered By: Ben Hamilton on 05-14-2023 Estimated Creatinine Clearance Calc 111.93 ml/min [facility] Estimated GFR (MDRD) Amer 121 mL/min >60 [facility] Comment on above: GFR Calc Estimated GFR (MDRD) Non-Af Amer 100 mL/min >60 [facility] Comment on above: Non- GFR Calc Urine RBC 0 SEEN /hpf 0-5 [facility] Protein Test strip Ql (U)Ord ered By: Ben Hamilton on 05-14-2023 Protein Ql (U) Negative Negative [facility] RBC Auto (Bld) [#/Vol]Ordere d By: Ben Hamilton on 05-14-2023 RBC (Bld) [#/Vol] 5.14 10*6/uL 4.6-6.2 [facility] Serum or plasma acetone ricky urement (mass/volume)Ordered By: Ben Hamilton on 05-14-2023 Acetone [Mass/Vol] Negative NEG [facility] Serum or plasma calcium ricky urement (mass/volume)Ordered By: Ben Hamilton on 05-14-2023 Calcium [Mass/Vol] 8.8 mg/dL 8.5-10.1 [facility] Serum or plasma creatinine m easurement (mass/volume)Ordered By: Ben Hamilton on 05-14-2023 Creatinine [Mass/Vol] 0.86 mg/dL 0.70-1.30 [facility] Comment on above: The validity of the calculated GFR & GFRAA in patients over 70 years has not been determined. Clinical correlation is essential. Serum or plasma urea nitroge n measurement (mass/volume)Ordered By: Ben Hamilton on 05-14-2023 Urea nitrogen [Mass/Vol] 17 mg/dL 7-18 [facility] Squamous epithelial cells de tection in urine sediment by light microscopyOrdered By: Ben Hamilton on 05-14-2023 Epithelial cells.squamous LM Ql (Urine sed) 0-5 SEEN /hpf 0-5 [facility] Thin prep Papanicolaou smear with manual screeningOrdered By: Ben Hamilton on 05-14-2023 Thin prep Papanicolaou smear with manual screening 219 mg/dL 74-106 [facility] Comment on above: MANAGEMENT OF PATIEN T CARE PER NURSING PROTOCOL Thin prep Papanicolaou smear with manual screening 3.5 g/dL 3.2-5.0 [facility] Thin prep Papanicolaou smear with manual screening 16 U/L 15-37 [facility] Thin prep Papanicolaou smear with manual screening 3 5-15 [facility] Urine blood detectionOrdered By: Ben Hamilton on 05-14-2023 RBC Ql (U) Negative Negative [facility] Urine clarityOrdered By: Prosper Hamilton on 05-14-2023 Clarity (U) Sl. Cloudy Clear [facility] Urine color determinationOrd ered By: Ben Hamilton on 05-14-2023 Color (U) Straw Yellow [facility] Urine glucose detectionOrder ed By: Ben Hamilton on 05-14-2023 Glucose Ql (U) 1000 mg/dl Normal [facility] Urine leukocyte esterase det ection by dipstickOrdered By: Ben Hamilton on 05-14-2023 Leukocyte esterase Test strip Ql (U) Negative Negative [facility] Urine pHOrdered By: Ben montemayor on 05-14-2023 pH (U) 7.0 [pH] 5.0 - 8.0 [facility] Urine sediment bacteria coun t by microscopy (number/high power field)Ordered By: Ben Hamilton on 05-14-2023 Bacteria LM.HPF (Urine sed) [#/Area] 0 /[HPF] None Seen [facility] Urine specific gravity measu rementOrdered By: Ben Hamilton on 05-14-2023 Specific gravity (U) [Rel density] 1.010 1.002-1.030 [facility] Urine urobilinogen measureme ntOrdered By: Ben Hamilton on 05-14-2023 Urobilinogen Ql (U) Normal mg/dl Normal [facility] Absolute lymphocyte countOrd ered By: White on 04-09-2023 Lymphocytes Auto (Unsp spec) [#/Vol] 3.63 10*3/uL 0.83-4.51 [facility] Automated lymphocyte count a s percentage of total leukocytesOrdered By: White on 04-09-2023 Lymphocytes/100 WBC Auto (Unsp spec) 35.4 % 19-41 [facility] Basophil percentageOrdered B y: White on 04-09-2023 Basophils/100 WBC (Bld) 0.6 % 0-1 [facility] Bilirubin [Mass/Vol] 0.20 mg/dL 0.20-1.00 [facility] Comment on above: For patients on eltr ombopag therapy, use of Dimension [place] TBIL is not recommended. Chloride [Moles/Vol] 110 mmol/L 98-107 [facility] Cholesterol [Mass/Vol] 125 mg/dL <200 [facility] Comment on above: <200 mg/dL Desirable 200-240 mg/dL Borderline >240 mg/dL High Risk Eosinophils/100 WBC (Bld) 2.1 % 0-5 [facility] Glucose [Mass/Vol] 115 mg/dL 74-106 [facility] Comment on above: Fasting Glucose resu lt from 100 to 125 mg/dL suggests IMPAIRED HOMEOSTASIS per A.D.A. criteria. Hemoglobin (Bld) [Mass/Vol] 15.9 g/dL 13.0-16.5 [facility] Monocytes/100 WBC (Bld) 8.3 % 0-10 [facility] Neutrophils (Bld) [#/Vol] 5.5 10*3/uL 2.0-7.7 [facility] Neutrophils/100 WBC (Bld) 53.3 % 47-70 [facility] Potassium [Moles/Vol] 4.1 mmol/L 3.5-5.1 [facility] Protein [Mass/Vol] 6.6 g/dL 6.4-8.2 [facility] Sodium [Moles/Vol] 137 mmol/L 136-145 [facility] Triglyceride [Mass/Vol] 231 mg/dL <199 [facility] Comment on above: The drugs N-Acetylcy steine and Metamizole may falsely depress this assay.Serum Triglycerides Reference Interval Normal <150 mg/dL Borderline high 150 - 199 mg/dL High 200 - 499 mg/dL Very High > or = 500 mg/dL WBC (Bld) [#/Vol] 10.3 10*3/uL 4.4-11.0 [facility] Determination of erythrocyte mean corpuscular volume (MCV)Ordered By: Jeannette Griffin on 04-09-2023 MCV (RBC) [Entitic vol] 87.3 fL 80-94 [facility] Erythrocyte distribution wid th ratioOrdered By: Jeannette Gaby on 04-09-2023 Erythrocyte distribution width (RBC) [Ratio] 12.7 % 11.6-14.6 [facility] Erythrocyte distribution wid th standard deviationOrdered By: Jeannette Gaby on 04-09-2023 Erythrocyte distribution width (RBC) [Entitic vol] 40.3 fL 35.1-43.9 [facility] Hematocrit Auto (Bld) [Volum e fraction]Ordered By: Jeannette Gaby on 04-09-2023 Hematocrit (Bld) [Volume fraction] 48.8 % 40-54 [facility] Immature granulocytes/100 WB C Auto (Bld)Ordered By: [facility] on 04-09-2023 Immature granulocytes/100 WBC (Bld) 0.300 % 0.0-0.9 [facility] Comment on above: IG% - Immature Granu locytes (promyelocytes, myelocytes and metamyelocytes) > 1% indicates that a LEFT SHIFT is Present. Laboratory - Chemistry and C hemistry - challengeOrdered By: Jeannette Gaby on 04-09-2023 Albumin/Globulin [Mass ratio] 1.1 {ratio} 0.9-2.4 [facility] ALP [Catalytic activity/Vol] 57 U/L 45-117 [facility] ALT [Catalytic activity/Vol] 47 U/L 16-61 [facility] Cholesterol in HDL (Body fld) [Mass/Vol] 31 mg/dL >40 [facility] Comment on above: The drugs N-Acetylcy steine and Metamizole may falsely depress this assay. Reference Range HDL <40 mg/dL Low HDL Cholesterol HDL >or= 60 mg/dL High HDL Cholesterol Cholesterol in LDL (Body fld) [Moles/Vol] 48 mg/dL 0-130 [facility] Cholesterol in VLDL Calc [Moles/Vol] 46 mg/dL 5-40 [facility] CO2 [Moles/Vol] 23.0 mmol/L 21.0-32.0 [facility] Globulin (S) [Mass/Vol] 3.2 g/dL 2.2-4.2 [facility] Urea nitrogen/Creatinine [Mass ratio] 24.2 mg/mg 10-20 [facility] Laboratory - Hematology and Cell countsOrdered By: [facility] Gaby on 04-09-2023 MCH (RBC) [Entitic mass] 28.4 pg 27.0-32.0 [facility] MCHC (RBC) [Mass/Vol] 32.6 g/dL 32-36 [facility] Nucleated RBC/100 WBC (Bld) [Ratio] 0 % 0-5 [facility] Platelets (Bld) [#/Vol] 281 10*3/uL 150-450 [facility] No Panel InformationOrdered By: Jeannette Griffin on 04-09-2023 Estimated Creatinine Clearance Calc 125.95 ml/min [facility] Estimated GFR (MDRD) Amer 144 mL/min >60 [facility] Comment on above: GFR Calc Estimated GFR (MDRD) Non-Af Amer 119 mL/min >60 [facility] Comment on above: Non- GFR Calc Troponin I High Sensitivity 11 pg/mL 3.0-78.0 [facility] Comment on above: Please Note: New Consuelo t Units and Gender Specific Reference Ranges. For more information see Policy Stat Procedure [place] High Sensitivity Troponin (TNIH) and attachments. Platelet mean volume Avila-Ec ker (Bld) [Entitic vol]Ordered By: Jeannette Griffin on 04-09-2023 Platelet mean volume (Bld) [Entitic vol] 10.3 fL 6.2-12.0 [facility] RBC Auto (Bld) [#/Vol]Ordere d By: Jeannette Griffin on 04-09-2023 RBC (Bld) [#/Vol] 5.59 10*6/uL 4.6-6.2 [facility] Serum or plasma calcium ricky urement (mass/volume)Ordered By: Jeannette Griffin on 04-09-2023 Calcium [Mass/Vol] 8.3 mg/dL 8.5-10.1 [facility] Serum or plasma creatinine m easurement (mass/volume)Ordered By: Jeannette Griffin on 04-09-2023 Creatinine [Mass/Vol] 0.74 mg/dL 0.70-1.30 [facility] Comment on above: The validity of the calculated GFR & GFRAA in patients over 70 years has not been determined. Clinical correlation is essential. Serum or plasma urea nitroge n measurement (mass/volume)Ordered By: Jeannette Griffin on 01-27-2024 Urea nitrogen [Mass/Vol] 18 mg/dL 7-18 [facility] Thin prep Papanicolaou smear with manual screeningOrdered By: Jeannette White on 04-09-2023 Thin prep Papanicolaou smear with manual screening 3.4 g/dL 3.2-5.0 [facility] Thin prep Papanicolaou smear with manual screening 17 U/L 15-37 [facility] Thin prep Papanicolaou smear with manual screening 4 5-15 [facility] Absolute lymphocyte countOrd ered By: ED PROVIDER on 04-08-2023 Lymphocytes Auto (Unsp spec) [#/Vol] 2.42 10*3/uL 0.83-4.51 [facility] Automated lymphocyte count a s percentage of total leukocytesOrdered By: ED PROVIDER on 04-08-2023 Lymphocytes/100 WBC Auto (Unsp spec) 25.7 % 19-41 [facility] Basophil percentageOrdered B y: ED PROVIDER on 04-08-2023 Basophils/100 WBC (Bld) 0.6 % 0-1 [facility] Chloride [Moles/Vol] 106 mmol/L 98-107 [facility] Eosinophils/100 WBC (Bld) 1.5 % 0-5 [facility] Glucose [Mass/Vol] 123 mg/dL 74-106 [facility] Comment on above: Fasting Glucose resu lt from 100 to 125 mg/dL suggests IMPAIRED HOMEOSTASIS per A.D.A. criteria. Hemoglobin (Bld) [Mass/Vol] 16.8 g/dL 13.0-16.5 [facility] Monocytes/100 WBC (Bld) 6.9 % 0-10 [facility] Neutrophils (Bld) [#/Vol] 6.1 10*3/uL 2.0-7.7 [facility] Neutrophils/100 WBC (Bld) 64.9 % 47-70 [facility] Potassium [Moles/Vol] 3.9 mmol/L 3.5-5.1 [facility] Sodium [Moles/Vol] 136 mmol/L 136-145 [facility] WBC (Bld) [#/Vol] 9.4 10*3/uL 4.4-11.0 [facility] Determination of erythrocyte mean corpuscular volume (MCV)Ordered By: ED PROVIDER on 04-08-2023 MCV (RBC) [Entitic vol] 85.8 fL 80-94 [facility] Erythrocyte distribution wid th ratioOrdered By: ED PROVIDER on 04-08-2023 Erythrocyte distribution width (RBC) [Ratio] 12.9 % 11.6-14.6 [facility] Erythrocyte distribution wid th standard deviationOrdered By: ED PROVIDER on 04-08-2023 Erythrocyte distribution width (RBC) [Entitic vol] 40.0 fL 35.1-43.9 [facility] Hematocrit Auto (Bld) [Volum e fraction]Ordered By: ED PROVIDER on 04-08-2023 Hematocrit (Bld) [Volume fraction] 50.6 % 40-54 [facility] Immature granulocytes/100 WB C Auto (Bld)Ordered By: ED PROVIDER on 04-08-2023 Immature granulocytes/100 WBC (Bld) 0.400 % 0.0-0.9 [facility] Comment on above: IG% - Immature Granu locytes (promyelocytes, myelocytes and metamyelocytes) > 1% indicates that a LEFT SHIFT is Present. Laboratory - Chemistry and C hemistry - challengeOrdered By: Jeannette Griffin on 04-08-2023 Magnesium [Mass/Vol] 2.3 mg/dL 1.6-2.6 [facility] Laboratory - Chemistry and C hemistry - challengeOrdered By: ED PROVIDER on 04-08-2023 CO2 [Moles/Vol] 27.0 mmol/L 21.0-32.0 [facility] Urea nitrogen/Creatinine [Mass ratio] 19.4 mg/mg 10-20 [facility] Laboratory - Hematology and Cell countsOrdered By: ED PROVIDER on 04-08-2023 MCH (RBC) [Entitic mass] 28.5 pg 27.0-32.0 [facility] MCHC (RBC) [Mass/Vol] 33.2 g/dL 32-36 [facility] Nucleated RBC/100 WBC (Bld) [Ratio] 0 % 0-5 [facility] Platelets (Bld) [#/Vol] 320 10*3/uL 150-450 [facility] No Panel InformationOrdered By: ED PROVIDER on 04-08-2023 Troponin I High Sensitivity 10 pg/mL 3.0-78.0 [facility] Comment on above: Please Note: New Consuelo t Units and Gender Specific Reference Ranges. For more information see Policy Stat Procedure [place] High Sensitivity Troponin (TNIH) and attachments. Estimated Creatinine Clearance Calc 100.99 ml/min [facility] Estimated GFR (MDRD) Amer 111 mL/min >60 [facility] Comment on above: GFR Calc Estimated GFR (MDRD) Non-Af Amer 92 mL/min >60 [facility] Comment on above: Non- GFR Calc Platelet mean volume Avila-Ec ker (Bld) [Entitic vol]Ordered By: ED PROVIDER on 04-08-2023 Platelet mean volume (Bld) [Entitic vol] 10.4 fL 6.2-12.0 [facility] RBC Auto (Bld) [#/Vol]Ordere d By: ED PROVIDER on 04-08-2023 RBC (Bld) [#/Vol] 5.90 10*6/uL 4.6-6.2 [facility] Serum or plasma calcium ricky urement (mass/volume)Ordered By: ED PROVIDER on 04-08-2023 Calcium [Mass/Vol] 9.3 mg/dL 8.5-10.1 [facility] Serum or plasma creatinine m easurement (mass/volume)Ordered By: ED PROVIDER on 04-08-2023 Creatinine [Mass/Vol] 0.93 mg/dL 0.70-1.30 [facility] Comment on above: The validity of the calculated GFR & GFRAA in patients over 70 years has not been determined. Clinical correlation is essential. Serum or plasma urea nitroge n measurement (mass/volume)Ordered By: ED PROVIDER on 04-08-2023 Urea nitrogen [Mass/Vol] 18 mg/dL 7-18 [facility] Thin prep Papanicolaou smear with manual screeningOrdered By: ED PROVIDER on 04-08-2023 Thin prep Papanicolaou smear with manual screening 3 5-15 [facility] RFon 02-09-2023 Rheumatoid Factor <6.0 Normal <=5.9 [facility] ([place]) Comment on above: Result Comment: RF I gM Antibody by Enzyme Immunoassay: Negative < or = 6 Positive > 6 A positive result indicates the presence of RF antibodies and suggests the possibility of rheumatoid arthritis. A negative result indicates no RF IgM antibody or levels below the negative cut-off of the assay. Results of this assay should be used in conjunction with clinical findings and other serological tests. These results were obtained with the Data[employer] QUANTA Lite RF IgM VON. RF IgM values obtained with different manufacturers' assay methods may not be used interchangeably. The magnitude of the reported IgM levels cannot be correlated to an endpoint titer. Performed By: #### P SA, CRP #### [place] [address] #### BRITTNEY, RF #### [place] [address] ANAon 02-08-2023 Nuclear Ab IF (S) [Titer] 40 {titer} Normal Neg 40 [facility] ([place]) Comment on above: Result Comment: BRITTNEY Screen and Titer methodology is an immunofluorescent technique utilizing Hep2 Substrate. Performed By: #### P SA, CRP #### [place] [address] #### BRITTNEY, RF #### [place] [address] CRPon 02-07-2023 C-Reactive Protein 0.2 mg/dL Normal 0.0-0.3 [facility] ([place]) Comment on above: Performed By: #### P SA, CRP #### [place] [address] #### BRITTNEY, RF #### [place] [address] LABORATORYOrdered By: SYSTEM SYSTEM on 02-07-2023 CRP [Mass/Vol] 0.2 mg/dL Normal 0.0 - 0.3 mg/dL AO ADM SS Prostate specific Ag [Mass/Vol] 0.28 ng/mL Normal 0.00 - 4.00 ng/mL AO ADM SS LABORATORYOrdered By: Patricia Garcia on 02-07-2023 Nuclear Ab IF Ql (S) Neg 40 1 (02/07/23 4:27 PM) Normal [facility] Comment on above: Interpretive Data: A NA Screen and Titer methodology is an immunofluorescent technique utilizing Hep2 Substrate. LABORATORYOrdered By: Josefa Perez on 02-07-2023 Rheumatoid factor IgM IA Qn (S) 1 Normal <=5.9 [facility] Comment on above: Interpretive Data: R F IgM Antibody by Enzyme Immunoassay: Negative < or = 6 Positive > 6 A positive result indicates the presence of RF antibodies and suggests the possibility of rheumatoid arthritis. A negative result indicates no RF IgM antibody or levels below the negative cut-off of the assay. Results of this assay should be used in conjunction with clinical findings and other serological tests. These results were obtained with the WineSimpleA Lite RF IgM VON. RF IgM values obtained with different manufacturers' assay methods may not be used interchangeably. The magnitude of the reported IgM levels cannot be correlated to an endpoint titer. PSAon 02-07-2023 Prostate Specific Antigen 0.28 ng/mL Normal 0.00-4.00 [facility] ([place]) Comment on above: Performed By: #### P SA, CRP #### [facility] [address] [place] [id number] #### BRITTNEY, RF #### [address] [address] Absolute lymphocyte countOrd ered By: Scarlet Lina on 01-02-2023 Lymphocytes Auto (Unsp spec) [#/Vol] 2.44 10*3/uL 0.83-4.51 [facility] Basophil percentageOrdered B y: Scarlet Lina on 01-02-2023 Basophils/100 WBC (Bld) 0.3 % 0-1 [facility] Chloride [Moles/Vol] 105 mmol/L 98-107 [place] Eosinophils/100 WBC (Bld) 1.2 % 0-5 [facility] Glucose [Mass/Vol] 172 mg/dL 74-106 [facility] Comment on above: Fasting Glucose resu lt greater than or equal to 126 mg/dL suggests DIABETES MELLITUS per A.D.A. criteria. Neutrophils (Bld) [#/Vol] 12.8 10*3/uL 2.0-7.7 [facility] Neutrophils/100 WBC (Bld) 74.7 % 47-70 [facility] Potassium [Moles/Vol] 4.1 mmol/L 3.5-5.1 [facility] Sodium [Moles/Vol] 137 mmol/L 136-145 [facility] WBC (Bld) [#/Vol] 17.2 10*3/uL 4.4-11.0 [facility] Blood erythrocytes count (nu mber/volume)Ordered By: Scarlet Mills on 01-02-2023 RBC (Bld) [#/Vol] 5.28 10*6/uL 4.6-6.2 [facility] Blood hemoglobin measurement (mass/volume)Ordered By: Scarlet Mills on 01-02-2023 Hemoglobin (Bld) [Mass/Vol] 15.2 g/dL 13.0-16.5 [facility] Blood lymphocytes/100 leukoc ytesOrdered By: Scarlet Mills on 01-02-2023 Lymphocytes/100 WBC (Bld) 14.2 % 19-41 [facility] Blood monocytes/100 leukocyt esOrdered By: Scarlet Mills on 01-02-2023 Monocytes/100 WBC (Bld) 9.0 % 0-10 [facility] Blood platelet mean volumeOr dered By: Scarlet Mills on 01-02-2023 Platelet mean volume (Bld) [Entitic vol] 10.0 fL 6.2-12.0 [facility] Determination of erythrocyte mean corpuscular volume (MCV)Ordered By: Scarlet Mills on 01-02-2023 MCV (RBC) [Entitic vol] 88.1 fL 80-94 [facility] Hematocrit Auto (Bld) [Volum e fraction]Ordered By: Scarlet Mills on 01-02-2023 Hematocrit (Bld) [Volume fraction] 46.5 % 40-54 [facility] Laboratory - Chemistry and C hemistry - challengeOrdered By: Scarlet Mills on 01-02-2023 CO2 [Moles/Vol] 29.0 mmol/L 21.0-32.0 [facility] Urea nitrogen/Creatinine [Mass ratio] 12.9 mg/mg 10-20 [facility] Laboratory - Hematology and Cell countsOrdered By: Scarlet Mills on 01-02-2023 Erythrocyte distribution width (RBC) [Entitic vol] 44.8 fL 35.1-43.9 [facility] Erythrocyte distribution width (RBC) [Ratio] 13.8 % 11.6-14.6 [facility] Immature granulocytes/100 WBC (Bld) 0.600 % 0.0-0.9 [facility] Comment on above: IG% - Immature Granu locytes (promyelocytes, myelocytes and metamyelocytes) > 1% indicates that a LEFT SHIFT is Present. MCH (RBC) [Entitic mass] 28.8 pg 27.0-32.0 [facility] Nucleated RBC/100 WBC (Bld) [Ratio] 0 % 0-5 [facility] MCHC Auto (RBC) [Mass/Vol]Or dered By: Scarlet Mills on 01-02-2023 MCHC (RBC) [Mass/Vol] 32.7 g/dL 32-36 [facility] No Panel InformationOrdered By: Scarlet Mills on 01-02-2023 Estimated Creatinine Clearance Calc 101.63 ml/min [facility] Estimated GFR (MDRD) Amer 122 mL/min >60 [facility] Comment on above: GFR Calc Estimated GFR (MDRD) Non-Af Amer 101 mL/min >60 [facility] Comment on above: Non- GFR Calc Troponin I High Sensitivity 8 pg/mL 3.0-78.0 [facility] Comment on above: Please Note: New Consuelo t Units and Gender Specific Reference Ranges. For more information see Policy Stat Procedure [place] High Sensitivity Troponin (TNIH) and attachments. Platelets bldOrdered By: Linn Mills on 01-02-2023 Platelets (Bld) [#/Vol] 305 10*3/uL 150-450 [facility] Review by pathologistOrdered By: Scarlet Mills on 01-02-2023 Pathologist review Akin (Unsp spec) [Interp] Ciarra lai [facility] Pathologist review Akin (Unsp spec) [Interp] Reviewed [facility] Comment on above: Previous reported re sult: Ciarra lai Edited by: RGOHORTENSIA on 01/04/23:1020Neutrophilic leukocytosis.Clinical correlation necessary.Win Pleitez M.D. 01/04/23 AMENDED REPORT 01/04/23 1020 PATH REV previously reported as: Ciarra lai Serum or plasma calcium ricky urement (mass/volume)Ordered By: Scarlet Mills on 01-02-2023 Calcium [Mass/Vol] 8.6 mg/dL 8.5-10.1 [facility] Serum or plasma creatinine m easurement (mass/volume)Ordered By: Scarlet Mills on 01-02-2023 Creatinine [Mass/Vol] 0.86 mg/dL 0.70-1.30 [facility] Comment on above: The validity of the calculated GFR & GFRAA in patients over 70 years has not been determined. Clinical correlation is essential. Serum or plasma urea nitroge n measurement (mass/volume)Ordered By: Scarlet Mills on 01-02-2023 Urea nitrogen [Mass/Vol] 11 mg/dL 7-18 [facility] Thin prep Papanicolaou smear with manual screeningOrdered By: Scarlet Mills on 01-02-2023 Thin prep Papanicolaou smear with manual screening 3 -15 [facility] .GFRon 11-02-2022 GFR Non- 99 ml/min/1.73sqm Normal [facility] ([place]) Comment on above: Result Comment: GFR Population mean for , Non- Americans Ages 20-29 = 116 mL/min/1.73 sq.m. Ages 30-39 = 107 mL/min/1.73 sq.m. Ages 40-49 = 99 mL/min/1.73 sq.m. Ages 50-59 = 93 mL/min/1.73 sq.m. Ages 60-69 = 85 mL/min/1.73 sq.m. Ages 70+ = 75 mL/min/1.73 sq.m. Chronic Kidney Disease: Less than 60 mL/min/1.73 square meters End Stage Renal Disease: Less than 15 mL/min/1.73 square meters Performed By: #### G FR, LIPID, CMP #### [place] [address] GFR 120 ml/min/1.73sqm Normal [facility] ([place]) Comment on above: Result Comment: GFR Population mean for , Non- Americans Ages 20-29 = 116 mL/min/1.73 sq.m. Ages 30-39 = 107 mL/min/1.73 sq.m. Ages 40-49 = 99 mL/min/1.73 sq.m. Ages 50-59 = 93 mL/min/1.73 sq.m. Ages 60-69 = 85 mL/min/1.73 sq.m. Ages 70+ = 75 mL/min/1.73 sq.m. Chronic Kidney Disease: Less than 60 mL/min/1.73 square meters End Stage Renal Disease: Less than 15 mL/min/1.73 square meters Performed By: #### G FR, LIPID, CMP #### [address] [address] CMPon 11-02-2022 Albumin Level 3.9 G/dL Normal 3.5-5.0 [facility] ([place]) Comment on above: Performed By: #### G FR, LIPID, CMP #### [address] [address] Albumin/Globulin [Mass ratio] 1.1 {ratio} Normal 1.1-2.5 [facility] ([place]) Comment on above: Performed By: #### G FR, LIPID, CMP #### [address] [address] ALP [Catalytic activity/Vol] 66 U/L Normal 40-135 [facility] ([place]) Comment on above: Performed By: #### G FR, LIPID, CMP #### [address] [address] ALT [Catalytic activity/Vol] 39 U/L Normal 16-63 [facility] ([place]) Comment on above: Performed By: #### G FR, LIPID, CMP #### [address] [address] AST [Catalytic activity/Vol] 16 U/L Normal 10-40 [facility] ([place]) Comment on above: Performed By: #### G FR, LIPID, CMP #### [address] [address] Bili Total 0.3 mg/dL Normal 0.2-1.0 [facility] ([place]) Comment on above: Result Comment: Use of this assay is not recommended for patients undergoing treatment with eltrombopag due to the potential for falsely elevated results. Performed By: #### G FR, LIPID, CMP #### [address] [address] BUN/Creatinine Ratio 20 ratio Normal 7-27 [facility] ([place]) Comment on above: Performed By: #### G FR, LIPID, CMP #### [address] [address] Calcium [Mass/Vol] 8.8 mg/dL Normal 8.4-10.2 [facility] ([place]) Comment on above: Performed By: #### G FR, LIPID, CMP #### [address] [address] Chloride [Moles/Vol] 102 mmol/L Normal 98-107 [facility] ([place]) Comment on above: Performed By: #### G FR, LIPID, CMP #### [address] [address] CO2 [Moles/Vol] 31 mmol/L High 22-29 [facility] ([place]) Comment on above: Performed By: #### G FR, LIPID, CMP #### [address] [address] Creatinine [Mass/Vol] 0.83 mg/dL Normal 0.70-1.30 [facility] ([place]) Comment on above: Performed By: #### G FR, LIPID, CMP #### [address] [address] Electrolyte Balance 8.0 mEq/L Normal 4.0-15.0 [facility] ([place]) Comment on above: Performed By: #### G FR, LIPID, CMP #### [address] [address] Globulin 3.4 G/dL Normal [facility] ([place]) Comment on above: Performed By: #### G FR, LIPID, CMP #### [address] [address] Glucose [Mass/Vol] 136 mg/dL High 70-105 [facility] ([place]) Comment on above: Performed By: #### G FR, LIPID, CMP #### [address] [address] Potassium [Moles/Vol] 4.4 mmol/L Normal 3.5-5.1 [facility] ([place]) Comment on above: Performed By: #### G FR, LIPID, CMP #### [address] [address] Sodium [Moles/Vol] 141 mmol/L Normal 136-145 [facility] ([place]) Comment on above: Performed By: #### G FR, LIPID, CMP #### [address] [address] Total Protein 7.3 G/dL Normal 6.4-8.2 [facility] ([place]) Comment on above: Performed By: #### G FR, LIPID, CMP #### [address] [address] Urea nitrogen [Mass/Vol] 17 mg/dL Normal 7-18 [facility] ([place]) Comment on above: Performed By: #### G FR, LIPID, CMP #### [address] [address] LIPIDon 11-02-2022 Cholesterol [Mass/Vol] 121 mg/dL Normal 0-200 [facility] ([place]) Comment on above: Result Comment: Chol esterol Reference Interval: Less than 200 Desirable 200-239 Borderline high risk 240 and above High risk Performed By: #### G FR, LIPID, CMP #### [address] [address] Cholesterol in HDL [Mass/Vol] 34 mg/dL Low 40-60 [facility] ([place]) Comment on above: Performed By: #### G FR, LIPID, CMP #### [address] [address] Cholesterol in LDL [Mass/Vol] 43 mg/dL Normal 0-130 [facility] ([place]) Comment on above: Performed By: #### G FR, LIPID, CMP #### [address] [address] Triglyceride [Mass/Vol] 220 mg/dL High 0-150 [facility] ([place]) Comment on above: Result Comment: Trig lyceride Reference Interval: Less than 150 Normal 150-199 Borderline high risk 200-499 High risk 500 or higher Very high risk Performed By: #### G FR, LIPID, CMP #### [facility] [address] [place] [address] MALBRon 11-02-2022 U Creatinine 234.0 mg/dL Normal 39.0-259.0 [facility] ([place]) Comment on above: Performed By: #### M ALBR #### [facility] [address] [place] [address] U Microalb 1592 mcg/dL Normal [facility] ([place]) Comment on above: Performed By: #### M ALBR #### [facility] [address] [place] [address] U Ratio Alb/Cre 7 mcg/mg Normal 0-30 [facility] ([place]) Comment on above: Performed By: #### M ALBR #### [place] [id number] [address] [place] [address] Absolute lymphocyte countOrd ered By: Beck Mcmanus on 10-16-2022 Lymphocytes Auto (Unsp spec) [#/Vol] 4.39 10*3/uL 0.83-4.51 [facility] Basophil percentageOrdered B y: Beck Mcmanus on 10-16-2022 Basophils/100 WBC (Bld) 0.6 % 0-1 [facility] Chloride [Moles/Vol] 102 mmol/L 98-107 [facility] Eosinophils/100 WBC (Bld) 1.7 % 0-5 [facility] Glucose [Mass/Vol] 164 mg/dL 74-106 [facility] Comment on above: Fasting Glucose resu lt greater than or equal to 126 mg/dL suggests DIABETES MELLITUS per A.D.A. criteria. Neutrophils (Bld) [#/Vol] 6.4 10*3/uL 2.0-7.7 [facility] Neutrophils/100 WBC (Bld) 53.2 % 47-70 [facility] Potassium [Moles/Vol] 3.7 mmol/L 3.5-5.1 [facility] Sodium [Moles/Vol] 137 mmol/L 136-145 [facility] WBC (Bld) [#/Vol] 12.1 10*3/uL 4.4-11.0 [facility] Blood erythrocytes count (nu mber/volume)Ordered By: Beck Mcmanus on 10-16-2022 RBC (Bld) [#/Vol] 5.76 10*6/uL 4.6-6.2 [facility] Blood hemoglobin measurement (mass/volume)Ordered By: Beck Mcmanus on 10-16-2022 Hemoglobin (Bld) [Mass/Vol] 15.9 g/dL 13.0-16.5 [facility] Blood lymphocytes/100 leukoc ytesOrdered By: Beck Mcmanus on 10-16-2022 Lymphocytes/100 WBC (Bld) 36.4 % 19-41 [facility] Blood monocytes/100 leukocyt esOrdered By: Beck Mcmanus on 10-16-2022 Monocytes/100 WBC (Bld) 7.7 % 0-10 [facility] Blood platelet mean volumeOr dered By: Beck Mcmanus on 10-16-2022 Platelet mean volume (Bld) [Entitic vol] 9.9 fL 6.2-12.0 [facility] Determination of erythrocyte mean corpuscular volume (MCV)Ordered By: Beck Mcmanus on 10-16-2022 MCV (RBC) [Entitic vol] 83.0 fL 80-94 [facility] Hematocrit Auto (Bld) [Volum e fraction]Ordered By: Beck Mcmanus on 10-16-2022 Hematocrit (Bld) [Volume fraction] 47.8 % 40-54 [facility] Laboratory - Chemistry and C hemistry - challengeOrdered By: Beck Mcmanus on 10-16-2022 CO2 [Moles/Vol] 28.0 mmol/L 21.0-32.0 [facility] Urea nitrogen/Creatinine [Mass ratio] 14.7 mg/mg 10-20 [facility] Laboratory - Hematology and Cell countsOrdered By: Beck Mcmanus on 10-16-2022 Erythrocyte distribution width (RBC) [Entitic vol] 43.3 fL 35.1-43.9 [facility] Erythrocyte distribution width (RBC) [Ratio] 14.5 % 11.6-14.6 [facility] Immature granulocytes/100 WBC (Bld) 0.400 % 0.0-0.9 [facility] Comment on above: IG% - Immature Granu locytes (promyelocytes, myelocytes and metamyelocytes) > 1% indicates that a LEFT SHIFT is Present. MCH (RBC) [Entitic mass] 27.6 pg 27.0-32.0 [facility] Nucleated RBC/100 WBC (Bld) [Ratio] 0 % 0-5 [facility] MCHC Auto (RBC) [Mass/Vol]Or dered By: Beck Mcmanus on 10-16-2022 MCHC (RBC) [Mass/Vol] 33.3 g/dL 32-36 [facility] No Panel InformationOrdered By: Beck Mcmanus on 10-16-2022 Troponin I High Sensitivity 9 pg/mL 3.0-78.0 [facility] Comment on above: Please Note: New Consuelo t Units and Gender Specific Reference Ranges. For more information see Policy Stat Procedure [place] High Sensitivity Troponin (TNIH) and attachments. Estimated Creatinine Clearance Calc 99.32 ml/min [facility] Estimated GFR (MDRD) Amer 118 mL/min >60 [facility] Comment on above: GFR Calc Estimated GFR (MDRD) Non-Af Amer 98 mL/min >60 [facility] Comment on above: Non- GFR Calc Platelets bldOrdered By: Earl Mcmanus on 10-16-2022 Platelets (Bld) [#/Vol] 354 10*3/uL 150-450 [facility] Serum or plasma calcium ricky urement (mass/volume)Ordered By: Beck Mcmanus on 10-16-2022 Calcium [Mass/Vol] 9.0 mg/dL 8.5-10.1 [facility] Serum or plasma creatinine m easurement (mass/volume)Ordered By: Beck Mcmanus on 10-16-2022 Creatinine [Mass/Vol] 0.88 mg/dL 0.70-1.30 [facility] Comment on above: The validity of the calculated GFR & GFRAA in patients over 70 years has not been determined. Clinical correlation is essential. Serum or plasma urea nitroge n measurement (mass/volume)Ordered By: Beck Mcmanus on 10-16-2022 Urea nitrogen [Mass/Vol] 13 mg/dL 7-18 [facility] Thin prep Papanicolaou smear with manual screeningOrdered By: Beck Mcmanus on 10-16-2022 Thin prep Papanicolaou smear with manual screening 7 5-15 [facility] ECG 12 leadon 10-05-2022 Atrial Rate [facility] P [place] [facility] P-R Interval [facility] Q-T Interval [facility] Q-T Interval (corrected) [facility] QRS Duration [facility] QTC Calculation (Bezet) [facility] [place] [facility] T [place] [facility] Ventricular Rate [facility] th [facility] CBC, EDIF, PLATELETon 2022 ABSOLUTE BASOPHIL COUNT 0.1 10*3/uL 0.0 - 0.2 10*3/uL [facility] Basophils/100 WBC (Bld) 0.5 % 0.0 - 2.0 % [facility] Differential cell count method Nom (Bld) AUTO DIFF % [facility] Eosinophils (Bld) [#/Vol] 0.1 10*3/uL 0.0 - 0.7 10*3/uL [facility] Eosinophils/100 WBC (Bld) 0.8 % 0.0 - 11.0 % [facility] Erythrocyte distribution width (RBC) [Ratio] 15.4 % High 11.5 - 14.5 % [facility] Hematocrit (Bld) [Volume fraction] 46.5 % 42.0 - 52.0 % [facility] Hemoglobin (Bld) [Mass/Vol] 15.8 g/dL [facility] Interpretation and review of laboratory results Abnormal [facility] Lymphocytes (Bld) [#/Vol] 3.1 10*3/uL 1.2 - 3.4 10*3/uL [facility] Lymphocytes/100 WBC (Bld) 29.7 % 20.0 - 55.0 % [facility] MCH (RBC) [Entitic mass] 27.9 pg 26. 0 - 35.0 PG [facility] MCHC (RBC) [Mass/Vol] 33.9 g/dL [facility] MCV (RBC) [Entitic vol] 82.4 fL A [facility] Monocytes (Bld) [#/Vol] 0.7 10*3/uL 0.0 - 0.7 10*3/uL [facility] Monocytes/100 WBC (Bld) 6.3 % 0.0 - 10.0 % [facility] Neutrophils (Bld) [#/Vol] 6.5 10*3/uL 1.4 - 6.5 10*3/uL [facility] Neutrophils/100 WBC (Bld) 62.7 % 37.0 - 75.0 % [facility] Platelet mean volume (Bld) [Entitic vol] 8.3 fL [facility] Platelets (Bld) [#/Vol] 328 10*3/uL 130 - 400 10*3/uL [facility] RBC (Bld) [#/Vol] 5.65 10*6/uL 4.0 - 6.1 10*6/uL [facility] WBC (Bld) [#/Vol] 10.3 10*3/uL 3.6 - 11.0 10*3/uL [facility] COMPREHENSIVE METABOLIC PANE Colin 09-28-2022 Albumin [Mass/Vol] 4.8 G/dl 3.5 - 5.0 G/dl [facility] Albumin/Globulin [Mass ratio] 1.5 {ratio} [facility] ALP [Catalytic activity/Vol] 48 U/L [facility] ALT [Catalytic activity/Vol] 38 U/L NINF [facility] AST [Catalytic activity/Vol] 36 U/L [facility] Bilirubin [Mass/Vol] 0.4 mg/dL [facility] Calcium [Mass/Vol] 9.4 mg/dL [facility] Chloride [Moles/Vol] 101 mmol/L [facility] Comment on above: Please note: Triglyc eride levels of 600mg/dL or higher may positively bias chloride results by approximately 2.1 mmol CO2 [Moles/Vol] 24 mmol/L [facility] Creatinine [Mass/Vol] 0.70 mg/dL [facility] GFR COMMENT Average GFR for 40-49 years old = 99. [facility] Comment on above: Chronic Kidney disea se, GFR = <60. Kidney failure, GFR = <15. The GFR estimate is not adjusted for extreme body surface area or acute process, nor has it been validated for women or ethnic groups other than and . GFR/1.73 sq M.predicted among blacks MDRD (S/P/Bld) [Vol rate/Area] 155 mL/min/{1.73_m2} ml/min/1.73s q.m [facility] GFR/1.73 sq M.predicted among non-blacks MDRD (S/P/Bld) [Vol rate/Area] 128 mL/min/{1.73_m2} ml/min/1.73s q.m [facility] Glucose post fast [Mass/Vol] 129 mg/dL High [facility] [facility] Comment on above: NORMAL <100 mg/dL PREDIABETES 101-126 mg/dL DIABETES 126 mg/dL or higher Interpretation and review of laboratory results Abnormal [facility] Potassium [Moles/Vol] 3.8 mmol/L [facility] Protein [Mass/Vol] 8.1 g/dL [facility] Sodium [Moles/Vol] 136 mmol/L Low [facility] Urea nitrogen [Mass/Vol] 12 mg/dL [facility] Portable XR Chest Views APon 09-28-2022 IMPRESSION: Nonacute portable chest. RADIOLOGY EXAM: XR CHEST AP PORTABLE HISTORY: chest pain COMPARISON: None. TECHNIQUE: Portable chest from 9:29 PM. FINDINGS: Trachea, mediastinum and heart size are unremarkable. Sternal wires and mediastinal clips are noted. The lungs are clear and well aerated. No infiltrate or nodule or effusion or pneumothorax is noted. Diaphragm and bony elements are intact. RADIOLOGY Joe Barry, DO - 09/28/2022 EXAM: XR CHEST AP PORTABLE HISTORY: chest pain COMPARISON: None. TECHNIQUE: Portable chest from 9:29 PM. FINDINGS: Trachea, mediastinum and heart size are unremarkable. Sternal wires and mediastinal clips are noted. The lungs are clear and well aerated. No infiltrate or nodule or effusion or pneumothorax is noted. Diaphragm and bony elements are intact. IMPRESSION IMPRESSION: Nonacute portable chest. [facility] Radiology Study observation (narrative) [facility] Portable XR Chest Views APOr dered By: Joe Barry on 09-28-2022 [facility] Work Phone: TROPONIN I, HIGH SENSITIVITY on 09-28-2022 TROPONIN I, HIGH SENSITIVITY 7 pg/mL 0 - 20 pg/mL [facility] Comment on above: Indeterminant: >12 to 100 pg/mL female >20 to 100 pg/mL male Indicative of myocardial injury. Serial sampling is recommended, a change of greater than or equal to 20 pg/mL is indicative of acute coronary syndrome. [facility] ECG 12 Leadon 07-20-2022 Atrial Rate [facility] P [place] [facility] P-R Interval [facility] Q-T Interval [facility] Q-T Interval (corrected) [facility] QRS Duration [facility] QTC Calculation (Bezet) [facility] [place] [facility] T [place] [facility] Ventricular Rate [facility] th [facility] XR CHEST AP/PA AND LATon XR CHEST AP/PA AND LAT EXAMINATION: XR CHEST AP/PA AND LAT 07/20/2022 8:37 am HISTORY: ORDERING SYSTEM PROVIDED HISTORY: s/p CABG, TECHNOLOGIST PROVIDED HISTORY: Illness/Other Reason for exam: s/p cabg Cancer History: U Surgery, RadiationHistory: U Encounter Type: Subsequent/Follow-up Additional signs and symptoms: cough and sob ORDERING SYSTEM PROVIDED DIAGNOSIS CODES: Z95.1 S/P CABG (coronary artery bypass graft) COMPARISON: Radiograph dated 06/15/2022 and 05/31/2022. FINDINGS: Two views are submitted. Sternotomy wires are midline and intact. Stable postoperative changes at the mediastinum. Cardiomediastinal silhouette is stable with stable cardiac enlargement. No focal consolidation or overt pulmonary edema. No pleural effusion or profiled pneumothorax. No acute osseous abnormality identified. IMPRESSION: No acute cardiopulmonary abnormality identified. Workstation ID: [id number] Dictated by: NAVNEET SWEENEY on TueJuly 20, 2022 12:41:36 PM EDT Transcribed by: NAVNEET SWEENEY on TueJuly 20, 2022 12:41:36 PM EDT Finalized by: NAVNEET SWEENEY on TueJuly 20, 2022 12:41:36 PM EDT Normal [facility] Comment on above: Order Comment: Injur y/Trauma or Illness?:Illness/Other How long have you had these symptoms (acute/chronic)?:Acute Reason for exam?:s/p cabg History of cancer?:U Surgeries, chemotherapy, or radiation?:U Type of Exam?:Subsequent/Follow-up Additional signs and symptoms?:cough and sob XR CHEST AP/PA AND LATon XR CHEST AP/PA AND LAT EXAMINATION: XR CHEST AP/PA AND LAT HISTORY: ORDERING SYSTEM PROVIDED HISTORY: Status post CABG. TECHNOLOGIST PROVIDED HISTORY: Illness/Other. Reason for exam: Status post CABG 6 weeks; Slight SOB; Continuted left arm and shoulder pain. Cancer History: U. Surgery, Radiation History: U. Encounter Type: Subsequent/Followup. ORDERING SYSTEM PROVIDED DIAGNOSIS CODES: Z95.1 S/P CABG (coronary artery bypass graft). COMPARISON: 06/10/2022. FINDINGS: Two-view chest x-ray. No pneumothorax, pleural effusion or focal airspace consolidation. Right basilar subsegmental atelectasis. Heart is normal in size. Postoperative changes of median sternotomy and CABG. Bony thorax is unremarkable. IMPRESSION: Improved aeration of the lungs. Stable mediastinal contours status post CABG. [employer] Workstation ID: [id number] Dictated by: ANTONIO NOYOLA on TueJun 15, 2022 4:20:00 PM EDT Transcribed by: VIKTORIA VAUGHAN on TueJun 15, 2022 4:49:21 PM EDT Finalized by: ANTONIO NOYOLA on TueJun 15, 2022 8:26:45 PM EDT [facility] Comment on above: Order Comment: Injur y/Trauma or Illness?:Illness/Other How long have you had these symptoms (acute/chronic)?:Acute Reason for exam?:S/P CABG 6 weeks; Slight SOB; Continuted left arm and shoulder pain History of cancer?:U Surgeries, chemotherapy, or radiation?:U Type of Exam?:Subsequent/Follow-up Additional signs and symptoms?: XR CHEST PA/APon 05-31-2022 XR CHEST PA/AP EXAMINATION: XR CHEST PA/AP 05/31/2022 5:00 am HISTORY: ORDERING SYSTEM PROVIDED HISTORY: post open heart surgery, TECHNOLOGIST PROVIDED HISTORY: Illness/Other Reason for exam: post open heart surgery Cancer History: U Surgery, RadiationHistory: U Encounter Type: Subsequent/Follow-up Additional signs and symptoms: n ORDERING SYSTEM PROVIDED DIAGNOSIS CODES: Z95.1 S/P CABG (coronary artery bypass graft) I21.3 ST elevation myocardial infarction (STEMI), unspecified artery (HCC) COMPARISON: Chest radiograph dated 05/30/2022. FINDINGS: One view of the chest was obtained. There are postsurgical changes of the chest with median sternotomy wires and surgical clips in place. The cardiac silhouette is enlarged though stable in size. There is linear atelectasis and/or scarring in the [id number] right lung. There is no significant pneumothorax or left pleural effusion. There is a small right pleural effusion. A left central venous line is in a stable position. No acute osseous abnormality is seen. IMPRESSION: 1. Stable enlarged cardiac silhouette with suspected linear atelectasis and/or scarring in the right lower lung. [facility] Workstation ID: [id number] Dictated by: KALIE TIJERINA on TueMay 31, 2022 5:35:12 AM EDT Transcribed by: CARISA DOSS on TueMay 31, 2022 5:38:00 AM EDT Finalized by: KALIE TIJERINA on TueMay 31, 2022 5:52:48 AM EDT [facility] Comment on above: Order Comment: Injur y/Trauma or Illness?:Illness/Other How long have you had these symptoms (acute/chronic)?:Acute Reason for exam?:s/p cabg History of cancer?:U Surgeries, chemotherapy, or radiation?:U Type of Exam?:Subsequent/Follow-up Additional signs and symptoms?:cough and sob XR CHEST PA/APon 05-30-2022 XR CHEST PA/AP EXAMINATION: XR CHEST PA/AP 05/30/2022 5:06 am HISTORY: ORDERING SYSTEM PROVIDED HISTORY: post open heart surgery, TECHNOLOGIST PROVIDED HISTORY: Illness/Other Reason for exam: post open heart surgery Cancer History: U Surgery, RadiationHistory: U Encounter Type: Subsequent/Follow-up Additional signs and symptoms: n ORDERING SYSTEM PROVIDED DIAGNOSIS CODES: Z95.1 S/P CABG (coronary artery bypass graft) I21.3 ST elevation myocardial infarction (STEMI), unspecified artery (HCC) COMPARISON: Chest x-ray 05/29/2022 FINDINGS: Left venous catheter tip at the SVC. Prior sternotomy. Cardiomegaly, similar to prior exam. Right mid and lower lung streaky atelectasis, similar to prior exam. No large pleural effusions, pneumothorax, or acute bony abnormality, IMPRESSION: Prior sternotomy. Cardiomegaly, similar to prior exam. Right mid and lower lung streaky linear atelectasis, similar to prior exam. Workstation ID: [id number] Dictated by: AMARIS JARAMILLO on [place] May 30, 2022 5:56:04 AM EDT Transcribed by: AMARIS JARAMILLO on [place] May 30, 2022 5:56:04 AM EDT Finalized by: AMARIS JARAMILLO on [place] May 30, 2022 5:56:04 AM EDT [facility] Comment on above: Order Comment: Injur y/Trauma or Illness?:Illness/Other How long have you had these symptoms (acute/chronic)?:Acute Reason for exam?:s/p cabg History of cancer?:U Surgeries, chemotherapy, or radiation?:U Type of Exam?:Subsequent/Follow-up Additional signs and symptoms?:cough and sob XR CHEST PA/APon 05-29-2022 XR CHEST PA/AP EXAMINATION: XR CHEST PA/AP 05/29/2022 9:49 am HISTORY: ORDERING SYSTEM PROVIDED HISTORY: chest tube removal, TECHNOLOGIST PROVIDED HISTORY: Illness/Other Reason for exam: chest tube removal Cancer History: U Surgery, RadiationHistory: U Encounter Type: Subsequent/Follow-up Additional signs and symptoms: ORDERING SYSTEM PROVIDED DIAGNOSIS CODES: Z95.1 S/P CABG (coronary artery bypass graft) I21.3 ST elevation myocardial infarction (STEMI), unspecified artery (HCC) COMPARISON: 05/29/2022 at 5:11 a.m. FINDINGS: Heart is mildly enlarged. Vascularity is unremarkable. No pneumothorax is identified. Left chest tube is been removed. Platelike atelectasis is noted in the right midlung field. There is a small amount of atelectasis in the right lung base along with a small right effusion. Findings are unchanged. Left lung is free of focal infiltrates. Median sternotomy sutures are noted. IMPRESSION: 1. Left chest tube is been removed. No pneumothorax. 2. Platelike atelectasis in the right mid and lower lung field along with a small right effusion. Findings are unchanged. Workstation ID: [id number] Dictated by: DEEJAY CONDE on [facility] May 29, 2022 10:19:56 AM EDT Transcribed by: DEEJAY CONDE on [facility] May 29, 2022 10:19:56 AM EDT Finalized by: DEEJAY CONDE on [facility] May 29, 2022 10:19:56 AM EDT [facility] Comment on above: Order Comment: Unit to call when ready Injury/Trauma or Illness?:Illness/Other How long have you had these symptoms (acute/chronic)?:Acute Reason for exam?:chest tube removal History of cancer?:U Surgeries, chemotherapy, or radiation?:U Type of Exam?:Subsequent/Follow-up Additional signs and symptoms?: XR CHEST PA/AP EXAMINATION: XR CHEST PA/AP HISTORY: post open heart surgery COMPARISON: Chest radiograph yesterday at 5:24 a.m. FINDINGS: Cardiomediastinal silhouette is enlarged. Low lung volumes and congestive pattern unchanged. Small right pleural effusion. No acute osseous abnormality. The Eddington-Randa catheter is been removed. Stable left subclavian CVC. Stable left chest tube. No pre or abscess. IMPRESSION: Low lung volumes and mild congestive pattern with small right effusion. Stable left chest tube. No evidence of pneumothorax. The Eddington-Randa catheter has been removed. Workstation ID: [id number] Dictated by: ZACK MCGILL on [facility] May 29, 2022 5:59:50 AM EDT Transcribed by: ZACK MCGILL on [facility] May 29, 2022 5:59:50 AM EDT Finalized by: ZACK MCGILL on [facility] May 29, 2022 5:59:50 AM EDT Normal [facility] Comment on above: Order Comment: Injur y/Trauma or Illness?:Illness/Other How long have you had these symptoms (acute/chronic)?:Acute Reason for exam?:post open heart surgery History of cancer?:U Surgeries, chemotherapy, or radiation?:U Type of Exam?:Subsequent/Follow-up Additional signs and symptoms?: XR CHEST PA/APon 05-28-2022 XR CHEST PA/AP EXAMINATION: XR CHEST PA/AP 05/28/2022 5:43 am HISTORY: ORDERING SYSTEM PROVIDED HISTORY: post open heart surgery, TECHNOLOGIST PROVIDED HISTORY: Illness/Other Reason for exam: post open heart surgery Cancer History: U Surgery, RadiationHistory: U Encounter Type: Subsequent/Follow-up Additional signs and symptoms: n ORDERING SYSTEM PROVIDED DIAGNOSIS CODES: Z95.1 S/P CABG (coronary artery bypass graft) I21.3 ST elevation myocardial infarction (STEMI), unspecified artery (HCC) COMPARISON: Chest radiograph dated 05/27/2022. FINDINGS: One view of the chest was obtained. There has been interval extubation and removal of the nasogastric tube. There are postsurgical changes of the chest with median sternotomy wires and surgical clips in place. A right Eddington-Randa catheter is in a stable position. The cardiac silhouette is enlarged though stable in size. A left central venous line is in a stable position. A left-sided chest tube is noted. There is no significant pneumothorax. There is suspected atelectasis along the right minor fissure. There is a possible trace right pleural effusion. There is no significant left pleural effusion. No acute osseous abnormality is seen. IMPRESSION: 1. Interval extubation and removal of the nasogastric tube. 2. Stable enlarged cardiac silhouette with a possible trace right pleural effusion. [facility] Workstation ID: [id number] Dictated by: KALIE TIJERINA on TueMay 28, 2022 6:26:56 AM EDT Transcribed by: DOUG CARUSO on TueMay 28, 2022 6:28:30 AM EDT Finalized by: KALIE TIJERINA on TueMay 28, 2022 6:54:49 AM EDT [facility] Comment on above: Order Comment: Injur y/Trauma or Illness?:Illness/Other How long have you had these symptoms (acute/chronic)?:Acute Reason for exam?:post open heart surgery History of cancer?:U Surgeries, chemotherapy, or radiation?:U Type of Exam?:Subsequent/Follow-up Additional signs and symptoms?:n XR CHEST PA/APon 05-27-2022 XR CHEST PA/AP EXAMINATION: XR CHEST PA/AP 05/27/2022, 12:09 PM HISTORY: ORDERING SYSTEM PROVIDED HISTORY: ETT placement. TECHNOLOGIST PROVIDED HISTORY: Illness/Other. Reason for exam: ETT and OGT placement s/p open heart sx. Cancer History: U. Surgery, Radiation History: U. Encounter Type: Initial. Additional signs and symptoms: N. ORDERING SYSTEM PROVIDED DIAGNOSIS CODES: Z95.1 S/P CABG (coronary artery bypass graft). I21.3 ST elevation myocardial infarction (STEMI), unspecified artery (HCC). COMPARISON: May 27, 2022. TECHNIQUE: Single portable supine view of the chest. FINDINGS: Interval postoperative changes of median sternotomy surgery. Endotracheal tube tip is about 4 cm above the vernon in satisfactory position. Enteric tube catheter tip terminates in the proximal stomach. Right-sided IJ Eddington-Randa catheter tip at the level of the main pulmonary outflow tract. Mediastinal drains/thoracotomy tubes are in place. Left-sided subclavian central line catheter tip at the level of the brachiocephalic-SVC junction. There are scattered bandlike opacities in the [id number]-[id number] lungs consistent with subsegmental atelectasis. There is indistinctness of the right costophrenic angle suggesting a small effusion. There is no pneumothorax. IMPRESSION: 1. Line and tubes are in expected positions. Eddington-Randa catheter tip at the level of the main pulmonary outflow tract 2. Bilateral vsv-ca-[id number] lung subsegmental atelectasis and possible small right pleural effusion. 3. No pneumothorax. [employer] Workstation ID: [id number] Dictated by: KAYLAH MONROE on TueMay 27, 2022 12:17:35 PM EDT Transcribed by: VIKTORIA VAUGHAN on TueMay 27, 2022 1:09:02 PM EDT Finalized by: KAYLAH MONROE on TueMay 27, 2022 3:01:43 PM EDT [facility] Comment on above: Order Comment: Injur y/Trauma or Illness?:Illness/Other How long have you had these symptoms (acute/chronic)?:Acute Reason for exam?:s/p cabg History of cancer?:U Surgeries, chemotherapy, or radiation?:U Type of Exam?:Subsequent/Follow-up Additional signs and symptoms?:cough and sob XR CHEST PA/AP EXAMINATION: XR CHEST PA/AP 05/27/2022 5:04 am HISTORY: ORDERING SYSTEM PROVIDED HISTORY: pre-op, TECHNOLOGIST PROVIDED HISTORY: Illness/Other Reason for exam: pre-op CABG surgery Cancer History: U Surgery, RadiationHistory: U Encounter Type: Initial Additional signs and symptoms: ORDERING SYSTEM PROVIDED DIAGNOSIS CODES: I21.3 ST elevation myocardial infarction (STEMI), unspecified artery (HCC) COMPARISON: Chest radiographs dated 05/24/2022. FINDINGS: One view of the chest was obtained. The cardiac silhouette is stable in size. The lungs are clear. There is no significant pneumothorax or pleural effusion. No acute osseous abnormality is seen. IMPRESSION: 1. No acute cardiopulmonary abnormality. [facility] Workstation ID: [id number] Dictated by: KALIE TIJERINA on TueMay 27, 2022 6:10:14 AM EDT Transcribed by: DOUG CARUSO on TueMay 27, 2022 6:21:09 AM EDT Finalized by: KALIE TIJERINA on TueMay 27, 2022 6:21:09 AM EDT Normal [facility] Comment on above: Order Comment: Injur y/Trauma or Illness?:Illness/Other How long have you had these symptoms (acute/chronic)?:Acute Reason for exam?:pre-op CABG surgery History of cancer?:U Surgeries, chemotherapy, or radiation?:U Type of Exam?:Initial Additional signs and symptoms?: ECHOCARDIOGRAM COMPLETE W CO NTRASTon 05-24-2022 ECHOCARDIOGRAM COMPLETE W CONTRAST Patient Info Name: ALBAN PARKER Age: 46 years : 1975 Gender: Male Ht: 170 cm Wt: 83 kg BSA: 2.01 m2 HR: 71 bpm BP: 191 / 116 mmHg Heart Rhythm: Sinus Rhythm Technical Quality: Fair Exam Date: 05/24/2022 7:28 AM 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 This study was technically limited, [...] pressures. 6. No hemodynamically significant valvular disease. History/Risk Factors Hypertension: Yes Myocardial Infarction (ME): Yes Tobacco Use: Current - Every Day If Any Current, Tobacco Type: Cigarettes If Current - Every Day AND Cigarettes, Amount: Heavy Tobacco Use (>=10/day) Prior Interventions PCI: Yes Date of PCI: 05/24/2022 Procedure(s): Complete two-dimensional, color flow and Doppler transthoracic echocardiogram is performed with contrast. Definity explained to patient. Patient verbalizes understanding and agrees to proceed. Definity 1.3ml/8.7ml normal sterile saline 2 ml total given IV over 30-60 seconds. Left Ventricle Left ventricular chamber dimension is normal. Left ventricular systolic function is normal with an ejection fraction by Biplane Method of Discs of 59 %. Mild left ventricular concentric hypertrophy. Left ventricular segmental wall motion is normal. There is grade 1 diastolic dysfunction, consistent with impaired relaxation and low or normal left atrial pressures. Right Ventricle Right ventricular size and systolic function are normal. Left Atria Left atrial chamber is normal with a left atrial volume index of 32 ml/m2 by BP MOD. Right Atria Right atrial chamber dimension is normal. Aortic Valve The aortic valve is trileaflet. There is no aortic valve sclerosis. There is no aortic valve stenosis. There is trace aortic valve regurgitation. Pulmonic Valve The pulmonic valve is normal. There is no pulmonic valve stenosis. There is trace pulmonic regurgitation. Mitral Valve The mitral valve has normal leaflets. There is no mitral valve stenosis. There is no mitral valve regurgitation. Tricuspid Valve The tricuspid valve leaflets are normal. There is no significant tricuspid valve stenosis. There is trace tricuspid valve regurgitation. There is no pulmonary hypertension, estimated right ventricle systolic pressure is 21 mmHg. Pericardium/Pleural There is no pericardial effusion. Inferior Vena Cava Normal inferior vena cava with >50% collapse upon inspiration consistent with normal right atrial pressure. Aorta The aortic measurements are indexed to age and body surface area. The aortic root is borderline dilated measuring 3.7 cm with an index of 1.9 cm/m2. The proximal ascending aorta is normal measuring 3.1 cm with an index of 1.6 cm/m2. Wall Motion Scoring Wall Motion Scoring Index: 1.00 Left Ventricular Outflow Tract Name Value Normal LVOT 2D LVOT Diameter 2.1 cm LVOT Doppler LVOT Peak Velocity 1.3 m/s LVOT Peak Gradient 6 mmHg LVOT Mean Gradient 3 mmHg LVOT VTI 24 cm LVOT VTI/AV VTI Ratio 1.0 LVOT Stroke Volume 84 ml LVOT Stroke Index 41.82 ml/m2 LVOT CO 6.0 l/min LVOT CI 3.0 L/min/m2 Pulmonic Valve Name Value Normal PV 2D RVOT Diameter (2D) 2.2 cm 1.7-2.7 RVOT Doppler RVOT Peak Velocity 59 cm/s RVOT Peak Gradient 1 mmHg RVOT Mean Gradient 1 mmHg RVOT VTI 13 cm PV Doppler PV Peak Velocity 0.72 m/s PV Peak Gradient 2 mmHg PV Mean Gradient 1 mmHg PV VTI 13 cm PV Area (Cont Eq VTI) 3.8 cm2 PV Area Index (Cont Eq VTI) 1.87 cm2/m2 PV Area (Cont Eq Levon) 3.1 cm2 PV Area Index (Cont Eq Levon) 1.55 cm2/m2 Mitral Valve ---- (more content not included)... Normal [facility] LEFT HEART CATHon 05-24-2022 LEFT HEART CATH This is a summary report. The complete report is available in the patient's medical record. If you cannot access the medical record, please contact the sending organization for a detailed fax or copy. Impression: Acute inferior ST elevation myocardial infarction Severe three-vessel coronary disease S/p balloon angioplasty of distal right coronary artery Elevated left heart filling pressures Mildly reduced LV systolic function EF 50% Recommendations: Continue medical therapy Cardiothoracic surgery consult for urgent CABG Coronary Findings Diagnostic Dominance: Right Left Main: The vessel was visualized by angiography, is moderate in size and is angiographically normal. Left Anterior Descending: Prox LAD to Mid LAD lesion is 80% stenosed. The lesion was previously treated using a stent of unknown type. Ramus Intermedius: The vessel was visualized by angiography and is moderate in size. There is mild diffuse disease throughout the vessel. Left Circumflex: Prox Cx to Dist Cx lesion is 70% stenosed. First Obtuse Marginal Branch: 1st Mrg lesion is 70% stenosed. Right Coronary Artery: Prox RCA lesion is 80% stenosed. The lesion was previously treated using a stent of unknown type. Prox RCA to Mid RCA lesion is 70% stenosed. Dist RCA lesion is 95% stenosed. DAISY flow is 2. The lesion is type C, irregular and serial. The lesion was previously treated using a stent of unknown type. The lesion has in-stent restenosis. Intervention Dist RCA lesion: Angioplasty: Angioplasty using angioplasty was performed independent of stent deployment. Maximum pressure: 10 santosh. Inflation time: 10 sec. Supplies Used: WIRE .[address] RUNTHROUGH NS; BALLOON 3 X 15MM EMERGE RX Post-Intervention Lesion Assessment: The intervention was successful. The guidewire crossed the lesion. Device was not deployed. Post-intervention DAISY flow is 3. There were no complications. There is a 60% residual stenosis post intervention. Left Ventricle Ejection Fraction: 50%.The left ventricular size is normal. The left ventricular systolic function is normal. LV systolic pressure is elevated. LV end diastolic pressure is elevated. There are wall motion abnormalities in the left ventricle. Appropriate use criteria Indication for PCI: STEMI. Clinical presentation: immediate PCI for acute STEMI Wall Motion The following segments are hypokinetic: mid inferior and apical inferior. The following segments are normal: mid anterior, basilar anterior, basilar inferior and apical anterior. Normal [facility] US ANKLE/BRACHIAL INDICES EX TREMITY LIMITEDon 05-24-2022 US ANKLE/BRACHIAL INDICES EXTREMITY LIMITED Patient Info Name: ALBAN PAREKR Age: 46 years : 1975 Gender: Male Exam Date: 05/24/2022 10:11 AM Patient Status: Inpatient Dispatcher Radio: MALENA NOE RVT Referring Physician: SIMEON FUNG; Indications Z01.810 - Encounter for preprocedural cardiovascular examination Procedure Description [id number] Limited bilateral noninvasive physiologic studies of upper or lower extremity arteries with bidirectional Doppler/PVR waveform analysis at 1-2 levels. Conclusions * Right and left ankle brachial indices are normal. Right XIOMARA is 1.06. Left XIOMARA is 1.12. * No evidence of small vessel disease at the transmetatarsal level in both feet. * Right and left toe brachial indices are normal. . Doppler Rt Posterior Tibial: Triphasic Rt Dorsalis Pedis: Triphasic Lt Posterior Tibial: Triphasic Lt Dorsalis Pedis: Triphasic PVR Rt Ankle: Normal Lt Ankle: Normal Rt Digit: Normal Lt Digit: Normal Segmental BP Findings No blood pressure in right. Rt Posterior Tibial: 185 Rt Dorsalis Pedis: 177 Rt Digit: 151 1.06 1.02 0.87 Lt Brachial: 174 Lt Posterior Tibial: 195 Lt Dorsalis Pedis: 162 Lt Digit: 166 1.12 0.93 0.95 Risk Factors Patient has a history of CHF, CAD and tobacco use-current. . Report Signatures Finalized by Lori Sena MD on 05/24/2022 06:42 PM Normal [facility] US DOPPLER CAROTIDon 023 US DOPPLER CAROTID Patient Info Name: ALBAN PARKER Age: 46 years : 1975 Gender: Male Exam Date: 05/24/2022 10:05 AM Patient Status: Inpatient Dispatcher Radio: Malena Noe RVT Referring Physician: KENTON Mandel; Indications R42 - Dizziness and giddiness Procedure Description 83512 Duplex examination using B-mode, color and spectral Doppler of extracranial arteries; complete bilateral study. NASCET criteria is used when performing imaging correlation with carotid duplex interpretation. Conclusions * Right. * Less than 50% stenosis in the right internal carotid artery. * No evidence of stenosis in the right common carotid, external carotid and subclavian arteries. * Right vertebral artery is patent with antegrade flow. * Left. * Less than 50% stenosis in the left internal carotid artery. * No evidence of stenosis in the left common carotid, external carotid and subclavian arteries. * Left vertebral artery is patent with antegrade flow. Measurements Name Value Right PSV Right Prox CCA PSV 139 cm/s Right Mid CCA PSV 106 cm/s Right Distal CCA PSV 84 cm/s Right Prox ICA PSV 55 cm/s Right Mid ICA PSV 42 cm/s Right Distal ICA PSV 44 cm/s Right ECA PSV 122 cm/s Right Vert PSV 39 cm/s BC PSV 115 cm/s Right Prox SCA PSV 158 cm/s Rt ICA/CCA Ratio 0.7 Measurements Name Value Right EDV Right Prox CCA EDV 32 cm/s Right Mid CCA EDV 23 cm/s Right Distal CCA EDV 21 cm/s Right Prox ICA EDV 15 cm/s Right Mid ICA EDV 17 cm/s Right Distal ICA EDV 17 cm/s Right ECA EDV 19 cm/s Right Vert EDV 13 cm/s BC EDV 10 cm/s Right Prox SCA EDV 0 cm/s Measurements Name Value Left PSV Left Prox CCA PSV 122 cm/s Left Mid CCA PSV 106 cm/s Left Distal CCA PSV 72 cm/s Left Prox ICA PSV 69 cm/s Left Mid ICA PSV 61 cm/s Left Distal ICA PSV 62 cm/s Left ECA PSV 179 cm/s Left Vert PSV 47 cm/s Left Prox SCA PSV 177 cm/s Lt ICA/CCA Ratio 1.0 Measurements Name Value Left EDV Left Prox CCA EDV 19 cm/s Left Mid CCA EDV 18 cm/s Left Distal CCA EDV 20 cm/s Left Prox ICA EDV 26 cm/s Left Mid ICA EDV 25 cm/s Left Distal ICA EDV 28 cm/s Left ECA EDV 23 cm/s Left Vert EDV 15 cm/s Left Prox SCA EDV 0 cm/s Right Findings * No plaque noted in the right common carotid artery. * Heterogeneous plaque noted in the right internal carotid artery. * No plaque noted in the right external carotid artery. Left Findings * No plaque noted in the left common carotid artery. * Heterogeneous plaque noted in the left internal carotid artery. * No plaque noted in the left external carotid artery. Risk Factors Patient has a history of CHF, CAD and tobacco use-current. . Report Signatures Finalized by Lori Sena MD on 05/24/2022 06:41 PM Normal [facility] Comment on above: Order Comment: Dr. Chucho Sena to read US SAPHENOUS VEIN MAPon 05-12 US SAPHENOUS VEIN MAP Patient Info Name: ALBAN PARKER Age: 46 years : 1975 Gender: Male Exam Date: 05/24/2022 9:55 AM Patient Status: Inpatient Dispatcher Radio: Malena Noe RVT Referring Physician: KENTON Mandel; Indications - pending CABG Z01.810 - Encounter for preprocedural cardiovascular examination Procedure Description 88508 Duplex examination using B-mode, color and spectral Doppler of extremity veins including responses to compression and other maneuvers; unilateral or limited study. Conclusions * Right and left great saphenous veins are patent with measurements as listed. Measurements Name Value Right AP Right GSV Prox Thigh 4.9 mm Right GSV Mid Thigh 4.3 mm Right GSV Distal Thigh 4.1 mm Right GSV Knee 4.0 mm Right GSV Prox Calf 3.4 mm Right GSV Mid Calf 3.1 mm Right GSV Distal Calf 3.3 mm Measurements Name Value Left AP Left GSV Prox Thigh 4.7 mm Left GSV Mid Thigh 4.3 mm Left GSV Distal Thigh 3.8 mm Left GSV Knee 4.2 mm Left GSV Prox Calf 3.3 mm Left GSV Mid Calf 3.0 mm Left GSV Distal Calf 3.2 mm Risk Factors Patient has a history of CHF, CAD and tobacco use-current. . Report Signatures Finalized by Amaris Hernandez MD, RPVI on 05/24/2022 11:22 AM [facility] US TESTICLE WITH COLOR FLOWo n 05-24-2022 US TESTICLE WITH COLOR FLOW EXAMINATION: US TESTICLE WITH COLOR FLOW HISTORY: draining area on scrotum Injury/Trauma or Illness?:Illness/Oth er How long have you had these symptoms (acute/chronic)?:Chr onic Reason for exam?:Intermittent drainage for 4yrs right superior scrotal area after cardiac cath/patient states occurs w/exertion History of cancer?:U Surgeries, chemotherapy, or radiation?:U I21.3 ST elevation myocardial infarction (STEMI), unspecified artery (HCC) COMPARISON: None TECHNIQUE: Kilgore scale imaging as well as color and duplex Doppler ultrasound examination of the scrotum and its contents were performed. FINDINGS: The testes are normal in size and echotexture without focal abnormality. The right testis measures 4.0 x 2.3 x 2.1 cm. The left testis measures 4.1 x 2.6 x 2.1 cm. Duplex Doppler examination shows normal and symmetric intratesticular blood flow bilaterally. The paratesticular tissues, including epididymides, are normal. No varicocele. No significant hydrocele. The scrotal skin thickness is normal. Within the right superior scrotum, there is a subcutaneous hypoechoic focus with increased through transmission; no internal color flow. This focus measures 0.8 x 0.7 x 0.7 cm. IMPRESSION: 1. No acute testicular findings. 2. Right superior scrotal subcutaneous hypoechoic cystic focus, which could represent a small hematoma/debris containing seroma. No internal color flow to suggest pseudoaneurysm. Consider follow-up to resolution. Workstation ID: [id number] Dictated by: NIGEL KENDALL on TueMay 24, 2022 4:33:26 PM EDT Transcribed by: NIGEL KENDALL on TueMay 24, 2022 4:33:26 PM EDT Finalized by: NIGEL KENDALL on TueMay 24, 2022 4:33:26 PM EDT [facility] Comment on above: Order Comment: Injur y/Trauma or Illness?:Illness/Other How long have you had these symptoms (acute/chronic)?:Acute Reason for exam?:s/p cabg History of cancer?:U Surgeries, chemotherapy, or radiation?:U Type of Exam?:Subsequent/Follow-up Additional signs and symptoms?:cough and sob XR CHEST AP/PA AND LATon XR CHEST AP/PA AND LAT EXAMINATION: XR CHEST AP/PA AND LAT HISTORY: ORDERING SYSTEM PROVIDED HISTORY: pre-op, TECHNOLOGIST PROVIDED HISTORY: Illness/Other Reason for exam: pre-op Cancer History: U Surgery, RadiationHistory: U Encounter Type: Initial Additional signs and symptoms: chest pain ORDERING SYSTEM PROVIDED DIAGNOSIS CODES: I21.3 ST elevation myocardial infarction (STEMI), unspecified artery (HCC) COMPARISON: 05/24/2022. FINDINGS: Two-view chest x-ray. No pneumothorax, pleural effusion or focal airspace consolidation. Heart is normal in size. Bony thorax is unremarkable. IMPRESSION: No acute cardiopulmonary process. /[facility] Workstation ID: [id number] Dictated by: ANTONIO NOYOLA on TueMay 24, 2022 10:01:44 AM EDT Transcribed by: DOUG CARUSO on TueMay 24, 2022 10:09:40 AM EDT Finalized by: ANTONIO NOYOLA on TueMay 24, 2022 5:20:10 PM EDT [facility] Comment on above: Order Comment: Injur y/Trauma or Illness?:Illness/Other How long have you had these symptoms (acute/chronic)?:Acute Reason for exam?:pre-op History of cancer?:U Surgeries, chemotherapy, or radiation?:U Type of Exam?:Initial Additional signs and symptoms?:chest pain XR CHEST PA/APon 05-24-2022 XR CHEST PA/AP EXAMINATION: XR CHEST PA/AP HISTORY: chest pain COMPARISON: 05/24/2022 TECHNIQUE: View(s) of the chest is/are submitted. FINDINGS: There is no acute airspace disease. The cardiac silhouette is normal. The costophrenic recesses are sharp. No pneumothorax. The bony elements are unremarkable. IMPRESSION: No acute cardiopulmonary process. Workstation ID: [id number] Dictated by: GERBER CRUZ on TueMay 24, 2022 6:10:38 AM EDT Transcribed by: GERBER CRUZ on TueMay 24, 2022 6:10:38 AM EDT Finalized by: GERBER CRUZ on TueMay 24, 2022 6:10:38 AM EDT [facility] Comment on above: Order Comment: Injur y/Trauma or Illness?:Illness/Other How long have you had these symptoms (acute/chronic)?:Acute Reason for exam?:STEMI History of cancer?:U Surgeries, chemotherapy, or radiation?:U Type of Exam?:Initial Additional signs and symptoms?:u Absolute lymphocyte counton 03-27-2022 Lymphocytes Auto (Unsp spec) [#/Vol] 3.18 10*3/uL 0.83-4.51 [facility] Work Phone: Basophil percentageon 2022 Basophils/100 WBC (Bld) 0.5 % 0-1 [facility] Work Phone: Chloride [Moles/Vol] 104 mmol/L 98-107 [facility] Work Phone: Eosinophils/100 WBC (Bld) 1.4 % 0-5 [facility] Work Phone: Glucose [Mass/Vol] 171 mg/dL 74-106 [facility] Work Phone: Comment on above: Fasting Glucose resu lt greater than or equal to 126 mg/dL suggests DIABETES MELLITUS per A.D.A. criteria. Neutrophils (Bld) [#/Vol] 7.6 10*3/uL 2.0-7.7 [facility] Work Phone: Neutrophils/100 WBC (Bld) 64.8 % 47-70 [facility] Work Phone: Potassium [Moles/Vol] 3.7 mmol/L 3.5-5.1 [facility] Work Phone: Sodium [Moles/Vol] 137 mmol/L 136-145 [facility] Work Phone: WBC (Bld) [#/Vol] 11.8 10*3/uL 4.4-11.0 [facility] Work Phone: Blood erythrocytes count (nu mber/volume)on 03-27-2022 RBC (Bld) [#/Vol] 5.68 10*6/uL 4.6-6.2 [facility] Work Phone: Blood hemoglobin measurement (mass/volume)on 03-27-2022 Hemoglobin (Bld) [Mass/Vol] 16.5 g/dL 13.0-16.5 [facility] Work Phone: Blood lymphocytes/100 leukoc yteson 03-27-2022 Lymphocytes/100 WBC (Bld) 27.0 % 19-41 [facility] Work Phone: Blood monocytes/100 leukocyt eson 03-27-2022 Monocytes/100 WBC (Bld) 5.9 % 0-10 [facility] Work Phone: Blood platelet mean volumeon 03-27-2022 Platelet mean volume (Bld) [Entitic vol] 10.5 fL 6.2-12.0 [facility] Work Phone: [phone] Determination of erythrocyte mean corpuscular volume (MCV)on 03-27-2022 MCV (RBC) [Entitic vol] 86.1 fL 80-94 [facility] Work Phone: Hematocrit Auto (Bld) [Volum e fraction]on 03-27-2022 Hematocrit (Bld) [Volume fraction] 48.9 % 40-54 [facility] Work Phone: Laboratory - Chemistry and C hemistry - challengeon 03-27-2022 CO2 [Moles/Vol] 27.0 mmol/L 21.0-32.0 [facility] Work Phone: Urea nitrogen/Creatinine [Mass ratio] 12.8 mg/mg 10-20 [facility] Work Phone: [phone] Laboratory - Hematology and Cell countson 03-27-2022 Erythrocyte distribution width (RBC) [Entitic vol] 39.6 fL 35.1-43.9 [facility] Work Phone: [phone] Erythrocyte distribution width (RBC) [Ratio] 12.7 % 11.6-14.6 [facility] Work Phone: [phone] Immature granulocytes/100 WBC (Bld) 0.400 % 0.0-0.9 [facility] Work Phone: Comment on above: IG% - Immature Granu locytes (promyelocytes, myelocytes and metamyelocytes) > 1% indicates that a LEFT SHIFT is Present. MCH (RBC) [Entitic mass] 29.0 pg 27.0-32.0 [facility] Work Phone: Nucleated RBC/100 WBC (Bld) [Ratio] 0 % 0-5 [facility] Work Phone: MCHC Auto (RBC) [Mass/Vol]on 03-27-2022 MCHC (RBC) [Mass/Vol] 33.7 g/dL 32-36 [facility] Work Phone: No Panel Informationon 03-27 Troponin I High Sensitivity 7 pg/mL 3.0-78.0 [facility] Work Phone: Comment on above: Please Note: New Consuelo t Units and Gender Specific Reference Ranges. For more information see Policy Stat Procedure [place] High Sensitivity Troponin (TNIH) and attachments. Estimated Creatinine Clearance Calc 72.97 ml/min [facility] Work Phone: Estimated GFR (MDRD) Amer 86 mL/min >60 [facility] Work Phone: Comment on above: GFR Calc Estimated GFR (MDRD) Non-Af Amer 71 mL/min >60 [facility] Work Phone: Comment on above: Non- GFR Calc Platelets bldon 03-27-2022 Platelets (Bld) [#/Vol] 327 10*3/uL 150-450 [facility] Work Phone: Serum or plasma calcium ricky urement (mass/volume)on 03-27-2022 Calcium [Mass/Vol] 8.7 mg/dL 8.5-10.1 [facility] Work Phone: [phone] Serum or plasma creatinine m easurement (mass/volume)on 03-27-2022 Creatinine [Mass/Vol] 1.17 mg/dL 0.70-1.30 [facility] Work Phone: Comment on above: The validity of the calculated GFR & GFRAA in patients over 70 years has not been determined. Clinical correlation is essential. Serum or plasma urea nitroge n measurement (mass/volume)on 03-27-2022 Urea nitrogen [Mass/Vol] 15 mg/dL 7-18 [facility] Work Phone: [phone] Thin prep Papanicolaou smear with manual screeningon 01-14-2023 Thin prep Papanicolaou smear with manual screening 6 5-15 [facility] Work Phone: XR Hand Right 3+ Views (Edenilson ricks)on 02-16-2020 Suspect a small chip fracture arising from the radial-volar aspect of the 3rd distal phalanx. Adjacent soft tissue swelling and skin deformity compatible with the history of a saw injury. No metallic foreign material is seen. JRS/ads Workstation ID: [id number] [facility] EXAMINATION: XR HAND RIGHT 3+ VIEWS (STANDARD) HISTORY: ORDERING SYSTEM PROVIDED HISTORY: tablesaw injury of the right 3rd, 4th and 5th fingers, TECHNOLOGIST PROVIDED HISTORY: Injury/Trauma Reason for exam: tablesaw injury of the right 3rd, 4th and 5th fingers Cancer History: U Surgery, RadiationHistory: U Encounter Type: Initial Mechanism of injury: tables injury ORDERING SYSTEM PROVIDED DIAGNOSIS CODES: Saw injury. COMPARISON: None available. FINDINGS: Three views of the right hand were performed. There is soft tissue swelling and skin deformity involving the distal 3rd digit. Best seen on the oblique view, there is a linear focus of calcific density along the radial-volar aspect of the distal phalanx, which may represent a small fracture fragment. This is not well seen on the other views. No metallic foreign material is seen. There is a more mwie-nirrmruccg-rfvp aring ossific density along the ulnar base of the 4th distal phalanx, which is probably due to degenerative change or old trauma. [facility] Interface, Rad In Cherie Speechq - 02/16/2020 4:38 PM EST EXAMINATION: XR HAND RIGHT 3+ VIEWS (STANDARD) HISTORY: ORDERING SYSTEM PROVIDED HISTORY: tablesaw injury of the right 3rd, 4th and 5th fingers, TECHNOLOGIST PROVIDED HISTORY: Injury/Trauma Reason for exam: tablesaw injury of the right 3rd, 4th and 5th fingers Cancer History: U Surgery, RadiationHistory: U Encounter Type: Initial Mechanism of injury: tables injury ORDERING SYSTEM PROVIDED DIAGNOSIS CODES: Saw injury. COMPARISON: None available. FINDINGS: Three views of the right hand were performed. There is soft tissue swelling and skin deformity involving the distal 3rd digit. Best seen on the oblique view, there is a linear focus of calcific density along the radial-volar aspect of the distal phalanx, which may represent a small fracture fragment. This is not well seen on the other views. No metallic foreign material is seen. There is a more antw-gobjvrvtdk-ezov aring ossific density along the ulnar base of the 4th distal phalanx, which is probably due to degenerative change or old trauma. IMPRESSION: Suspect a small chip fracture arising from the radial-volar aspect of the 3rd distal phalanx. Adjacent soft tissue swelling and skin deformity compatible with the history of a saw injury. No metallic foreign material is seen. JRS/ads Workstation ID: [id number] [facility] Basic Metabolic Panelon 03-15 Anion gap 10 mmol/L Normal 10-20 [facility] Comment on above: Performed By: #### 1 [id number] ####[facility] [address] [place] [address] Bicarbonate (HCO3) 29 mmol/L Normal 21-32 [facility] Comment on above: Performed By: #### 1 [id number] ####[facility] [address] [place] [address] BUN/Creatinine Ratio 17 mg/mg Normal 5-25 [facility] Comment on above: Performed By: #### 1 [id number] ####[facility] [address] [place] [address] Calcium 9.3 mg/dL Normal 8.6-10.3 [facility] Comment on above: Performed By: #### 1 [id number] ####[facility] [address] [place] [address] Chloride 102 mmol/L Normal 98-107 [facility] Comment on above: Performed By: #### 1 [id number] ####[facility] [address] [place] [address] Creatinine 0.90 mg/dL Normal 0.50-1.30 [facility] Comment on above: Performed By: #### 1 [id number] ####[facility] [address] [place] [address] eGFR (MDRD) mL/min/{1.73_m2} Normal [facility] Comment on above: Result Comment: Inte rpretation for Chronic Kidney Disease:Stages 1&2 >60 Healthy or potential kidney damage.Mild decrease of GFR.Stage 3 30-59 Moderate decrease of GFR.Stage 4 15-29 Severe decrease of GFR.Stage 5 <15 Kidney failure or on dialysis. Performed By: #### 1 [id number] ####[facility] [address] [facility] [place] [address] Glucose mass conc 72 mg/dL Normal 70-100 [facility] Comment on above: Performed By: #### 1 [id number] ####[facility] [address] [facility] [place] [address] Potassium molar conc 4.5 mmol/L Normal 3.5-5.1 [facility] Comment on above: Performed By: #### 1 [id number] ####[facility] [address] [facility] [place] [address] Sodium 137 mmol/L Normal 136-145 [facility] Comment on above: Performed By: #### 1 [id number] ####[facility] [address] [facility] [place] [address] Urea nitrogen 15 mg/dL Normal 6-23 [facility] Comment on above: Performed By: #### 1 [id number] ####[facility] [address] [facility] [place] [address] CBCon 04-06-2017 Erythrocyte distribution width Auto Ratio (RBC) 12.8 % Normal 12.0-15.4 [facility] Comment on above: Performed By: #### 2 [id number] ####[facility] [address] [facility] [place] [address] Erythrocytes (RBC) 5.63 10*6/uL Normal 4.08-6.37 [facility] Comment on above: Performed By: #### 2 [id number] ####[facility] [address] [facility] [place] [address] Erythrocytes (RBC) 0.0 /100{WBCs} Normal [facility] Comment on above: Performed By: #### 2 [id number] ####[facility] [address] [place] [address] Erythrocytes (RBC) 0.00 10*3/uL Normal [facility] Comment on above: Performed By: #### 2 [id number] ####[facility] [address] [facility] [place] [address] Hematocrit (HCT) 50.0 % Normal 38.4-54.9 [facility] Comment on above: Performed By: #### 2 [id number] ####[facility] [address] [place] [address] Hemoglobin mass conc (Bld) 16.7 g/dL Normal 12.8-17.7 [facility] Comment on above: Performed By: #### 2 628291 ####[facility] [address] [place] [address] MCH 29.7 pg Normal 27.5-32.9 [facility] Comment on above: Performed By: #### 2 479552 ####[facility] [address] [place] [address] MCHC mass conc (RBC) 33.4 g/dL Normal 30.5-35.4 [facility] Comment on above: Performed By: #### 2 134001 ####[facility] [address] [place] [address] MCV 88.8 fL Normal 83.3-98.2 [facility] Comment on above: Performed By: #### 2 [id number] ####[facility] [address] [place] [address] Platelet mean volume (PMV) 10.8 fL Normal 9.9-12.1 [facility] Comment on above: Performed By: #### 2 [id number] ####[facility] [address] [place] [address] Platelets 320 10*3/uL Normal 155-404 [facility] Comment on above: Performed By: #### 2 797472 ####[facility] [address] [place] [address] RDW SD 41.8 fL Normal 39.3-48.6 [facility] Comment on above: Performed By: #### 2 [id number] ####[facility] [address] [place] [address] WBC (Leukocytes) 10.6 10*3/uL Normal 4.2-11.0 [facility] Comment on above: Performed By: #### 2 [id number] ####[facility] [address] [place] [address] Hepatic Function Panelon Alanine aminotransferase (ALT) 28 U/L Normal 10-52 [facility] Comment on above: Performed By: #### 1 [id number] ####[facility] [address] [place] [address] Albumin 4.4 g/dL Normal 3.4-5.0 [facility] Comment on above: Performed By: #### 1 [id number] ####[facility] [address] [place] [address] Albumin/Globulin Ratio 1.5 {ratio} Normal 0.9-2.4 [facility] Comment on above: Performed By: #### 1 [id number] ####[facility] [address] [place] [address] Alkaline phosphatase (ALP) 58 U/L Normal 45-117 [facility] Comment on above: Performed By: #### 1 [id number] ####[facility] [address] [place] [address] Aspartate aminotransferase (AST) 15 U/L Normal 13-39 [facility] Comment on above: Performed By: #### 1 [id number] ####[facility] [address] [place] [address] Bilirubin (direct) 0.0 mg/dL Normal 0.0-0.3 [facility] Comment on above: Performed By: #### 1 095237 ####[facility] [address] [place] [address] Bilirubin (total) 0.3 mg/dL Normal 0.0-1.2 [facility] Comment on above: Performed By: #### 1 715259 ####[facility] [address] [place] [address] Protein 7.3 g/dL Normal 6.4-8.2 [facility] Comment on above: Performed By: #### 1 [id number] ####[facility] [address] [place] [address] Lipid Panelon 04-06-2017 Cholesterol 198 mg/dL Normal <200 [facility] Comment on above: Performed By: #### 1 [id number] ####[facility] [address] [place] [address] Cholesterol in VLDL mass conc 49 mg/dL Abnormal <30 [facility] Comment on above: Performed By: #### 1 765260 ####[facility] [address] [facility] [place] [address] Cholesterol to HDL Ratio 6.2 {ratio} Normal [facility] Comment on above: Performed By: #### 1 [id number] ####[facility] [address] [facility] [place] [address] HDL Cholesterol 32 mg/dL Abnormal [facility] Comment on above: Result Comment: Norm al Mod Risk High Risk5-9 >48 42-48 <4210-14 >45 40-45 <4015-19 >38 34-38 <34Adult >39 Performed By: #### 1 077086 ####[facility] [address] [place] [address] LDL Cholesterol 117 mg/dL Normal <130 [facility] Comment on above: Performed By: #### 1 [id number] ####[facility] [address] [place] [address] Triglyceride 247 mg/dL Abnormal <150 [facility] Comment on above: Result Comment: 150- 199 Borderline [id number]>500 Very High Performed By: #### [id number] ####[facility] [id number] [place] [address] Vital Signs Date Time Vital Sign Value Performing Clinician Facility 11-28-2024 11: Body height 170.18 cm ARNALDO MAST BAG BUILDER Work Phone: [facility] 11-28-2024 11: Body mass index (BMI) [Ratio] 28.1 kg/m2 ARNALDO MAST BAG BUILDER Work Phone: [facility] 11-28-2024 11: Body weight 81.64 kg ARNALDO MAST BAG BUILDER Work Phone: [facility] 11-28-2024 11:19-0400 Diastolic blood pressure 65 mm[Hg] ARNALDO MAST BAG BUILDER Work Phone: [facility] 11-28-2024 11:19-0400 Heart rate 64 /min ARNALDO MAST BAG BUILDER Work Phone: [facility] 11-28-2024 11:19-0400 Respiratory rate 18 /min ARNALDO MAST BAG BUILDER Work Phone: [facility] 11-28-2024 11:19-0400 Systolic blood pressure 108 mm[Hg] ARNALDO MAST BAG BUILDER Work Phone: [facility] 05-28-2024 20:55-0400 Body temperature 97.6 [degF] ARNALDO MAST BAG BUILDER Work Phone: [facility] 05-28-2024 20:55-0400 Diastolic blood pressure 76 mm[Hg] ARNALDO MAST BAG BUILDER Work Phone: [facility] 05-28-2024 20:55-0400 Heart rate 88 /min ARNALDO MAST BAG BUILDER Work Phone: [facility] 05-28-2024 20:55-0400 Respiratory rate 16 /min ARNALDO MAST BAG BUILDER Work Phone: [facility] 05-28-2024 20:55-0400 SaO2% (BldA) [Mass fraction] 96 % ARNALDO MAST BAG BUILDER Work Phone: [facility] 05-28-2024 20:55-0400 Systolic blood pressure 134 mm[Hg] RANALDO MAST BAG BUILDER Work Phone: [facility] 05-28-2024 17:51-0400 Body height 170.18 cm ARNALDO MAST BAG BUILDER Work Phone: [facility] 05-28-2024 17:51-0400 Body mass index (BMI) [Ratio] 29.6 kg/m2 ARNALDO MAST BAG BUILDER Work Phone: [facility] 05-28-2024 17:51-0400 Body weight 85.72 kg ARNALDO MAST BAG BUILDER Work Phone: [facility] 05-15-2023 00:35-0500 Body temperature 97.7 [degF] BAG BUILDER ARNALDO MAST Work Phone: [facility] 05-15-2023 00:35-0500 Diastolic blood pressure 83 mm[Hg] BAG BUILDER ARNALDO MAST Work Phone: [facility] 05-15-2023 00:35-0500 Heart rate 67 /min BAG BUILDER ARNALDO MAST Work Phone: [facility] 05-15-2023 00:35-0500 Respiratory rate 16 /min BAG BUILDER ARNALDO MAST Work Phone: [facility] 05-15-2023 00:35-0500 SaO2% (BldA) [Mass fraction] 100 % BAG BUILDER ARNALDO MAST Work Phone: [facility] 05-15-2023 00:35-0500 Systolic blood pressure 120 mm[Hg] BAG BUILDER ARNALDO MAST Work Phone: [facility] 05-14-2023 21:50-0500 Body height 172.72 cm BAG BUILDER ARNALDO MAST Work Phone: [facility] 05-14-2023 21:50-0500 Body mass index (BMI) [Ratio] 28.7 kg/m2 BAG BUILDER ARNALDO MAST Work Phone: [facility] 05-14-2023 21:50-0500 Body weight 85.72 kg BAG BUILDER ARNALDO MAST Work Phone: [facility] 04-28-2023 10:46-0500 Body mass index (BMI) [Ratio] 29.6 kg/m2 BAG BUILDER ARNALDO MAST Work Phone: [facility] 04-28-2023 10:46-0500 Body temperature 97.9 [degF] BAG BUILDER ARNALDO MAST Work Phone: [facility] 04-28-2023 10:46-0500 Body weight 85.72 kg BAG BUILDER ARNALDO MAST Work Phone: [facility] 04-28-2023 10:46-0500 Diastolic blood pressure 72 mm[Hg] BAG BUILDER ARNALDO MAST Work Phone: [facility] 04-28-2023 10:46-0500 Heart rate 64 /min BAG BUILDER ARNALDO MAST Work Phone: [facility] 04-28-2023 10:46-0500 Respiratory rate 18 /min BAG BUILDER ARNALDO MAST Work Phone: [facility] 04-28-2023 10:46-0500 Systolic blood pressure 138 mm[Hg] BAG BUILDER ARNALDO MAST Work Phone: [facility] 04-09-2023 11:24-0500 Diastolic blood pressure 94 mm[Hg] BAG BUILDER ARNALDO MAST Work Phone: [facility] 04-09-2023 11:24-0500 Heart rate 60 /min BAG BUILDER ARNALDO MAST Work Phone: [facility] 04-09-2023 11:24-0500 Systolic blood pressure 148 mm[Hg] BAG BUILDER ARNALDO MAST Work Phone: [facility] 04-09-2023 11:17-0500 Body temperature 97.8 [degF] BAG BUILDER ARNALDO MAST Work Phone: [facility] 04-09-2023 11:17-0500 Respiratory rate 14 /min BAG BUILDER ARNALDO MAST Work Phone: [facility] 04-09-2023 11:17-0500 SaO2% (BldA) [Mass fraction] 100 % BAG BUILDER ARNALDO MAST Work Phone: [facility] 04-09-2023 05:24-0500 Body mass index (BMI) [Ratio] 28.7 kg/m2 BAG BUILDER ARNALDO MAST Work Phone: [facility] 04-09-2023 05:24-0500 Body weight 83.2 kg BAG BUILDER ARNALDO MAST Work Phone: [facility] 04-08-2023 21:10-0500 Diastolic blood pressure 91 mm[Hg] [facility] 04-08-2023 21:10-0500 Heart rate 61 /min [facility] 04-08-2023 21:10-0500 Respiratory rate 16 /min [facility] 04-08-2023 21:10-0500 SaO2% (BldA) [Mass fraction] 95 % [facility] 04-08-2023 21:10-0500 Systolic blood pressure 142 mm[Hg] [facility] 04-08-2023 19:48-0500 Body height 170.18 cm [facility] 04-08-2023 19:48-0500 Body mass index (BMI) [Ratio] 28.8 kg/m2 [facility] 04-08-2023 19:48-0500 Body temperature 98.8 [degF] [facility] 04-08-2023 19:48-0500 Body weight 83.46 kg [facility] 04-08-2023 10:32-0500 Diastolic blood pressure 85 mm[Hg] [facility] 04-08-2023 10:32-0500 Heart rate 72 /min [facility] 04-08-2023 10:32-0500 Respiratory rate 16 /min [facility] 04-08-2023 10:32-0500 SaO2% (BldA) [Mass fraction] 98 % [facility] 04-08-2023 10:32-0500 Systolic blood pressure 134 mm[Hg] [facility] 04-08-2023 06:53-0500 Body height 170.18 cm [facility] 04-08-2023 06:53-0500 Body mass index (BMI) [Ratio] 29.2 kg/m2 [facility] 04-08-2023 06:53-0500 Body temperature 97.4 [degF] [facility] 04-08-2023 06:53-0500 Body weight 84.6 kg [facility] 01-02-2023 07:45-0400 Body height 172.72 cm [facility] 01-02-2023 07:45-0400 Body mass index (BMI) [Ratio] 27.3 kg/m2 [facility] 01-02-2023 07:45-0400 Body temperature 98.2 [degF] [facility] 01-02-2023 07:45-0400 Body weight 81.64 kg [facility] 01-02-2023 07:45-0400 Diastolic blood pressure 110 mm[Hg] [facility] 01-02-2023 07:45-0400 Heart rate 88 /min [facility] 01-02-2023 07:45-0400 Respiratory rate 16 /min [facility] 01-02-2023 07:45-0400 SaO2% (BldA) [Mass fraction] 98 % [facility] 01-02-2023 07:45-0400 Systolic blood pressure 177 mm[Hg] [facility] 01-01-2023 11:35-0400 Body height 172.72 cm [facility] 01-01-2023 11:35-0400 Body mass index (BMI) [Ratio] 28.3 kg/m2 [facility] 01-01-2023 11:35-0400 Body temperature 98 [degF] [facility] 01-01-2023 11:35-0400 Body weight 84.62 kg [facility] 01-01-2023 11:35-0400 Diastolic blood pressure 110 mm[Hg] [facility] 01-01-2023 11:35-0400 Heart rate 93 /min [facility] 01-01-2023 11:35-0400 Respiratory rate 16 /min [facility] 01-01-2023 11:35-0400 SaO2% (BldA) [Mass fraction] 100 % [facility] 01-01-2023 11:35-0400 Systolic blood pressure 178 mm[Hg] [facility] 10-16-2022 23:54-0400 Diastolic blood pressure 80 mm[Hg] No Primary Care Physician [facility] 10-16-2022 23:54-0400 Heart rate 65 /min No Primary Care Physician [facility] 10-16-2022 23:54-0400 Respiratory rate 20 /min No Primary Care Physician [facility] 10-16-2022 23:54-0400 SaO2% (BldA) [Mass fraction] 95 % No Primary Care Physician [facility] 10-16-2022 23:54-0400 Systolic blood pressure 122 mm[Hg] No Primary Care Physician [facility] 10-16-2022 20:42-0400 Body height 172.72 cm No Primary Care Physician [facility] 10-16-2022 20:42-0400 Body mass index (BMI) [Ratio] 26.2 kg/m2 No Primary Care Physician [facility] 10-16-2022 20:42-0400 Body temperature 98.2 [degF] No Primary Care Physician [facility] 10-16-2022 20:42-0400 Body weight 78.2 kg No Primary Care Physician [facility] 10-05-2022 14:49-0400 Body height 170.2 cm Consuelo Coon MD Work Phone: [facility] 10-05-2022 14:49-0400 Body mass index (BMI) [Ratio] 26.94 kg/m2 Consuelo Coon MD Work Phone: [facility] 10-05-2022 14:49-0400 Body weight 78.02 kg Consuelo Coon MD Work Phone: [facility] 10-05-2022 14:49-0400 Diastolic blood pressure 85 mm[Hg] Consuelo Coon MD Work Phone: [facility] 10-05-2022 14:49-0400 Heart rate 78 /min Consuelo Coon MD Work Phone: [facility] 10-05-2022 14:49-0400 SaO2% (BldA) [Mass fraction] 97 % Consuelo Coon MD Work Phone: [facility] 10-05-2022 14:49-0400 Systolic blood pressure 124 mm[Hg] Consuelo Coon MD Work Phone: [facility] 09-28-2022 22:15-0400 Diastolic blood pressure 94 mm[Hg] Nery Figueroa MD Work Phone: [facility] 09-28-2022 22:15-0400 Heart rate 73 /min Nery Figueroa MD Work Phone: [facility] 09-28-2022 22:15-0400 Respiratory rate 18 /min Nery Figueroa MD Work Phone: [facility] 09-28-2022 22:15-0400 SaO2% (BldA) [Mass fraction] 98 % Nery Figueroa MD Work Phone: [facility] 09-28-2022 22:15-0400 Systolic blood pressure 157 mm[Hg] Nery Figueroa MD Work Phone: [facility] 09-28-2022 19:50-0400 Body height 172.7 cm Nery Figueroa MD Work Phone: [facility] 09-28-2022 19:50-0400 Body temperature 98.1 [degF] Nery Figueroa MD Work Phone: [facility] 07-20-2022 11:24-0400 Diastolic blood pressure 84 mm[Hg] Simeon Fung PA-C Work Phone: [facility] 07-20-2022 11:24-0400 Systolic blood pressure 147 mm[Hg] Simeon Toneyester PA-C Work Phone: [facility] 07-20-2022 11:19-0400 Body height 170.2 cm Simeon Fung PA-C Work Phone: [facility] 07-20-2022 11:19-0400 Body mass index (BMI) [Ratio] 27.25 kg/m2 Simeon Toneyester PA-C Work Phone: [facility] 07-20-2022 11:19-0400 Body temperature 97.81 [degF] Simeon Fung PA-C Work Phone: [facility] 07-20-2022 11:19-0400 Body weight 78.93 kg Simeon Fung PA-C Work Phone: [facility] 07-20-2022 11:19-0400 Heart rate 66 /min Simeon Fung PA-C Work Phone: [facility] 07-20-2022 11:19-0400 SaO2% (BldA) [Mass fraction] 98 % Simeon Fung PA-C Work Phone: [facility] 06-15-2022 10:20-0400 Body height 170.2 cm Gayatri Mark PA-C Work Phone: [facility] 06-15-2022 10:20-0400 Body mass index (BMI) [Ratio] 25.44 kg/m2 Gayatri Mark PA-C Work Phone: [facility] 06-15-2022 10:20-0400 Body weight 73.66 kg Gayatri Mark PA-C Work Phone: [facility] 06-15-2022 10:20-0400 Diastolic blood pressure 82 mm[Hg] Gayatricatalina Shaw PA-C Work Phone: [facility] 06-15-2022 10:20-0400 Heart rate 86 /min Gayatri Mark PA-C Work Phone: [facility] 06-15-2022 10:20-0400 SaO2% (BldA) [Mass fraction] 98 % Gayatri Shaw PA-C Work Phone: [facility] 06-15-2022 10:20-0400 Systolic blood pressure 125 mm[Hg] Gayatri Shaw PA-C Work Phone: [facility] 03-27-2022 20:22-0500 Diastolic blood pressure 80 mm[Hg] [facility] Work Phone: 03-27-2022 20:22-0500 Heart rate 78 /min [facility] Work Phone: 03-27-2022 20:22-0500 Respiratory rate 17 /min [facility] Work Phone: 03-27-2022 20:22-0500 SaO2% (BldA) [Mass fraction] 96 % [facility] Work Phone: 03-27-2022 20:22-0500 Systolic blood pressure 134 mm[Hg] [facility] Work Phone: 03-27-2022 16:07-0500 Body temperature 98.6 [degF] [facility] Work Phone: 03-27-2022 15:58-0500 Body height 170.18 cm [facility] Work Phone: 03-27-2022 15:58-0500 Body mass index (BMI) [Ratio] 27.3 kg/m2 [facility] Work Phone: 03-27-2022 15:58-0500 Body weight 79.37 kg [facility] Work Phone: 02-16-2020 18:16-0500 BP Diastolic 125 mm[Hg] [facility] 02-16-2020 18:16-0500 BP Systolic 179 mm[Hg] [facility] 02-16-2020 18:16-0500 Pulse (Heart Rate) 82 /min [facility] 02-16-2020 18:16-0500 Pulse Oximetry 97 % [facility] 02-16-2020 18:16-0500 Respiratory Rate 18 /min [facility] 02-16-2020 14:51-0500 Body Temperature 98.1 [degF] [facility] Encounters Encounter Date Encounter Type Care Provider Facility Start: 12-27-2024 ambulatory Alban Noel [employer] Facility :[facility] Start: 12-05-2024 End: 12-05-2024 ambulatory ARNALDO FERGUSON BAG BUILDER Work Phone: -Laboratory Start: 12-05-2024 End: 12-05-2024 Patient encounter procedure Alban Noel [employer] -Laboratory Work Phone: Start: 12-05-2024 End: 12-05-2024 ambulatory Alban Noel [employer] Facility:[facility] Start: 11-28-2024 End: 11-28-2024 Patient encounter procedure Alban Noel [employer] -[facility] Work Phone: Start: 11-28-2024 End: 11-28-2024 ambulatory ARNALDO MAST BAG BUILDER Work Phone: -[facility] Start: 10-05-2024 ambulatory JAMISON STEWART MD Facility:A Start: 08-08-2024 ambulatory ARNALDO MAST BANK [employer]ER-RN PATIENT SERVICES Fa cility:A Start: 07-25-2024 End: 07-25-2024 ambulatory ARNALDO MAST BANK [employer]ER-RN PATIENT SERVICES Facility:[facility] Start: 07-25-2024 End: 07-25-2024 Patient encounter procedure ARNALDO MAST BANK APPRAISER-RN PATIENT SERVICES [facility] Start: 07-10-2024 ambulatory ARNALDO MAST BANK APPRAISER-RN PATIENT SERVICES Fa cility:A Start: 05-28-2024 End: 05-28-2024 Emergency department patient visit ARNALDO MAST BAG BUILDER Work Phone: -Emergency Department Work Phone: Start: 04-11-2024 End: 04-15-2024 ambulatory ARNALDO MAST BANK APPRAISER-RN PATIENT SERVICES Facility:[facility] Start: 04-11-2024 End: 04-15-2024 Outreach Lab ARNALDO MAST BANK APPRAISER-RN PATIENT SERVICES [facility] Start: 04-11-2024 End: 04-11-2024 ambulatory ARNALDO MAST BANK APPRAISER-RN PATIENT SERVICES Facility:[facility] Start: 04-11-2024 End: 04-11-2024 Patient encounter procedure ARNALDO MAST BANK APPRAISER-RN PATIENT SERVICES [facility] Start: 02-24-2024 End: 02-24-2024 ambulatory ARNALDO MAST BANK APPRAISER-RN PATIENT SERVICES Facility:[facility] Start: 02-24-2024 End: 02-24-2024 Patient encounter procedure JAMISON STEWART MD [facility] Start: 02-01-2024 End: 03-26-2024 ambulatory ARNALDO MAST BANK [employer]AISER-RN PATIENT SERVICES Facility:[facility] Start: 02-01-2024 End: 03-26-2024 Physical therapy management ARNALDO MAST BANK [employer]ER-RN PATIENT SERVICES [facility] Start: 01-03-2024 End: 01-07-2024 ambulatory ARNALDO MAST BANK APPRAISER-RN PATIENT SERVICES Facility:[facility] Start: 01-03-2024 End: 01-07-2024 Outreach Lab ARNALDO MAST BANK APPRAISER-RN PATIENT SERVICES [facility] Start: 01-03-2024 End: 01-03-2024 ambulatory ARNALDO MAST BANK [employer]ER-RN PATIENT SERVICES Facility:[facility] Start: 01-03-2024 End: 01-03-2024 Patient encounter procedure ARNALDO MAST BANK AP[employer]ER-RN PATIENT SERVICES [facility] Start: 05-14-2023 End: 05-15-2023 Emergency department patient visit BAG BUILDER ARNALDO MAST Work Phone: [facility] Work Phone: Start: 04-28-2023 End: 04-28-2023 Patient encounter procedure BAG BUILDER ARNALDO MAST Work Phone: [facility] Work Phone: Start: 04-09-2023 Non-patient / Non-visit BAG BUILDER K RISTA MAST Work Phone: [facility] Start: 04-09-2023 Non-patient / Non-visit BAG BUILDER K RISTA MAST Work Phone: [facility] Work Phone: Start: 04-08-2023 End: 04-09-2023 Evaluation and management of inpatient [facility] Work Phone: Start: 04-08-2023 observation encounter [facility] Work Phone: Start: 04-08-2023 End: 04-08-2023 Emergency department patient visit [facility] Work Phone: Start: 03-31-2023 Documentation procedure Eugene Shaw PA-C Work Phone: [facility] Start: 02-07-2023 End: 02-12-2023 ambulatory ARNALDO MAST BANK [employer]AISER-RN PATIENT SERVICES Facility:B Start: 02-07-2023 End: 02-11-2023 Outreach Lab ARNALDO MAST BANK APPRAISER-RN PATIENT SERVICES [facility] Start: 01-02-2023 End: 01-02-2023 Emergency department patient visit [facility] Work Phone: Start: 01-01-2023 End: 01-01-2023 Emergency department patient visit [facility] Work Phone: Start: 11-02-2022 End: 11-03-2022 ambulatory ARNALDO MAST BANK APPRAISER-RN PATIENT SERVICES Facility:B Start: 10-16-2022 End: 10-16-2022 Emergency department patient visit No Primary Care Physician [facility] Work Phone: Start: 10-05-2022 End: 10-05-2022 Office outpatient visit 25 minutes Consuelo Coon MD Work Phone: [facility] Comment on above: Coronary artery dise ase involving yurok coronary artery of yurok heart without angina pectoris (Primary Dx); S/P CABG (coronary artery bypass graft); Hyperlipidemia, unspecified hyperlipidemia type; Hypertension, unspecified type Start: 09-28-2022 End: 09-28-2022 Emergency department patient visit Nery Figueroa MD Work Phone: [facility] Start: 08-19-2022 End: 08-19-2022 Patient encounter procedure No Primary Care Physician [facility] Work Phone: Start: 07-20-2022 End: 07-24-2022 ambulatory [facility] Start: 07-20-2022 End: 07-20-2022 Postop follow up visit related to original px Simeon RODNEYC Work Phone: [facility] Comment on above: S/P CABG (coronary a rtery bypass graft) (Primary Dx); Hypertension, unspecified type Start: 07-16-2022 Orders Only Simeon RODNEYC Work Phone: [facility] Start: 07-09-2022 Refill Gayatri KERR-C Work Phone: [facility] Comment on above: Medication Refill Start: 07-05-2022 Documentation procedure Jayla Mao RN [facility] Comment on above: Phase II Cardiac Daniel ab Start: 06-27-2022 Orders Only Naresh KERR-C Work Phone: [facility] Comment on above: S/P CABG (coronary a rtery bypass graft) (Primary Dx) Start: 06-15-2022 End: 06-19-2022 ambulatory GAYATRI SHAW [facility] Start: 06-15-2022 End: 06-15-2022 Postop follow up visit related to original px Gayatri RODNEYC Work Phone: [facility] Comment on above: S/P CABG (coronary a rtery bypass graft) (Primary Dx) Start: 06-10-2022 Documentation procedure Simeon RODNEYC Work Phone: [facility] Comment on above: Missed appointment Start: 06-06-2022 Orders Only Gayatri KERR-C Work Phone: [facility] Comment on above: S/P CABG (coronary a rtery bypass graft) (Primary Dx) Start: 05-31-2022 Orders Only Simeon RODNEYC Work Phone: [facility] Start: 05-24-2022 End: 05-25-2022 Evaluation and management of inpatient SIMEON SALDANA [facility] Start: 05-24-2022 End: 05-31-2022 [facility] Start: 03-27-2022 End: 03-27-2022 Emergency department patient visit [facility] Start: 02-16-2020 End: 02-16-2020 Emergency department patient visit Donavon Irelandal Work Phone: [facility] Comment on above: Open displaced fract ure of phalanx of right ring finger, unspecified phalanx, initial encounter (Primary Dx); Laceration of multiple sites of right hand and fingers, initial encounter Start: 05-06-2017 End: 05-09-2017 Ambulatory [facility] Start: 04-06-2017 Ambulatory PROVIDER UNKNOWN Facili ty:[id number] Start: 04-06-2017 Ambulatory Facility:[id number] Start: 12-06-2016 Ambulatory [facility] Facility:[facility] Start: 11-01-2016 Ambulatory PROVIDER UNKNOWN Facili ty:[id number] Start: 11-01-2016 Ambulatory Facility:[id number] Procedures Date Procedure Procedure Detail Performing Clinician Start: 12-05-2024 Radiologic exam ches t 2 views ARNALDO MAST BAG BUILDER Work Phone: Start: 12-05-2024 Urnls dip stick/tabl et reagent auto microscopy ARNALDO MAST BAG BUILDER Work Phone: Start: 05-28-2024 X-ray of chest, PA a nd lateral views ARNALDO MAST BAG BUILDER Work Phone: Start: 05-14-2023 Plain chest X-ray BAG BUILDER ARNALDO MAST Work Phone: Start: 05-14-2023 SARS-CoV-2, Influenz a & RSV (PCR) BAG BUILDER ARNALDO MAST Work Phone: Start: 04-09-2023 Cardiovascular stres s test using pharmacologic stress agent BAG BUILDER ARNALDO MAST Work Phone: Start: 04-08-2023 Plain chest X-ray Start: 01-02-2023 CT of soft tissues o f neck with contrast Start: 10-16-2022 Plain chest X-ray Start: 10-05-2022 Ecg routine ecg w/le ast [...] routine ecg w/le ast 12 lds w/i&r Naresh RODNEYC Work Phone: Start: 06-15-2022 History of coronary artery bypass grafting S/P CABG (coronary artery bypass graft) Gayatri RODNEYC Work Phone: Start: 03-27-2022 Plain chest X-ray Start: 02-16-2020 Procedure on wound Tara Lou Everett Work Phone: Start: 02-16-2020 Radex hand minimum 3 views Donavon Viviana Egal Work Phone: Construction of shunt ARNALDO MAST BANK [employer] Comment on above: triple by pass 3/302 3 History of appendectomy History of appendectomy History of coronary artery bypass grafting S/P CABG (coronary artery bypass graft) Gayatri RODNEYC Work Phone: History of coronary artery bypass grafting S/P CABG (coronary artery bypass graft) Naresh RODNEYC Work Phone: History of coronary artery bypass grafting S/P CABG (coronary artery bypass graft) Simeon Fung PAMaribellC Work Phone: History of coronary artery bypass grafting S/P CABG (coronary artery bypass graft) Nery Figueroa MD Work Phone: History of coronary artery bypass grafting S/P CABG (coronary artery bypass graft) Consuelo Coon MD Work Phone: History of coronary artery bypass grafting Hx of CABG No Primary Care Physician History of coronary artery bypass grafting S/P CABG x 3 5, 6 ARNALDO FERGUSON BANK APPRAISER-RN PATIENT SERVICES Comment on above: May 29, 20222022 History of coronary artery bypass grafting S/P CABG x 3 BAG BUILDER ARNALDO FERGUSON Work Phone: Comment on above: CRAIG to the LAD and vein grafts to the obtuse marginal and right PDA in 2022 History of coronary artery bypass grafting S/P CABG x 3 Alban Noel SUPER[employer]OR [employer] [facility] History of placement of stent for coronary artery disease H/O heart artery stent Comment on above: PCI x 7, initially [facility]--> most recently [facility]. Plan of Treatment Date Care Activity Detail Author Start: 11-28-2024 End: 11-28-2024 Evaluation of diagnostic study results [facility] Start: 05-28-2024 [facility] Start: 05-15-2023 [facility] Start: 04-09-2023 Patient discharge [facility] Start: 04-08-2023 Following clinical pathway protocol [facility] Start: 04-08-2023 Assessment of risk of venous thromboembolism [facility] Start: 04-08-2023 Chart related administrative procedure [facility] Start: 04-08-2023 Inhalation therapy procedure [facility] Start: 04-08-2023 Insertion of catheter into peripheral vein [facility] Start: 04-08-2023 Introduction of urinary catheter [facility] Start: 04-08-2023 Measuring intake and output [facility] Start: 04-08-2023 Oxygen therapy [facility] Start: 04-08-2023 Providing care according to standard [facility] Start: 04-08-2023 Provision of activity privileges [facility] Start: 04-08-2023 Tobacco use cessation education [facility] Start: 04-08-2023 [facility] Start: 04-08-2023 Electrocardiographic procedure [facility] Start: 04-08-2023 Admission procedure [facility] Start: 04-08-2023 Verification routine [facility] Start: 04-08-2023 Hospital admission, emergency, from emergency room, medical nature [facility] Start: 04-08-2023 Assay of troponin quantitative ASSAY OF TROPONIN QUANT [facility] Start: 04-08-2023 Basic metabolic panel calcium total METABOLIC PANEL TOTAL CA [facility] Start: 04-08-2023 Blood count complete auto&auto difrntl wbc COMPLETE CBC W/AUTO DIFF WBC [facility] Start: 04-08-2023 Ecg routine ecg w/least 12 lds trcg only w/o i&r ELECTROCARDIOGRAM TRACING [facility] Start: 04-08-2023 Emergency dept visit high severity&threat funcj EMERGENCY DEPT VISIT HI MDM [facility] Start: 04-08-2023 Radiologic exam chest single view X-RAY EXAM CHEST 1 VIEW [facility] Start: 04-08-2023 [facility] Start: 04-08-2023 [facility] Start: 02-08-2023 End: 02-08-2023 Patient encounter procedure 02/08/2023 3:00 PM EST Office Visit [facility] [address] [place] [address] Consuelo Coon MD [address] [place] [address] [facility] Start: 01-02-2023 [facility] Start: 01-01-2023 [facility] Start: 01-01-2023 Electrocardiographic procedure [facility] Start: 11-26-2022 Hemoglobin A1c measurement A1C [facility] Start: 11-12-2022 Influenza vaccination [facility] Start: 10-16-2022 Plain chest X-ray Chest 1 View (Portable) [facility] Start: 10-16-2022 XR Chest Single view [facility] Start: 10-16-2022 [facility] Start: 08-13-2022 End: 08-13-2022 Patient encounter procedure 08/13/2022 8:00 AM EDT Office Visit [facility] [address] [facility] [place] [address] Ann Marie Abudl CNP [address] [place] [address] [facility] Start: 07-20-2022 End: 07-20-2022 Follow-up encounter 07/20/2022 11:30 AM EDT Follow-Up [facility] [address] [facility] [place] [id number] [facility] Start: 07-19-2022 End: 07-19-2022 Patient encounter procedure [facility] Start: 07-01-2022 End: 06-28-2023 12 lead ECG ECG 12 Lead ECG Routine S/P CABG (coronary artery bypass graft) Expected: 07/01/2022, Expires: 06/28/2023 [facility] Comment on above: Expected: 07/01/2022, Expires: Start: 07-01-2022 End: 06-28-2023 Basic metabolic 2000 panel - Serum or Plasma Basic metabolic panel Lab Routine S/P CABG (coronary artery bypass graft) Expected: 07/01/2022, Expires: 06/28/2023 [facility] Comment on above: Expected: 07/01/2022, Expires: Start: 07-01-2022 End: 06-28-2023 Standard chest X-ray XR Chest AP/PA and LAT Imaging Routine S/P CABG (coronary artery bypass graft) Expected: 07/01/2022, Expires: 06/28/2023 [facility] Work Phone: Comment on above: Expected: 07/01/2022, Expires: 4 Start: 07-01-2022 End: 07-01-2022 Follow-up encounter [facility] Start: 06-29-2022 End: 06-29-2022 Patient encounter procedure [facility] Start: 06-22-2022 End: 06-16-2023 Clostridium difficile toxin assay Clostridium Difficile Testing Microbiology Routine S/P CABG (coronary artery bypass graft) Expected: 06/22/2022, Expires: 06/16/2023 [facility] Work Phone: Comment on above: Expected: 06/22/2022, Expires: Start: 06-14-2022 End: 06-14-2022 Follow-up encounter 06/14/2022 10:30 AM EDT Follow-Up [facility] [address] [facility] [place] [address] [facility] Start: 06-10-2022 End: 06-10-2022 Follow-up encounter 06/10/2022 Follow-Up Cardiology [facility] Start: 06-03-2022 End: 06-03-2022 Follow-up encounter 06/03/2022 Follow-Up Cardiology [facility] Start: 03-27-2022 [facility] Work Phone: Start: 11-12-2021 Influenza vaccination Sequential Influenza Vaccine (#1) [facility] Start: 11-13-2019 Influenza vaccination given Sequential Influenza Vaccine (#1) [facility] Start: 06-19-2019 Screening for malignant neoplasm of colon COLORECTAL CANCER SCREENING DISCUSSION [facility] Start: 2014 Lipid panel LIPID SCREENING [facility] Start: 1993 Third diphtheria, tetanus and acellular pertussis (DTaP) vaccination TDAP (ADULT) [facility] Start: 1992 Hepatitis C antibody, confirmatory test Hepatitis C Screening [facility] Start: 1992 Hepatitis C screening Hepatitis C Screening [facility] Start: 1989 HIV screening [facility] Start: 1986 Adolescent depression screening assessment Depression Screening (PHQ9) [facility] Start: 1986 Depression screening using PHQ-9 (Patient Health Questionnaire 9) score Depression Screening (PHQ-2/9) [facility] Start: 1984 Diabetic foot examination Foot Exam [facility] Start: 1984 Glaucoma screening Ophthalmology Exam [facility] Start: 1984 Urine screening for protein Urine Microalbumin [facility] Start: 1980 Pneumococcal Vaccine: Ped or At-Risk (1 - PCV) Pneumococcal Vaccine: Ped or At-Risk (1 - PCV) [facility] Start: 1977 History and physical examination, annual for health maintenance Wellness Visit [facility] Start: 1974 COVID-19 Vaccine (#1) COVID-19 Vaccine (#1) [facility] Start: 1974 Hepatitis C screening HEPATITIS C VIRUS SCREENING [facility] Start: 1974 Prostate specific antigen measurement PSA Level [facility] Start: 1974 Screening for malignant neoplasm of colon [facility] Start: 1974 Tetanus vaccination [facility] End: 06-07-2023 Basic metabolic 2000 panel - Serum or Plasma Basic Metabolic Panel Lab STAT S/P CABG (coronary artery bypass graft) 1 Occurrences starting 06/06/2022 until 06/07/2023 [facility] Comment on above: 1 Occurrences starting 06/06/2022 until 06/07/2023 Basic metabolic 2008 panel with ionized calcium - Serum or Plasma [facility] CBC W Auto Different ial panel - Blood [facility] End: 10-06-2023 Lipid 1996 panel - Serum or Plasma Lipid panel Lab Routine Hyperlipidemia, unspecified hyperlipidemia type 1 Occurrences starting 10/05/2022 until 10/06/2023 [facility] Work Phone: Comment on above: 1 Occurrences starting 10/05/2022 until 10/06/2023 Magnesium [Mass/volu me] in Serum or Plasma [facility] NM Heart Views W str ess and W radionuclide IV [facility] Patient Education [facility] Work Phone: Patient referral [facility] Work Phone: Procedure on wound Lac Repair Pr ocedures Routine 02/16/2020 5:35 PM EST [facility] End: 06-07-2023 Standard chest X-ray XR Chest AP/PA and LAT Imaging Routine S/P CABG (coronary artery bypass graft) 1 Occurrences starting 06/06/2022 until 06/07/2023 [facility] Work Phone: Comment on above: 1 Occurrences starting 06/06/2022 until 06/07/2023 End: 09-28-2022 Standard ECG ECG ECG STAT One Time for 1 Occurrences starting 09/28/2022 until 09/28/2022 [facility] Comment on above: One Time for 1 Occurrences starting 09/11 until 09/28/2022 Urinalysis complete panel - Urine [facility] XR Chest PA and Lateral [facility] Immunizations Immunization Date Immunization Notes Care Provider Sofie wyatt 07-06-2024 Pneumococcal conjuga te PCV20, polysaccharide KYR937 conjugate, adjuvant, PF; Translations: [Prevnar 20] [facility] PATIENT [facility] 02-07-2023 tetanus toxoid, redu jaguar diphtheria toxoid, and acellular pertussis vaccine, adsorbed; Translations: [Boostrix (Tdap)] [facility]RN PATIENT SERVICES [facility] Payers Date Payer Category Payer Self-pay [id number] 2022 Medicaid [id number] 2022 Medicaid [id number] 2021 Unknown [id number] 2021 Unknown [id number] 2015 Unknown [id number] 1974 Unknown [id number] 2.16. 840.1.716375.3.579.2.903 1974 Unknown [id number] 2.16. 840.1.735145.3.579.2.90 1974 Unknown [id number] 2.16. 840.1.141723.3.579.2.903 1974 Unknown [id number] 2.16. 840.1.333854.3.579.2.903 1974 Unknown [id number] 2.16. 840.1.364755.3.579.2.903 1974 Unknown [id number] 2.16. 840.1.437720.3.579.2.903 1974 Unknown [id number] 2.16. 840.1.698740.3.579.2.903 1974 Unknown [id number] 2.16.8 40.1.728735.3.579.2.627 1974 Unknown [id number] 2.16.8 40.1.255740.3.579.2.7 1974 Unknown [id number] 2.16.8 40.1.022157.3.579.2.7 1974 Unknown [id number] 2.16.8 40.1.727440.3.579.2. 1974 Unknown [id number] 2.16.8 40.1.109436.3.579.2. 1974 Unknown [id number] 2.16.8 40.1.772460.3.579.2. 1974 Unknown [id number] 2.16.8 40.1.826492.3.579.2.7 1974 Unknown [id number] 2.16.8 40.1.786783.3.579.2. 1974 Unknown [id number] 2.16.8 40.1.783569.3.579.2.7 1974 Unknown [id number] 2.16.8 40.1.212095.3.579.2. 1974 Unknown [id number] 2.16. 840.1.923306.3.579.2.7 1974 Unknown [id number] 2.16.8 40.1.797908.3.579.2. 1974 Unknown [id number] 2.16.8 40.1.431963.3.579.2.627 Unknown [id number] 2.16.8 40.1.742782.3.579.2.462 Unknown [id number] 2.16.8 40.1.843921.3.579.2.462 Unknown [id number] 2.16.8 40.1.570057.3.579.2.462 Unknown [id number] 2.16.8 40.1.044405.3.579.2.462 Social History Date Type Detail Facility Start: 02-16-2020 End: 10-05-2022 Tobacco smoking status NHIS Current every day smoker [facility] Start: 02-16-2020 End: 10-08-2022 Cigarettes smoked current (pack per day) - [facility] Start: 02-16-2020 End: 10-05-2022 Tobacco use and exposure Never used [facility] Start: 02-16-2020 Alcohol intake Lifetime non-drinker (finding) [facility] Start: 02-16-2020 History SDOH Alcohol Frequency 1 [facility] Start: 1975 Sex Assigned At Not on file [facility] Start: 05-14-2022 End: 09-28-2022 Exposure to SARS-CoV-2 (event) Not sure [facility] Start: 03-27-2022 End: 05-14-2023 Tobacco smoking status NHIS Unknown if ever smoked [facility] Start: 05-04-2019 Alone [facility] Start: 1975 Sex Assigned At Male [facility] History of tobacco use Cigarette Smoker [facility] Start: 05-28-2022 End: 10-08-2022 Alcohol intake Ex-drinker (finding) [facility] Start: 02-16-2020 End: 10-08-2022 Alcohol Use Disorder Identification Test - Consumption [AUDIT-C] [facility] How often to you hav e a drink containing alcohol? Never [facility] Average Number of Drinks Not on file [facility] Start: 06-15-2022 End: 09-28-2022 Tobacco smoking status NHIS Ex-smoker [facility] History of tobacco use Current smoker [facility] Start: 10-05-2022 Tobacco Comment Is smoking about 5 a day [facility] Start: 02-07-2023 End: 05-28-2024 Tobacco smoking status Light tobacco smoker (finding) [facility] Sex Assigned At [facility] Start: 05-28-2024 Sex Male (finding) [facility] Medical Equipment Procedure Code Equipment Code Equipment Origin al Text Equipment Identifier Dates Marker Graft Coronary Bypass - Sn/A [id number] Start: 05-27-2022 Use to check BG daily Dx E11.59 Needs One Touch Verio strips. . [id number] Start: 05-31-2022 Use to check BG daily Dx E11.59 Needs lancets for One Touch Verio meter . [id number] Start: 05-31-2022 Use to check BG daily Dx E11.59 Needs One Touch Verio strips. . [id number] Start: 05-31-2022 See Instructions , checking BS BID; 1 bottle of 100, # 1 EA, 11 Refill(s), Pharmacy: [facility] #[id number], 169, cm, 06/22/23 11:03:00 EDT, Height, 83.8, kg, 06/22/23 11:03:00 EDT, Dosing Weight Start: 06-22-2023 See Instructions , qs 1 month supply; checking BID, # 60 EA, 11 Refill(s), Pharmacy: [facility] #[id number], 169, cm, 06/22/23 11:03:00 EDT, Height, 83.8, kg, 06/22/23 11:03:00 EDT, Dosing Weight Start: 06-22-2023 See Instructions , checking BS BID; 1 bottle of 100, # 1 EA, 11 Refill(s), Pharmacy: [facility] #[id number], 169, cm, 06/22/23 11:03:00 EDT, Height, 83.8, kg, 06/22/23 11:03:00 EDT, Dosing Weight Start: 06-22-2023 See Instructions , qs 1 month supply; checking BID, # 60 EA, 11 Refill(s), Pharmacy: [facility] #[id number], 169, cm, 06/22/23 11:03:00 EDT, Height, 83.8, kg, 06/22/23 11:03:00 EDT, Dosing Weight Start: 06-22-2023 See Instructions , checking BS BID; 1 bottle of 100, # 1 EA, 11 Refill(s), Pharmacy: [facility] #[id number], 169, cm, 06/22/23 11:03:00 EDT, Height, 83.8, kg, 06/22/23 11:03:00 EDT, Dosing Weight Start: 06-22-2023 See Instructions , qs 1 month supply; checking BID, # 60 EA, 11 Refill(s), Pharmacy: [facility] #[id number], 169, cm, 06/22/23 11:03:00 EDT, Height, 83.8, kg, 06/22/23 11:03:00 EDT, Dosing Weight Start: 06-22-2023 See Instructions , checking BS BID; 1 bottle of 100, # 1 EA, 11 Refill(s), Pharmacy: [facility] #[id number], 169, cm, 06/22/23 11:03:00 EDT, Height, 83.8, kg, 06/22/23 11:03:00 EDT, Dosing Weight Start: 06-22-2023 See Instructions , qs 1 month supply; checking BID, # 60 EA, 11 Refill(s), [facility]acy: [facility][id number], 169, cm, 06/22/23 11:03:00 EDT, Height, 83.8, kg, 06/22/23 11:03:00 EDT, Dosing Weight Start: 06-22-2023 Goals Date Patient Goal Desired Activity /State Functional Status Date Assessment Result Facility 04-09-2023 Functional status Ambulates [facility] Work Phone: Mental Status Date Assessment Result Facility 05-14-2023 Cognitive function Level Of Cons ciousness Awake;Alert;Appropriate [facility] Work Phone: 04-09-2023 Cognitive function Voice/Name [facility] Work Phone: 04-08-2023 Cognitive function Voice/Name [facility] Work Phone: 04-08-2023 Cognitive function Voice/Name [facility] Work Phone: 01-01-2023 Cognitive function Voice/Name [facility] Work Phone: 10-16-2022 Cognitive function Voice/Name [facility] Work Phone: 03-27-2022 Cognitive function Level Of Cons ciousness Awake;Alert;Appropriate;Follow s Commands [facility] Work Phone: Clinical Notes 08-17-2019 to 12-05-2024 Note Date & Type Note Facility 12-05-2024 Radiology Diagnostic study note [facility] [address] [place] [address] Chest PA and Lateral MR#: [id number] Acct: [id number] Name: ALBAN PARKER Rep #: [id number] : 1975 M 49 From: Chantel Ang MD PCP: LUNA ORTIZ Status: REG CLI Study:Chest PA and Lateral Date of Exam: 12/05/24 Exam# [id number] Ordering Dr: Jt Noel NP [employer] PROCEDURE: CHEST PA AND LATERAL 12/05/2024 REASON FOR EXAM: PRE-OPERATIVE TECHNIQUE: Procedure Code: RADCXR Modality: DX Procedure: CHEST PA AND LATERAL COMPARISON: 05/28/2024 FINDINGS: Median sternotomy wires and evidence of prior CABG. No focal consolidation. Nopleural effusion or pneumothorax. Cardiac silhouette is within normal limits. No acute fractures. RAD/Chest PA and Lateral IMPRESSION: No focal consolidations. Reading Location: [id number] CC: [employer] Alban Noel; LUNA ORTIZ ~ Heavy Media Operator: Signed [facility] 11-28-2024 Evaluation note Diagnosis Onset Date Resolution Chest pain acute November 10:37am Diabetes mellitus chronic Septemb er 2024 10:37am Dyslipidemia chronic November 282024 10:37am HTN (hypertension) chronic Septem deanna 2024 10:37am Nicotine dependence chronic Septe mber 2024 10:37am S/P CABG x 3 chronic November 282024 10:37am [facility] Work Phone: 1(313) 855-947903-17-2025 Radiology Diagnostic study note [facility] [address] [place] [id number] Chest PA and Lateral MR#: [id number] Acct: [id number] Name: ALBAN PARKER Rep #: [id number] : 1975 M 48 From: Raphael Dow MD PCP: LUNA ORTIZ Status: PRE ER Study:Chest PA and Lateral Date of Exam: 05/28/24 Exam# [id number] Ordering Dr: Provider ,Ed P. PROCEDURE: CHEST PA AND LATERAL 05/28/2024 REASON FOR EXAM: SOB TECHNIQUE: PA and lateral views of the chest. COMPARISON: 04/08/2023 and 05/14/2023 FINDINGS: The lungs appear clear. Cardiac and mediastinal contours appear within limits. Status post median sternotomy, CABG and coronary stents again noted. No pleural effusion. Pulmonary vascularity appears within limits. RAD/Chest PA and Lateral IMPRESSION: No evidence of acute disease. Reading Location: [facility] CC: ED PHYSICIAN PROVIDER; LUNA ORTIZ ~ Heavy Media Operator: Signed [facility]12-13-2024 Note* Exam Date Time Procedure Performing Provider Status 02/24/24 9:32 AM Echocardiogram, Adult - CV Auth (Verified) [facility] 03-02-2024 Discharge summary Author Ben Alfonso [facility] May 15, 2023 12:15am Note Date/Time May 15, 2023 12:0 3am [facility] Medical Records Department [address] [place] [id number] Emergency Department Summary 05/14/23 MR#: [id number] Acct: [id number] Name: ALBAN PARKER Rep #:[id number] : 1975 47 From: Ben Hamilton DO PCP: LUNA ORTIZ Status:REG ER Location: ED HPI History of Present Illness Chief Complaint: General Illness Informant: patient and spouse/S.O. Narrative Narrative: Patient is a 47-year-old male with past medical history of hypertension hyperlipidemia CAD and diabetes. He states has been taking his medications as directed but that today his value was reading high around 275-300. He states this is above his normal baseline of his blood sugar. He denies any sick symptoms and states has not been on any steroids recently. 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) GERD (gastroesophageal reflux disease) History of cocaine use HLD (hyperlipidemia) HTN (hypertension) Insomnia Left inguinal hernia LVH (left ventricular hypertrophy) Myocardial infarct Myocardial infarction Nicotine dependence Numbness of upper extremity Overweight Polyarthritis Right shoulder pain Tobacco use Type 2 diabetes mellitus with cardiac complication Home Medications hydroxyzine HCl 25 mg tablet 25 mg PO DAILY itching 04/08/23 [History Last Taken Unknown] escitalopram oxalate 20 mg tablet 20 mg PO DAILY 04/22/23 [History Last Taken Unknown] amlodipine 5 mg tablet 5 mg PO DAILY #30 tabs 04/28/23 [Rx Last Taken Unknown] aspirin 81 mg tablet,delayed release 81 mg PO DAILY heart health #30 tabs 04/28/23 [Rx Last Taken Unknown] clopidogrel 75 mg tablet 75 mg PO DAILY anti platelet #30 tabs 04/28/23 [Rx Last Taken Unknown] empagliflozin 10 mg tablet (Jardiance) 10 mg PO DAILY #30 tabs 04/28/23 [Rx Last Taken Unknown] lisinopril 20 mg tablet 20 mg PO DAILY #30 tabs 04/28/23 [Rx Last Taken Unknown] simvastatin 40 mg tablet 40 mg PO QHS cholesterol #30 tabs 04/28/23 [Rx Last Taken Unknown] metoprolol succinate 50 mg tablet,extended release 24 hr 50 mg PO BID Pt does not tolerate 100 mg BID, bp gets too low #180 tabs 05/02/23 [Rx Last Taken Unknown] Allergy/AdvReac Type Severity Reaction Status Date / Time bee venom protein (honey bee) Allergy Anaphylaxis Verified 05/14/23 21:54 mint Allergy Hives Verified 05/14/23 21:54 Penicillins Allergy Anaphylaxis Verified 05/14/23 21:54 Family History Mother Hypertension CVA (cerebral vascular accident) Father No problems noted. Grandfather Multiple sclerosis Paternal grandfather Brother Multiple sclerosis Heart disease Hypertension CAD (coronary artery disease) Myocardial infarction Surgical History H/O heart artery stent H/O hernia repair H/O right inguinal hernia repair History of appendectomy Hx of CABG (~05/27/22) Social History household members: spouse and children Smoking Status: Light Smoker (<10/day) alcohol intake: never substance use type: does not use caffeine: Yes (2 liters/day) Type: carbonated beverages Number of servings: 2, coffee and tea Number of servings: 1 ROS ROS ED Constitutional Constitutional ED: Denies chills or fever(s) Eyes Eyes: Denies change in vision ENT ENT ED: Denies rhinorrhea or sore throat Cardiovascular Cardiovascular: Denies chest pain Respiratory/Chest Respiratory/Chest: Denies cough or dyspnea Gastrointestinal Gastrointestinal: Denies abdominal pain, diarrhea, nausea or vomiting Genitourinary Genitourinary ED: Reports urinary frequency; Denies dysuria Musculoskeletal Musculoskeletal: Denies myalgias Integumentary Denies rash Neurologic Neurologic: Denies headache(s) Hematologic/Lymphatic Hematologic/Lymphatic: Reports easy bleeding and easy bruising EXAM Physical Exam Const Vital Signs: 05/14/23 21:50 05/14/23 22:16 05/14/23 22:16 Temperature 97.9 F Temperature Source Temporal Pulse Rate 78 Respiratory Rate 15 Respiratory Effort Normal Normal Non-Labored Respiratory Pattern Normal Blood Pressure 128/81 H Blood Pressure Mean 96 Pulse Ox 97 Oxygen Delivery Method Room Air 05/14/23 22:21 Temperature 97.7 F L Temperature Source Temporal Pulse Rate 60 Respiratory Rate 16 Respiratory Effort Respiratory Pattern Blood Pressure 123/77 H Blood Pressure Mean 92 Pulse Ox 98 Oxygen Delivery Method Room Air Positive well nourished and well developed General Appearance ED: well developed; Negative for pallor HEENT Reports moist mucous membranes HEENT Narrative: No signs of infection noted in the posterior pharynx Eyes PERRL and EOMs intact bilaterally Neck supple Neck Narrative: No nuchal rigidity or meningeal signs Resp normal respiratory effort and clear to auscultation bilaterally Cardio regular rate and regular rhythm Rate: other Other Details: Radial and carotid pulses are equal and symmetric GI non-distended GI Narrative: Mild tenderness to palpation in the midepigastric region without voluntary guarding or rigidity No pulsatile mass or fluid wave Auscultation: normoactive bowel sounds Palpation: soft Extremity normal to inspection Extremity Narrative: No asymmetric edema no pitting edema negative Homans' sign bilaterally Neuro oriented x3, CN's II-XII intact bilaterally and no sensory deficits noted Sensorium / Orientation: alert Motor Exam: strength 5/5 throughout Psych mental status grossly normal Skin no rashes or lesions noted General Skin Exam: Negative for jaundice or pallor MDM MDM MDM Narrative Medical decision making narrative: Patient presented to the ER with stable vitals. He reported his blood sugar hadbeen elevated at home with no obvious cause. General diagnosis is for equipmentmalfunction versus DKA versus HHS versus potential infectious cause such as COVID influenza or RSV or potential UTI leading to elevated blood sugar. An Accu-Chek was performed which was similar nature to the patient's machine going against open malfunction. Basic labs were obtained and patient does not have elevation to his anion gap his bicarb is normal and his serum acetone is negative going against DKA. His serum osmolality is 289 going against HHS. Hisworkup revealed no signs of infection within his chest x-ray or urine and viral swabs are negative. He was given 1 L fluid and he had improvement of his blood sugar and vitals remained stable. Therefore at this time without obvious sourceof infection or patient having DKA or HHS he is otherwise safe for discharge andcan follow-up on an outpatient basis History & Record Review Discussion w/independent historian: Patient Lab Data Attestation: I reviewed the patient's lab results. Labs: Laboratory Results - last 24 hr 05/14/23 05/14/23 22:32 22:53 WBC 10.4 RBC 5.14 Hgb 15.0 Hct 44.4 MCV 86.4 MCH 29.2 MCHC 33.8 RDW Std Deviation 40.5 RDW Coeff of Mesha 12.9 Plt Count 302 MPV 10.6 Immature Gran % (Auto) 0.300 Neut % (Auto) 53.8 Lymph % (Auto) 35.5 [place] % (Auto) 7.5 Eos % (Auto) 2.4 Baso % (Auto) 0.5 Absolute Neuts (auto) 5.6 Absolute Lymphs (auto) 3.68 Nucleated RBC % 0 Sodium 135 L Potassium 3.9 Chloride 106 Carbon Dioxide 26.0 Anion Gap 3 L BUN 17 Creatinine 0.86 Estim Creat Clear Calc 111.93 Est GFR (MDRD) Af Amer 121 Est GFR (MDRD) Non-Af 100 BUN/Creatinine Ratio 19.7 Glucose 248 H Calcium 8.8 Total Bilirubin 0.20 Direct Bilirubin 0.06 AST 16 ALT 37 Alkaline Phosphatase 62 Total Protein 7.0 Albumin 3.5 Globulin 3.5 Lipase 36 Urine Color Straw Urine Clarity Sl. Cloudy Urine pH 7.0 Ur Specific [place] 1.010 Urine Protein Negative Urine Glucose (UA) 1000 H Urine Ketones Negative Urine Occult Blood Negative Urine Nitrite Negative Urine Bilirubin Negative Urine Urobilinogen Normal Ur Leukocyte Esterase Negative Urine RBC 0 SEEN Urine WBC 0 SEEN Ur Squamous Epith Cells 0-5 SEEN Urine Bacteria 0 SEEN Urine Mucus 0 SEEN Acetone Level NEGATIVE POC Glucose 219 H Radiography Diagnostic Testing: Clinical Impression(s) from Imaging Studies Chest X-Ray 05/14/23 23:16 IMPRESSION: No acute findings in the chest. Electronically Signed: Jaison Oneal MD at 23:43 EST , Chest x-ray as interpreted by the emergency medicine physician reveals no acute infiltrate pneumothorax or pleural effusion Discharge Plan Triage Chief Complaint: General Illness Other Complaint: Chest Pain ED Provider: Ben Hamilton Dx/Rx/DC Orders Clinical Impression: Diabetes mellitus, Acute hyperglycemia, Coronary artery disease, HTN (hypertension) Instructions: High Blood Sugar (Hyperglycemia), Diabetes- Measuring Glucose at Home Prescriptions: No Action escitalopram oxalate 20 mg tablet 20 mg PO DAILY Jardiance 10 mg tablet 10 mg PO DAILY Qty: 30 11RF amlodipine 5 mg tablet 5 mg PO DAILY Qty: 30 11RF clopidogrel 75 mg tablet 75 mg PO DAILY Qty: 30 11RF lisinopril 20 mg tablet 20 mg PO DAILY Qty: 30 11RF simvastatin 40 mg tablet 40 mg PO QHS Qty: 30 11RF aspirin 81 mg tablet,delayed release (DR/EC) 81 mg PO DAILY Qty: 30 11RF hydroxyzine HCl 25 mg tablet 25 mg PO DAILY metoprolol succinate 50 mg tablet extended release 24 hr 50 mg PO BID Qty: 180 3RF Primary Care Provider: ARNALDO FERGUSON Referrals: ARNALDO FERGUSON CRNP [Primary Care Provider] - Disposition Disposition: Home, Self Care What to do if you have Problems For any increased pain, shortness of breath, bleeding, nausea or vomiting, chestpain, or any unexpected problems, contact your Primary Care Provider. Call [facility] ([phone]) or report to the closest Emergency Room. Call 911 if necessary. 05/15/23 0015 <Electronically signed by Ben Hamilton DO> Cosigner Signature (if applicable): CC: LUNA ORTIZ ~ Signed [facility] Work Phone: [phone] 276-821401-26-2024 Discharge summary Author Keagan Carrasquillo [facility] April 08, 2023 9:00pm Note Date/Time April 08, 2023 8 :08pm [facility] Medical Records Department [address] [place] [address] Emergency Department Summary 04/08/23 MR#: [id number] Acct: [id number] Name: ALBAN PARKER Rep #:[id number] : 1975 47 From: Keagan Manzo PCP: ARNALDO FERGUSON Status:REG ER Location: ED HPI History of Present Illness Chief Complaint: Chest Pain PFSH PFSH Medical History Anxiety and depression Chronic neuropathic pain Coronary artery disease GERD (gastroesophageal reflux disease) HLD (hyperlipidemia) HTN (hypertension) Myocardial infarct Overweight Tobacco use Home Medications amlodipine 5 mg tablet 2.5 mg PO DAILY 03/27/22 [History Last Taken Unknown] lisinopril 10 mg tablet 10 mg PO DAILY 03/27/22 [History Last Taken Unknown] pantoprazole 40 mg tablet,delayed release 40 mg PO DAILY 03/27/22 [History Last Taken Unknown] simvastatin 40 mg tablet 40 mg PO QHS 03/27/22 [History Last Taken Unknown] aspirin 81 mg tablet,delayed release 81 mg PO DAILY 10/16/22 [History Last Taken Unknown] clopidogrel 75 mg tablet 75 mg PO DAILY 10/16/22 [History Last Taken Unknown] empagliflozin 10 mg tablet (Jardiance) 10 mg PO DAILY 10/16/22 [History Last Taken Unknown] escitalopram oxalate 10 mg tablet 20 mg PO DAILY 10/16/22 [History Last Taken Unknown] magnesium 30 mg tablet 30 mg PO BID 10/16/22 [History Last Taken Unknown] metoprolol succinate 50 mg tablet,extended release 24 hr 50 mg PO BID 10/16/22 [History Last Taken Unknown] potassium gluconate 595 mg (99 mg) tablet 595 mg PO DAILY 10/16/22 [History Last Taken Unknown] hydroxyzine HCl 25 mg tablet 25 mg PO DAILY 04/08/23 [History Last Taken Unknown] Allergy/AdvReac Type Severity Reaction Status Date / Time bee venom protein (honey bee) Allergy Anaphylaxis Verified 04/08/23 19:51 mint Allergy Hives Verified 04/08/23 19:51 Penicillins Allergy Anaphylaxis Verified 04/08/23 19:51 Family History (Updated 04/08/23 @ 20:[address] Jeannette Griffin MD) Mother Hypertension CVA (cerebral vascular accident) Father No problems noted. Grandfather Multiple sclerosis Paternal grandfather Brother Multiple sclerosis Heart disease Hypertension CAD (coronary artery disease) Myocardial infarction Surgical History (Updated 04/08/23 @ 20:[address] Jeannette Griffin MD) H/O heart artery stent H/O right inguinal hernia repair Hx of CABG S/P appendectomy Social History (Updated 04/08/23 @ 20:[address] Jeannette Griffin MD) household members: spouse and children Smoking Status: Current every day smoker tobacco type: cigarettes Smoking packsper day: 0.5 Smoking cigarettes per day: 10.0 alcohol intake: never substance use type: does not use EXAM Physical Exam Const Vital Signs: 04/08/23 19:48 Temperature 98.8 F Temperature Source Temporal Pulse Rate 73 Respiratory Rate 15 Blood Pressure 139/91 H Blood Pressure Mean 107 Pulse Ox 100 Oxygen Delivery Method Room Air MDM MDM MDM Narrative Medical decision making narrative: HISTORY OF PRESENT ILLNESS: 47-year-old male here with chest pain. He was seen earlier today and was recommended be admitted secondary to elevated heart score and ongoing chest pain. Patient had to leave secondary to family issues he returns for admission at this time. Notes exertional chest pain that is sharp, left-sided, rating to the shoulder only with exertion. No pain at rest. Patient denies sudden onset of pain, no migratory symptoms, weakness or loss ofsensation. Patient denies family history or personal history of Connective tissue disorders (Marfan's Syndrome, Jenniffer Danlos etc) The patient denies recent surgery in the last 4 weeks or immobilization in the last 3 days, denies previous diagnosis of DVT or PE, hemoptysis, unilateral leg swelling or malignancy with treatment the last 6 months or palliative. No estrogen use noted. REVIEW OF SYSTEMS: Pertinent positives: Chest pain, Shortness of breath, dizziness Pertinent negatives: Bleeding diathesis, leg swelling, focal weakness PHYSICAL EXAM: Nursing triage notes reviewed, Vital signs reviewed Constitutional: please see mdm HENT: MMM Eyes: Pupils equal round and reactive to light, Extraocular muscles intact Neck: No stridor, no JVD, full neck ROM Lungs: Clear to auscultation, No wheezing or rales. No increased work of breathing, no conversational dyspnea, no accessory muscle use, no nasal flaring. No respiratory distress noted Heart: Regular rate and rhythm, No murmurs, No rubs and No gallops, 2+ distal pulses (radial, femoral, posterior tibial) in all extremities Abdomen: Soft, there is no tenderness, rigidity, rebound or guarding, no obviousperitoneal signs, no palpable pulsatile abdominal masses, no auscultated abdominal bruit : No CVAT Extremities: No edema Neuro: No focal neurological deficits, cranial nerves II through XII intact, 5/5strength in all extremities. Intact sensation to light touch in all extremities,2+ reflexes bilateral patella tendons. Normal gait. No ataxia. Skin: No rash or lesions noted MEDICAL DECISION MAKING: Chief Complaint: Chest pain External records reviewed: Seen earlier today for similar complaints was noted to have no leukocytosis or anemia on CBC, BMP without significant electrolyte abnormalities or acute kidney injury, troponin were negative x 2. Heart score is 5 at that time a decision is made to admit the patient however he cannot staysecondary to family issues. Factors affecting care: CAD status post stent, hypertension, GERD, hyperlipidemia Consults: Internal medicine (Dr. Griffin) [facility] Narrative: Patient was initially hemodynamically stable, afebrile, nontoxic-appearing. Cardiopulmonary exam was benign. Neurologic exam was nonfocal. Patient had symmetric pulses. I considered the following differential diagnosis: ACS, anemia, arrhythmia, electrolyte disturbance, PE, dissection I considered PE however the patient had a low risk Wells score. I have a low suspicion for pulm embolism at this time. He had no pulse deficits ripping or tearing pain no family or personal history of connective tissue diseases to suggest aortic dissection. ALL IMAGES (IF OBTAINED) HAVE BEEN PERSONALLY REVIEWED AND INTERPRETED BY MYSELF. EKG with normal sinus rhythm, left axis deviation, no obvious STEMI Given the patient score 5 and ongoing exertional chest pain I recommended admission. Spoke with Dr. Griffin who agreed to accept the patient. The patient and/or family, caregivers express understanding. The patient and/orfamily, caregivers agrees with the plan. Shared decision making: I will have a discussion with the patient and or visitors regarding risk/benefits of further testing or admission. They will be made aware of of the risk/benefits inherent in this decision they will be given the opportunity to voice understanding. Total critical care time today provided was at least 0 [] minutes. This excludes separately billable procedures. Critical care time (if documented) is secondary to the patient having high probability of clinically significant/life threatening deterioration in the patient's condition which required my urgent intervention. Impression: 1. Chest pain 2. History of CAD Dispo: Admit to medicine This note was generated with monEchelle dictation software. It may contain incorrect words, spelling, and punctuation that were not noted in review of the chart prior to signing. Discharge Plan Triage Chief Complaint: Chest Pain ED Provider: Keagan Carrasquillo Dx/Rx/DC Orders Prescriptions: No Action amlodipine 5 mg Tablet 2.5 mg PO DAILY simvastatin 40 mg Tablet 40 mg PO QHS pantoprazole 40 mg Tablet,Delayed Release (Dr/Ec) 40 mg PO DAILY lisinopril 10 mg Tablet 10 mg PO DAILY hydroxyzine HCl 25 mg tablet 25 mg PO DAILY Jardiance 10 mg tablet 10 mg PO DAILY Patient Comments: TAKE 1 TABLET IN THE MORNING DAILY escitalopram oxalate 10 mg tablet 20 mg PO DAILY clopidogrel 75 mg tablet 75 mg PO DAILY metoprolol succinate 50 mg tablet extended release 24 hr 50 mg PO BID magnesium 30 mg tablet 30 mg PO BID potassium gluconate 595 mg (99 mg) tablet 595 mg PO DAILY aspirin 81 mg tablet,delayed release (DR/EC) 81 mg PO DAILY Primary Care Provider: ARNALDO FERGUSON Referrals: ARNALDO FERGUSON CRNP [Primary Care Provider] - What to do if you have Problems For any increased pain, shortness of breath, bleeding, nausea or vomiting, chestpain, or any unexpected problems, contact your Primary Care Provider. Call [facility] ([phone]) or report to the closest Emergency Room. Call 911 if necessary. 04/08/23 2100 <Electronically signed by Keagan Carrasquillo DO> Cosigner Signature (if applicable): CC: LUNA ORTIZ ~ Signed [facility] Work Phone: [phone] 511-944801-18-2024 History of Present illness Narrative* Gayatri Shaw PA-C - 03/31/2023 10:19 AM EST Received the following message from patient thru EPIC patient communication: After my surgery, you said you and your staff are there for me anytime. 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 Please give me a call at [phone]. At your earliest availability. Thank you. Call placed to patient this morning in follow up. States he initially followed up with Dr. Shaggy Mehta of 2022. He was scheduled to follow up again in January however was "cancelled Patient/Provider". He again was scheduled to follow up on March 24, 2023 at the [facility] office only to read a note posted on the door that the office was closed. Patient states he was not notified by phone call or any other mode of notification and has missed work to attend appointment. He is requesting that hebe seen by a different appeals court associate justice and will be referred to Dr. Sandy Plata. documented in this [id number] Discharge summary Author Dipesh Sauer [facility] October 16, 2022 11:52pm Note Date/Time October 16, 2022 9:2 5pm [facility] Medical Records Department [address] [place] [address] Emergency Department Summary 10/16/22 MR#: [id number] Acct: [id number] Name: ALBAN PARKER Rep #:[id number] : 1975 47 From: Beck Mcmanus MD PCP: ARNALDO FERGUSON Status:REG ER Location: ED HPI History of Present Illness Chief Complaint: Chest Pain Detail of Chief Complaint: Left parasternal chest pain. Informant: patient and spouse/S.O. Onset/Context/Timing Onset: Today Activity at onset: gradual Timing: Continuous Quality: Positive for Dull and Pressure Location: Left Parasternal Current Severity: Mild Maximum Severity: Mild Worsened By: Nothing Relieved By: Nothing Associated Symptoms: Negative for Nausea, Vomiting, Cough, Fever, Lightheadedness or Acid Reflux Narrative Narrative: 47-year-old male history of prior ME, CAD, 7 cardiac stents, hypertension, recent triple bypass in May of this year, diabetes and smoker. States earliertonight he had a drop in his heart rate and blood pressure and some midsternal chest pain. He was seated when this occurred. It was not during exertion. Said he also got shaky and was not sure if this was his heartburn anxiety attack. Denies any recent exertional chest pain. No recent travel, surgery or hospitalization in the last month. No history of DVT or PE. No leg pain or swelling. No hemoptysis. Prior Similar Symptoms: Yes Recent Illness/Hospitalization: No CVD Risk Factors: Positive for Hypertension, Diabetes and Smoking PE Risk Factors: Negative for Recent Travel/Surgery, Recent Immobilization, Prior DVT or PE, Cancer or OCP + Smoking + >/=35 TAD Risk Factors: Negative for Marfan's Syndrome [facility] Medical History HTN (hypertension) Myocardial infarct Home Medications amlodipine 5 mg tablet 2.5 mg PO DAILY 03/27/22 [History Last Taken Unknown] lisinopril 10 mg tablet 5 mg PO DAILY 03/27/22 [History Last Taken Unknown] pantoprazole 40 mg tablet,delayed release 40 mg PO DAILY 03/27/22 [History Last Taken Unknown] simvastatin 40 mg tablet 40 mg PO QHS 03/27/22 [History Last Taken Unknown] aspirin 81 mg tablet,delayed release 81 mg PO DAILY 10/16/22 [History Last Taken Unknown] clopidogrel 75 mg tablet 75 mg PO DAILY 10/16/22 [History Last Taken Unknown] empagliflozin 10 mg tablet (Jardiance) 10 mg PO DAILY 10/16/22 [History Last Taken Unknown] escitalopram oxalate 10 mg tablet 20 mg PO DAILY 10/16/22 [History Last Taken Unknown] magnesium 30 mg tablet 30 mg PO BID 10/16/22 [History Last Taken Unknown] metoprolol succinate 50 mg tablet,extended release 24 hr 50 mg PO DAILY 10/16/22[History Last Taken Unknown] potassium gluconate 595 mg (99 mg) tablet 595 mg PO DAILY 10/16/22 [History Last Taken Unknown] Allergy/AdvReac Type Severity Reaction Status Date / Time bee venom protein (honey bee) Allergy Anaphylaxis Verified 10/16/22 20:47 mint Allergy Hives Verified 03/27/22 15:58 Penicillins Allergy Anaphylaxis Verified 03/27/22 15:58 Surgical History H/O heart artery stent Hx of CABG Social History Smoking Status: Current every day smoker tobacco type: cigarettes ROS ROS ED ROS Narrative Nonexertional chest pain. Bradycardia. Review of Systems ROS Unobtainable: Denies due to encephalopathy Constitutional Constitutional ED: Denies chills or fever(s) Eyes Eyes: Denies none ENT ENT ED: Denies ear pain Cardiovascular Cardiovascular: Reports as per HPI and chest pain; Denies palpitations or racingheartbeat Respiratory/Chest Respiratory/Chest: Denies cough Gastrointestinal Gastrointestinal: Denies abdominal pain Genitourinary Genitourinary ED: Denies dysuria or hematuria Musculoskeletal Musculoskeletal: Denies arthralgias Integumentary Denies abscess Neurologic Neurologic: Denies headache(s) Psychiatric Psychiatric: Denies anxiety Endocrine Endocrinology: Denies cold intolerance Hematologic/Lymphatic Hematologic/Lymphatic: Denies easy bleeding Allergic/Immunologic Allergic/Immunologic ED: Denies mouth swelling EXAM Physical Exam Narrative Exam Narrative: Well-appearing 47-year-old male. Vital signs are stable afebrile. Initial pulse ox is 98 % on room air no signs hypoxia. Initial heart rate 65 and his blood pressure is 109/85. He does not look septic or toxic or in any distress. is present with the patient. H EENT exam unremarkable. Neck nontender no JVD. Lungs clear to auscultation bilaterally. Heart regular rate and rhythm rate about 65 no murmur. He does have reproducible pain over his left chest wall. Well-healed sternotomy incision. Abdomen soft nontender. Normal bowel sounds no peritoneal signs. Moving all 4 extremities. Calves are nontender without edema or cords. Equal symmetrical radial pulses. 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 Normal dorsi plantarflexion. Neurologically is awake and alert with no focal motor deficits. Const Vital Signs: 10/16/22 20:42 10/16/22 20:46 10/16/22 21:13 Temperature 98.2 F Temperature Source Oral Pulse Rate 65 Respiratory Rate 24 H Respiratory Effort Normal Non-Labored Blood Pressure 109/85 H Blood Pressure Mean 93 Pulse Ox 98 Oxygen Delivery Method Room Air Room Air Positive well nourished and well developed; Negative for obese, cachectic, contractures or unkempt General Appearance ED: well developed and NAD; Negative for unkempt,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 as constant pressureunder the rib cage, like he needs to [...] however this resolves with rest. Overview: Mr. Parker underwent three-vessel coronary artery bypass grafting on 05/24/2022, using left internal mammary artery to the left anterior descending artery, saphenous vein graft from ascending aorta to posterior descending artery and saphenous vein graft from ascending aorta to second obtuse marginal by Dr. Bruno Bryant along with left lower extremity endoscopic greater saphenous vein harvest by physician corporate legal assistant. Physical assessment: He is assisted to [...] At this time, I have advised Mr. Parker the followin. Continue strict sternal precautions, no [...] provided Contact the office of Dr. Bruno Bryant and Dr. Richmond Garnica should you have any questions or concerns regarding your ongoing recovery from heart surgery at [phone], option #3 after 5:00 PM Follow-up: Return in about 16 days (around 07/01/2022), or 11:00 am, for Next scheduled follow up. Chief Complaint: Follow-up (S/P CABG x [address] Panda Bryant with endoscopic vein harvest lower extremity left by Physician Medical Office Asst on 05/27/2022/) Objective Tobacco Use Smoking Status Former Packs/day: 2.00 Years: 30.00 Pack years: 60.00 Types: Cigarettes Smokeless Tobacco Never Vaping Use Vaping Status Not on file CXR: 06/15/2022 FINDINGS: Two-view chest x-ray. No pneumothorax, pleural effusion or focal airspace consolidation. Right basilar subsegmental atelectasis. Heart is normal in size. Postoperative changes of median sternotomy and CABG. Bony thorax isunremarkable. IMPRESSION: Improved aeration of the lungs. Stable [...] BG daily Dx E11.59 Needs One Touch Veriostrips. . BLOOD-GLUCOSE METER (ONETOUCH VERIO METER) MISC [...] mg total) by mouth 3 (three) times aday with meals . LANCETS MISC Use to [...] Cuff Size: Adult) Pulse 86 Ht 5' 7" Wt 73.7 kg (162 lb 6.4 oz) [...] creatinine clearance: 100.4 mL/min documented in this [id number] Evaluation + Plan note* Assessment & Plan Note - Gayatri Shaw PA-C - 06/15/2022 10:34 AM EDT Associated Problem(s): S/P CABG (coronary artery bypass graft) Images from the original note were not included. Assessment: Mr. Alban Parker is a 46-year-old male who presents today for scheduled routine follow-up appointment and is accompanied by his spouse. He consequently has missed/canceled his 2 previously scheduled appointments which he states was out of concern due to his insurance cancelling and losing his job after undergoing CABG. Cancellation of his appointments was also compounded by reportedlybeing tired and inability to sleep. He states he does not have an appetite, nor sense of taste, andhas had only 1 hour average of sleep [...] was on 06/13/2022. Today, he had a "normal" bowel movement. He also states he has been experiencing pain and discomfort in the right posterior flank region which has moved to the anterior region, under his ribs which he describes as constant pressureunder the rib cage, like he needs to [...] however this resolves with rest. Overview: Mr. Parker underwent three-vessel coronary artery bypass grafting on 05/24/2022, using left internal mammary artery to the left anterior descending artery, saphenous vein graft from ascending aorta to posterior descending artery and saphenous vein graft from ascending aorta to second obtuse marginal by Dr. Bruno Bryant along with left lower extremity endoscopic greater saphenous vein harvest by physician corporate legal assistant. Physical assessment: He is assisted to [...] At this time, I have advised Mr. Parker the followin. Continue strict sternal precautions, no [...] provided Contact the office of Dr. Bruno Bryant and Dr. Richmond Garnica should you have any questions or concerns regarding your ongoing recovery from heart surgery at [phone], option #3 after 5:00 PM [id number] Miscellaneous Notes* Assessment & Plan Note - Gayatri Shaw PA-C - 06/15/2022 10:34 AM EDTAssociated Problem(s): S/P CABG (coronary artery bypass graft) Images from the original note were not included. Assessment: Mr. Alban Parker is a 46-year-old male who presents today for scheduled routine follow-up appointment and is accompanied by his spouse. He consequently has missed/canceled his 2 previously scheduled appointments which he states was out of concern due to his insurance cancelling and losing his job after undergoing CABG. Cancellation of his appointments was also compounded by reportedlybeing tired and inability to sleep. He states he does not have an appetite, nor sense of taste, andhas had only 1 hour average of sleep [...] was on 06/13/2022. Today, he had a "normal" bowel movement. He also states he has been experiencing pain and discomfort in the right posterior flank region which has moved to the anterior region, under his ribs which he describes as constant pressureunder the rib cage, like he needs to [...] however this resolves with rest. Overview: Mr. Parker underwent three-vessel coronary artery bypass grafting on 05/24/2022, using left internal mammary artery to the left anterior descending artery, saphenous vein graft from ascending aorta to posterior descending artery and saphenous vein graft from ascending aorta to second obtuse marginal by Dr. Bruno Bryant along with left lower extremity endoscopic greater saphenous vein harvest by physician corporate legal assistant. Physical assessment: He is assisted to [...] At this time, I have advised Mr. Parker the followin. Continue strict sternal precautions, no [...] provided Contact the office of Dr. Bruno Bryant and Dr. Richmond Garnica should you have any questions or concerns regarding your ongoing recovery from heart surgery at [phone], option #3 after 5:00 PM documented in this [id number] Instructions* Patient Instructions* Gayatri Shaw PA-C - 06/15/2022 8:51 AM EDT [...] provided Contact the office of Dr. Bruno Bryant and Dr. Richmond Garnica should you have any questions or concerns regarding your ongoing recovery from heart surgery at [phone], option #3 after 5:00 PM documented in this [id number] History of Present illness Narrative* Simeon Fung PA-C - 06/10/2022 1:07 PM EDT Patient missed postoperative follow-up appointment today. I [...] having pain in his right lower ribs, forwhich he has been soaking his back in the bathtub. I reinforced with him that he absolutely should NOT be taking baths under any circumstance until all incision sites are completely healed, and instead should be taking showers or applying warm compresses just to the back area if needed. He has alsonot been taking anything for pain after running out of Percocet, therefore I instructed him to try extra strength Tylenol as noted on discharge instructions. We will reschedule the patient's appointment to Tuesday, 06/14 at 10:30 AM. I instructed patient to get labs drawn and chest x-ray prior to the appointment. If he continues to have diarrhea after holding off on the stool softener we will send stool for testing. Simeon Fung PA-C Cardiothoracic Surgery documented in this [id number] Evaluation + Plan note Future Appointments Appointment Date:08/08/2024 01:00:00 PM Scheduled Provider: Location:[facility] Appointment Type:GI OV Consult Appointment Date:08/16/2024 10:00:00 AM Scheduled Provider: Location:Heart Lab Appointment Type:CV Procedure - Heart Lab/Hybrid OR Appointment Date:08/24/2024 02:45:00 PM Scheduled Provider:MARY ELLEN REVELES Location:[facility] Appointment Type:CV OV Appointment Date:10/10/2024 10:30:00 AM Scheduled Provider:ARNALDO FERGUSON Location:[facility] Appointment Type:PC OV Future Scheduled Tests Laboratory* Basic Metabolic Panel 06/29/24 * Prostate Specific Antigen 07/08/24 * Complete Blood Count 06/29/24 * Prothrombin Time - Panel 06/29/24 * N-Terminal proBNP 06/29/24 Radiology* XR Spine Lumbar AP/LAT 10/03/23 [facility] Evaluation + Plan note Future Appointments Appointment Date:05/10/2023 11:30:00 AM Scheduled Provider:ARNALDO FERGUSON Location:[facility] Appointment Type:PC OV [facility] Evaluation + Plan note Future Appointments Appointment Date:04/04/2024 01:30:00 PM Scheduled Provider:ARNALDO FERGUSON Location:[facility] Appointment Type:PC OV Future Scheduled Tests Laboratory* A1C Hemoglobin 01/03/24 * Lipid Profile 01/03/24 * Complete Metabolic Panel 01/03/24 Radiology* XR Spine Lumbar AP/LAT 10/03/23 [facility] Evaluation + Plan note Future Appointments Appointment Date:01/13/2024 09:00:00 AM Scheduled Provider:MARY ELLEN HATHAWAY Location:[facility] Appointment Type:CV [employer] Appointment Date:04/04/2024 01:30:00 PM Scheduled Provider:ARNALDO FERGUSON Location:[facility] Appointment Type:PC OV Future Scheduled Tests Laboratory* A1C Hemoglobin 01/03/24 * Lipid Profile 01/03/24 * Complete Metabolic Panel 01/03/24 Radiology* XR Spine Lumbar AP/LAT 10/03/23 [facility] Evaluation + Plan note Future Appointments Appointment Date:04/04/2024 01:30:00 PM Scheduled Provider:ARNALDO FERGUSON Location:[facility] Appointment Type:PC OV Future Scheduled Tests Laboratory* A1C Hemoglobin 01/03/24 * Complete Blood Count 02/01/24 * CPK 02/01/24 * Lipid Profile 02/01/24 * Lipid Profile 01/03/24 * Complete Metabolic Panel 02/01/24 * Complete Metabolic Panel 01/03/24 Radiology* XR Spine Lumbar AP/LAT 10/03/23 [facility] Evaluation + Plan note Future Appointments Appointment Date:04/04/2024 01:30:00 PM Scheduled Provider:ARNALDO FERGUSON Location:[facility] Appointment Type:PC OV Appointment Date:04/25/2024 11:30:00 AM Scheduled Provider:MARY ELLEN REVELES Location:[facility] Appointment Type:CV OV Future Scheduled Tests Laboratory* A1C Hemoglobin 01/03/24 * Complete Blood Count 02/01/24 * CPK 02/01/24 * Lipid Profile 02/01/24 * Lipid Profile 01/03/24 * Complete Metabolic Panel 02/01/24 * Complete Metabolic Panel 01/03/24 Radiology* XR Spine Lumbar AP/LAT 10/03/23 [facility] Evaluation + Plan note Future Appointments Appointment Date:04/25/2024 11:30:00 AM Scheduled Provider:MARY ELLEN REVELES Location:[facility] Appointment Type:CV OV Appointment Date:07/10/2024 02:30:00 PM Scheduled Provider:ARNALDO FERGUSON Location:[facility] Appointment Type:PC OV Future Scheduled Tests Radiology* XR Spine Lumbar AP/LAT 10/03/23 [facility] Evaluation noteNo assessment information available [facility] Work Phone: evaluation note* Diagnosis S/P CABG (coronary artery bypass graft)- Primary Postsurgical aortocoronary bypass status [facility]* Diagnosis S/P CABG (coronary artery bypass graft)- Primary Postsurgical aortocoronary bypass status [facility] Diagnosis S/P CABG (coronary artery bypass graft)- Primary Postsurgical aortocoronary bypass status [facility]* Diagnosis S/P CABG (coronary artery bypass graft)- Primary Postsurgical aortocoronary bypass status Hypertension, unspecified type [facility]* Diagnosis Chest pain, unspecified type- Primary S/P CABG (coronary artery bypass graft) Postsurgical aortocoronary bypass status [facility] Coronary artery disease involving yurok coronary artery of yurok heart without angina pectoris- Primary S/P CABG (coronary artery bypass graft) Postsurgical aortocoronary bypass status Hyperlipidemia, unspecified hyperlipidemia type Hypertension, unspecified type [facility]* Diagnosis Onset Date Resolution Status Encounter 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) acute [facility] Work Phone: Evaluation note* Diagnosis Onset Date Resolution Status Coronary artery disease chronometer tester william Diabetes mellitus chronic Dyslipidemia chronic HTN (hypertension) chronic Nicotine dependence chronic S/P CABG x 3 chronic [facility] Work Phone: Evaluation note* Diagnosis Onset Date Resolution Status Admit Date Chest pain acute November 10:37am Diabetes mellitus chronic Septemb er 2024 10:37am Dyslipidemia chronic November 282024 10:37am HTN (hypertension) chronic Septem deanna 2024 10:37am Nicotine dependence chronic Septe mber 2024 10:37am S/P CABG x 3 chronic November 282024 10:37am [facility] Work Phone: Hospital course Narrative No data available for this section [facility] Hospital Discharge instructions Additional Instructions Follow-up with your primary care provider as needed. Your labs, EKG and chest x-ray tonight were unremarkable. Return if you are feeling worse.[facility] Work Phone: Hospital Discharge instructions Additional Instructions Take antibiotics as prescribed and follow-up with a dentist. Return for any worsening of your symptoms. You can take Tylenol for your pain.[facility] Work Phone: Hospital Discharge instructions No data available for this section [facility] Discharge instructions Additional Instructions I would encourage you to go ahead and continue using the albuterol nebulizer every 4 hours Prednisone will make your blood sugars go up. Please take the entire course of the antibiotic [facility] Work Phone: Progress note No data available for this section [facility] Reason for referral (narrative)* Consultation (Urgent) - New Request Specialty Diagnoses / Procedures Referred By Scott hoffmann Referred To Contact Cardiovascular Medicine Diagnoses Chest pain, unspecified type Nery Figueroa MD [address] [place] [address] Giancarlo Reis MD [address] [place] [address] Referral ID Status Reason Start Date Expiration Date V isits Requested Visits Authorized [id number] New Request 09/28/2022 10/23/2023 1 1 * Radiology (Emergency) - Pending Review Specialty Diagnoses / Procedures Referred By Contvahid t Referred To Contact Procedures ECG Nery Figueroa MD [address] [place] [address] Referral ID Status Reason Start Date Expiration Date V isits Requested Visits Authorized [id number] Pending Review 09/28/2022 10/23/2023 1 1 [facility]No reason for referral information availableWProMed[facility] Work Phone: Summary Purpose Family History No Family History Records Found Relationship Condition Age at Onset Recorded Date/T karli mother Hypertension Unknown Cerebrovascular accident (CVA) Unknown grandfather Multiple sclerosis Unknown brother Multiple sclerosis Unknown Cardiac disease Unknown Hypertension Unknown Coronary artery disease Unknown Myocardial infarction Unknown Advance Directives No Advanced Directives Records FoundDocuments on File Type Date Recorded Patient Byproducts Operator Expl anation Advance Directives and Livin g Will 02/16/2020 3:36 PM Advance Directive Response Recorded Date/ Time Living Will No March 27 4:08pm Power of Paraprofessional Aide Teacher No March 27, 2022 4:08pm Documents on File Type Date Recorded Patient Byproducts Operator Expl anation Power of Paraprofessional Aide Teacher 05/25/2022 4:39 PM Latest Code Status on [...] Documents on File Type Date Recorded Patient Byproducts Operator Expl anation Power of Paraprofessional Aide Teacher 05/25/2022 4:39 PM Latest Code Status on File Code Status Date Activated Date Inactivated Comments Full Code 05/27/2022 12:04 PM 05/31/2022 4:36 PM Code Status History Code Status Date Activated Date Inactivated Comments Full Code 05/24/2022 6:55 AM 05/27/2022 12:04 PM Advance Directive Response Recorded Date/ Time Living Will No October 16, 2022 8:45pm Power of Paraprofessional Aide Teacher No October 16 8:45pm Advance Directive Response Recorded Date/ Time Living Will No January 01 11:52am Power of Paraprofessional Aide Teacher No January 01, 2023 11:52am Advance Directive Response Recorded Date/ Time Living Will No January 02 8:00am Power of Paraprofessional Aide Teacher No January 02, 2023 8:00am Advance Directive Response Recorded Date/ Time Living Will No April 08 6:56am Power of Paraprofessional Aide Teacher No April 08, 2023 6:56am Advance Directive Response Recorded Date/ Time Living Will No April 08 8:30pm Power of Paraprofessional Aide Teacher No April 08, 2023 8:30pm Advance Directive Response Recorded Date/ Time Name of Medical Power of Paraprofessional Aide Teacher Jocelyn Menon May 14, 2023 10:16pm Living Will Yes May 14, 2023 10:16pm Power of Paraprofessional Aide Teacher Yes May 13 10:16pm Advance Directive Response Recorded Date/ Time Living Will No May 28, 2024 6:41pm Power of Paraprofessional Aide Teacher No May 28 6:41pm Discharge Instructions * Instructions* Donavon Joshi MD [...] of right hand and fingers, initial encounter Chief Complaint and Reason for Visit Chief Complaint CHEST PIAN Chief Complaint DOT PHYSICAL / CRW chest tightness Reason for Visit Encounter for examin ation required by Department of Transportation (DOT) Chief Complaint chest tightness DENTAL ABSCESS, PALPITATIONS Chief Complaint chest tightness DENTAL ABSCESS, PALPITATIONS dental Chief Complaint DENTAL ABSCESS, PALP ITATIONS dental chest pain Chief Complaint DENTAL ABSCESS, PALP ITATIONS dental chest pain CHEST PAIN Chief Complaint chest pain CHEST PAIN CHEST PAIN CHEST PAIN MX OF ME / CHF / CABG (MAST) CP, SOB, WEAKNESS, DIZZINESS, HYPERGLYCEMIA Reason for Visit Coronary artery dise ase Diabetes mellitus Dyslipidemia HTN (hypertension) Nicotine dependence S/P CABG x 3 Chief Complaint Admit Date SOB May 28, 2024 5:5 0pm Chief Complaint Admit Date Needs Cath per Ju CVC November 10:37am Reason for Visit Admit Date Chest pain November 28, 2024 10:37am Diabetes mellitus November 28, 2024 10:37am Dyslipidemia November 28, 2024 10:37am HTN (hypertension) November 28, 2024 10:37am Nicotine dependence November 28, 2024 10:37am S/P CABG x 3 November 28, 2024 10:37am Chief Complaint Admit Date Needs Cath per Ju CVC November 10:37am INT LABS AND RAD December 05, 2024 9:33am Reason for Referral Specialty Diagnoses / Procedures Referred By Contac t Referred To Contact Cardiology Diagnoses S/P CABG (coronary artery bypass graft) Procedures ECG 12 lead Consuelo Coon MD [address] [place] [address] Referral ID Status Reason Start Date Expiration Date V isits Requested Visits Authorized [id number] Authorized 10/05/2022 10/05/2023 1 1 Specialty Diagnoses / Procedures Referred By Contac t Referred To Contact Cardiac Rehab Diagnoses S/P CABG (coronary artery bypass graft) Consuelo Coon MD [address] [place] [id number] Referral ID Status Reason Start Date Expiration Date Visits Requested Visits Authorized [id number] Authorized Patient Preference 10/05/2022 10/05/2023 1 1 Additional Source Comments (unrecognized sect ion and content) No Status Records FoundNo Status Records FoundNo Status Records FoundNo Status Records FoundNo Status Records FoundNo Status Records FoundNo Status Records FoundNo Status Records FoundNo Status Records Found INFORMATION SOURCE (unrecogn ized section and content) DATE CREATED AUTHOR 09/02/2017 [facility] DATE CREATED AUTHOR AUTHOR'S ORGANIZ ATION 09/05/2017 [facility] DATE CREATED AUTHOR AUTHOR'S ORGANIZ ATION 09/05/2017 [facility] DATE CREATED AUTHOR AUTHOR'S ORGANIZ ATION 07/25/2022 [facility] DATE CREATED AUTHOR AUTHOR'S ORGANIZ ATION 07/25/2022 [facility] DATE CREATED AUTHOR AUTHOR'S ORGANIZ ATION 02/14/2023 [facility] DATE CREATED AUTHOR AUTHOR'S ORGANIZ ATION 08/08/2024 [facility] DATE CREATED AUTHOR AUTHOR'S ORGANIZ ATION 10/06/2024 [facility] DATE CREATED AUTHOR AUTHOR'S ORGANIZ ATION 12/16/2024 [facility] Reason for Visit (unrecogniz ed section and content) Reason Comments Finger Laceration Reason Onset Date Comments Missed appointment 06/10/2022 Reason Comments Follow-up S/P CABG x [address] Panda Bryant with endoscopic vein harvest lower extremity left by Physician Medical Office Asst on 05/27/2022 Reason Onset Date Comments Phase II Cardiac Rehab 07/05/2022 Reason Comments Follow-up S/P CABG x [address] Panda Bryant on 05/28/22 and left lower extremity endoscopic greater saphenous vein harvesting by physician corporate legal assistant Reason Comments Medication Refill Reason Comments Chest Pain Complains of chest t ightness x1 week. States that it is worse with breathing. [facility] Reason Comments Follow-up S/P CABG May 29 is only taking the metoprolol 1 a day last wed went to [facility] for b/p 190/130 Damir Weir RN - 02/16/2020 2:53 PM Donavon Trujillo MD - 02/16/2020 2:50 PM Rip Russ - 02/16/2020 2:49 PM EST ED Notes (unrecognized secti on and content) PT HAND SOAKING IN CHLORHEXIDINE AND NORMAL SALINE PER ORDER OF DR JOSHI ED PROVIDER NOTE [facility] NAME: Alban Parker AGE: 44 y.o. : 1975 VISIT DATE: 02/16/2020 CSN: [id number] PCP: Physician No Chief Complaint Patient presents [...] History: Diagnosis Date CHF (congestive heart failure) ([facility]) Hypertension History reviewed. No pertinent surgical history. [...] file Gets together: Not on file Attends roman catholic service: Not on file Active member of [...] intact. For laceration repair please see Tara Montoyas, SUPERVISOR [employer], note. Patient received morphine and Toradol for [...] 1. Madisyn Mcgrath MD. Specialty: Orthopedic Surgery [address] [place] [id number] Contact information for after-discharge care Follow-up information has not been specified. New Prescriptions amoxicillin-clavulanate (AUGMENTIN) 875-125 mg per tablet Take 1 (one) tablet by mouth 2 (two) times a day . Donavon Joshi MD 02/16/20 1800 Bed: 20 Expected date: Expected time: Means of arrival: Comments: PT 3 documented in this encounter Goals (unrecognized section and content) Goals may be documented in a n alternate sectionGoals may be documented in an alternate sectionGoals may be documented in an alternate sectionGoals may be documented in an alternate section No data available for this sectionGoals may be documented in an alternate sectionGoals may be documented in an alternate section No data available for this section No data available for this section No data available for this section No data available for this section No data available for this section No data available for this section No data available for this sectionGoals may be documented in an alternate section No data available for this sectionGoals may be documented in an alternate sectionGoals may be documented in an alternate section Care Teams (unrecognized sec tion and content) Gis Database Administrator Relationship Specialty Start Date End Date Kori Willis DO [address] [facility] [address] [place] [address] PCP - General Family Medicine 05/31/22 Gis Database Administrator Relationship Specialty Start Date End Date Kori Willis DO [address] [place] [address] PCP - General Family Medicine 05/31/22 Gis Database Administrator Relationship Specialty Start Date End Date Kori Willis DO [address] [place] [address] PCP - General Family Medicine 05/31/22 Gis Database Administrator Relationship Specialty Start Date End Date Kori Willis DO [address] [place] [address] PCP - General Family Medicine 05/31/22 Gis Database Administrator Relationship Specialty Start Date End Date Kori Willis DO [address] [place] [address] PCP - General Family Medicine 05/31/22 Gis Database Administrator Relationship Specialty Start Date End Date Kori Willis DO [address] [place] [address] PCP - General Family Medicine 05/31/22 Gis Database Administrator Relationship Specialty Start Date End Date Kori Willis DO [address] [place] [address] PCP - General Family Medicine 05/31/22 Gis Database Administrator Relationship Specialty Start Date End Date Kori Willis DO [address] [place] [address] PCP - General Family Medicine 05/31/22 Gis Database Administrator Relationship Specialty Start Date End Date Kori Willis DO [address] [place] [address] PCP - General Family Medicine 05/31/22 Gis Database Administrator Relationship Specialty Start Date End Date Kori Willis DO [address] [place] [address] PCP - General Family Medicine 05/31/22 Team Status: Active Member Role Status Dates ARNALDO MAST , BAG BUILDER Primary Care Provider Active Team Status: Inactive Member Role Status Dates No Primary Care Physician Primary Care Provider, Refer ring Provider Active Sunny KERR, PA Attending Provider Active Team Status: Inactive Member Role Status Dates ARNALDO MAST , BAG BUILDER Primary Care Provider Active Dr. Beck Mcmanus MD Emergency Provider Active Team Status: Inactive Member Role Status Dates ARNALDO MAST , BAG BUILDER Primary Care Provider Active Dr. Beck Mcmanus MD Attending Provider, Emergency Pro vider Active Team Status: Inactive Member Role Status Dates ARNALDO MAST , BAG BUILDER Primary Care Provider Active Dr. Scarlet Mills MD Emergency Provider Active Team Status: Inactive Member Role Status Dates ARNALDO MAST , BAG BUILDER Primary Care Provider Active Dr. Scarlet Mills MD Attending Provider, Emergency Provider Active Team Status: Inactive Member Role Status Dates ARNALDO MAST , BAG BUILDER Primary Care Provider Active Dr. Bari Franco DO Emergency Provider Active Team Status: Active Member Role Status Dates ARNALDO MAST , BAG BUILDER Primary Care Provider Active Dr. Keagan Carrasquillo DO Emergency Provider Active Dr. Jeannette Griffin MD Admit Provider, Attending Prov ider Active Team Status: Inactive Member Role Status Dates ARNALDO MAST , BAG BUILDER Primary Care Provider, Referring Pr ovider Active Dr. Loren Lackey MD Attending Provider Active Team Status: Active Member Role Status Dates ARNALDO MAST , BAG BUILDER Primary Care Provider Active Dr. Keagan Carrasquillo DO Emergency Provider Active Dr. Jeannette Griffin MD Admit Provider, Other Provider Active Dr. Braulio Gonzales MD Other Provider Active Dr. Nicholas Rangel MD Attending Provider Activ e Team Status: Active Member Role Status Dates ARNALDO MAST , BAG BUILDER Primary Care Provider Active Dr. Keagan Carrasquillo DO Emergency Provider Active Dr. Jeannette Griffin MD Admit Provider, Other Provider Active Dr. Braulio Gonzales MD Attending Provider, Other Provi eve Active Team Status: Inactive Member Role Status Dates ARNALDO MAST , BAG BUILDER Primary Care Provider Active Dr. Bari Franco DO Attending Provider, Emergency P mark Active Team Status: Inactive Member Role Status Dates ARNALDO MAST , BAG BUILDER Primary Care Provider Active Dr. Keagan Carrasquillo DO Emergency Provider Active Dr. Jeannette Griffin MD Admit Provider, Other Provider Active Dr. Braulio Gonzales MD Attending Provider Active Team Status: Inactive Member Role Status Dates ARNALDO MAST , BAG BUILDER Primary Care Provider Active Dr. Ben Hamilton DO Emergency Provider Active Team Status: Inactive Member Role Status Dates ARNALDO MAST , BAG BUILDER Primary Care Provider Active Start: May 28, 2024 End: May 28, 2024 Dr. Heladio Costa DO Emergency Provider Active Start: May 28, 2024 End: May 28, 2024 Team Status: Active Member Role/Relationship Status Dates ARNALDO MAST , BAG BUILDER Primary care physician Active Team Status: Inactive Member Role/Relationship Status Dates ARNALDO MAST , BAG BUILDER Primary care physician Active Start: November 28, 2024 End: November 28, 2024 ARNALDO MAST , BAG BUILDER Referring Provider Active Sta rt: November 28, 2024 End: November 28, 2024 Alban Noel SUPERVISOR [employer], SUPERVISOR [employer] Attending physician Active Start: November 28, 2024 End: November 28, 2024 Team Status: Inactive Member Role/Relationship Status Dates ARNALDO MAST , BAG BUILDER Primary care physician Active Start: December 05, 2024 End: December 05, 2024 Alban Noel SUPERVISOR [employer], SUPERVISOR [employer] Attending physician Active Start: December 05, 2024 End: December 05, 2024 Alban Noel NP, SUPERVISOR [employer] Referring Provider Active S tart: December 05, 2024 End: December 05, 2024 FOR RECORDS PERTAINING TO PATIENTS WHO ARE [...] BE BASED ON THE PRIMARY CLINICAL RECORDS. [facility] [employer] [facility]. provides no warranty or guarantee of the accuracy or completeness of information in this document.
--- NOTE | 2024-12-27 12:12 | STRESSREP ---
Stress Test Report Date: 12/27/2024 Procedure: Pharmacologic stress nuclear imaging study Indications: Chest pain/coronary artery disease Consent: Per the patient Procedure: The patient underwent pharmacologic (Regadenoson 0.4mg ) evaluation with a peak heart rate of 76 beats per minute (44%predicted maximal heart rate) and a peak blood pressure of 142/80 mmHg. The baseline ECG demonstrated sinus rhythm. The peak pharmacologic ECG did not show any diagnostic ischemic changes. There were no cardiac dysrhythmias pretest, during pharmacologic infusion, or recovery. There was no complaint of chest discomfort during pharmacologic infusion or recovery. The patient was injected with 11.4 millicuries of technetium 99m Cardiolite and subsequently rest SPECT Cardiolite nuclear imaging was obtained in the horizontal long, vertical long, and short axis views. The patient underwent pharmacologic (Regadenoson) evaluation. The patient was injected with 34.3 millicuries of technetium 99m Cardiolite and subsequently stress SPECT Cardiolite nuclear imaging was obtained in the horizontal long, vertical long, and short axis views. A gated Cardiolite study at peak stress was obtained. The examination was stopped secondary to completion of protocol. Rest and stress SPECT Cardiolite nuclear imaging status post realignment, normalization, and attenuation correction demonstrate mildly reduced perfusion of the anterior wall post pharmacological stress. There is end systolic thickening and brightening. The gated Cardiolite study demonstrates myocardial thickening and inward wall motion. The reported LVEF is 62%. Impression: 1. Pharmacologic (Regadenoson) evaluation 2. Peak pharmacologic ECG with no diagnostic ischemic changes. 3. There were no cardiac dysrhythmias pretest, during pharmacologic infusion, or recovery. 5. Mildly reduced perfusion of the anterior wall post pharmacological stress, suggestive of mild ischemia. 6. The gated Cardiolite study reports an LVEF of 62%. This note was generated with [employer] software. It may contain incorrect words, spelling, and punctuation that were not noted in checking the note before signing.
== END | disposition home or self-care (01) ==
LOC: CVS 06:31
PROVIDERS: PCP Nurse Practitioner Adult Health; Referring Provider Nurse Practitioner Family; Visit Provider Nurse Practitioner Family
DX: R07.9 Chest pain, unspecified (principal); R06.02 Shortness of breath; I10 Essential (primary) hypertension; Z95.1 Presence of aortocoronary bypass graft
CPT/HCPCS: 78452; 93017; A9500; A4216; J2785

== ENCOUNTER 2025-01-16 08:10 | Day surgery (SDC) | payer MEDICAID, SELFPAY ==
--- NOTE | 2025-01-13 08:08 | HP.PCM_ITS ---
History and Physical
--- NOTE | 2025-01-13 08:08 | PCM.HP.BLA ---
History and Physical Date of Admission: 01/16/25 This gentleman has past medical history significant for coronary artery disease status post multiple percutaneous interventions and then coronary artery bypass graft surgery in May 2022. He has had a CRAIG to the LAD, vein graft to the obtuse marginal and vein graft to the posterior descending artery. He was seen with Dr. Stewart at [facility] on 09/24/2024. It is noted that he patient previously has been noted to have significant exertional chest tightness and shortness of breath. A coronary angiogram had been ordered to assess his symptoms further. Patient was unable to present for heart catheterization account of family emergency. Isosorbide was increased to 60 mg and again recommended to proceed with heart catheterization. Hemoglobin A1c on 04/11/2024 was noted be 7.1%. He had echocardiogram on 02/24/2024 that showed LV function 55-60% and no regional wall motion abnormalities. Stress test in March 2023 showed sinus bradycardia and was negative for ischemia. To help assess his symptoms further, he underwent a stress test on 12/27/2024 that was considered be abnormal. On account of abnormal stress test, symptoms, and history, he will proceed with heart catheterization. He acknowledges sharp, daily chest discomfort. This occurs randomly and located left side of his chest. This is considered to be brief. He acknowledges palpitations that he describes as pounding. He denies bilateral lower extremity edema. He acknowledges shortness breath with activity. He denies shortness of breath at rest, orthopnea, cough, or PND. He acknowledges lightheadedness when bending over and standing back up. He acknowledges weakness. He denies dizziness, near-syncope, or syncope. He acknowledges fatigue. He uses a cane to assist with arm numbness and right leg numbness. 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) Polyarthritis Right shoulder pain Type 2 diabetes mellitus with cardiac complication Numbness of upper extremity Nicotine dependence History of cocaine use LVH (left ventricular hypertrophy) Left inguinal hernia Insomnia Electric shock-type pain Cold extremities CHF (congestive heart failure) Chest pain Overweight Anxiety and depression Chronic neuropathic pain GERD (gastroesophageal reflux disease) Tobacco use HLD (hyperlipidemia) HTN (hypertension) Myocardial infarct Myocardial infarction Coronary artery disease Surgical History H/O right inguinal hernia repair Hx of CABG (~05/27/22) H/O hernia repair History of appendectomy H/O heart artery stent Family History Mother Hypertension CVA (cerebral vascular accident) Father No problems noted. Grandfather Multiple sclerosis Paternal grandfather Brother Multiple sclerosis Heart disease Hypertension CAD (coronary artery disease) Myocardial infarction Social History household members: spouse and children Smoking Status: Light Smoker (<10/day) alcohol intake: never substance use type: does not use caffeine: Yes (2 liters/day) Type: carbonated beverages Number of servings: 2, coffee and tea Number of servings: 1 ROS Const Const: Positive for fatigue and weakness Eyes Eyes: Negative for change in vision ENT ENT: Positive for balance problems (Uses a cane); Negative for dizziness Cardio Chest Pain: Yes (Pt thinks that it may be nerve related) Frequency: daily Character: sharp Onset: other (Randomly) Location: left chest Duration: brief Palpitations: Yes feels like its: pounding Edema: None Muscle aches with walking: None Resp Respiratory: Positive for SOB with activity; Negative for SOB at rest or SOB orthopnea\SOB lying down GI GI: Negative nausea or heartburn : Negative for hematuria or frequent nighttime urination/ nocturia Musc Musc: Positive for balance problems (Uses a cane) Skin Skin: Negative non-healing lesions or rash Neuro Neuro: Positive for lightheadedness (When bending over and standing back up) and weakness; Negative for dizziness, near syncope or syncope Endo Endo: Positive for fatigue Allergy Allergy/Immunology: Negative for rash Cardiology Exam Const Appearance: cooperative, healthy appearing, comfortable and no acute distress Nutritional Appearance: well nourished and overweight Orientation: alert, awake and oriented x3 Head Head: normal to inspection Ears: hearing grossly normal bilaterally Nose: external nose normal Face and Sinus: face symmetric Mouth: moist mucous membranes Eyes General: appearance normal, both eyes and all related structures Eyelids: eyelids normal EOM: EOM intact bilaterally Neck Neck: normal visual inspection and no JVD Carotids: normal carotid upstroke Chest Chest inspection: normal inspection of the chest, symmetric chest movement and normal respiratory effort; Negative cough Auscultation: Bilateral: Clear to Auscultation Cardio Rate: regular rate Rhythm: regular rhythm Heart sounds: S1 normal and S2 normal; Negative rub, gallop or murmur GI GI: normal to inspection Neuro General: patient alert, patient awake, patient oriented x3 and CN's II-XI intact bilaterally Skin Skin: no rashes or lesions noted Extremities Pulses: Normal: Right Posterior Tibial Pulse, Left Posterior Tibial Pulse, Right Radial Pulse and Left Radial Pulse Lower Extremity Edema: None: Bilateral Psych Psychological: normal affect Supplemental Info Supplemental Information ECHOCARDIOGRAM 05/24/22: SUMMARY 1. This study was technically limited. Definity IV contrast was used to enhance endocardial definition.2. Left ventricular systolic function is normal with an ejection fraction by Biplane Method of Discs of 59%. 3. Mild left ventricular concentric hypertrophy. 4.Right ventricular size and systolic function are normal. 5. There is grade I diastolic dysfunction, consistent with impaired relaxation and low or normal left atrial pressures. 6. No hemodynamically significant valvular disease. Stress test from 12/27/2024: Impression: 1. Pharmacologic (Regadenoson) evaluation 2. Peak pharmacologic ECG with no diagnostic ischemic changes. 3. There were no cardiac dysrhythmias pretest, during pharmacologic infusion, or recovery. 5. Mildly reduced perfusion of the anterior wall post pharmacological stress, suggestive of mild ischemia. 6. The gated Cardiolite study reports an LVEF of 62%. CARDIAC CATHETERIZATION 05/24/22: IMPRESSION Acute inferior ST elevation myocardial infarction Severe three-vessel coronary disease S/P balloon angioplasty of distal right coronary artery Elevated left heart filling pressures Mildly reduced LV systolic function EF 50% RECOMMENDATIONS Continue medical therapy Cardiothoracic surgery consult for urgent CABG CAROTID DUPLEX 05/24/22: CONCLUSIONS RIGHT * Less than 50% stenosis in the right internal carotid artery. * No evidence of stenosis in the right common carotid, external carotid and subclavian arteries. * Right vertebral artery is patent with antegrade flow. LEFT * Less than 50% stenosis in the left internal carotid artery. * No evidence of stenosis in the left common carotid, external carotid and subclavian arteries. * Left vertebral artery is patent with antegrade flow. Assessment and Plan Assessment and Plan (1) S/P CABG x 3: Status: Chronic Comment: CRAIG to the LAD and vein grafts to the obtuse marginal and right PDA in 2022 Plan: On account of his symptoms, it was previously recommended to undergo heart catheterization. He was unable to have this done on account of family emergency. As he is an established patient here, he wishes to have this completed at our facility. With his ongoing chest pain, shortness of breath, and history of bypass surgery, he proceeded with a stress test. It was considered to be abnormal and thus he will proceed with heart catheterization. (2) Chest pain: Status: Acute Plan: Twelve-lead ECG on 11/28/2024 shows sinus rhythm at a rate of 60 bpm, IL interval 156, QRS 90, QTc 424, and axis -4 degrees. There are no acute ST or T wave changes noted. Compared to previous dated April 09, 2023, it appears similar. With his history of coronary artery stenting, multiple risk factors for progressive coronary artery disease, and ongoing symptoms, is recommended proceed with heart catheterization. (3) HTN (hypertension): Status: Chronic Plan: Patient's blood pressure is well-controlled. We will continue to monitor. We will not make any medication regimen changes. (4) Dyslipidemia: Status: Chronic Plan: Lipid panel on 04/11/2024 showed total cholesterol: 131, HDL: 34, LDL: 36, and triglycerides: 307. This is being managed by primary care provider. He was reminded of LDL goal of 70 and below for secondary prevention and closer to 50?55 as a diabetic. He will continue atorvastatin 40 mg p.o. daily. Depending on future LDL results, can consider advancing atorvastatin or adding nonstatin related medication. (5) Nicotine dependence: Status: Chronic Plan: Patient is a previous smoker. He currently uses Nicotine patches. He received extensive education regarding the health benefits of smoking cessation. We will continue to support and encourage smoking cessation. (6) Diabetes mellitus: Status: Chronic Plan: He is currently on Jardiance therapy. His most recent hemoglobin A1c was noted be 7.1%. The importance of diabetic control in relation to cardiovascular health reviewed.
[2025-01-15 08:42] VITALS: BMI 28.1
[2025-01-15 10:24] LABS: Hematocrit 47.2 % (40-54); Hemoglobin 15.8 g/dL (13.0-16.5); Immature Granulocytes Count 0.030 X10^3/uL (0.0-0.0); Mean Corp Hgb Conc 33.5 g/dL (32-36); Mean Corpuscular Volume 84.9 fL (80-94); Mean Platelet Vol. 10.0 fl (6.2-12.0); NRBC Flagged by Analyzer 0 % (0-5); Platelet Count 263 K/mm3 (150-450); RBC Distribution Width CV 13.0 % (11.6-14.6); RBC Distribution Width SD 40.6 fl (35.1-43.9); Red Blood Count 5.56 M/mm3 (4.6-6.2); White Blood Count 8.8 K/mm3 (4.4-11.0)
[2025-01-15 11:20] LABS: Anion Gap 11 (5-15); BUN 18 mg/dL (4-19); BUN/Creat Ratio 24.0 RATIO (10-20); Calcium,Total 8.7 mg/dL (7.6-11.0); Carbon Dioxide 21.9 mmol/L (21.0-32.0); Chloride 103 mmol/L (98-108); Estimated Creatinine Clearance 123.83 ml/min (50-250); Glucose 219 mg/dL (70-99); Potassium 4.1 mmol/L (3.3-5.1)
== END 2025-01-16 13:30 | disposition home or self-care (01) ==
PROVIDERS: Nurse Practitioner Family; PCP Nurse Practitioner Adult Health; Referring Provider Internal Medicine Cardiovascular Disease; Visit Provider Internal Medicine Cardiovascular Disease
DX: I25.10 Atherosclerotic heart disease of native coronary artery without angina pectoris (principal); I11.0 Hypertensive heart disease with heart failure; I50.9 Heart failure, unspecified; E11.9 Type 2 diabetes mellitus without complications; E78.5 Hyperlipidemia, unspecified; F17.200 Nicotine dependence, unspecified, uncomplicated; I25.2 Old myocardial infarction; Z79.82 Long term (current) use of aspirin; Z79.01 Long term (current) use of anticoagulants; Z79.84 Long term (current) use of oral hypoglycemic drugs; Z95.1 Presence of aortocoronary bypass graft; Z95.5 Presence of coronary angioplasty implant and graft
CPT/HCPCS: 36415; 80048; 85025; 93455; 99152; 99153; C1894; Q9967; C1769